=== PATIENT | female | born 1955 | race Caucasian/White ===

== ENCOUNTER → 2020-02-11 10:46 | Outpatient (BNVA) | payer MEDICARE, SELFPAY | PROVIDERS: PCP Family Medicine; Visit Provider Family Medicine Adult Medicine | DX: M54.12 Radiculopathy, cervical region (principal); M54.16 Radiculopathy, lumbar region; M96.1 Postlaminectomy syndrome, not elsewhere classified; M17.0 Bilateral primary osteoarthritis of knee; Z79.891 Long term (current) use of opiate analgesic | CPT/HCPCS: 99214 ==

== ENCOUNTER 2020-03-15 08:46 | Outpatient (REF) | payer MEDICARE, SELFPAY ==
[2020-03-15 09:34] LABS: Basophils Absolute Auto 0.1 X10*3/uL (0.0-0.2); Basophils Percent Auto 0.9 % (0-2); Eosinophils Absolute Auto 0.2 X10*3/uL (0.0-0.4); Eosinophils Percent Auto 3.4 % (0-4); Hematocrit 35.2 % (37-47); Hemoglobin 10.1 g/dl (12.0-16.0); Imm Gran Abs Auto 0.02 X10*3/uL (0.00-0.03); Imm Gran Pct Auto 0.4 % (0.0-0.4); Lymphocytes Absolute Auto 1.7 X10*3/uL (1.2-4.9); Lymphocytes Percent Auto 30.9 % (20-40); MANUAL DIFF FLAG NO; Mean Corpuscular HGB Conc 28.7 g/dl (31.0-35.0); Mean Corpuscular Hemoglobin 21.8 pg (27.0-33.0); Mean Corpuscular Volume 75.9 fL (80-98); Mean Platelet Volume 8.8 fL (9.4-12.3); Monocytes Absolute Auto 0.6 X10*3/uL (0.1-1.2); Monocytes Percent Auto 10.1 % (2-11); Neutrophils Absolute Auto 3.1 X10*3/uL (2.0-8.3); Neutrophils Percent Auto 54.3 % (45-73); Platelet Count 326 X10*3/uL (160-400); Red Blood Count 4.64 X10*6/uL (4.20-5.50); Red Cell Distribution Width 18.1 % (11.0-16.0); White Blood Count 5.6 X10*3/uL (4.8-10.8)
[2020-03-15 10:31] LABS: TSH reflex Free T4 0.71 mIU/mL (0.32-4.0)
[2020-03-15 10:33] LABS: Alanine Aminotransferase 9 U/L (0-31); Albumin Level 4.1 g/dL (3.5-5.0); Alkaline Phosphatase 78 U/L (39-117); Anion Gap 10 (12-20); Aspartate Amino Transferase 15 U/L (5-31); Bilirubin Total 0.5 mg/dL (0.0-1.0); Blood Urea Nitrogen 9 mg/dL (9-16); Calcium 8.6 mg/dL (8.4-10.2); Carbon Dioxide 31 mmol/L (22-29); Chloride 105 mmol/L (96-108); Cholesterol 186 mg/dL; Estimated Glomerular Filt Rate > 60; Glucose Random 90 mg/dL (60-115); HDL Cholesterol 51 mg/dL; Iron 24 mcg/dL (30-160); LDL Cholesterol Calculated 113 mg/dl; Percent Iron Saturation 6 % (15-50); Potassium 4.7 mmol/l (3.3-5.1); Sodium 141 mmol/L (135-145); Total Iron Binding Capacity 372 mcg/dL (228-428); Total Protein 6.5 g/dL (6.5-8.0); Triglycerides 112 mg/dL; Unsaturated Iron Binding 348 ug/dL
== END 2020-03-15 08:47 | disposition home or self-care (01) ==
LOC: HO.LAB 08:46
PROVIDERS: PCP Family Medicine; Visit Provider Family Medicine
DX: Z00.00 Encounter for general adult medical examination without abnormal findings (principal)
CPT/HCPCS: 36415; 80053; 80061; 83540; 84443; 85025

== ENCOUNTER → 2020-03-17 15:29 | Outpatient (BNVA) | payer MEDICARE, SELFPAY | PROVIDERS: PCP Family Medicine; Visit Provider Family Medicine Adult Medicine | DX: M54.16 Radiculopathy, lumbar region (principal); M54.12 Radiculopathy, cervical region; G43.909 Migraine, unspecified, not intractable, without status migrainosus; Z79.891 Long term (current) use of opiate analgesic | CPT/HCPCS: 99212 ==

== ENCOUNTER → 2020-04-12 10:15 | Outpatient (BNVA) | payer MEDICARE, SELFPAY | PROVIDERS: Visit Provider Family Medicine Adult Medicine | DX: M54.16 Radiculopathy, lumbar region (principal); M54.12 Radiculopathy, cervical region | CPT/HCPCS: 99212 ==

== ENCOUNTER → 2020-05-19 12:53 | Outpatient (BNVA) | payer MEDICARE, SELFPAY | PROVIDERS: PCP Family Medicine; Referring Provider Family Medicine; Visit Provider Family Medicine Adult Medicine | DX: M54.16 Radiculopathy, lumbar region (principal); M54.12 Radiculopathy, cervical region | CPT/HCPCS: 99212 ==

== ENCOUNTER → 2020-06-23 12:46 | Outpatient (BNVA) | payer MEDICARE, SELFPAY | PROVIDERS: PCP Family Medicine; Visit Provider Family Medicine Adult Medicine | DX: Z51.81 Encounter for therapeutic drug level monitoring (principal) | CPT/HCPCS: 99211 ==

== ENCOUNTER 2020-07-20 12:18 | Outpatient (REF) | payer MEDICARE, SELFPAY ==
[2020-07-20 13:30] LABS: MANUAL DIFF FLAG NO
[2020-07-20 13:32] LABS: Basophils Absolute Auto 0.1 X10*3/uL (0.0-0.2); Basophils Percent Auto 0.7 % (0-2); Eosinophils Absolute Auto 0.2 X10*3/uL (0.0-0.4); Eosinophils Percent Auto 2.9 % (0-4); Hematocrit 38.3 % (37-47); Hemoglobin 11.8 g/dl (12.0-16.0); Imm Gran Abs Auto 0.02 X10*3/uL (0.00-0.03); Imm Gran Pct Auto 0.3 % (0.0-0.4); Lymphocytes Absolute Auto 1.8 X10*3/uL (1.2-4.9); Mean Corpuscular HGB Conc 30.8 g/dl (31.0-35.0); Mean Corpuscular Hemoglobin 25.8 pg (27.0-33.0); Mean Corpuscular Volume 83.6 fL (80-98); Mean Platelet Volume 9.2 fL (9.4-12.3); Monocytes Absolute Auto 0.5 X10*3/uL (0.1-1.2); Neutrophils Absolute Auto 4.9 X10*3/uL (2.0-8.3); Neutrophils Percent Auto 65.1 % (45-73); Platelet Count 274 X10*3/uL (160-400); Red Blood Count 4.58 X10*6/uL (4.20-5.50); Red Cell Distribution Width 15.5 % (11.0-16.0); White Blood Count 7.6 X10*3/uL (4.8-10.8)
[2020-07-20 14:18] LABS: Alanine Aminotransferase 10 U/L (0-31); Albumin Level 4.3 g/dL (3.5-5.0); Alkaline Phosphatase 86 U/L (39-117); Anion Gap 12 (12-20); Aspartate Amino Transferase 15 U/L (5-31); Bilirubin Total 0.3 mg/dL (0.0-1.0); Blood Urea Nitrogen 8 mg/dL (9-16); Calcium 8.9 mg/dL (8.4-10.2); Carbon Dioxide 30 mmol/L (22-29); Chloride 103 mmol/L (96-108); Estimated Glomerular Filt Rate > 60; Glucose Random 86 mg/dL (60-115); Potassium 4.3 mmol/L (3.3-5.1); Sodium 141 mmol/L (135-145); Total Protein 6.5 g/dL (6.5-8.0)
== END 2020-07-20 12:19 | disposition home or self-care (01) ==
LOC: HO.WFDLDS 12:18
PROVIDERS: Visit Provider Family Medicine
DX: D50.9 Iron deficiency anemia, unspecified (principal); I10 Essential (primary) hypertension
CPT/HCPCS: 36415; 80053; 85025

== ENCOUNTER → 2020-07-21 14:36 | Outpatient (BNVA) | payer MEDICARE, SELFPAY | PROVIDERS: PCP Family Medicine; Visit Provider Family Medicine Adult Medicine | DX: M54.16 Radiculopathy, lumbar region (principal); M54.12 Radiculopathy, cervical region; Z79.899 Other long term (current) drug therapy | CPT/HCPCS: 99212 ==

== ENCOUNTER 2020-07-28 15:50 | Emergency (ER) | payer MEDICARE, SELFPAY ==
--- NOTE | ~2020-07-28 | CT_ITS ---
EXAMINATION: CT HEAD WITHOUT CONTRAST CT CERVICAL SPINE WITHOUT CONTRAST CLINICAL INFORMATION: Head injury. Fall. COMPARISON: CT head 03/02/2019. Plain film cervical spine 01/30/2019 TECHNIQUE: Imaging was performed from the skull base to vertex without intravenous administration of contrast. In addition, helical noncontrast CT imaging was acquired through the cervical spine and source images were reviewed along with axial reconstructions and sagittal and coronal MPRs. [This CT examination was performed using dose optimization techniques as appropriate, variously including the following: *Automated exposure control *Adjustment of mA and/or kV according to patient size (this includes techniques or standardized protocols for targeted exams where dose is matched to indication/reason for exam; i.e. extremities or head) *Use of iterative reconstruction technique] DLP: 1333 mGy-cm FINDINGS: HEAD: No intracranial mass, hemorrhage, or midline shift is visualized. The ventricles and sulci are age-appropriate. No extra-axial collections are identified. The paranasal sinuses and mastoid air cells are well aerated. CERVICAL SPINE: There is no evidence of acute cervical spine fracture. Vertebral bodies remain normal in height. Cervical vertebrae have normal alignment. Status post fusion with anterior plate and screw C4-C7 vertebrae. No pre- or paravertebral soft tissue abnormality is identified. Limited assessment of the lung apices is unremarkable. CT/CT cervical spine wo con IMPRESSION: 1. No acute intracranial pathology. 2. No CT evidence of acute cervical spine fracture or traumatic subluxation. Status post fusion C4 C7 vertebrae.
--- NOTE | ~2020-07-28 | CT_ITS ---
EXAMINATION: CT HEAD WITHOUT CONTRAST CT CERVICAL SPINE WITHOUT CONTRAST CLINICAL INFORMATION: Head injury. Fall. COMPARISON: CT head 03/02/2019. Plain film cervical spine 01/30/2019 TECHNIQUE: Imaging was performed from the skull base to vertex without intravenous administration of contrast. In addition, helical noncontrast CT imaging was acquired through the cervical spine and source images were reviewed along with axial reconstructions and sagittal and coronal MPRs. [This CT examination was performed using dose optimization techniques as appropriate, variously including the following: *Automated exposure control *Adjustment of mA and/or kV according to patient size (this includes techniques or standardized protocols for targeted exams where dose is matched to indication/reason for exam; i.e. extremities or head) *Use of iterative reconstruction technique] DLP: 1333 mGy-cm FINDINGS: HEAD: No intracranial mass, hemorrhage, or midline shift is visualized. The ventricles and sulci are age-appropriate. No extra-axial collections are identified. The paranasal sinuses and mastoid air cells are well aerated. CERVICAL SPINE: There is no evidence of acute cervical spine fracture. Vertebral bodies remain normal in height. Cervical vertebrae have normal alignment. Status post fusion with anterior plate and screw C4-C7 vertebrae. No pre- or paravertebral soft tissue abnormality is identified. Limited assessment of the lung apices is unremarkable. CT/CT head/brain wo con IMPRESSION: 1. No acute intracranial pathology. 2. No CT evidence of acute cervical spine fracture or traumatic subluxation. Status post fusion C4 C7 vertebrae.
[2020-07-28 16:06] VITALS: BP 143/105; PULSE 83; RESP 18; TEMP 36.8; O2SAT 95; BMI 44.2
--- NOTE | 2020-07-28 18:13 | ED.FALL ---
HPI - Fall General Chief Complaint: Fall Stated Complaint: fall - head injury Time Seen by Provider: 07/28/20 18:06 Source: patient Mode of arrival: ambulatory Limitations: no limitations History of Present Illness HPI Narrative: 65-year-old female who normally walks with a walker due to balance problem due to a previous disc surgery and her neck, patient was getting out of the time last night when she lost balance and hit her head in the car door several times, patient declined LOC, patient has been having headache since yesterday. And neck pain. Headache was started after hitting her head yesterday, described as constant, moderate in intensity about 6/10, with neck pain, nothing make it better or worse, no other associated symptoms. Related Data Home Medications Medication Instructions Recorded Confirmed fluoxetine 20 mg capsule 20 mg PO DAILY 02/06/20 07/21/20 fluticasone propionate 50 INTRANASAL 02/06/20 07/21/20 mcg/actuation nasal spray,suspension azithromycin 250 mg tablet mg PO DIRECTED 03/21/20 07/21/20 fluoxetine 40 mg capsule 40 mg PO DAILY 03/21/20 07/21/20 lamotrigine 150 mg tablet 150 mg PO BID 03/21/20 07/21/20 Previous Rx's Medication Instructions Recorded naproxen 500 mg tablet 500 mg PO Q12H 90 Days #180 tab 03/14/20 omeprazole 20 mg capsule,delayed 40 mg PO DAILY #180 cap 03/14/20 release ferrous gluconate 256 mg (28 mg 256 mg PO DAILY 30 Days #30 tab 03/16/20 iron) tablet sumatriptan succinate 50 mg tablet 50 mg PO Q2-4H PRN #5 tab 03/17/20 gabapentin 600 mg tablet 900 mg PO Q8H 90 Days #405 tab 06/28/20 famotidine 40 mg tablet 40 mg PO BEDTIME #90 tab 07/07/20 losartan 25 mg tablet 25 mg PO DAILY #90 tab 07/07/20 hydrochlorothiazide 12.5 mg tablet 12.5 mg PO DAILY 90 Days #90 tab 07/20/20 buprenorphine 20 mcg/hour weekly 1 patch TRANSDERMAL Q7D 28 Days #4 07/21/20 transdermal patch ea oxycodone-acetaminophen 10 mg-325 1 tab PO Q6H PRN 30 Days #120 tab 07/21/20 mg tablet Allergies Allergy/AdvReac Type Severity Reaction Status Date / Time SEAFOOD Allergy Unknown HIVES Uncoded 06/23/20 13:16 Review of Systems Review of Systems: All other systems are reviewed and are negative Constitutional: Reports as per HPI and Reports no additional constitutional complaints Eyes: Reports as per HPI and Reports no additional eye complaints Reports system reviewed and no additional complaints, except as documented Cardiovascular: Reports as per HPI and Reports no additional cardiovascular complaints Respiratory: Reports as per HPI and Reports no additional respiratory complaints Gastrointestinal: Reports as per HPI and Reports no additional gastrointestinal complaints Genitourinary: Reports no additional female genitourinary complaints Musculoskeletal: Reports no additional musculoskeletal complaints Skin/Breast: Reports system reviewed and no additional complaints, except as docu Psychiatric: Reports no additional psychiatric complaints Endocrine: Reports no additional endocrine complaints Hematologic/Lymphatic: Reports no additional hematologic/lymphatic complaints Allergic/Immunologic: Reports no additional allergic/immunologic complaints Reports system reviewed and no additional complaints, except as documented and Reports Abnormal speech present PMFSH Past Medical History Medical History Cervical radiculopathy Lumbar radiculopathy Major depressive disorder Migraine Osteoarthritis of knees, bilateral Urge incontinence Surgical History History of bariatric surgery S/P cervical spinal fusion Family History Family History Father No problems noted. Mother No problems noted. Social History Social History Household Members: None Alcohol intake: never Smoking Status: Former smoker Advance Directives: No Advance Directives Information Provided: Yes Physical Exam Vital Signs: Vital Signs: Last Vital Signs Temp 98.3 F 07/28/20 16:06 Pulse 81 07/28/20 19:11 Resp 16 07/28/20 19:11 BP 112/53 L 07/28/20 19:11 Pulse Ox 98 07/28/20 19:11 Body Mass Index 44.2 Vital signs have been reviewed as appeared to be correct. Blood pressure is high. Heart rate normal. Respiration rate normal. Temperature normal. Oxygen saturation normal. Appearance: Alert. Oriented X3. No acute distress. Head: Normal external exam. Normocephalic. Atraumatic. No Godoy signs noted. No raccoon eyes noted Eyes: PERRLA. EOMI. Conjunctiva and sclera normal. Eyelids normal. ENT: TM's Normal. Pharynx normal. Uvula midline. Moist mucous membranes. No trismus noted. No drooling noted. No muffled voice noted. Neck: Normal inspection. Midline tenderness with no step-off or deformity. CVS: Normal heart rate and rhythm. Heart sound normal. No murmurs noted. Pulses normal throughout. Respiratory: No respiratory distress. Painless inspiration. Breath sounds normal. No wheezes/rales/rhonchi noted. Chest nontender. No accessory muscle usage noted or decreased air movement noted. Abdomen: Soft and nontender. Bowel sounds normal in all 4 quadrants. No distention noted. No organomegaly noted. No visible injury noted. Back: No CVA tenderness. Full range of motion noted. Skin: Skin warm and dry. Normal skin color. Normal skin turgor. No rashes/lesions/lacerations noted. Extremities: No lower extremity edema. Extremities exhibit normal range of motion. Extremities nontender. Neuro: Oriented X 3. No motor deficit. No sensory deficit. Reflexes normal. Course Course Course Narrative: Status post mechanical fall, patient has echo Librium problem usually walk with a walker, with head trauma and neck pain greater than 24 hours ago, GCS of 15, normal neuro exam, head CT is unremarkable. MDM - Fall Imaging Data CT scan - head: Radiologist's impression: No acute intracranial pathology. Cervical spine CT: Radiologist's impression: No acute cervical spine fracture or subluxation. History of cervical spine surgical fusion. Discharge Plan Discharge Clinical Impression: Neck pain Closed head injury Qualifiers: Encounter type: initial encounter Qualified Code(s): S09.90XA - Unspecified injury of head, initial encounter Patient Disposition: Home, Self-Care Instructions: Head Injury (ED) Prescriptions: No Action naproxen 500 mg tablet 500 mg PO Q12H 90 Days Qty: 180 RF: 4 omeprazole 20 mg capsule,delayed release(DR/EC) 40 mg PO DAILY Qty: 180 RF: 2 gabapentin 600 mg tablet 900 mg PO Q8H 90 Days Qty: 405 RF: 1 losartan 25 mg tablet 25 mg PO DAILY Qty: 90 RF: 1 famotidine 40 mg tablet 40 mg PO BEDTIME Qty: 90 RF: 1 lamotrigine 150 mg tablet 150 mg PO BID RF: 0 azithromycin 250 mg tablet PO DIRECTED RF: 0 fluoxetine 40 mg capsule 40 mg PO DAILY RF: 0 hydrochlorothiazide 12.5 mg tablet 12.5 mg PO DAILY 90 Days Qty: 90 RF: 2 ferrous gluconate 256 mg (28 mg iron) tablet 256 mg PO DAILY 30 Days Qty: 30 RF: 3 sumatriptan succinate 50 mg tablet 50 mg PO Q2-4H PRN (Reason: migraine headache) Qty: 5 RF: 0 oxycodone-acetaminophen 10-325 mg tablet 1 tab PO Q6H PRN (Reason: pain) 30 Days Qty: 120 RF: 0 buprenorphine [Butrans] 20 mcg/hour patch weekly 1 patch transdermal Q7D 28 Days Qty: 4 RF: 1 fluticasone propionate 50 mcg/actuation spray,suspension intranasal RF: 0 fluoxetine 20 mg capsule 20 mg PO DAILY RF: 0 Referrals: Iron Castano MD [Primary Care Provider] - 2 days
[2020-07-28 19:11] VITALS: BP 112/53; PULSE 81; RESP 16; O2SAT 98
== END 2020-07-28 19:44 | disposition home or self-care (01) ==
PROVIDERS: Emergency Provider Emergency Medicine; PCP Family Medicine
DX: S09.90XA Unspecified injury of head, initial encounter (principal); M54.2 Cervicalgia; R51.9 Headache, unspecified; Y29.XXXA Contact with blunt object, undetermined intent, initial encounter; Y93.9 Activity, unspecified; Y92.810 Car as the place of occurrence of the external cause; Y99.9 Unspecified external cause status; Z79.899 Other long term (current) drug therapy; Z87.891 Personal history of nicotine dependence
CPT/HCPCS: 70450; 72125; 99284

== ENCOUNTER → 2020-09-01 12:57 | Outpatient (BNVA) | payer MEDICARE, SELFPAY | PROVIDERS: PCP Family Medicine; Visit Provider Family Medicine Adult Medicine | DX: M54.16 Radiculopathy, lumbar region (principal); M54.12 Radiculopathy, cervical region | CPT/HCPCS: 99212; Q3014 ==

== ENCOUNTER → 2020-10-06 08:51 | Outpatient (BNVA) | payer MEDICARE, SELFPAY | PROVIDERS: PCP Family Medicine; Visit Provider Family Medicine Adult Medicine | DX: M54.16 Radiculopathy, lumbar region (principal); M54.12 Radiculopathy, cervical region | CPT/HCPCS: 99212 ==

== ENCOUNTER 2020-10-19 14:00 | Outpatient (RCR) | payer MEDICARE, SELFPAY ==
--- NOTE | 2020-08-10 15:26 | MHC.PT.EP ---
[facility] [place] Office [place] Office [place] Office [address] Sheri Zhao [address] [phone] F: [phone] F: [phone] F: [phone] F: [phone] Physical Therapy Plan of Care Date of Evaluation: 08/10/20 Date of Surgery: 2015 Diagnosis: UNSTEADY GAIT/ LEs WEAKNESS Assessment: 65 YO FEMALE REF TO PT W DX OF LEG WEAKNESS AND UNSTEADY GAIT- OF IMPORTANCE, Pt UNDERWENT C4-C7 CERV FUSION IN 2016 AND HAS RESIDUAL SENSORY DEFICITS IN [place] HANDS AND LAT FEET- SHE HAS DECR ANKLE AROM, LIMITED HIP FLEXIB, CERV AROM, GENERAL WEAKNESS IN [place] LEs, AND DECR POSTURAL AWARENESS. FUNCTIONALLY, Pt HAS LIMITED GAIT PAMELA- SHE DOES BEST W HER ROLLATOR- SHE IS UNABLE TO SLS AND HAS DYNAMIC BALANCE DEFICITS ESPEC DYLON IS NARROWED. SHE WOULD BENEFIT FROM PT TO DEV A HEP AND ADDRESS BALANCE DEFICITS / EDUC AND IMPROVE SAFETY AWARENESS. Frequency and Duration: The patient will be seen 1-2x 5 WKS Short Term Goals: Pt 'S PAIN DECR TO 3-4/10 IN 2 WKS Pt DEMON IMPROVED AROM [place] ANKLES IN 2 WKS IMPROVE TOE OFF/ PRE-SWING PORTION OF GAIT MECH AND ASSESS STAIR MGMT IN 2 WKS Pt INDEP IN/OUT OF CAR W/O SXS IN 3 WKS Nursing Home Goals: Pt INDEP W HEP AND SELF-POSTURAL CORRECTION TO REDUCE TISSUE TENSION ON CERV AND LB OIN 5 WKS Pt DEMON IMPROVED LeS STRENGTH BY 1/2-1 GRADE IN 5 WKS Pt DEMON PROPER TECHN W STAIR MGMT IN 5 WKS Treatment Plan: Modalities to reduce pain, spasms and effusion. Manual therapy to restore motion and function. Therapeutic exercise to improve strength and flexibility. Neuromuscular re-education for posture and balance. Therapeutic activities to return to functional activities of daily living. Electronically signed by: Luci RichardsPT Please sign and return to therapist. Thank you for your referral.
--- NOTE | 2020-10-19 14:56 | MHC.PT.DC ---
[facility] [place] Office [place] Office [place] Office [address] Sheri Zhao [address] [phone] F: [phone] F: [phone] F: [phone] F: [phone] Physical Therapy Discharge Report Diagnosis: UNSTEADY GAIT/ LEs WEAKNESS Date of Surgery: 2015 Date of Evaluation: 08/10/20 Date of Discharge: Treatments to Date: 6 Cancellations to Date: 0 No Shows to Date: 0 Discharge Status: Discharge Summary: Pt MET PT GOALS TO MAX POTENTIAL AT THIS TIME- HER KNEE OA DIRECTLY IMPACTS HER FUNCTIONAL MOBILITY/ ACTIVITY PAMELA- Pt HAS DECR PAIN OVERALL AND NOTES SHE FEELS STRONGER AND ABLE TO AMBULATE/ PERFORM TRANSFERS/ GET IN AND OOB W BETTER TOLERANCE AND TECHN. Pt HAS A THOROUGH HEP TO ADDRESS FURTHER STRENGTHENING. Electronically signed by: Luci Richards,PT Please sign and return to therapist. Thank you for your referral.
== END 2020-10-19 14:58 | disposition other institution (70) ==
LOC: HO.PTCHIC 14:00
PROVIDERS: PCP Family Medicine; Visit Provider Family Medicine
DX: R29.898 Other symptoms and signs involving the musculoskeletal system (principal)
CPT/HCPCS: 97110; 97112; 97140; 97162; 97530

== ENCOUNTER 2020-10-31 11:40 | Outpatient (REF) | payer MEDICARE, SELFPAY ==
[2020-10-31 13:29] LABS: MANUAL DIFF FLAG NO
[2020-10-31 13:31] LABS: Basophils Absolute Auto 0.1 X10*3/uL (0.0-0.2); Basophils Percent Auto 0.9 % (0-2); Eosinophils Absolute Auto 0.2 X10*3/uL (0.0-0.4); Eosinophils Percent Auto 3.4 % (0-4); Hematocrit 39.5 % (37-47); Hemoglobin 12.3 g/dl (12.0-16.0); Imm Gran Abs Auto 0.03 X10*3/uL (0.00-0.03); Imm Gran Pct Auto 0.5 % (0.0-0.4); Lymphocytes Absolute Auto 2.1 X10*3/uL (1.2-4.9); Lymphocytes Percent Auto 33.1 % (20-40); Mean Corpuscular HGB Conc 31.1 g/dl (31.0-35.0); Mean Corpuscular Hemoglobin 26.8 pg (27.0-33.0); Mean Corpuscular Volume 86.1 fL (80-98); Mean Platelet Volume 9.2 fL (9.4-12.3); Monocytes Absolute Auto 0.6 X10*3/uL (0.1-1.2); Monocytes Percent Auto 9.3 % (2-11); Neutrophils Absolute Auto 3.4 X10*3/uL (2.0-8.3); Neutrophils Percent Auto 52.8 % (45-73); Platelet Count 283 X10*3/uL (160-400); Red Blood Count 4.59 X10*6/uL (4.20-5.50); Red Cell Distribution Width 14.6 % (11.0-16.0); White Blood Count 6.4 X10*3/uL (4.8-10.8)
[2020-10-31 13:50] LABS: Anion Gap 12 (12-20); Blood Urea Nitrogen 8 mg/dL (9-16); Calcium 9.4 mg/dL (8.4-10.2); Carbon Dioxide 31 mmol/L (22-29); Chloride 106 mmol/L (96-108); Estimated Glomerular Filt Rate > 60; Glucose Random 89 mg/dL (60-115); Potassium 5.1 mmol/L (3.3-5.1); Sodium 144 mmol/L (135-145)
== END 2020-10-31 11:41 | disposition home or self-care (01) ==
LOC: HO.WFDLDS 11:40
PROVIDERS: PCP Family Medicine; Visit Provider Family Medicine
DX: Z00.00 Encounter for general adult medical examination without abnormal findings (principal); I10 Essential (primary) hypertension; D50.9 Iron deficiency anemia, unspecified
CPT/HCPCS: 36415; 80048; 85025

== ENCOUNTER → 2020-11-03 13:21 | Outpatient (BNVA) | payer MEDICARE, SELFPAY | PROVIDERS: PCP Family Medicine; Visit Provider Family Medicine Adult Medicine | DX: M54.16 Radiculopathy, lumbar region (principal); M54.12 Radiculopathy, cervical region | CPT/HCPCS: 99212 ==

== ENCOUNTER → 2020-12-06 11:26 | Outpatient (BNVA) | payer MEDICARE, SELFPAY | PROVIDERS: PCP Family Medicine; Visit Provider Family Medicine Adult Medicine | DX: M54.16 Radiculopathy, lumbar region (principal); M54.12 Radiculopathy, cervical region; Z79.891 Long term (current) use of opiate analgesic | CPT/HCPCS: 99212 ==

== ENCOUNTER → 2020-12-19 13:15 | Outpatient (BNVA) | payer MEDICARE, SELFPAY | PROVIDERS: PCP Family Medicine; Visit Provider Internal Medicine | DX: M54.16 Radiculopathy, lumbar region (principal) | CPT/HCPCS: 99212 ==

== ENCOUNTER 2021-01-04 06:29 | Outpatient (REF) | payer MEDICARE, SELFPAY ==
--- NOTE | ~2021-01-04 | FL_ITS ---
EXAMINATION: XR FLUOROSCOPY WITH IMAGES CLINICAL INFORMATION: Lumbar radiculopathy COMPARISON: None. TECHNIQUE: Fluoroscopy performed by Paige Rg NP. Fluoroscopy time: 0.2 minutes DAP: 4.64 Gycm2 Images: 2 FINDINGS: 2 C-arm images demonstrate needle 4 epidural injection at the L5-S1 level with small amount of contrast in place. FL/FL guidance in treatment room IMPRESSION: Epidural injection in the operating room.
== END 2021-01-04 06:30 | disposition home or self-care (01) ==
LOC: HO.RADIR 06:29
PROVIDERS: Visit Provider Internal Medicine
DX: M54.16 Radiculopathy, lumbar region (principal)
CPT/HCPCS: 62323; J1040; Q9967

== ENCOUNTER → 2021-01-05 13:19 | Outpatient (BNVA) | payer MEDICARE, SELFPAY | PROVIDERS: PCP Family Medicine; Visit Provider Family Medicine Adult Medicine | DX: M54.16 Radiculopathy, lumbar region (principal); M54.12 Radiculopathy, cervical region | CPT/HCPCS: 99212 ==

== ENCOUNTER → 2021-02-02 13:43 | Outpatient (BNVA) | payer MEDICARE, SELFPAY | PROVIDERS: Visit Provider Family Medicine Adult Medicine | DX: Z51.81 Encounter for therapeutic drug level monitoring (principal); M54.16 Radiculopathy, lumbar region; M54.12 Radiculopathy, cervical region | CPT/HCPCS: 99212 ==

== ENCOUNTER → 2021-02-10 09:42 | Outpatient (BNVA) | payer MEDICARE, SELFPAY | PROVIDERS: Visit Provider Internal Medicine | DX: M47.817 Spondylosis without myelopathy or radiculopathy, lumbosacral region (principal) | CPT/HCPCS: 99212 ==

== ENCOUNTER 2021-03-01 06:08 | Outpatient (REF) | payer MEDICARE, SELFPAY ==
--- NOTE | ~2021-03-01 | FL_ITS ---
EXAMINATION: XR FLUOROSCOPY WITH IMAGES CLINICAL INFORMATION: M47.817 - Spondylosis without myelopathy or radiculopathy COMPARISON: Lumbar fluoroscopic spot views 01/04/2021; MR lumbar spine 01/12/2016 TECHNIQUE: Fluoroscopy performed by Dr. Turk. Fluoroscopy time: 0.5 minutes DAP: 4.07 Gycm2 Images: 3 FINDINGS: There are spinal needles overlying the bilateral outer L3, L4, and L5 neural foramen. There is contrast seen in the respective nerve sheaths. Some early transforaminal epidural extension is suggested. No visible vascular communication. FL/FL guidance in treatment room IMPRESSION: Fluoroscopy for pain management procedures.
== END 2021-03-01 06:09 | disposition home or self-care (01) ==
LOC: HO.RADIR 06:08
PROVIDERS: Visit Provider Internal Medicine
DX: M47.817 Spondylosis without myelopathy or radiculopathy, lumbosacral region (principal); Z79.899 Other long term (current) drug therapy; Z87.891 Personal history of nicotine dependence
CPT/HCPCS: 64493; 64494; Q9967

== ENCOUNTER → 2021-03-06 08:16 | Outpatient (BNVA) | payer MEDICARE, SELFPAY | PROVIDERS: PCP Family Medicine; Visit Provider Internal Medicine | DX: M17.0 Bilateral primary osteoarthritis of knee (principal); M54.12 Radiculopathy, cervical region; M47.817 Spondylosis without myelopathy or radiculopathy, lumbosacral region; G43.909 Migraine, unspecified, not intractable, without status migrainosus; Z87.891 Personal history of nicotine dependence; Z98.84 Bariatric surgery status; Z98.1 Arthrodesis status | CPT/HCPCS: 99212 ==

== ENCOUNTER 2021-03-29 06:37 | Outpatient (REF) | payer MEDICARE, SELFPAY ==
--- NOTE | ~2021-03-29 | FL_ITS ---
EXAMINATION: XR FLUOROSCOPY WITH IMAGES CLINICAL INFORMATION: Spondylosis without myelopathy or radiculopathy COMPARISON: Previous exam February 2021 TECHNIQUE: Fluoroscopy performed by Paige Rg. Fluoroscopy time: 0.5 minutes DAP: 10 Gycm2 Images: 3 FINDINGS: Images demonstrate needle placement and contrast injection adjacent to the bilateral lateral L3-L4 and L5 vertebral bodies. FL/FL guidance in treatment room IMPRESSION: Fluoroscopy guidance for pain management procedure.
== END 2021-03-29 06:38 | disposition home or self-care (01) ==
LOC: HO.RADIR 06:37
PROVIDERS: Visit Provider Internal Medicine
DX: M47.817 Spondylosis without myelopathy or radiculopathy, lumbosacral region (principal)
CPT/HCPCS: 64493; 64494; Q9967

== ENCOUNTER → 2021-04-03 09:38 | Outpatient (BNVA) | payer MEDICARE, SELFPAY | PROVIDERS: PCP Family Medicine; Visit Provider Internal Medicine | DX: M47.817 Spondylosis without myelopathy or radiculopathy, lumbosacral region (principal); M48.061 Spinal stenosis, lumbar region without neurogenic claudication | CPT/HCPCS: 99212 ==

== ENCOUNTER → 2021-04-28 11:03 | Outpatient (BNVA) | payer MEDICARE, MEDICAID, SELFPAY | PROVIDERS: PCP Family Medicine; Visit Provider Nurse Practitioner Family | DX: Z51.81 Encounter for therapeutic drug level monitoring (principal); M47.817 Spondylosis without myelopathy or radiculopathy, lumbosacral region; M48.061 Spinal stenosis, lumbar region without neurogenic claudication; M54.12 Radiculopathy, cervical region; M96.1 Postlaminectomy syndrome, not elsewhere classified | CPT/HCPCS: 99212 ==

== ENCOUNTER 2021-05-10 08:16 | Outpatient (REF) | payer MEDICARE, MEDICAID, SELFPAY ==
--- NOTE | ~2021-05-10 | FL_ITS ---
EXAMINATION: XR FLUOROSCOPY WITH IMAGES CLINICAL INFORMATION: M47.817 - Spondylosis without myelopathy or radiculopathy COMPARISON: Fluoroscopic spot views 03/29/2021, MR lumbar spine 01/12/2016 TECHNIQUE: Fluoroscopy performed by Dr. Jose Turk. Fluoroscopy time: 0.7 minutes DAP: 4.33 Gycm2 Images: 5 FINDINGS: There are spinal needles overlying the outer right L3 and L4 neural foramen. There is contrast seen in the respective nerve sheaths. Transforaminal epidural extension is present as well. No visible vascular communication. There is a port device overlying the abdomen. FL/FL guidance in treatment room IMPRESSION: Fluoroscopy for pain management procedures.
== END 2021-05-10 08:17 | disposition home or self-care (01) ==
LOC: HO.RADIR 08:16
PROVIDERS: Visit Provider Internal Medicine
DX: M47.817 Spondylosis without myelopathy or radiculopathy, lumbosacral region (principal); M48.061 Spinal stenosis, lumbar region without neurogenic claudication; M54.50 Low back pain, unspecified
CPT/HCPCS: 64483; 64484; J1100

== ENCOUNTER 2021-05-29 11:20 | Outpatient (REF) | payer OTHER, SELFPAY | END 2021-05-29 11:21 | disposition home or self-care (01) | LOC: HO.LAB 11:20 | PROVIDERS: PCP Family Medicine; Visit Provider Nurse Practitioner Family | DX: M47.817 Spondylosis without myelopathy or radiculopathy, lumbosacral region (principal); M48.061 Spinal stenosis, lumbar region without neurogenic claudication; M54.12 Radiculopathy, cervical region; M96.1 Postlaminectomy syndrome, not elsewhere classified | CPT/HCPCS: 99212 ==

== ENCOUNTER → 2021-06-26 11:13 | Outpatient (BNVA) | payer MEDICARE, MEDICAID, SELFPAY | PROVIDERS: PCP Family Medicine; Visit Provider Nurse Practitioner Family | DX: Z51.81 Encounter for therapeutic drug level monitoring (principal); F11.20 Opioid dependence, uncomplicated | CPT/HCPCS: 99212 ==

== ENCOUNTER 2021-06-28 13:49 | Outpatient (REF) | payer OTHER, MEDICAID, SELFPAY ==
--- NOTE | ~2021-06-28 | XR_ITS ---
EXAMINATION: XR chest 2V CLINICAL INFORMATION: Reason for Exam W19.XXXA - Unspecified fall, initial encounter COMPARISON: Prior CT 2018 TECHNIQUE: XR chest 2V Lungs and Cari: Both lungs are clear. Pleura: Normal. Costophrenic angles are sharp. No pneumothorax. Heart: The heart is normal in size. Mediastinum: The mediastinum is within normal limits.. Bones: Hardware fusion of cervical spine seen at the margin of the study, skeletal structures otherwise unremarkable. XR/XR chest 2V IMPRESSION: No radiographic evidence of acute cardiopulmonary disease.
== END 2021-06-28 13:50 | disposition home or self-care (01) ==
LOC: HO.HMGCX 13:49
PROVIDERS: PCP Family Medicine; Visit Provider Physician Assistant
DX: R07.81 Pleurodynia (principal); W19.XXXA Unspecified fall, initial encounter
CPT/HCPCS: 71046

== ENCOUNTER 2021-07-12 06:07 | Outpatient (REF) | payer OTHER, SELFPAY ==
--- NOTE | ~2021-07-12 | FL_ITS ---
EXAMINATION: XR FLUOROSCOPY WITH IMAGES CLINICAL INFORMATION: Spinal stenosis lumbar region. COMPARISON: 05/10/2021 TECHNIQUE: Fluoroscopy performed by Dr. Deanna Vargas Fluoroscopy time: 0.5 minutes DAP: 3.24 Gy-cm2 Images: 3 FINDINGS: As the entire spine is not included on the exam, there is a needle placed for a foraminal epidural injection at a vertebral body on the left. Contrast is seen injected in the epidural space. FL/FL guidance in treatment room IMPRESSION: Fluoroscopy and spot films provided for pain management procedure by Dr. Deanna Vargas. Please see her procedure note for full details.
== END 2021-07-12 06:08 | disposition home or self-care (01) ==
LOC: HO.RADIR 06:07
PROVIDERS: Visit Provider Internal Medicine
DX: M47.817 Spondylosis without myelopathy or radiculopathy, lumbosacral region (principal); M48.061 Spinal stenosis, lumbar region without neurogenic claudication
CPT/HCPCS: 64483; J1100; Q9967

== ENCOUNTER → 2021-07-24 11:15 | Outpatient (BNVA) | payer OTHER, SELFPAY | PROVIDERS: PCP Family Medicine; Visit Provider Nurse Practitioner Family | DX: M47.817 Spondylosis without myelopathy or radiculopathy, lumbosacral region (principal); M48.061 Spinal stenosis, lumbar region without neurogenic claudication; M54.12 Radiculopathy, cervical region; M96.1 Postlaminectomy syndrome, not elsewhere classified; Z79.891 Long term (current) use of opiate analgesic | CPT/HCPCS: 99212 ==

== ENCOUNTER → 2021-08-10 10:53 | Outpatient (BNVA) | payer OTHER, SELFPAY | PROVIDERS: PCP Family Medicine; Visit Provider Nurse Practitioner Family | DX: M48.061 Spinal stenosis, lumbar region without neurogenic claudication (principal); M47.817 Spondylosis without myelopathy or radiculopathy, lumbosacral region; M17.0 Bilateral primary osteoarthritis of knee; G89.29 Other chronic pain | CPT/HCPCS: 99212 ==

== ENCOUNTER 2021-08-17 14:18 | Outpatient (REF) | payer OTHER, SELFPAY ==
--- NOTE | ~2021-08-17 | XR_ITS ---
EXAMINATION: XR SHOULDER, RIGHT CLINICAL INFORMATION: Pain COMPARISON: Previous exam from 2015 TECHNIQUE: 3 views of the right shoulder. FINDINGS: Bone alignment is normal. No fracture or dislocation is seen. There is mild arthritis at the glenohumeral and acromioclavicular joints. Soft tissues are normal. XR/XR shoulder RT min 2V IMPRESSION: Mild arthritis.
--- NOTE | ~2021-08-17 | XR_ITS ---
EXAMINATION: XR CERVICAL SPINE CLINICAL INFORMATION: Neck pain COMPARISON: Previous cervical spine x-ray January 2019 TECHNIQUE: 5 views of the cervical spine were obtained. FINDINGS: Bone alignment is normal. No fracture or dislocation is seen. There is anterior fusion from seen from C4 - C7. Orthopedic hardware appears intact. No evidence of loosening is seen. There appears to be fusion at the C4-C5 and C6-C7 disc spaces. There does not appear to be fusion at the C5-C6 disc space. There is mild degenerative spondylosis at C2-C3 and C3-C4 and C7-T1. There is multilevel bilateral neuroforaminal narrowing from bony osteophyte, right greater than left. Prevertebral soft tissues are normal. XR/XR cervical spine 4V IMPRESSION: Stable postsurgical changes following fusion from C4-C7. Degenerative changes.
== END 2021-08-17 14:19 | disposition home or self-care (01) ==
LOC: HO.HMGCX 14:18
PROVIDERS: PCP Family Medicine; Visit Provider Physical Medicine & Rehabilitation
DX: M54.2 Cervicalgia (principal); M25.511 Pain in right shoulder
CPT/HCPCS: 72050; 73030

== ENCOUNTER → 2021-08-21 10:50 | Outpatient (BNVA) | payer OTHER, SELFPAY | PROVIDERS: PCP Family Medicine; Visit Provider Nurse Practitioner Family | DX: Z51.81 Encounter for therapeutic drug level monitoring (principal); F11.20 Opioid dependence, uncomplicated; M47.817 Spondylosis without myelopathy or radiculopathy, lumbosacral region; M48.061 Spinal stenosis, lumbar region without neurogenic claudication; M54.12 Radiculopathy, cervical region; M96.1 Postlaminectomy syndrome, not elsewhere classified; M25.561 Pain in right knee; M25.562 Pain in left knee; M17.0 Bilateral primary osteoarthritis of knee; G89.29 Other chronic pain | CPT/HCPCS: 99212 ==

== ENCOUNTER → 2021-09-11 10:12 | Outpatient (BNVA) | payer OTHER, SELFPAY | PROVIDERS: PCP Family Medicine; Visit Provider Nurse Practitioner Family | DX: Z13.89 Encounter for screening for other disorder (principal) ==

== ENCOUNTER 2021-09-13 12:35 | Emergency (ER) | payer OTHER, MEDICAID, SELFPAY ==
[2021-09-13 13:06] VITALS: BP 98/41; PULSE 88; RESP 16; TEMP 36.8; O2SAT 97; BMI 43.4
[2021-09-13 13:27] LABS: Strep A Nucleic Acid Negative (Negative)
[2021-09-13 13:46] LABS: COVID-19 Test Negative (Negative); IDNOW Serial# 08D9AD1C; Influenza A Negative (Negative); Influenza B2 Negative (Negative)
--- NOTE | 2021-09-13 14:27 | ED.URI ---
HPI - URI/Sore Throat General Chief Complaint: Upper Respiratory Symptoms Stated Complaint: severe sore throat ear pain Time Seen by Provider: 09/13/21 13:19 Source: patient Mode of arrival: ambulatory History of Present Illness HPI Narrative: 66-year-old female with a past medical history of migraines, depression, lumbar stenosis, presenting to the ED complaining of sore throat, left ear pain, dry cough x2 days. Reports pain with swallowing, denies difficulty or inability to swallow, fever, chills, CP, SOB, sick contacts. MD elicited complaint: cough and sore throat Onset (ago): day(s) Related Data Home Medications Medication Instructions Recorded Confirmed fluoxetine 40 mg capsule 40 mg PO DAILY 03/21/20 09/11/21 lamotrigine 150 mg tablet 150 mg PO BID 03/21/20 09/11/21 Previous Rx's Medication Instructions Recorded naproxen 500 mg tablet 500 mg PO Q12H #180 tab 03/31/21 famotidine 40 mg tablet 40 mg PO BEDTIME #90 tab 06/30/21 losartan 50 mg tablet 75 mg PO DAILY 90 Days #135 tab 06/30/21 naloxone 4 mg/actuation nasal 4 mg INTRANASAL Q2M PRN #2 ea 07/24/21 spray (Narcan) gabapentin 600 mg tablet 900 mg PO Q8H 30 Days #135 tab 08/10/21 omeprazole 20 mg capsule,delayed 40 mg PO DAILY #180 cap 08/14/21 release oxycodone-acetaminophen 10 mg-325 1 tab PO Q6H PRN 30 Days #120 tab 09/11/21 mg tablet Allergies Allergy/AdvReac Type Severity Reaction Status Date / Time seafood Allergy hives Verified 09/11/21 10:17 Review of Systems Review of Systems: Constitutional: No Fever, No Chills ENT/Mouth: No Ear Pain, No Nasal Congestion, No Sinus Pain, No Hoarseness, + sore throat, No Rhinorrhea, No Swallowing Difficulty Cardiovascular: No Chest Pain, No SOB Respiratory: + Cough, No Sputum, No Wheezing Gastrointestinal: No Nausea, No Vomiting, No Diarrhea, No Constipation, No Abdominal pain Genitourinary: No Dysuria, No Flank Pain Musculoskeletal: No joint pain, No Myalgias, No Joint Swelling Skin: No Skin Lesions, No rash Neuro: No Weakness Yes all other systems are reviewed and are negative [facility] [place] Past Medical History Attestation statement: The following information was validated with the patient. Medical History Cervical radiculopathy Lumbar and sacral spondyloarthritis Lumbar spinal stenosis Major depressive disorder Migraine Osteoarthritis of knees, bilateral Urge incontinence Surgical History History of bariatric surgery S/P cervical spinal fusion Family History Family History Father No problems noted. Mother No problems noted. Social History Social History Household Members: None Housing: Apartment Alcohol intake: never Patient Tobacco Use Status: Former Tobacco user Years Smoked: 10 e-Cigarette/Vaping Use: Never Used Advance Directives: Yes Advance Directives Information Provided: Yes Advance Directives on File: No service: No Current occupational status: disabled Current occupational exposures/hazards: No Physical Exam Vital Signs: Vital Signs: Last Vital Signs Temp 98.3 F 09/13/21 13:06 Pulse 88 09/13/21 13:06 Resp 16 09/13/21 13:06 BP 98/41 L 09/13/21 13:06 Pulse Ox 97 09/13/21 13:06 BMI result Body Mass Index 43.4 Const: General: cooperative, healthy appearing and no acute distress Orientation/consciousness: patient oriented x3 Limitations: no limitations HEENT: Head: Yes normal to inspection and Yes atraumatic Ears: hearing grossly normal bilaterally, external ears normal, TM's normal bilaterally and mastoids normal General nose exam: Normal external nose present Face and sinus: Yes normal facial exam Mouth: Normal oral and palatal mucosa present Throat: Yes posterior oropharynx normal, Yes tonsils normal, Yes uvula midline, No peritonsillar mass and No uvular edema Eyes: General: appearance normal, both eyes and all related structures EOM: EOMs intact bilaterally Neck: Neck: Yes normal visual inspection, Yes no lymphadenopathy and Yes no meningeal signs Resp: Effort & Inspection: normal respiratory effort and no respiratory distress Auscultation: clear to auscultation bilaterally, no crackles, no rales, no rhonchi and no wheezes Cardio: Rate: regular rate Heart sounds: S1 normal heart sound present and S2 normal heart sound present Skin: Rashes: no rashes Wounds: no wounds Neuro: General: patient oriented x3, tone normal and no meningeal signs Gait exam (Neuro): Normal gait present Extrem: General: Yes normal to inspection MDM - URI/Sore Throat MDM Narrative Medical decision making narrative: 66-year-old female with a past medical history of migraines, depression, lumbar stenosis, presenting to the ED complaining of sore throat, left ear pain, dry cough x2 days. On exam vital signs stable, NAD/nontoxic-appearing, physical exam as above, concern for viral illness. Exam not consistent strep pharyngitis. lower concern for pneumonia. Symptoms atypical for ACS/PE Plan: COVID-19/influenza testing, rapid strep Differential Diagnosis Differential diagnosis: Likely upper respiratory infection, viral infection, bronchitis, influenza and pharyngitis Medical Records Attestation: I reviewed the patient's medical records. Lab Data Attestation: I reviewed the patient's lab results. Labs: Lab Results 09/13/21 09/13/21 09/13/21 Range/Units 13:11 13:11 13:11 COVID-19 ([facility]) Negative (Negative) COVID-19 Clin Com See Note Influenza Type A ([facility]) Negative (Negative) Influenza Type B ([facility]) Negative (Negative) Influenza A & B Note See Note S. pyogenes GrpA [facility] Negative (Negative) Discharge Plan Discharge Clinical Impression: Acute viral syndrome Patient Disposition: Home, Self-Care Instructions: Viral Syndrome (ED) Additional Instructions: You tested negative for COVID-19, the flu, and strep throat. You likely have a viral illness. Rest. Stay hydrated. Take Tylenol /Motrin as needed. Follow up with her doctor. If symptoms persist or worsen return to the ED Prescriptions: No Action naproxen 500 mg tablet 500 mg PO Q12H Qty: 180 4RF famotidine 40 mg tablet 40 mg PO BEDTIME Qty: 90 1RF omeprazole 20 mg capsule,delayed release(DR/EC) 40 mg PO DAILY Qty: 180 3RF oxycodone-acetaminophen 10-325 mg tablet 1 tab PO Q6H PRN (Reason: pain) 30 Days Qty: 120 0RF Rx Instructions: Partial Fill upon patient request. lamotrigine 150 mg tablet 150 mg PO BID 0RF fluoxetine 40 mg capsule 40 mg PO DAILY 0RF losartan 50 mg tablet 75 mg PO DAILY 90 Days Qty: 135 3RF naloxone [Narcan] 4 mg/actuation spray,non-aerosol 4 mg intranasal Q2M PRN (Reason: opioid overdose) Qty: 2 0RF Rx Instructions: spray 1 dose into ONE nostril; alternate nostrils w each dose until help arrives gabapentin 600 mg tablet 900 mg PO Q8H 30 Days Qty: 135 0RF Referrals: Iron Castano MD [Primary Care Provider] - 1 week
== END 2021-09-13 14:44 | disposition home or self-care (01) ==
PROVIDERS: Emergency Provider Emergency Medicine; PCP Family Medicine
DX: B34.9 Viral infection, unspecified (principal); Z20.822 Contact with and (suspected) exposure to COVID-19
CPT/HCPCS: 87502; 87635; 87651; 99283

== ENCOUNTER → 2021-10-26 13:13 | Outpatient (BNVA) | payer MEDICARE, SELFPAY | PROVIDERS: PCP Family Medicine; Visit Provider Nurse Practitioner Family | DX: M47.26 Other spondylosis with radiculopathy, lumbar region (principal); M48.061 Spinal stenosis, lumbar region without neurogenic claudication; M54.12 Radiculopathy, cervical region; M96.1 Postlaminectomy syndrome, not elsewhere classified; G89.29 Other chronic pain; M25.561 Pain in right knee; M25.562 Pain in left knee; M17.0 Bilateral primary osteoarthritis of knee; Z79.891 Long term (current) use of opiate analgesic | CPT/HCPCS: 99212 ==

== ENCOUNTER 2021-11-17 06:56 | Outpatient (REF) | payer OTHER, SELFPAY | END 2021-11-17 06:57 | disposition home or self-care (01) | LOC: HO.RADIR 06:56 | PROVIDERS: Visit Provider Internal Medicine | DX: Z13.89 Encounter for screening for other disorder (principal) ==

== ENCOUNTER 2021-11-22 05:49 | Outpatient (REF) | payer MEDICARE, SELFPAY | END 2021-11-22 05:50 | disposition home or self-care (01) | LOC: HO.RADIR 05:49 | PROVIDERS: Visit Provider Internal Medicine | DX: G89.29 Other chronic pain (principal); M25.561 Pain in right knee; M25.562 Pain in left knee | CPT/HCPCS: 64447 ==

== ENCOUNTER 2021-12-06 06:10 | Outpatient (REF) | payer MEDICARE, SELFPAY ==
--- NOTE | ~2021-12-06 | FL_ITS ---
EXAMINATION: XR FLUOROSCOPY WITH IMAGES CLINICAL INFORMATION: Pain right knee. COMPARISON: None. TECHNIQUE: Fluoroscopy performed by Deanna Lentz. Fluoroscopy time: 0.1. Cumulative Dose: 3.24 mGy. DAP: 0.0562 Gy-cm2. Images: 2. FINDINGS: There are needles along the medial and lateral distal femur and proximal medial tibia for pain management. Mild loss of medial compartment and significant loss of patellofemoral compartment joint space with moderate periarticular spurring is noted. No visible fracture or lytic process. FL/FL guidance in treatment room IMPRESSION: Fluoroscopy was provided to referrer for pain management.
== END 2021-12-06 06:11 | disposition home or self-care (01) ==
LOC: HO.RADIR 06:10
PROVIDERS: Visit Provider Internal Medicine
DX: M17.11 Unilateral primary osteoarthritis, right knee (principal); M25.562 Pain in left knee; G89.29 Other chronic pain
CPT/HCPCS: 64450; 64454

== ENCOUNTER → 2021-12-22 09:59 | Outpatient (BNVA) | payer MEDICARE, SELFPAY | PROVIDERS: PCP Family Medicine; Visit Provider Nurse Practitioner Family | DX: Z51.81 Encounter for therapeutic drug level monitoring (principal); F11.20 Opioid dependence, uncomplicated; M25.572 Pain in left ankle and joints of left foot; M47.817 Spondylosis without myelopathy or radiculopathy, lumbosacral region; M48.061 Spinal stenosis, lumbar region without neurogenic claudication; M96.1 Postlaminectomy syndrome, not elsewhere classified; M25.561 Pain in right knee; M25.562 Pain in left knee; G89.29 Other chronic pain; M17.0 Bilateral primary osteoarthritis of knee | CPT/HCPCS: 99212 ==

== ENCOUNTER 2022-01-05 07:59 | Outpatient (REF) | payer MEDICARE, SELFPAY ==
--- NOTE | ~2022-01-05 | XR_ITS ---
EXAMINATION: XR ANKLE, LEFT CLINICAL INFORMATION: Left ankle pain. COMPARISON: None TECHNIQUE: AP, lateral, and mortise views of the left ankle. FINDINGS: Mild tibiotalar degenerative joint changes are seen. There is no acute fracture or dislocation. Mild periarticular degenerative spurring seen off of the anterior tibial margin. The subtalar joint is unremarkable. Mild degenerative changes are seen in the remainder the intertarsal joints. Small plantar calcaneal spur. The tarsal bones are normally aligned. There is no acute fracture or dislocation. The soft tissues are unremarkable. XR/XR ankle LT min 3V IMPRESSION: Mild degenerative changes as detailed above. No acute abnormality.
== END 2022-01-05 08:00 | disposition home or self-care (01) ==
LOC: HO.HOSX 07:59
PROVIDERS: Visit Provider Physician Assistant
DX: M19.072 Primary osteoarthritis, left ankle and foot (principal)
CPT/HCPCS: 73610; 99202

== ENCOUNTER → 2022-01-19 09:48 | Outpatient (BNVA) | payer MEDICARE, SELFPAY | PROVIDERS: PCP Family Medicine; Visit Provider Nurse Practitioner Family | DX: Z79.891 Long term (current) use of opiate analgesic (principal) | CPT/HCPCS: 99211 ==

== ENCOUNTER 2022-02-01 10:24 | Outpatient (REF) | payer MEDICARE, SELFPAY ==
[2022-02-01 10:40] LABS: MANUAL DIFF FLAG NO
[2022-02-01 11:41] LABS: Basophils Percent Auto 0.6 % (0-2); Eosinophils Absolute Auto 0.2 X10*3/uL (0.0-0.4); Eosinophils Percent Auto 2.9 % (0-4); Hematocrit 34.5 % (37.0-47.0); Hemoglobin 10.6 g/dl (12.0-16.0); Imm Gran Abs Auto 0.02 X10*3/uL (0.00-0.03); Imm Gran Pct Auto 0.4 % (0.0-0.4); Lymphocytes Absolute Auto 1.3 X10*3/uL (1.2-4.9); Lymphocytes Percent Auto 26.3 % (20-40); Mean Corpuscular HGB Conc 30.7 g/dl (31.0-35.0); Mean Corpuscular Hemoglobin 25.4 pg (27.0-33.0); Mean Corpuscular Volume 82.7 fL (80.0-98.0); Mean Platelet Volume 9.5 fL (9.4-12.3); Monocytes Absolute Auto 0.5 X10*3/uL (0.1-1.2); Monocytes Percent Auto 8.8 % (2-11); Neutrophils Absolute Auto 3.1 x10*3/uL (2.0-8.3); Platelet Count 284 X10*3/uL (160-400); Red Blood Count 4.17 X10*6/uL (4.20-5.50); Red Cell Distribution Width 14.6 % (11.0-16.0); White Blood Count 5.1 X10*3/uL (4.8-10.8)
[2022-02-01 11:42] LABS: Appearance Urine Clear; Color Urine Yellow; Glucose Urine UA Negative (Negative); Leukocyte Esterase Urine Trace (Negative); Nitrite Urine Negative (Negative); PH 8.5 (5.0-9.0); Specific Gravity - Urine 1.015 (1.005-1.025); UMIC TRIGGER UA YES; Urine Blood Negative (Negative); Urine Ketones Negative (Negative); Urine Protein Negative (Neg-Trace)
[2022-02-01 11:45] LABS: Bacteria Urine None Seen (None Seen); Hyaline Casts Urine 0-2 /LPF (0-2); RBC Urine 0-2 /HPF (0-2); Squamous Epithelial Cell Urine 0-2 /HPF (0-2); WBC Urine 0-5 /HPF (0-5)
[2022-02-01 12:21] LABS: Creatinine Urine 49.82 mg/dL; Microalbumin Urine < 5.0 mg/L
[2022-02-01 12:28] LABS: Alanine Aminotransferase 10 U/L (0-31); Albumin Level 4.2 g/dL (3.5-5.0); Alkaline Phosphatase 86 U/L (39-117); Anion Gap 16 (12-20); Aspartate Amino Transferase 16 U/L (5-31); Bilirubin Total 0.4 mg/dL (0.0-1.0); Blood Urea Nitrogen 10 mg/dL (9-16); Calcium 9.1 mg/dL (8.4-10.2); Carbon Dioxide 24 mmol/L (22-29); Chloride 106 mmol/L (96-108); Cholesterol 183 mg/dL; Estimated Glomerular Filt Rate > 60; Glucose Fasting 88 mg/dL (60-99); HDL Cholesterol 51 mg/dL; LDL Cholesterol Calculated 116 mg/dl; Potassium 4.3 mmol/L (3.3-5.1); Sodium 142 mmol/L (135-145); Total Protein 6.6 g/dL (6.5-8.0); Triglycerides 82 mg/dL
[2022-02-01 12:48] LABS: TSH reflex Free T4 0.94 uIU/mL (0.32-4.0)
== END 2022-02-01 10:25 | disposition home or self-care (01) ==
LOC: HO.LAB 10:24
PROVIDERS: PCP Family Medicine; Visit Provider Family Medicine
DX: Z00.00 Encounter for general adult medical examination without abnormal findings (principal); I10 Essential (primary) hypertension
CPT/HCPCS: 36415; 80053; 80061; 81001; 81003; 82043; 84443; 85025

== ENCOUNTER → 2022-02-16 15:10 | Outpatient (BNVA) | payer MEDICARE, SELFPAY | PROVIDERS: PCP Family Medicine; Visit Provider Nurse Practitioner Family | DX: Z51.81 Encounter for therapeutic drug level monitoring (principal); F11.20 Opioid dependence, uncomplicated; M25.572 Pain in left ankle and joints of left foot; M47.817 Spondylosis without myelopathy or radiculopathy, lumbosacral region; M48.061 Spinal stenosis, lumbar region without neurogenic claudication; M96.1 Postlaminectomy syndrome, not elsewhere classified; M25.561 Pain in right knee; M25.562 Pain in left knee; G89.29 Other chronic pain; M17.0 Bilateral primary osteoarthritis of knee | CPT/HCPCS: 99212 ==

== ENCOUNTER 2022-02-21 06:01 | Outpatient (REF) | payer MEDICARE, SELFPAY | END 2022-02-21 06:02 | disposition home or self-care (01) | LOC: CF 06:01 | PROVIDERS: Visit Provider Internal Medicine | DX: M17.0 Bilateral primary osteoarthritis of knee (principal) | CPT/HCPCS: 64447 ==

== ENCOUNTER 2022-02-28 06:07 | Outpatient (REF) | payer MEDICARE, SELFPAY | END 2022-02-28 06:08 | disposition home or self-care (01) | LOC: CF 06:07 | PROVIDERS: Visit Provider Internal Medicine | DX: M25.561 Pain in right knee (principal); M25.562 Pain in left knee; G89.29 Other chronic pain | CPT/HCPCS: 64447 ==

== ENCOUNTER → 2022-03-02 08:48 | Outpatient (BNVA) | payer MEDICARE, SELFPAY | PROVIDERS: PCP Family Medicine; Visit Provider Nurse Practitioner Family | DX: M25.561 Pain in right knee (principal); M25.562 Pain in left knee; M17.0 Bilateral primary osteoarthritis of knee; M25.572 Pain in left ankle and joints of left foot; G89.29 Other chronic pain; M54.12 Radiculopathy, cervical region; M43.22 Fusion of spine, cervical region; M47.817 Spondylosis without myelopathy or radiculopathy, lumbosacral region; M48.061 Spinal stenosis, lumbar region without neurogenic claudication; E66.01 Morbid (severe) obesity due to excess calories; Z68.41 Body mass index [BMI] 40.0-44.9, adult | CPT/HCPCS: Q3014 ==

== ENCOUNTER 2022-03-12 11:00 | Outpatient (RCR) | payer MEDICARE, SELFPAY ==
--- NOTE | 2022-01-26 10:58 | MHC.PT.EP ---
[facility] [place] [facility] [place] [facility] [place] [facility] [address] Sheri Zhao [address] [phone] F: [phone] F: [phone] F: [phone] F: [phone] Physical Therapy Plan of Care Date of Evaluation: Date of Surgery: Diagnosis: OA L ankle and foot Assessment: Patient is a 66 year old R handed female who presents with s/s consistent with L ankle pain, OA of ankle/foot. She does not work and tends to the house daily. Patient past medical history includes spinals surgery with nerve damage reportedly in plantar surface of L foot. Current impairments include pain, posture, ROM, strength, balance, activity tolerance and functional mobility. Functional limitations include decreased ability to walk, stand and weight bear. Patient is motivated with good rehab potential. Skilled PT will address impairments and functional limitations in order to achieve goals. Frequency and Duration: The patient will be seen 2x/week for 5 weeks Short Term Goals: I with HEP - 2 weeks DF to 10 AROM, PF to 35 AROM - 3 weeks Able to walk 5 minutes without increased pain - 3 weeks Hand Almond Blancher Goals: Ankle strength grossly 4/5 - 5 weeks Able to walk 10 minutes without increased pain - 5 weeks LEFS 36/80 - 5 weeks Treatment Plan: Modalities to reduce pain, spasms and effusion. Manual therapy to restore motion and function. Therapeutic exercise to improve strength and flexibility. Neuromuscular re-education for posture and balance. Therapeutic activities to return to functional activities of daily living. Electronically signed by: Farrukh Hughes PT Please sign and return to therapist. Thank you for your referral.
--- NOTE | 2022-04-25 09:59 | MHC.PT.DC ---
[facility] [place] [facility] [place] [facility] [place] [facility] [address] Sheri Zhao [address] [phone] F: [phone] F: [phone] F: [phone] F: [phone] Physical Therapy Discharge Report Diagnosis: OA L ankle and foot Date of Surgery: Date of Evaluation: 01/26/22 Date of Discharge: 04/25/22 Treatments to Date: 9 Cancellations to Date: No Shows to Date: Discharge Status: Independent with HEP Discharge Summary: 03/12/22: while pt has had progress on some impairments and symptoms such as swelling and balance, she has had difficulty achieving functional improvement. This is complicated likely due to co-morbidities as pt's knee pain has made it difficult to progress activities. she reportedly has had many cortisone shots. at this time, she does have an updated appropriate exercise and will d/c to this at this time. 03/07/22: we did update HEP today. reduced pain and swelling overall. we will d/c to HEP Nv. 03/02/22: we did review HEP and plan and we will plan to d/c to HEP in 2 more visits with updated HEP. 02/26/22: pt with less swelling and improved, near full ROM. strength is 4+ DF and PF. we will continue to progress 3 more visits until d/c to HEP. 02/20/22: pt has been continuing to progress overall with ROM and strength. reduced pain and improved standing tolerance to 20 minutes. 02/07/22: pt has been progressing well with less swelling. but she has been still have some knee pain. continue to progress as tolerated. 02/05/22: Pt notes some increased swelling after last visit. we moved more towards [place] ex today. issued bands for HEP. 02/02/22: pt progressed with standing/seated ex. no adverse reactions. updated HEP as well. assess response NV. 01/31/22: pt progressed with hip and LE strength. still with some swelling present. we will resume use of ICE next visit. Patient is a 66 year old R handed female who presents with s/s consistent with L ankle pain, OA of ankle/foot. She does not work and tends to the house daily. Patient past medical history includes spinals surgery with nerve damage reportedly in plantar surface of L foot. Current impairments include pain, posture, ROM, strength, balance, activity tolerance and functional mobility. Functional limitations include decreased ability to walk, stand and weight bear. Patient is motivated with good rehab potential. Skilled PT will address impairments and functional limitations in order to achieve goals. Electronically signed by: Farrukh Hughes, PT Please sign and return to therapist. Thank you for your referral.
== END 2022-04-25 10:00 | disposition home or self-care (01) ==
LOC: HO.PTCHIC 11:00
PROVIDERS: PCP Family Medicine; Visit Provider Physician Assistant
DX: M19.072 Primary osteoarthritis, left ankle and foot (principal)
CPT/HCPCS: 97110; 97112; 97140; 97162

== ENCOUNTER → 2022-03-23 13:00 | Outpatient (BNVA) | payer MEDICARE, SELFPAY | PROVIDERS: PCP Family Medicine; Visit Provider Nurse Practitioner Family | DX: Z51.81 Encounter for therapeutic drug level monitoring (principal); F11.20 Opioid dependence, uncomplicated; M47.817 Spondylosis without myelopathy or radiculopathy, lumbosacral region; M48.061 Spinal stenosis, lumbar region without neurogenic claudication; M96.1 Postlaminectomy syndrome, not elsewhere classified; M17.0 Bilateral primary osteoarthritis of knee; G89.29 Other chronic pain | CPT/HCPCS: 99212 ==

== ENCOUNTER 2022-04-07 13:20 | Outpatient (REF) | payer MEDICARE, SELFPAY ==
[2022-04-07 14:12] LABS: Influenza A PCR NEGATIVE (Negative); Influenza B PCR NEGATIVE (Negative); Resp Syncy Virus RNA Qual PCR NEGATIVE (Negative); SARS COV2 PCR INHOUSE NEGATIVE (Negative)
== END 2022-04-07 13:21 | disposition home or self-care (01) ==
LOC: HO.LNP 13:20
PROVIDERS: Visit Provider Physician Assistant Medical
DX: R05.9 Cough, unspecified (principal); Z20.822 Contact with and (suspected) exposure to COVID-19
CPT/HCPCS: 0241U

== ENCOUNTER 2022-04-18 06:17 | Outpatient (REF) | payer MEDICARE, SELFPAY | END 2022-04-18 06:18 | disposition home or self-care (01) | LOC: CF 06:17 | PROVIDERS: Visit Provider Internal Medicine | DX: M25.562 Pain in left knee (principal); M25.561 Pain in right knee; G89.29 Other chronic pain | CPT/HCPCS: 64447 ==

== ENCOUNTER → 2022-04-19 09:07 | Outpatient (BNVA) | payer MEDICARE, SELFPAY | PROVIDERS: PCP Family Medicine; Visit Provider Nurse Practitioner Family | DX: M47.817 Spondylosis without myelopathy or radiculopathy, lumbosacral region (principal); M17.0 Bilateral primary osteoarthritis of knee; E66.01 Morbid (severe) obesity due to excess calories; G89.29 Other chronic pain; Z68.41 Body mass index [BMI] 40.0-44.9, adult | CPT/HCPCS: Q3014 ==

== ENCOUNTER 2022-05-02 12:46 | Day surgery (SDC) | payer MEDICARE, SELFPAY ==
[2022-05-02 12:55] VITALS: BMI 42.5
[2022-05-02 15:40] VITALS: PULSE 73; RESP 16; TEMP 36.4; O2SAT 96
--- NOTE | 2022-05-02 15:52 | MHC.SHP ---
Pre-Procedural Eval Section A Date of Service: 05/02/22 The patient is an INPATIENT: No Changes since office visit: Yes Patient answered all questions The History & Physical has been completed within 30 days and I have reviewed it.: Yes Section B Chief Complaint: Pain in right knee,chronic pain Relevant Family History (Specify if Yes): No Relevant Social History: None Present Medications: see Short Stay Collaborative assessment Medical History: No relevant PMH History of Previous Operations: No relevant previous surgery Allergies: Allergies Allergy/AdvReac Type Severity Reaction Status Date / Time seafood Allergy hives Verified 04/19/22 09:09 Review of Systems Sugical H&P ROS: Negative: Constitution, Cardiovascular and Respiratory Exam Surgical H&P Exam: Normal: HEENT, Normal: Heart and Normal: Lungs Plan Diagnosis/Plan: Unchanged I have reviewed the history and physical and performed a pertinent physical examination on my patient. No changes have occurred unless specified. Time Spent With Patient Time: Total time managing care of this patient today ____ minutes.
--- NOTE | 2022-05-02 15:58 | PM.OP ---
Brief Operative Note Date of Service: 05/02/22 Pre-op diagnosis: Pain in right knee joint, chronic pain syndrome Post-op diagnosis: same Procedure: Temporary saphenous nerve stimulator placement, right Implants: SPR temporary PNS system Surgeon: Jose Turk MD Anesthesia: local Was an Marketing Database Analyst used for this Procedure?: No Estimated blood loss (mL): 1 Pathology: none sent Condition: stable Disposition: same day
--- NOTE | 2022-05-02 15:59 | P.OP_ITS ---
Operative Note Operative Note Date of Service: 05/02/22 Narrative: Peripheral Nerve Stimulation Temporary Lead Placement, Ultrasound-Guided, Saphenous Nerve, Right ? After the risks, benefits and alternatives were discussed with the patient and informed consentwas obtained, patient was placed in the supine position and padded to foster comfort. Appropriate skin and bony landmarks were identified, and pertinent vascular structures were located. The skin overlying the needle entry site was prepped and draped in sterile fashion. Ultrasound was used to identify the femoral artery, the femoral vein and the saphenous nerve. After identifying and marking the intended target along the course of the saphenous nerve, the skin around the planned entry point and the subcutaneous tissues were injected with local anesthetic. An introducer needle and stimulating probe were assembled, inserted and advanced along the intended course of the saphenous; nerve, taking care to maintain the proper depth of insertion as the introducer was advanced under ultrasound guidance. The introducer needle was delivered to a location in proximity to the nerve taking care not to puncture the femoral artery or the vein. Multiple stimulation parameters were used to deliver stimulation to the saphenous nerve in concert with stimulating at multiple positions around the nerve. Nerve target acquisition was confirmed noting generation of sensory and mild motor effects (paresthesia, muscle tension, etc) in the medial knee, leg and ankle; corresponding to the distribution of the saphenous nerve. Various electrical parameter combinations were tested, and the lead location was adjusted (physic ally relocated under ultrasound guidance) until the patient indicated medial knee paresthesia and tension overlapping the distribution of the patient?s typical region of pain. The stimulating probe was removed from the introducer and a percutaneous lead was guided through the needle and delivered to a location in similar proximity to the nerve. Final location was verified with electrical stimulation and documented. The introducer needle was removed, and the exposed end of the percutaneous lead was attached to an external stimulator unit. Various electrical parameter combinations were again tested until the patient indicated paresthesia and muscle tension overlapping the distribution of the patient?s typical region of pain. After confirming that lead impedance was in the normal range, the external unit was detached, the needle was removed, and the lead was anchored at the skin. The lead was threaded into the connector block and electrical continuity and desired patient response was confirmed. The connector block was attached to the external stimulator unit. The site was covered with a sterile occlusive dressing. A final ultrasound image was taken to document final placement. The patient was observed for stability of vital signs and comfort.
== END 2022-05-02 16:48 | disposition home or self-care (01) ==
PROVIDERS: PCP Family Medicine; Visit Provider Internal Medicine
PROC: (CPT 64555; principal; 2022-05-02 13:40)
DX: M25.561 Pain in right knee (principal); G89.4 Chronic pain syndrome; M17.0 Bilateral primary osteoarthritis of knee; M47.817 Spondylosis without myelopathy or radiculopathy, lumbosacral region; Z98.1 Arthrodesis status; E66.01 Morbid (severe) obesity due to excess calories; Z68.41 Body mass index [BMI] 40.0-44.9, adult; Z98.84 Bariatric surgery status; Z87.891 Personal history of nicotine dependence
CPT/HCPCS: 64555; C1778

== ENCOUNTER → 2022-05-03 13:40 | Outpatient (BNVA) | payer MEDICARE, SELFPAY | PROVIDERS: PCP Family Medicine; Visit Provider Internal Medicine | DX: Z48.00 Encounter for change or removal of nonsurgical wound dressing (principal) | CPT/HCPCS: 99211 ==

== ENCOUNTER → 2022-05-11 08:46 | Outpatient (BNVA) | payer MEDICARE, SELFPAY | PROVIDERS: PCP Family Medicine; Visit Provider Internal Medicine | DX: M25.562 Pain in left knee (principal); M25.561 Pain in right knee; G89.29 Other chronic pain | CPT/HCPCS: 20610; 99212; J2795; J3301 ==

== ENCOUNTER → 2022-05-18 10:35 | Outpatient (BNVA) | payer MEDICARE, SELFPAY | PROVIDERS: PCP Family Medicine; Visit Provider Internal Medicine | DX: Z13.89 Encounter for screening for other disorder (principal) ==

== ENCOUNTER 2022-05-22 18:08 | Outpatient (REF) | payer MEDICARE, SELFPAY ==
[2022-05-22 19:08] LABS: Influenza A PCR NEGATIVE (Negative); Influenza B PCR NEGATIVE (Negative); Resp Syncy Virus RNA Qual PCR NEGATIVE (Negative); SARS COV2 PCR INHOUSE POSITIVE (Negative)
== END 2022-05-22 18:09 | disposition home or self-care (01) ==
LOC: HO.LNP 18:08
PROVIDERS: Visit Provider Internal Medicine
DX: R43.9 Unspecified disturbances of smell and taste (principal); Z20.822 Contact with and (suspected) exposure to COVID-19
CPT/HCPCS: 0241U

== ENCOUNTER → 2022-05-29 15:43 | Outpatient (BNVA) | payer MEDICARE, SELFPAY | PROVIDERS: PCP Family Medicine; Visit Provider Nurse Practitioner Family | DX: M47.817 Spondylosis without myelopathy or radiculopathy, lumbosacral region (principal); M48.061 Spinal stenosis, lumbar region without neurogenic claudication; M96.1 Postlaminectomy syndrome, not elsewhere classified; G89.29 Other chronic pain; M25.561 Pain in right knee; M25.562 Pain in left knee; M17.0 Bilateral primary osteoarthritis of knee; Z79.891 Long term (current) use of opiate analgesic | CPT/HCPCS: 99212 ==

== ENCOUNTER 2022-06-08 11:50 | Outpatient (REF) | payer MEDICARE, SELFPAY ==
[2022-06-08 12:40] LABS: MANUAL DIFF FLAG NO
[2022-06-08 13:20] LABS: Basophils Percent Auto 0.7 % (0-2); Eosinophils Absolute Auto 0.2 X10*3/uL (0.0-0.4); Eosinophils Percent Auto 3.6 % (0-4); Hematocrit 36.6 % (37.0-47.0); Hemoglobin 11.2 g/dl (12.0-16.0); Imm Gran Abs Auto 0.02 X10*3/uL (0.00-0.03); Imm Gran Pct Auto 0.3 % (0.0-0.4); Lymphocytes Absolute Auto 1.8 X10*3/uL (1.2-4.9); Lymphocytes Percent Auto 30.6 % (20-40); Mean Corpuscular HGB Conc 30.6 g/dl (31.0-35.0); Mean Corpuscular Hemoglobin 24.7 pg (27.0-33.0); Mean Corpuscular Volume 80.6 fL (80.0-98.0); Mean Platelet Volume 9.4 fL (9.4-12.3); Monocytes Absolute Auto 0.6 X10*3/uL (0.1-1.2); Monocytes Percent Auto 10.7 % (2-11); Neutrophils Absolute Auto 3.1 x10*3/uL (2.0-8.3); Neutrophils Percent Auto 54.1 % (45-73); Platelet Count 288 X10*3/uL (160-400); Red Blood Count 4.54 X10*6/uL (4.20-5.50); Red Cell Distribution Width 16.3 % (11.0-16.0); White Blood Count 5.8 X10*3/uL (4.8-10.8)
== END 2022-06-08 11:51 | disposition home or self-care (01) ==
LOC: HO.LAB 11:50
PROVIDERS: Absent Provider Family Medicine; PCP Family Medicine; Visit Provider Internal Medicine
DX: Z00.00 Encounter for general adult medical examination without abnormal findings (principal); D64.9 Anemia, unspecified
CPT/HCPCS: 36415; 85025

== ENCOUNTER → 2022-06-29 09:04 | Outpatient (BNVA) | payer MEDICARE, MEDICAID, SELFPAY | PROVIDERS: PCP Family Medicine; Visit Provider Internal Medicine | DX: Z51.81 Encounter for therapeutic drug level monitoring (principal); M25.561 Pain in right knee; M25.562 Pain in left knee; G89.29 Other chronic pain | CPT/HCPCS: 99212 ==

== ENCOUNTER 2022-07-11 13:59 | Day surgery (SDC) | payer MEDICARE, MEDICAID, SELFPAY ==
[2022-07-11 14:10] VITALS: BMI 40.7
--- NOTE | 2022-07-11 15:47 | MHC.SHP ---
Pre-Procedural Eval Section A Date of Service: 07/11/22 The patient is an INPATIENT: No Changes since office visit: Yes Patient answered all questions The History & Physical has been completed within 30 days and I have reviewed it.: No Section B Chief Complaint: Pain in left knee Relevant Family History (Specify if Yes): No Relevant Social History: None Present Medications: see Short Stay Collaborative assessment Medical History: No relevant PMH History of Previous Operations: No relevant previous surgery Allergies: Allergies Allergy/AdvReac Type Severity Reaction Status Date / Time seafood Allergy hives Verified 06/12/22 14:26 Review of Systems Sugical H&P ROS: Negative: Constitution, Cardiovascular and Respiratory Exam Surgical H&P Exam: Normal: HEENT, Normal: Heart and Normal: Lungs Plan Diagnosis/Plan: Unchanged I have reviewed the history and physical and performed a pertinent physical examination on my patient. No changes have occurred unless specified. Time Spent With Patient Time: Total time managing care of this patient today ____ minutes.
--- NOTE | 2022-07-11 15:48 | P.BOP_ITS ---
Brief Operative Note Date of Service: 07/11/22 Pre-op diagnosis: Chronic left knee pain Post-op diagnosis: same Procedure: Temporary left saphenous nerve stimulator Implants: [employer] PNS system Surgeon: Jose Turk MD Anesthesia: local Was an Pattern Grader Supervisor used for this Procedure?: No Estimated blood loss (mL): 1 Pathology: none sent Condition: stable Disposition: same day
--- NOTE | 2022-07-11 15:48 | P.OP_ITS ---
Operative Note Operative Note Date of Service: 07/11/22 Narrative: Peripheral Nerve Stimulation Temporary Lead Placement, Ultrasound-Guided, Saphenous Nerve, Left ? After the risks, benefits and alternatives were discussed with the patient and informed consentwas obtained, patient was placed in the supine position and padded to foster comfort. Appropriate skin and bony landmarks were identified, and pertinent vascular structures were located. The skin overlying the needle entry site was prepped and draped in sterile fashion. Ultrasound was used to identify the femoral artery, the femoral vein and the saphenous nerve. After identifying and marking the intended target along the course of the Saphenous nerve, the skin around the planned entry point and the subcutaneous tissues were injected with local anesthetic. An introducer needle and stimulating probe were assembled, inserted and advanced along the intended course of the saphenous; nerve, taking care to maintain the proper depth of insertion as the introducer was advanced under ultrasound guidance. The introducer needle was delivered to a location in proximity to the nerve taking care not to puncture the femoral artery or the vein. Multiple stimulation parameters were used to deliver stimulation to the saphenous nerve in concert with stimulating at multiple positions around the nerve. Nerve target acquisition was confirmed noting generation of sensory and mild motor effects (paresthesia, muscle tension, etc) in the medial knee, leg and ankle; corresponding to the distribution of the saphenous nerve. Various electrical parameter combinations were tested, and the lead location was adjusted (physica lly relocated under ultrasound guidance) until the patient indicated medial knee paresthesia and tension overlapping the distribution of the patient?s typical region of pain. The stimulating probe was removed from the introducer and a percutaneous lead was guided through the needle and delivered to a location in similar proximity to the nerve. Final location was verified with electrical stimulation and documented. The introducer needle was removed, and the exposed end of the percutaneous lead was attached to an external stimulator unit. Various electrical parameter combinations were again tested until the patient indicated paresthesia and muscle tension overlapping the distribution of the patient?s typical region of pain. After confirming that lead impedance was in the normal range, the external unit was detached, the needle was removed, and the lead was anchored at the skin. The lead was threaded into the connector block and electrical continuity and desired patient response was confirmed. The connector block was attached to the external stimulator unit. The site was covered with a sterile occlusive dressing. A final ultrasound image was taken to document final placement. The patient was observed for stability of vital signs and comfort.
[2022-07-11 16:48] VITALS: BP 134/61; PULSE 74; RESP 20; TEMP 36.3; O2SAT 100
--- NOTE | 2022-07-11 17:05 | PC.NURSE ---
1700 OOB AMBULATED TO BATHROOM TO [id number]. STEADY GAIT USING HOME WALKER. RETURNED TO CHAIR TO DRESS
== END 2022-07-11 17:10 | disposition home or self-care (01) ==
PROVIDERS: PCP Family Medicine; Visit Provider Internal Medicine
PROC: (CPT 64555; principal; 2022-07-11 15:00)
DX: M25.562 Pain in left knee (principal); G89.29 Other chronic pain; M17.12 Unilateral primary osteoarthritis, left knee; F32.9 Major depressive disorder, single episode, unspecified; Z98.84 Bariatric surgery status; Z87.891 Personal history of nicotine dependence
CPT/HCPCS: 64555; C1778

== ENCOUNTER → 2022-07-17 08:52 | Outpatient (BNVA) | payer MEDICARE, MEDICAID, SELFPAY | PROVIDERS: PCP Family Medicine; Visit Provider Nurse Practitioner Family | DX: M47.817 Spondylosis without myelopathy or radiculopathy, lumbosacral region (principal); M48.061 Spinal stenosis, lumbar region without neurogenic claudication; M96.1 Postlaminectomy syndrome, not elsewhere classified; G89.29 Other chronic pain; M25.561 Pain in right knee; M25.562 Pain in left knee; M17.0 Bilateral primary osteoarthritis of knee; Z79.891 Long term (current) use of opiate analgesic | CPT/HCPCS: 99212 ==

== ENCOUNTER → 2022-08-15 10:23 | Outpatient (BNVA) | payer MEDICARE, MEDICAID, SELFPAY | PROVIDERS: PCP Family Medicine; Visit Provider Nurse Practitioner Family | DX: Z51.81 Encounter for therapeutic drug level monitoring (principal); F11.20 Opioid dependence, uncomplicated | CPT/HCPCS: 99211 ==

== ENCOUNTER → 2022-08-21 13:36 | Outpatient (BNVA) | payer MEDICARE, MEDICAID, SELFPAY | PROVIDERS: PCP Family Medicine; Visit Provider Nurse Practitioner Family | DX: G47.30 Sleep apnea, unspecified (principal); R53.83 Other fatigue; G47.19 Other hypersomnia; E66.01 Morbid (severe) obesity due to excess calories; Z68.42 Body mass index [BMI] 45.0-49.9, adult | CPT/HCPCS: 99202 ==

== ENCOUNTER → 2022-09-06 20:30 | Outpatient (REF) | payer OTHER, SELFPAY | LOC: HO.SL 20:30 | PROVIDERS: PCP Family Medicine; Visit Provider Nurse Practitioner Family | DX: G47.30 Sleep apnea, unspecified (principal); G47.19 Other hypersomnia; E66.01 Morbid (severe) obesity due to excess calories; Z68.41 Body mass index [BMI] 40.0-44.9, adult; I10 Essential (primary) hypertension; G25.81 Restless legs syndrome | CPT/HCPCS: 95810 ==

== ENCOUNTER → 2022-09-07 08:07 | Outpatient (BNVA) | payer OTHER, SELFPAY | PROVIDERS: PCP Family Medicine; Visit Provider Nurse Practitioner Family | DX: M47.817 Spondylosis without myelopathy or radiculopathy, lumbosacral region (principal); M96.1 Postlaminectomy syndrome, not elsewhere classified; M25.561 Pain in right knee; M25.562 Pain in left knee; M17.0 Bilateral primary osteoarthritis of knee; G89.29 Other chronic pain | CPT/HCPCS: 99212 ==

== ENCOUNTER 2022-10-02 08:05 | Outpatient (REF) | payer OTHER, SELFPAY ==
--- NOTE | ~2022-10-02 | XR_ITS ---
EXAMINATION: Knee x-ray CLINICAL INFORMATION: Pain COMPARISON: Previous left knee x-ray from 2015 TECHNIQUE: Standing AP view of both knees and lateral and sunrise view of the right knee FINDINGS: Right: Bone alignment is normal. No fracture or dislocation. Severe tricompartment arthritis with [id number] seen at the medial femoral tibial joint. Slight lateral tilt of the patella. Question periarticular ossification adjacent to the medial tibial plateau versus large osteophyte. Moderate joint effusion. Standing AP view of the left knee demonstrates severe arthritis at the femoral tibial joints. This appears increased from 2015. XR/XR knee standing BI IMPRESSION: Severe arthritis.
--- NOTE | ~2022-10-02 | XR_ITS ---
EXAMINATION: Knee x-ray CLINICAL INFORMATION: Pain COMPARISON: Previous left knee x-ray from 2015 TECHNIQUE: Standing AP view of both knees and lateral and sunrise view of the right knee FINDINGS: Right: Bone alignment is normal. No fracture or dislocation. Severe tricompartment arthritis with [id number] seen at the medial femoral tibial joint. Slight lateral tilt of the patella. Question periarticular ossification adjacent to the medial tibial plateau versus large osteophyte. Moderate joint effusion. Standing AP view of the left knee demonstrates severe arthritis at the femoral tibial joints. This appears increased from 2015. XR/XR knee RT 2V IMPRESSION: Severe arthritis.
== END 2022-10-02 08:06 | disposition home or self-care (01) ==
LOC: HO.HOSX 08:05
PROVIDERS: Visit Provider Physician Assistant
DX: M17.0 Bilateral primary osteoarthritis of knee (principal); S80.01XA Contusion of right knee, initial encounter; X58.XXXA Exposure to other specified factors, initial encounter; Y93.9 Activity, unspecified; Y92.9 Unspecified place or not applicable; Y99.9 Unspecified external cause status
CPT/HCPCS: 73560; 73565; 99202

== ENCOUNTER → 2022-10-10 13:25 | Outpatient (BNVA) | payer OTHER, SELFPAY | PROVIDERS: PCP Family Medicine; Visit Provider Nurse Practitioner Family | DX: M96.1 Postlaminectomy syndrome, not elsewhere classified (principal); M47.817 Spondylosis without myelopathy or radiculopathy, lumbosacral region; G89.29 Other chronic pain; M25.561 Pain in right knee; M17.0 Bilateral primary osteoarthritis of knee; G89.4 Chronic pain syndrome; Z79.891 Long term (current) use of opiate analgesic | CPT/HCPCS: 99212 ==

== ENCOUNTER → 2022-11-09 13:20 | Outpatient (BNVA) | payer OTHER, SELFPAY | PROVIDERS: Visit Provider Nurse Practitioner Family | DX: M17.0 Bilateral primary osteoarthritis of knee (principal); M54.12 Radiculopathy, cervical region; M43.17 Spondylolisthesis, lumbosacral region; M48.061 Spinal stenosis, lumbar region without neurogenic claudication; G89.4 Chronic pain syndrome; K59.00 Constipation, unspecified; Z68.42 Body mass index [BMI] 45.0-49.9, adult; Z98.84 Bariatric surgery status; Z79.891 Long term (current) use of opiate analgesic | CPT/HCPCS: 99212 ==

== ENCOUNTER 2022-12-07 13:31 | Outpatient (AMB) | payer OTHER, SELFPAY ==
--- NOTE | 2022-12-07 13:32 | MHC.OFFVIS ---
Intake Vital Signs 12/07/22 13:42 Height 5 ft 3 in Weight 251 lb 8 oz BMI 44.5 BP 176/84 H Blood Pressure Location Rt radial Position Sitting Pulse 81 Pulse Source Pulse Oximeter Pulse Oximetry (%) 98 Oxygen Delivery Method Room Air Intake Visit Reasons: Pill count Intake Note: Ivania comes in today for a pill count to oxycodone-acetaminophen, patient should have 24 tablets and presents with 28 tablets which she last took today 12/07/22 at 12pm. Pain today 09/19. 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 Patient is supposed to have #24 of oxycodone-acetaminophen 10-325 mg pills and in her possession has #28 pills. This demonstrates a responsible attitude in regards to her medication regimen. She reports mild to moderate analgesia with no noted side effects except occasional constipation for which she uses Miralax and stool softener. Patient also reports chronic hand and leg pain and reports partial relief with gabapentin. Patient states she experiences significant migraine headache yesterday and had decreased appetite for the past few days due to abdominal discomfort. She is following up with her PCP next week for this. She also reports increase in right knee pain and requests cortisone injection with Dr. Turk at next visit. Denies any fever, chills, shortness of breaths, dizziness, chest pain, abdominal pain, bladder or bowel incontinence or saddle anesthesia. [facility] Medical History Cervical radiculopathy Lumbar and sacral spondyloarthritis Lumbar spinal stenosis Major depressive disorder Migraine Osteoarthritis of knees, bilateral Urge incontinence Surgical History History of bariatric surgery S/P cervical spinal fusion Family History Father No problems noted. Mother No problems noted. 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 Alert and oriented. Mood and affect appropriate. Follows and participates in conversation appropriately. Respiratory effort is unlabored. No cough. Able to transition from sit to stand with assistance of walker. Back/Spine/Pelvis Cervical Spine: cervical muscular tenderness and No Cervical spine tenderness Thoracic/Lumbar Spine: pain with thoraco-lumbar ROM, thoraco-lumbar ROM limited, No thoracic spinal tenderness and lumbar spinal tenderness Extrem Right lower extremity: knee (limited ROM due to pain.) Details: tenderness Location: of the medial joint line and of the lateral joint line and crepitus; no swelling, no ecchymosis and no unusual warmth Psych Appearance: grossly normal and well kempt Mental Status: mental status grossly normal Speech and movement: Normal speech and movement present and Clear speech present Affect: normal affect Attitude: cooperative Thought process: Normal thought process present Thought content: Normal thought content present, suicidality (none), no hallucinations and No Depressive thoughts present Insight: Good insight present (Psych) Judgement: Good judgement present (Psych) Assessment & Plan Assessment & Plan (1) Osteoarthritis of left knee: Code(s): M17.12 - Unilateral primary osteoarthritis, left knee (2) Osteoarthritis of right knee: Code(s): M17.11 - Unilateral primary osteoarthritis, right knee (3) Morbid obesity with BMI of 45.0-49.9, adult: Code(s): E66.01 - Morbid (severe) obesity due to excess calories; Z68.42 - Body mass index [BMI] 45.0-49.9, adult (4) Chronic pain syndrome: Code(s): G89.4 - Chronic pain syndrome Plan Patient has shown accountability for her medication regimen and the pill count was accurate. The patient reported no noted side effects with adequate analgesia. There is no evidence of misuse, abuse or diversion at this time. [employer] reviewed. Will send in a prescription for oxycodone-acetaminophen with an advanced date of 12/15/22. Pending Nutrition Consult to assist patient with dietary modifications and education to help her achieve weight loss goal for potential right TKR. She has lost 9 lbs recently with dietary changes but also not feeling well due to migraine headaches and abdominal pain early this week for which she is following up with her PCP next week. Will schedule Right Cortisone Injection in office during next month pill count with Dr. Turk. All questions and concerns were answered and patient agreed with the plan. We will follow up in 4 weeks for pill count/right knee injection and sooner as needed. Medications: Refilled oxycodone-acetaminophen 10-325 mg Partial Fill upon patient request. 1 tab PO Q6H PRN 120 tabs 0RF pain 30 days G89.29 - Other chronic pain, M25.561 - Pain in right knee, M25.562 - Pain in left knee, M54.12 - Radiculopathy, cervical region, M54.16 - Radiculopathy, lumbar region Coding Level of Care Code Est Pt Level 4 (20947) Diagnoses Osteoarthritis of left knee M17.12 Osteoarthritis of right knee M17.11 Morbid obesity with BMI of 45.0-49.9, adult E66.01; Z68.42 Chronic pain syndrome G89.4
[2022-12-07 13:42] VITALS: BP 176/84; PULSE 81; O2SAT 98; BMI 44.5
== END 2022-12-07 13:55 | disposition home or self-care (01) ==
PROVIDERS: PCP Family Medicine; Visit Provider Nurse Practitioner Family
DX: M17.0 Bilateral primary osteoarthritis of knee (principal); G89.4 Chronic pain syndrome; E66.01 Morbid (severe) obesity due to excess calories; Z68.42 Body mass index [BMI] 45.0-49.9, adult
CPT/HCPCS: 99214

== ENCOUNTER → 2022-12-07 13:31 | Outpatient (BNVA) | payer OTHER, SELFPAY | PROVIDERS: PCP Family Medicine; Visit Provider Nurse Practitioner Family | DX: Z51.81 Encounter for therapeutic drug level monitoring (principal); F11.20 Opioid dependence, uncomplicated; M17.12 Unilateral primary osteoarthritis, left knee; M17.11 Unilateral primary osteoarthritis, right knee; E66.01 Morbid (severe) obesity due to excess calories; Z68.41 Body mass index [BMI] 40.0-44.9, adult | CPT/HCPCS: 99212 ==

== ENCOUNTER 2022-12-12 14:14 | Outpatient (AMB) | payer OTHER, SELFPAY ==
--- NOTE | 2022-12-12 14:21 | A.OFFPC_ITS ---
Vital Signs 12/12/22 14:22 Height 5 ft 3 in Weight 254 lb BMI 45.0 BP 138/82 Blood Pressure Location Rt brachial Position Sitting Pulse 82 Pulse Source Pulse Oximeter Pulse Oximetry (%) 98 Oxygen Delivery Method Room Air Intake Visit Reasons: f/u hypertension Intake Note: Patient is here to follow up on hypertension. Allergies seafood Allergy (Verified 12/12/22 14:25) hives Tobacco use date assessed: 12/12/22 Fall risk assessment: No Falls in past year Last assessed Fall Risk: 12/12/22 Dental Screening Dental Screen Date: 12/12/22 Did you have a dental visit in the last 12 months?: Yes Did you have a dental problem in the last 6 months where you did not have access to dental care?: No Was dental information given to patient?: No HPI f/u hypertension HPI Details 67 y/o female presents to f/u hypertension, obesity and LE edema. Had increased her losartan-hydrochlorothiazide 100/12.5 and discontinued her losartan 50mg tabs. Blood pressure today 138/82. She is on losartan-HCTZ 100-12.5mg daily. She denies any problems with this medication. Pt reports an unusually bad headache last Saturday. Pt reports some wheezing but lungs sound clear today. [facility] Medical History Cervical radiculopathy Lumbar and sacral spondyloarthritis Lumbar spinal stenosis Major depressive disorder Migraine Osteoarthritis of knees, bilateral Urge incontinence Surgical History History of bariatric surgery S/P cervical spinal fusion Family History Father No problems noted. Mother No problems noted. 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 Selvin Howell, Cary Barton, Valeriy Vieira and colleagues, with an educational carlene from [employer]. Review of Systems Const Denies chills, Denies fatigue, Denies fever(s), Denies headache(s) and Denies weakness ENT Denies dizziness and Denies headache(s) Card Denies chest pain, Denies lightheadedness, Denies dyspnea and Denies other (Palpitations) Resp Denies cough, Denies dyspnea, Denies wheezing and Denies other ( shortness of breath) Musc Denies numbness and Denies tingling Neuro Denies dizziness, Denies headache(s), Denies numbness, Denies tingling, Denies paresthesias and Denies weakness Psych Denies anxiety and Denies depression Endo Denies fatigue Aller/Immun Denies wheezing Physical exam (Primary Care) Vital Signs: Last Vital Signs Pulse 82 12/12/22 14:22 BP 138/82 12/12/22 14:22 Pulse Ox 98 12/12/22 14:22 Oxygen Delivery Method Room Air 12/12/22 14:22 BMI result Body Mass Index 45.0 Tobacco/Smoking Status: Tobacco use Status Tobacco use date assessed 12/12/22 12/12/22 14:35 Patient Tobacco Use Status Former Tobacco user 12/12/22 14:32 e-Cigarette/Vaping Use Never Used 12/12/22 14:32 Const General: no acute distress and well developed Nutritional Appearance: well nourished Orientation/consciousness: patient oriented x3 HENMT Head: Yes normocephalic and Yes atraumatic Eyes General: appearance normal, both eyes and all related structures Pupils: Equal, round and reactive pupils present EOM: EOMs intact bilaterally Resp Effort & Inspection: normal respiratory effort Auscultation: clear to auscultation bilaterally Cardio Rate: regular rate Rhythm: regular rhythm Heart sounds: S1 normal heart sound present, S2 normal heart sound present, no gallops, no murmurs and no rubs Neuro General: patient oriented x3 and gait normal Cranial nerves: Yes Equal, round and reactive pupils present Psych Affect: normal affect Assessment and Plan Assessment & Plan (1) Essential hypertension: Code(s): I10 - Essential (primary) hypertension Plan: Blood pressures have been elevated and still only fair control today. Will increase hydrochlorothiazide in her combo pill Will check creatinine level with her next blood draw (2) Swelling of lower extremity: Code(s): M79.89 - Other specified soft tissue disorders Plan: This has improved with addition of hydrochlorothiazide to her medication regimen (3) Headache: Code(s): R51.9 - Headache, unspecified Plan: Headaches and also patient had episode of unresponsiveness See below (4) Wheezing: Code(s): R06.2 - Wheezing Plan: Recurrent episodes of wheezing. Lungs are clear today on exam Will check chest x-ray (5) Altered mental status: Code(s): R41.82 - Altered mental status, unspecified Plan: Episode of altered mental status. Unclear cause. No lasts of bowel or bladder function and no tongue biting She is on lamotrigine for mood disorder Will refer her to Neurology for evaluation. Orders: Orders XR chest 2V Today R06.2 - Wheezing Referrals Neurology Referral R40.4 - Transient alteration of awareness, R41.82 - Altered mental status, unspecified Medications: New losartan-hydrochlorothiazide 100-25 mg 1 tab PO DAILY 90 days 90 tabs 2RF Discontinued losartan-hydrochlorothiazide 100-12.5 mg Discontinued Reason: Doctor's Order 1 tab PO DAILY 30 days 30 tabs 2RF Coding Level of Care Code Est Pt Level 4 (15662) Diagnoses Essential hypertension I10 Swelling of lower extremity M79.89 Headache R51.9 Wheezing R06.2 Altered mental status R41.82
[2022-12-12 14:22] VITALS: BP 138/82; PULSE 82; O2SAT 98; BMI 45.0
== END 2022-12-12 15:19 | disposition home or self-care (01) ==
PROVIDERS: Visit Provider Family Medicine
DX: I10 Essential (primary) hypertension (principal); M79.89 Other specified soft tissue disorders; R51.9 Headache, unspecified; R06.2 Wheezing; R41.82 Altered mental status, unspecified
CPT/HCPCS: 99214

== ENCOUNTER 2023-01-04 11:41 | Outpatient (AMB) | payer OTHER, SELFPAY ==
--- NOTE | 2023-01-04 11:56 | MHC.OFFVIS ---
Intake Vital Signs 01/04/23 12:01 Weight 253 lb BP 136/78 Blood Pressure Location Rt brachial Position Sitting Respiration 14 Pulse 100 Pulse Source Pulse Oximeter Pulse Oximetry (%) 96 Oxygen Delivery Method Room Air Intake Visit Reasons: RIGHT KNEE INJECTION/PILL COUNT Allergies seafood Allergy (Verified 01/08/23 13:00) hives HPI RIGHT KNEE INJECTION/PILL COUNT HPI Details 67-year-old female presenting today for right knee injection. Patient presents for scheduled procedure. Denies any recent cough, cold, infection, fever or other significant changes in medical history since last office visit. She states that her left side was slightly better than the right side from the PNS trial. She has reasonable control of pain symptoms in her left knee, but continues to have significant pain in the right knee that returned after one to two months after this PNS trial. [facility] Medical History Cervical radiculopathy Lumbar and sacral spondyloarthritis Lumbar spinal stenosis Major depressive disorder Migraine Osteoarthritis of knees, bilateral Urge incontinence Surgical History History of bariatric surgery S/P cervical spinal fusion Family History Father No problems noted. Mother No problems noted. 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 Alert and oriented. Mood and affect appropriate. Follows and participates in conversation appropriately. Respiratory effort is unlabored. Able to transition from sit to stand unassisted. Ambulates with bilaterally normal heel strike and toe off. Office Procedures Joint Injection/Drain Joint Injection/Drain Details: Right knee injection. Primary Site: right knee Prep: site was prepped using sterile technique Injected: 40 mg of, Kenalog, with 3 mL of and 1% plain lidocaine Approach Used: anterolateral Procedure: The patient tolerated the procedure well Coding 22118 - Large joint Procedure code (CPT) selection complete Results Reviewed Results Reviewed: No imaging is available for review. Assessment & Plan Assessment & Plan (1) Bilateral chronic knee pain: Code(s): M25.561 - Pain in right knee; M25.562 - Pain in left knee; G89.29 - Other chronic pain Plan Patient is status post right knee injection. Patient tolerated procedure well and was discharged home in stable condition with discharge instructions. All questions were answered. Discussed hyaluronic acid supplement injections for osteoarthritic pain and setting off a history of insufficient relief from intraarticular steroids, as well as a peripheral nerve stimulation trial. We will plan for Synvisc one knee injection. If that is not effective, can consider permanent nerve stimulator placement. Scribed for Dr. Turk by Tima Ronquillo, medical office clerk, on 01/04/2023. I, Dr. Turk, have personally reviewed and agree with the information entered by the scribe. Coding Level of Care Code Est Pt Level 3 (48801) Diagnoses Bilateral chronic knee pain M25.561; M25.562; G89.29 CPT Codes Coding - 08425 Large joint: 42042 - Large joint ([id number])
[2023-01-04 12:01] VITALS: BP 136/78; PULSE 100; RESP 14; O2SAT 96
== END 2023-01-04 12:00 | disposition home or self-care (01) ==
PROVIDERS: PCP Family Medicine; Visit Provider Internal Medicine
DX: M25.561 Pain in right knee (principal); M25.562 Pain in left knee; G89.29 Other chronic pain
CPT/HCPCS: 20610

== ENCOUNTER → 2023-01-04 11:41 | Outpatient (BNVA) | payer OTHER, MEDICAID, SELFPAY | PROVIDERS: PCP Family Medicine; Visit Provider Internal Medicine | DX: M17.0 Bilateral primary osteoarthritis of knee (principal); M25.561 Pain in right knee; M25.562 Pain in left knee; G89.29 Other chronic pain | CPT/HCPCS: 20610; J3301 ==

== ENCOUNTER 2023-01-08 12:47 | Outpatient (AMB) | payer OTHER, MEDICAID, SELFPAY ==
--- NOTE | 2023-01-08 12:49 | MHC.OFFVIS ---
Intake Vital Signs 01/08/23 12:55 Weight 252 lb BP 130/80 Blood Pressure Location Rt brachial Position Sitting Pulse 76 Pulse Source Pulse Oximeter Pulse Oximetry (%) 95 Oxygen Delivery Method Room Air Intake Visit Reasons: 4mo f/u-sleep/Altered mental Sts/Transc Alteration Intake Note: Pt presents today for 4 month fup on altered mental status and Kian. Pt has a new issue a few weeks, states she was on the phone c daughter and she stopped responding so daughter was worried and called a well check, states since then she has had dizziness but no further episodes. Pt states sleep hart she does wake up often, Allergies seafood Allergy (Verified 01/08/23 13:00) hives HPI HPI Comments History of Present Illness Details 67 y/o female patient presents for new concern of transient cognitive changes and follow up of sleep study. Pt reports that she had an unresponsive episode a month ago. She was on the phone and walking to her daughter, she did not respond to her daughter for several minutes. So, patient's daughter called 911 to check her. When the police arrived to her home, she heard that they knock the door and she told them come on in, the door unlocked . She can't remember what happened. Pt was evaluated by ENT and all her VS were WNL and did not go to ER. Pt denies fall, any injury or incontinence episode. She just felt that she woke up. Denies vision changes or one side weakness. Pt states that nothing new or changed before the episode. Pt denies sleep deficiency or more pain medication use the day and the day before. Pt states that no more unresponsive episode since then. The PSG sleep study result was significant for moderate degree of snoring. There were frequent periodic limb movement but only few were associated with arousals. She is on lamotrigine 150 mg BID and gabapentin 900 mg TID for pain management. [facility] Medical History Cervical radiculopathy Lumbar and sacral spondyloarthritis Lumbar spinal stenosis Major depressive disorder Migraine Osteoarthritis of knees, bilateral Urge incontinence Surgical History History of bariatric surgery S/P cervical spinal fusion Family History Father No problems noted. Mother No problems noted. 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 Current occupational exposures/hazards: No Cognitive needs: No Hearing needs: No Vision needs: No Review of Systems Const All systems reviewed & are unremarkable except as noted in HPI and below ENT Reports Normal hearing present Neuro Reports Normal hearing present Physical Exam Vital Signs: Last Vital Signs Pulse 76 01/08/23 12:55 BP 130/80 01/08/23 12:55 Pulse Ox 95 01/08/23 12:55 Oxygen Delivery Method Room Air 01/08/23 12:55 Const General: cooperative and tired appearing Nutritional Appearance: obese Orientation/consciousness: patient oriented x3 Limitations: ambulation with walker HEENT Throat: Yes other (mallampati grade 4) Neck Neck: Yes full ROM and Yes supple Resp Effort & Inspection: normal respiratory effort and able to speak in complete sentences Neuro General: patient oriented x3 Cranial nerves: Yes Bilaterally intact EOM present, Yes Normal facial strength present, Yes Midline tongue present, Yes Symmetric palate elevation present, Yes Normal hearing present, Yes Ability to bilaterally rotate head present and Yes Ability to bilaterally elevate shoulders present Cognition (Neuro): normal cognition Gait exam (Neuro): Assisted gait required Gait assisted method: walker Motor exam (neuro): 5/5 motor strength present throughout, Pronator motor function not present and no tremor noted Psych Appearance: grossly normal Mental Status: mental status grossly normal Affect: normal affect Attitude: cooperative Assessment & Plan Assessment & Plan (1) Episode of unresponsiveness: Code(s): R40.4 - Transient alteration of awareness (2) Transient alteration of awareness: Code(s): R40.4 - Transient alteration of awareness Plan Advised patient to undergo brain MRI, EEG and carotid US for evaluation of unresponsiveness. Advised patient to continue to practice good sleep hygiene, intake adequate fluid. Orders: Orders MR head/brain wo con 01/08/23 R40.4 - Transient alteration of awareness, R41.82 - Altered mental status, unspecified EEG electroencephalogram 01/08/23 R40.4 - Transient alteration of awareness, R41.82 - Altered mental status, unspecified US carotid duplex BI 01/08/23 R40.4 - Transient alteration of awareness, R41.82 - Altered mental status, unspecified Coding Level of Care Code Est Pt Level 4 (18421) Diagnoses Episode of unresponsiveness R40.4 Transient alteration of awareness R40.4
[2023-01-08 12:55] VITALS: BP 130/80; PULSE 76; O2SAT 95
== END 2023-01-08 13:32 | disposition home or self-care (01) ==
PROVIDERS: Visit Provider Nurse Practitioner Family
DX: R40.4 Transient alteration of awareness (principal)
CPT/HCPCS: 99214

== ENCOUNTER → 2023-01-08 12:47 | Outpatient (BNVA) | payer OTHER, MEDICAID, SELFPAY | PROVIDERS: Visit Provider Nurse Practitioner Family | DX: R40.4 Transient alteration of awareness (principal) | CPT/HCPCS: 99212 ==

== ENCOUNTER 2023-01-18 13:57 | Outpatient (REF) | payer OTHER, MEDICAID, SELFPAY ==
--- NOTE | ~2023-01-18 | US_ITS ---
EXAMINATION: US EXTRACRANIAL CAROTID DUPLEX, BILATERAL CLINICAL INFORMATION: Altered mental status. Former smoker. COMPARISON: None available. TECHNIQUE: Real-time ultrasound and Doppler techniques (integrating B-mode 2-D vascular images, Doppler spectral analysis and color-flow Doppler imaging) were utilized to interrogate the extracranial carotid arteries, the vertebral arteries and proximal subclavian arteries bilaterally. The degree of stenosis is determined by criteria similar to NASCET. FINDINGS: Right Side: 1. There is mild atherosclerotic plaque seen in the bifurcation/proximal ICA region. 2. The common carotid artery PSV proximally is 103 cm/s and distally 101 cm/s. 3. The proximal internal carotid artery velocities are 92 cm/s systolic and 28 cm/s diastolic. 4. The proximal external carotid artery PSV is 101 cm/s. 5. The vertebral artery shows antegrade flow. 6. The subclavian artery waveforms are normal. Left Side: 1. There is mild atherosclerotic plaque seen in the bifurcation/proximal ICA region. 2. The common carotid artery PSV proximally is 128 cm/s and distally 120 cm/s. 3. The proximal internal carotid artery velocities are 79 cm/s systolic and 20 cm/s diastolic. 4. The proximal external carotid artery PSV is 107 cm/s. 5. The vertebral artery shows antegrade flow. 6. The subclavian artery waveforms are normal. US/US carotid duplex BI IMPRESSION: 1. RIGHT: Minimal, non-hemodynamically significant stenosis of the proximal right internal carotid artery corresponding to a 0-49% stenosis by velocity criteria. 2. LEFT: Minimal, non-hemodynamically significant stenosis of the proximal left internal carotid artery corresponding to a 0-49% stenosis by velocity criteria.
== END 2023-01-18 13:58 | disposition home or self-care (01) ==
LOC: HO.HMGCX 13:57
PROVIDERS: PCP Family Medicine; Visit Provider Nurse Practitioner Family
DX: R40.4 Transient alteration of awareness (principal); Z87.891 Personal history of nicotine dependence; R42 Dizziness and giddiness; R47.89 Other speech disturbances
CPT/HCPCS: 93880

== ENCOUNTER 2023-01-25 08:28 | Outpatient (REF) | payer OTHER, MEDICAID, SELFPAY ==
--- NOTE | ~2023-01-25 | XR_ITS ---
EXAMINATION: XR CHEST CLINICAL INFORMATION: Wheezing COMPARISON: Previous CT of the abdomen and pelvis June 2021 TECHNIQUE: 2 views of the chest were obtained. FINDINGS: No significant abnormality is noted involving the heart, lungs, mediastinum, bony thorax or soft tissues. Postsurgical changes to the lower cervical spine. XR/XR chest 2V IMPRESSION: Unremarkable examination.
--- NOTE | 2023-01-25 08:30 | EEG_ITS ---
This is a 16 channel EEG with an EKG lead. The patient is reported awake during the tracing. Background EEG rhythm is low to medium amplitude fast alpha posteriorly and lower amplitude fast anteriorly. Photic stimulation does not produce any significant driving. Hyperventilation similarly does not produce any overt abnormalities. Intermittently, slight asymmetric activity was noted with periods of right temporal asymmetric theta range slowing with no definite sharp wave or spike. Cardiac lead does not reveal any significant abnormality. 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 Clinical and imaging correlation is recommended with suspicion of partial or complex partial seizure disorder. MD AMY Dahl/SIMONE / [id number]
== END 2023-01-25 08:29 | disposition home or self-care (01) ==
LOC: HO.NEURO 08:28
PROVIDERS: PCP Family Medicine; Visit Provider Nurse Practitioner Family
DX: R40.4 Transient alteration of awareness (principal); R06.2 Wheezing
CPT/HCPCS: 71046; 95816

== ENCOUNTER 2023-02-01 11:32 | Outpatient (AMB) | payer OTHER, MEDICAID, SELFPAY ==
--- NOTE | 2023-02-01 11:34 | MHC.OFFVIS ---
Intake Vital Signs 02/01/23 11:45 Height 5 ft 3 in Weight 245 lb BMI 43.4 BP 178/84 H Blood Pressure Location Rt brachial Position Sitting Pulse 77 Pulse Source Pulse Oximeter Pulse Oximetry (%) 96 Oxygen Delivery Method Room Air Intake Visit Reasons: PILL COUNT Intake Note: Ivania comes in today for a pill count to oxycodone-acetaminophen, Patient should have 44 tablets and presents with 39 tablets which she last took today 02/01/23 at 11:15. Pain today 10. Unfortunately due to being short 5 tablets which is over a day short, she will be suspended from the opioid program. Slab Lifting Engineer Required: No Accompanied by: Self / Same As Patient Allergies seafood Allergy (Verified 02/01/23 12:01) hives HPI HPI Comments History of Present Illness Details Ivania presents today in the office for a pill count. Patient is supposed to have #44 of oxycodone-acetaminophen 10-325 mg pills and in her possession has #39 pills. Unfortunately, this demonstrates an irresponsible attitude towards her medication regimen. Her prescription is for 4 pills per day, therefore she is short over 1 day. Given her risk is moderate (Risk Score 18), she will be suspended for 1 year. Patient is aware that she will not be eligible for medical management through this office until 02/02/24. Patient has expressed frustration and became tearful with the guidelines and opioid contract but unfortunately her pill count was short today over one day. She also reports recently seeing neurology and was started on seizure medication. We discussed opioid effects on seizures. Patient reports she had mechanical fall 2 weeks ago and fell on both her knees on concrete floor and scratched her knees. Patient admits she was in significant pain and had to take an extra pain pill. Patient denies notifying our office, her PCP or checking in ER or Urgent Clinic for medical evaluation. Unfortunately, this is violation of her contract per our Opioid Contract Policy. Patient is aware that she can receive alternative treatment options for her pain generators. [facility] Medical History Lumbar spinal stenosis Lumbar and sacral spondyloarthritis Migraine Major depressive disorder Cervical radiculopathy Osteoarthritis of knees, bilateral Urge incontinence Surgical History History of bariatric surgery S/P cervical spinal fusion Family History Father No problems noted. Mother No problems noted. 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 Alert and oriented. Mood and affect appropriate. Follows and participates in conversation appropriately. Respiratory effort is unlabored. No cough. Able to transition from sit to stand with assistance of walker. Psych Appearance: grossly normal Mental Status: mental status grossly normal Speech and movement: Normal speech and movement present Affect: normal affect Attitude: cooperative Thought process: Normal thought process present Thought content: Normal thought content present, suicidality (none), no hallucinations and Depressive thoughts present Insight: Good insight present (Psych) Judgement: Good judgement present (Psych) Assessment & Plan Assessment & Plan (1) Chronic pain syndrome: Code(s): G89.4 - Chronic pain syndrome (2) Bilateral chronic knee pain: Code(s): M25.561 - Pain in right knee; M25.562 - Pain in left knee; G89.29 - Other chronic pain (3) Lumbar and sacral spondyloarthritis: Code(s): M47.817 - Spondylosis without myelopathy or radiculopathy, lumbosacral region (4) Morbid obesity with BMI of 40.0-44.9, adult: Code(s): E66.01 - Morbid (severe) obesity due to excess calories; Z68.41 - Body mass index [BMI] 40.0-44.9, adult Plan Unfortunately, the patient?s pill count today was inaccurate for oxycodone which will result in a suspension. Given her risk is moderate, she will be suspended for one year. Patient is aware that she will not be eligible for medical management through this office until 02/02/24. She is also aware that she can receive alternative treatment options, such as a SCS or ITDD trial. Patient has expressed frustration with the guidelines and opioid contract but unfortunately her pill count was short for over 1 day. I will send in a compassionate prescription for four weeks for oxycodone in which she will need to taper herself off or reach out to her PCP to take over prescribing. Discussed treatments for potential withdrawal symptoms. Also discussed opioid effects on seizures. Patient was recently started on levetiracetam per recent Neurology follow up. All questions were answered. Follow up as needed. Medications: Changed From oxycodone-acetaminophen 10-325 mg Partial Fill upon patient request. 1 tab PO Q6H 30 days PRN 120 tabs 0RF pain G89.29 - Other chronic pain, G89.4 - Chronic pain syndrome, M25.561 - Pain in right knee, M25.562 - Pain in left knee To oxycodone-acetaminophen 10-325 mg Please use this prescription to taper off medication, 4 weeks compassionate prescription. 1 tab PO Q6H PRN 120 tabs 0RF pain 30 days G89.29 - Other chronic pain, G89.4 - Chronic pain syndrome, M25.561 - Pain in right knee, M25.562 - Pain in left knee Coding Level of Care Code Est Pt Level 4 (54916) Diagnoses Chronic pain syndrome G89.4 Bilateral chronic knee pain M25.561; M25.562; G89.29 Lumbar and sacral spondyloarthritis M47.817 Morbid obesity with BMI of 40.0-44.9, adult E66.01; Z68.41
[2023-02-01 11:45] VITALS: BP 178/84; PULSE 77; O2SAT 96; BMI 43.4
== END 2023-02-01 12:07 | disposition home or self-care (01) ==
PROVIDERS: PCP Family Medicine; Visit Provider Nurse Practitioner Family
DX: G89.4 Chronic pain syndrome (principal); M25.561 Pain in right knee; M25.562 Pain in left knee; Z79.891 Long term (current) use of opiate analgesic; M47.817 Spondylosis without myelopathy or radiculopathy, lumbosacral region; E66.01 Morbid (severe) obesity due to excess calories; Z68.41 Body mass index [BMI] 40.0-44.9, adult
CPT/HCPCS: 99214

== ENCOUNTER → 2023-02-01 11:32 | Outpatient (BNVA) | payer OTHER, SELFPAY | PROVIDERS: PCP Family Medicine; Visit Provider Nurse Practitioner Family | DX: G89.4 Chronic pain syndrome (principal); G89.29 Other chronic pain; M25.561 Pain in right knee; M25.562 Pain in left knee; M47.817 Spondylosis without myelopathy or radiculopathy, lumbosacral region; E66.01 Morbid (severe) obesity due to excess calories; Z68.41 Body mass index [BMI] 40.0-44.9, adult; Z79.891 Long term (current) use of opiate analgesic | CPT/HCPCS: 99212 ==

== ENCOUNTER 2023-02-27 09:58 | Emergency (ER) | payer OTHER, SELFPAY ==
--- NOTE | ~2023-02-27 | CT_ITS ---
EXAMINATION: CT HEAD WITHOUT CONTRAST CLINICAL INFORMATION: Seizure COMPARISON: 07/28/2020 TECHNIQUE: Contiguous axial imaging was performed from the skull base to vertex without intravenous administration of contrast. This CT examination was performed using dose optimization techniques as appropriate, variously including the following: *Automated exposure control *Adjustment of mA and/or kV according to patient size (this includes techniques or standardized protocols for targeted exams where dose is matched to indication/reason for exam; i.e. extremities or head) *Use of iterative reconstruction technique DLP: 607 mGy-cm FINDINGS: Intracranial structures within normal limits. No evolving infarct, mass lesion, mass effect, midline shift, hemorrhage or extra-axial fluid collections identified. Lens extractions have been performed. Sinuses and mastoids are free of disease. Bony structures are intact and soft tissues are unremarkable. CT/CT head/brain wo IV con IMPRESSION: No acute intracranial pathology or interval change.
[2023-02-27 10:10] VITALS: BP 103/72; PULSE 90; O2SAT 96
--- NOTE | 2023-02-27 10:26 | ECG_ITS ---
Test Reason : siezure Blood Pressure : / mmHG Vent. Rate : 074 BPM Atrial Rate : 074 BPM P-R Int : 166 ms QRS Dur : 080 ms QT Int : 406 ms P-R-T Axes : 047 019 054 degrees QTc Int : 450 ms Normal sinus rhythm Low voltage QRS RSR' or QR pattern in V1 suggests right ventricular conduction delay Otherwise normal ECG When compared with ECG of 14-APR-2015 17:59, No significant changes seen Referred By: Patrice Joya Electronically Signed By:KY ARITA MD
[2023-02-27 10:55] VITALS: BP 138/66; PULSE 78; RESP 20; O2SAT 95; BMI 48.3
[2023-02-27 11:01] VITALS: RESP 18
[2023-02-27 11:30] LABS: MANUAL DIFF FLAG NO
[2023-02-27 11:35] LABS: Basophils Absolute Auto 0.1 X10*3/uL (0.0-0.2); Eosinophils Absolute Auto 0.2 X10*3/uL (0.0-0.4); Eosinophils Percent Auto 2.8 % (0-4); Hematocrit 33.8 % (37.0-47.0); Hemoglobin 10.5 g/dl (12.0-16.0); Imm Gran Abs Auto 0.02 X10*3/uL (0.00-0.03); Imm Gran Pct Auto 0.3 % (0.0-0.4); Lymphocytes Absolute Auto 1.4 X10*3/uL (1.2-4.9); Lymphocytes Percent Auto 24.2 % (20-40); Mean Corpuscular HGB Conc 31.1 g/dl (31.0-35.0); Mean Corpuscular Hemoglobin 25.1 pg (27.0-33.0); Mean Corpuscular Volume 80.9 fL (80.0-98.0); Mean Platelet Volume 8.9 fL (9.4-12.3); Monocytes Absolute Auto 0.6 X10*3/uL (0.1-1.2); Monocytes Percent Auto 10.4 % (2-11); Neutrophils Absolute Auto 3.6 x10*3/uL (2.0-8.3); Neutrophils Percent Auto 61.3 % (45-73); Platelet Count 269 X10*3/uL (160-400); Red Blood Count 4.18 X10*6/uL (4.20-5.50); Red Cell Distribution Width 15.5 % (11.0-16.0); White Blood Count 5.8 X10*3/uL (4.8-10.8)
[2023-02-27 11:43] LABS: Prothrombin Time 12.3 SEC (11.1-13.3)
[2023-02-27 11:44] LABS: Lactic Acid 1.8 mmol/L (0.5-2.0)
[2023-02-27 11:45] LABS: Partial Thromboplastin Time 29.5 SEC (26.0-36.4)
[2023-02-27] MEDS: Morphine Sulfate 4 MG/ML CARTRIDGE IVPUSH (11:47)
[2023-02-27] MEDS: ondansetron HCL 4 MG/2 ML VIAL IVPUSH (11:47)
[2023-02-27 11:48] LABS: Ethanol < 10 mg/dL
[2023-02-27 11:49] LABS: Alanine Aminotransferase 10 U/L (0-31); Alkaline Phosphatase 75 U/L (39-117); Anion Gap 13 (12-20); Aspartate Amino Transferase 14 U/L (5-31); Bilirubin Total 0.3 mg/dL (0.0-1.0); Blood Urea Nitrogen 9 mg/dL (9-16); Calcium 9.4 mg/dL (8.4-10.2); Carbon Dioxide 27 mmol/L (22-29); Chloride 106 mmol/L (96-108); Creatinine Clr Calc Pharmacy 89.6; Estimated Glomerular Filt Rate > 60; Glucose Random 92 mg/dL (60-115); Magnesium 2.2 mg/dL (1.6-2.6); Potassium 3.9 mmol/L (3.3-5.1); Sodium 142 mmol/L (135-145); Total Protein 6.7 g/dL (6.5-8.0)
--- NOTE | 2023-02-27 11:50 | PC.NURSE ---
pt is alert and oriented, skin pwd, respirations even and unlabored, pt is presenting to the ed with possible seizure at home while sitting in a chair and talking on the phone with her daughter and for about 1-2min has no recollection of things for a breath time, after the event pt reports right sided headache and right sided numbness to the face, pain 5/10. all nuero intact, no facial droop, speech clear , hand grasp strong and equal and moving all extremities. seizure pads in place
[2023-02-27 11:57] LABS: Troponin-I High Sensitivity < 2.7 ng/L (<3.5-17.0)
[2023-02-27 12:11] LABS: Appearance Urine Clear; Color Urine Yellow; Glucose Urine UA Negative (Negative); Leukocyte Esterase Urine Small (1+) (Negative); Nitrite Urine Negative (Negative); PH 7.5 (5.0-9.0); Specific Gravity - Urine <= 1.005 (1.005-1.025); UMIC TRIGGER UACC YES; Urine Blood Negative (Negative); Urine Ketones Negative (Negative); Urine Protein Negative (Neg-Trace)
[2023-02-27 12:19] LABS: Amphetamine Screen Urine Not Detected (Not Detect); Barbiturates, Urine Not Detected (Not Detect); Benzodiazepines Screen Urine Not Detected (Not Detect); Cannabinoid Screen Urine Not Detected (Not Detect); Cocaine Screen Urine Not Detected (Not Detect); Fentanyl, urine Not Detected (Not Detect); Opiate Screen Urine Not Detected (Not Detect); Phencyclidine Screen Urine Not Detected (Not Detect)
--- NOTE | 2023-02-27 12:35 | ED.SEIZURE ---
HPI - Seizure General Chief Complaint: Seizure Stated Complaint: SEIZURE,RT SIDED HEADACHE PER EMS Time Seen by Provider: 02/27/23 10:41 Source: patient Mode of arrival: ambulatory Limitations: no limitations History of Present Illness HPI Narrative: 67-year-old female who presents emergency department for evaluation of possible seizure. Patient states that she was sitting in a chair and talking to her phone. She then remembers waking up with the phone a lap and hearing her daughter screen her name. Patient is not certain what happened but she states that she has been diagnosed with seizures and was started on Keppra 2 weeks prior. Patient states that she had an EEG that may be consistent with seizures. Patient is followed by the nurse practitioner, Travis Avila in our neurology office. The patient states that she currently has a headache she points to the right side of her head when asked to localize the headache, she describes as a throbbing pain and a numbness in her face. The headache is 4/10. She denies any numbness or weakness in her extremities. Patient denied incontinence of stool or urine. She denied fever, chills, rhinorrhea, sore throat, chest pain, shortness of breath, dyspnea exertion, nausea, vomiting, diarrhea, frequency, dysuria, black tarry stools or bloody stools. I did review the neurology note dated 01/08/2023 written by the nurse practitioner Travis Avila. Patient is being followed for episodes of altered mental status and obstructive sleep apnea. Patient had a similar event where she was talking on the phone to her daughter and became unresponsive for several minutes. When the police responded the patient was awake and alert about the 1st responders in. Patient had no memory of that event. At that time she was diagnosed with transient alteration of awareness and a workup was ordered to include MRI, EEG and carotid ultrasound. Place: Home Related Data Home Medications Medication Instructions Recorded Confirmed lamotrigine 150 mg tablet 150 mg PO BID 03/21/20 09/10/22 fluoxetine 40 mg capsule 80 mg PO DAILY 12/12/22 Previous Rx's Medication Instructions Recorded losartan 100 1 tab PO DAILY 90 days #90 tabs 12/12/22 mg-hydrochlorothiazide 25 mg tablet naproxen 500 mg tablet 500 mg PO Q12H #180 tabs 12/16/22 omeprazole 20 mg capsule,delayed 40 mg (2 x 20 mg) PO DAILY #180 01/10/23 release caps famotidine 40 mg tablet 40 mg PO BEDTIME #90 tabs 02/01/23 oxycodone-acetaminophen 10 mg-325 1 tab PO Q6H PRN pain 30 days #120 02/02/23 mg tablet tabs gabapentin 600 mg tablet 900 mg (1.5 x 600 mg) PO Q8H PRN 02/13/23 for pain 90 days #405 tabs levetiracetam 500 mg tablet 500 mg PO BID 90 days #180 tabs 02/13/23 metformin 500 mg tablet 250 mg (1/2 x 500 mg) PO DAILY 30 02/13/23 days #15 tabs levetiracetam 750 mg tablet 750 mg PO BID 90 days #180 tabs 02/27/23 (Keppra) Allergies Allergy/AdvReac Type Severity Reaction Status Date / Time seafood Allergy hives Verified 02/27/23 11:00 Review of Systems Review of Systems: Yes all other systems are reviewed and are negative [facility] Past Medical History [facility] Narrative: Social history: The patient states she lives alone. She denies tobacco, alcohol and drug use. Medical History Lumbar spinal stenosis Lumbar and sacral spondyloarthritis Migraine Major depressive disorder Cervical radiculopathy Osteoarthritis of knees, bilateral Urge incontinence Surgical History History of bariatric surgery S/P cervical spinal fusion Family History Family History Father No problems noted. Mother No problems noted. 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 Current occupational exposures/hazards: No Cognitive needs: No Hearing needs: No Vision needs: No Physical Exam Vital Signs: Vital Signs: Last Vital Signs Pulse 78 10/18/23 10:55 Resp 18 02/27/23 11:01 BP 138/66 02/27/23 10:55 Pulse Ox 95 02/27/23 10:55 O2 Del Method Room Air 02/27/23 10:55 BMI result Body Mass Index 48.3 Vital signs were normal Exam General: Awake, alert in no distress, elevated BMI 48.3 Head: Normocephalic, atraumatic EENT: PERRL, Lids normal, sclera normal, conjunctiva normal, nose normal , ears normal, throat without erythema or exudates Neck: Supple, no adenopathy, trachea midline and nontender Lung: breath sounds symmetric, no wheezing, rales or rhonchi Chest: symmetric movement, nontender Heart: regular rate and rhythm, normal S1, S2 no murmurs or rubs Abdomen: soft, non-tender, nondistended, normal bowel sounds Back: no vertebral tenderness, no CVAT Extremities: no deformities, moves all extremities symmetrically Skin: no rashes, no lesion, normal color and warmth Neuro: Awake, alert, oriented, normal speech, cranial nerves intact, moves all extremities symmetrically Psych: Pleasant, cooperative Medications Administered Discontinued Medications Generic Name Dose Route Start Last Admin Trade Name Jose Antonioq PRN Reason Stop Dose Admin Morphine Sulfate 4 mg 02/27/23 10:56 02/27/23 11:47 Morphine Sulfate 4 Mg/Ml Cartridge IVPUSH 02/27/23 10:57 4 mg ONCE STA Administration Protocol Ondansetron HCl 4 mg 02/27/23 10:56 02/27/23 11:47 Ondansetron Hcl 4 Mg/2 Ml Vial IVPUSH 02/27/23 10:57 4 mg ONCE ONE Administration Medical Decision Making Medical Decision Making MDM Narrative: 67-year-old female with a history of obstructive sleep apnea, hypertension chronic pain syndrome/cervical laminectomy syndrome, migraine, osteoarthritis who is being evaluated by our neurology group for transient episodes of altered awareness over the past 6 months. The patient similar event today while she was talking on the phone to her daughter-this event has occurred previously as well. Patient has no memory of the event and woke up with a phone in her lap and hearing her daughter screening at her through the phone. The patient told me that she had a positive EEG and was started on Keppra. Patient denied being ill in any way prior to the event. She is complaining of a right-sided headache which is 4/10 with right facial numbness with no other complaints. The following evaluation was ordered on the patient: CBC, CMP, magnesium, PT/INR, PTT, ethanol, troponin, urinalysis, drug screen, lactic acid, urinalysis, SARs, flu, RSV, CT scan of the brain without IV contrast. Patient's headache was treated with morphine 4 mg IV and Zofran 4 mg IV. 12:51 Patient's laboratory evaluation was consistent with her baseline with no significant abnormalities to explain her transient altered consciousness. Lactic acid was not elevated. CT scan of the brain was normal. 13:38 I did discuss the patient's presentation and workup with the neurology nurse practitioner,, Travis Avila. She recommended that the patient that the patient's Keppra be increased to 750 mg twice a day. I did order a dose of Keppra 750 mg now. I did speak to the patient's daughter, Shandra and made her aware of the change in medications. I did emphasize the patient that he cannot drive because for seizure disorder, if she drive she could kill herself or kill someone else. The patient will be discharged home. Differential Diagnosis Differential Diagnoses: The differential diagnosis associated with the presentation includes Differential diagnosis includes was not limited seizure, stroke, cerebral bleed, arrhythmia, anemia, electrolyte abnormality Admission/Observation Consideration of admission/observation: Escalation of care including admission/observation considered Consult Healthcare Provider Management of the patient was discussed with: Dietary Cook (Neurology nurse practitioner) Lab Data MDM Lab Attestation statement: I reviewed the patient's lab results. My independent interpretation patient's laboratory evaluation is as follows chronic anemia with an H&H of 10.5 and 33.8. CMP was normal. Urinalysis was negative. Tox screen was negative and ethanol level were below detectable limits. Troponin was nondetectable. Lactic acid was normal at 1.8. 02/27/23 11:23 02/27/23 11:23 Labs: Lab Results 02/27/23 02/27/23 02/27/23 Range/Units 11:23 11:24 12:02 WBC 5.8 (4.8-10.8) X10*3/uL RBC 4.18 L (4.20-5.50) X10*6/uL Hgb 10.5 L (12.0-16.0) g/dl Hct 33.8 L (37.0-47.0) % MCV 80.9 (80.0-98.0) fL MCH 25.1 L (27.0-33.0) pg MCHC 31.1 (31.0-35.0) g/dl RDW 15.5 (11.0-16.0) % Plt Count 269 (160-400) X10*3/uL MPV 8.9 L (9.4-12.3) fL Immature Gran % (Auto) 0.3 (0.0-0.4) % Neut % (Auto) 61.3 (45-73) % Lymph % (Auto) 24.2 (20-40) % Nash % (Auto) 10.4 (2-11) % Eos % (Auto) 2.8 (0-4) % Baso % (Auto) 1.0 (0-2) % Lymph # (Auto) 1.4 (1.2-4.9) X10*3/uL Nash # (Auto) 0.6 (0.1-1.2) X10*3/uL Eos # (Auto) 0.2 (0.0-0.4) X10*3/uL Baso # (Auto) 0.1 (0.0-0.2) X10*3/uL Abs Immat Gran (auto) 0.02 (0.00-0.03) X10*3/uL Absolute Neuts (auto) 3.6 (2.0-8.3) x10*3/uL Absolute Nucleated RBC 0.000 (0.0-0.012) X10*3/uL Nucleated RBC % (auto) 0.0 (0.0-0.2) /100WBC PT 12.3 (11.1-13.3) SEC INR 1.0 (0.9-1.1) APTT 29.5 (26.0-36.4) SEC Sodium 142 (135-145) mmol/L Potassium 3.9 (3.3-5.1) mmol/L Chloride 106 (96-108) mmol/L Carbon Dioxide 27 (22-29) mmol/L Anion Gap 13 (12-20) BUN 9 (9-16) mg/dL Creatinine 0.76 (0.5-1.4) mg/dL Estim Creat Clear Calc 89.6 Estimated GFR > 60 Random Glucose 92 (60-115) mg/dL Lactic Acid 1.8 (0.5-2.0) mmol/L Calcium 9.4 (8.4-10.2) mg/dL Magnesium 2.2 (1.6-2.6) mg/dL Total Bilirubin 0.3 (0.0-1.0) mg/dL AST 14 (5-31) U/L ALT 10 (0-31) U/L Alkaline Phosphatase 75 (39-117) U/L Troponin I High Sens < 2.7 (<3.5-17.0) ng/L Total Protein 6.7 (6.5-8.0) g/dL Albumin 4.0 (3.5-5.0) g/dL Urine Color Yellow Urine Appearance Clear Urine pH 7.5 (5.0-9.0) Ur Specific Lohman <= 1.005 (1.005-1.025) Urine Protein Negative (Neg-Trace) mg/dL Urine Glucose (UA) Negative (Negative) mg/dL Urine Ketones Negative (Negative) mg/dL Urine Blood Negative (Negative) Urine Nitrite Negative (Negative) Ur Leukocyte Esterase Small (1+) H (Negative) Urine RBC 0-2 (0-2) /HPF Urine WBC 0-5 (0-5) /HPF Ur Squamous Epith Cells 0-2 (0-2) /HPF Urine Bacteria None Seen (None Seen) Hyaline Casts 0-2 (0-2) /LPF Urine Opiates Screen Not Detected (Not Detect) Urine Fentanyl Screen Not Detected (Not Detect) Ur Barbiturates Screen Not Detected (Not Detect) Ur Phencyclidine Scrn Not Detected (Not Detect) Ur Amphetamines Screen Not Detected (Not Detect) U Benzodiazepines Scrn Not Detected (Not Detect) Urine Cocaine Screen Not Detected (Not Detect) U Marijuana (THC) Screen Not Detected (Not Detect) Ethyl Alcohol < 10 mg/dL Influenza Type A (PCR) NEGATIVE (Negative) Influenza Type B (PCR) NEGATIVE (Negative) RSV RNA Qual (PCR) NEGATIVE (Negative) SARS-CoV-2 RNA (RT-PCR) NEGATIVE (Negative) Independent Interpretation I performed an independent interpretation of an: EKG Interpretation: My independent interpretation patient's 12 EKG done at 11:03 hours is as follows: Normal sinus rhythm rate of 74, normal TX interval, QRS duration QTC interval, no ST segment elevation, no ST segment depression, Q-wave in lead 3, inverted T-wave V1 and V2, no PACs no PVCs-this is a normal EKG Radiology Impression Discussion of test interpretation with radiology: I have reviewed the radiologist's reading. Radiologist Impression: CT head/brain wo IV con IMPRESSION: No acute intracranial pathology or interval change. Dictated By: Kaleigh Qiu MD Independent Historian Clinical information obtained from an independent historian. History obtained from or confirmed by: Other (Daughter) External Record Review External record reviewed: Office record (Neurology office note) Prescription Management I considered prescription management with: Other (Anti seizure medications) Chronic Conditions Patient?s care impacted by: Hypertension and Other (Seizure disorder) Discharge Plan Discharge Clinical Impression: Seizure Patient Disposition: Home, Self-Care Instructions: Epilepsy in Older Adults (ED) Additional Instructions: Your blood work was unremarkable. Your CT scan of the brain revealed no skull fracture or bleeding in the brain. I did speak to your nurse practitioner, Travis Avila and she recommended increasing her Keppra from 500 mg twice a day to 750 mg twice a day. She wants to make sure that you have an MRI scheduled as an outpatient. Absolutely no driving, if you have a seizure while your driving you will kill yourself or kill someone else. Follow-up with the neurology office nurse practitioner in 1-2 weeks. Please return to the emergency department if your symptoms get worse or if you develop any symptoms that are concerning to you. Prescriptions: New levetiracetam [Keppra] 750 mg tablet 750 mg PO BID 90 Days Qty: 180 0RF No Action naproxen 500 mg tablet 500 mg PO Q12H Qty: 180 0RF omeprazole 20 mg capsule,delayed release(DR/EC) 40 mg PO DAILY Qty: 180 3RF famotidine 40 mg tablet 40 mg PO BEDTIME Qty: 90 1RF levetiracetam 500 mg tablet 500 mg PO BID 90 Days Qty: 180 1RF gabapentin 600 mg tablet 900 mg PO Q8H PRN (Reason: for pain) 90 Days Qty: 405 0RF metformin 500 mg tablet 250 mg PO DAILY 30 Days Qty: 15 2RF lamotrigine 150 mg tablet 150 mg PO BID fluoxetine 40 mg capsule 80 mg PO DAILY losartan-hydrochlorothiazide 100-25 mg tablet 1 tab PO DAILY 90 Days Qty: 90 2RF oxycodone-acetaminophen 10-325 mg tablet 1 tab PO Q6H PRN (Reason: pain) 30 Days Qty: 120 0RF Rx Instructions: Please use this prescription to taper off medication, 4 weeks compassionate prescription.
[2023-02-27 12:51] LABS: Bacteria Urine None Seen (None Seen); Hyaline Casts Urine 0-2 /LPF (0-2); RBC Urine 0-2 /HPF (0-2); Squamous Epithelial Cell Urine 0-2 /HPF (0-2); UACC Culture Trigger YES; WBC Urine 0-5 /HPF (0-5)
[2023-02-27 12:52] LABS: Influenza A PCR NEGATIVE (Negative); Influenza B PCR NEGATIVE (Negative); Resp Syncy Virus RNA Qual PCR NEGATIVE (Negative); SARS COV2 PCR INHOUSE NEGATIVE (Negative)
[2023-02-27] MEDS: levETIRAcetam 500 MG TABLET 750 MG PO (13:59)
[2023-02-27] MEDS: oxyCODONE HCl Immed Release 5 MG TABLET 10 MG PO (15:01)
== END 2023-02-27 15:23 | disposition home or self-care (01) ==
PROVIDERS: Physician Assistant Medical; Emergency Provider Emergency Medicine Emergency Medical Services; PCP Family Medicine
DX: R56.9 Unspecified convulsions (principal); R51.9 Headache, unspecified; G47.33 Obstructive sleep apnea (adult) (pediatric); R41.82 Altered mental status, unspecified; Z20.822 Contact with and (suspected) exposure to COVID-19; Z20.828 Contact with and (suspected) exposure to other viral communicable diseases; Z79.899 Other long term (current) drug therapy; Z87.891 Personal history of nicotine dependence
CPT/HCPCS: 0241U; 36415; 70450; 80053; 80307; 81001; 83605; 83735; 84484; 85025; 85610; 85730; 87086; 93005; 96374; 96375; 99284; J2270; J2405

== ENCOUNTER 2023-03-08 13:16 | Outpatient (AMB) | payer OTHER, SELFPAY ==
[2023-03-08 13:19] VITALS: BP 132/82; PULSE 80; RESP 16; O2SAT 95; BMI 47.2
--- NOTE | 2023-03-08 13:19 | A.OFFPC_ITS ---
Vital Signs 03/08/23 13:19 Height 5 ft 2 in Weight 258 lb 2 oz BMI 47.2 BP 132/82 Blood Pressure Location Lt brachial Position Sitting Respiration 16 Pulse 80 Pulse Source Pulse Oximeter Pulse Oximetry (%) 95 Oxygen Delivery Method Room Air Intake Visit Reasons: CPE with f/u labs and health maintenance Intake Note: Patient is here for her physical. Patient would like refills of Gabapentin and Naproxen today. Allergies seafood Allergy (Verified 03/08/23 13:26) hives Tobacco use date assessed: 03/08/23 Fall risk assessment: 2 + Falls in past year Last assessed Fall Risk: 03/08/23 Dental Screening Dental Screen Date: 03/08/23 Did you have a dental visit in the last 12 months?: Yes Did you have a dental problem in the last 6 months where you did not have access to dental care?: No Was dental information given to patient?: Patient has dentist HPI CPE with f/u labs and health maintenance HPI Details 67 y/o female presents for a CPE with f/ u labs and health maintenance b ut would like to postpone her physical. She reports she has been suspended from her pain management program x1 year. Labs were drawn 02/27/23. Reviewed labs with pt. Mild anemia. No recent lipid panel. BP today 132/82. She is on losartan-HCTZ 100-25mg daily. Pt reports she had recently been diagnosed with seizures. Had been started on Keppra and increased this to 750mg b.i.d. She has an appt. with neurology at [place]. [facility] Medical History (Updated 03/08/23 @ 13:31 by Donna Fernandez [facility]) Seizure Lumbar spinal stenosis Lumbar and sacral spondyloarthritis Migraine Major depressive disorder Cervical radiculopathy Osteoarthritis of knees, bilateral Urge incontinence Surgical History History of bariatric surgery S/P cervical spinal fusion Family History Father No problems noted. Mother No problems noted. 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 1. Little interest or pleasure in doing things: not at all 2. Feeling down, depressed, or hopeless: not at all 3. Trouble falling or staying asleep, or sleeping too much: not at all 4. Feeling tired or having little energy: not at all 5. Poor appetite or overeating: not at all 6. Feeling bad about yourself - or that you are a failure or have let yourself or your family down: not at all 7. Trouble concentrating on things, such as reading the newspaper or watching television: not at all 8. Moving or speaking so slowly that other people could have noticed. Or the opposite - being so fidgety or restless that you have been moving around a lot more than usual: not at all 9. Thoughts that you would be better off or of hurting yourself in some way: not at all Total score: 0 Source: Developed by Drs. Selvin Howell, Cary Barton, Valeriy Vieira and colleagues, with an educational carlene from [employer]. Thrive Questionnaire Date Thrive assessed: 03/08/23 I am a: Patient What is your living situation today?: I have a steady place to live Within the past 12 months, did the food you bought not last and you didn't have the money to get more?: Never true Within the past 12 months, did you worry whether your food would run out before you got money to buy more?: Never true Do you have trouble paying for medicines?: No Do you have trouble getting transportation to medical appointments?: No Do you have trouble paying your heating and electricity bill?: No Do you have trouble taking care of your child, family member or friend?: No Do you have trouble with day-to-day activities such as bathing, preparing meals, shopping, managing finances, etc.?: Yes Are you currently unemployed and looking for a job?: No Are you interested in more education?: No AUDIT C Alcohol Use Questionnaire (AUDIT-C) 1. How often do you have a drink containing alcohol?: Never 3. How often do you have six or more drinks on one occasion?: Never Total Score: 0 ANGEL-7 AMB Questionnaire ANGEL-7 Date ANGEL - 7 assessed: 03/08/23 Feeling nervous, anxious, or on edge: 0 = Not at all Not being able to stop or control worryin = Nearly every day Worrying too much about different things: 3 = Nearly every day Trouble relaxin = Not at all Being so restless that it is hard to sit still: 2 = More than half the days Becoming easily annoyed or irritable: 1 = Several days Feeling afraid as if something awful might happen: 0 = Not at all Total ANGEL-7 score (0-4 normal; 5-9 mild; 10-14 moderate; 15-21 severe): 9 Source: Developed by Drs. Selvin Howell, Cary Barton, Valeriy Vieira and colleagues, with an educational carlene from [employer]. Review of Systems Const Denies chills, Denies fatigue, Denies fever(s), Denies headache(s) and Denies weakness ENT Denies dizziness and Denies headache(s) Card Denies chest pain, Denies lightheadedness, Denies dyspnea and Denies other (Palpitations) Resp Denies cough, Denies dyspnea, Denies wheezing and Denies other ( shortness of breath) Musc Denies numbness and Denies tingling Neuro Denies dizziness, Denies headache(s), Denies numbness, Denies tingling, Denies paresthesias and Denies weakness Psych Denies anxiety and Denies depression Endo Denies fatigue Aller/Immun Denies wheezing Physical exam (Primary Care) Vital Signs: Last Vital Signs Pulse 80 03/08/23 13:19 Resp 16 03/08/23 13:19 BP 132/82 03/08/23 13:19 Pulse Ox 95 03/08/23 13:19 Oxygen Delivery Method Room Air 03/08/23 13:19 BMI result Body Mass Index 47.2 Tobacco/Smoking Status: Tobacco use Status Tobacco use date assessed 03/08/23 03/08/23 13:31 Patient Tobacco Use Status Former Tobacco user 03/08/23 13:25 e-Cigarette/Vaping Use Never Used 03/08/23 13:25 PHQ-9: PHQ-9 Score PHQ-9: Total score 0 03/08/23 14:17 Thrive Assessment: Date of Thrive Assessment Date Thrive assessed 03/08/23 03/08/23 13:39 Const General: no acute distress and well developed Nutritional Appearance: well nourished and obese morbidly obese Orientation/consciousness: patient oriented x3 [facility] Head: Yes normocephalic and Yes atraumatic Eyes General: appearance normal, both eyes and all related structures Pupils: Equal, round and reactive pupils present EOM: EOMs intact bilaterally Resp Effort & Inspection: normal respiratory effort Auscultation: clear to auscultation bilaterally Cardio Rate: regular rate Rhythm: regular rhythm Heart sounds: S1 normal heart sound present, S2 normal heart sound present, no gallops, no murmurs and no rubs Neuro General: patient oriented x3 and gait normal Cranial nerves: Yes Equal, round and reactive pupils present Psych Affect: normal affect Assessment and Plan Assessment & Plan (1) Seizures: Code(s): R56.9 - Unspecified convulsions Plan: Seizure?disorder?and?patient?has?been?started?on?Keppra?at?the?ED.?She?has?an?ap pointment?with?Neurology. Also?has?MRI?and?carotid?CTA (2) Chronic pain syndrome: Code(s): G89.4 - Chronic pain syndrome Plan: Unfortunately,?patie nt?has?been?suspended?from?the?pain?management?opiate?program?due?to?inappropria te?pill?count.??Patient?admits?that?she?had?taken?too?much?of?her?medication?whe n?she?was?in?pain?and?did?not?inform?pain?management. I?also?informed?her?today?that?unfortunately?I?would?not?be?able?to?continue?her ?on?this?medication?and?she?was?suspended?from?the?pain?management?program?so?we ?will?be?weaning?this?medication?down.??Patient?understands. Advised?her?to?continue?to?follow- up?with?pain?management?for?all?other?modalities?of?pain?control. We?will?continue?her?gabapentin?and?naproxen?which?I?will?refill She?has?been?taking?Percocet?10-325, 4?times?a?day I?will?switch?to?Percocet?5/325?tablets?for?greater?flexibility?of?adjustment. She?has?enough?medication?left?to?get?to?the?end?of?this?month. At?n ext?refill,?she?will?begin?taking?7.5?mg?(1.5?tab)?of?oxycodone?with?acetaminoph en, 4?times?daily. Will?likely?hold?at?that?level?for?a?period?of?time?and?then?encouraged?her?to?w ork?on?self?weaning?as?we?have?done?once?before. (3) Essential hypertension: Code(s): I10 - Essential (primary) hypertension Plan: Blood?pressure?fairly?well?controlled. (4) Osteoporosis: Code(s): M81.0 - Age-related osteoporosis without current pathological fracture Plan: Due?for?bone?density?testing?which?is?ordered Orders: Orders XR DEXA axial skeleton Today M81.0 - Age-related osteoporosis without current pathological fracture Medications: New oxycodone-acetaminophen 5-325 mg Wean down. MassPat Verified. Partial Fill upon patient request. 1.5 tabs PO Q6H 30 days PRN 180 tabs 0RF pain Changed From naproxen 500 mg PO Q12H 180 tabs 0RF To naproxen 500 mg PO Q12H 90 days 180 tabs 3RF Refilled gabapentin 900 mg (1.5 x 600 mg) PO Q8H 90 days PRN 405 tabs 0RF for pain M47.817 - Spondylosis without myelopathy or radiculopathy, lumbosacral region, M48.061 - Spinal stenosis, lumbar region without neurogenic claudication Discontinued oxycodone-acetaminophen 10-325 mg Please use this prescription to taper off medication, 4 weeks compassionate prescription. Discontinued Reason: Doctor's Order 1 tab PO Q6H 30 days PRN 120 tabs 0RF pain G89.29 - Other chronic pain, G89.4 - Chronic pain syndrome, M25.561 - Pain in right knee, M25.562 - Pain in left knee Coding Level of Care Code Est Pt Level 4 (78928) Diagnoses Seizures R56.9 Chronic pain syndrome G89.4 Essential hypertension I10 Osteoporosis M81.0
== END 2023-03-08 16:37 | disposition home or self-care (01) ==
PROVIDERS: PCP Family Medicine; Visit Provider Family Medicine
DX: R56.9 Unspecified convulsions (principal); G89.4 Chronic pain syndrome; I10 Essential (primary) hypertension; M81.0 Age-related osteoporosis without current pathological fracture
CPT/HCPCS: 99214

== ENCOUNTER 2023-03-16 14:56 | Outpatient (REF) | payer OTHER, SELFPAY ==
--- NOTE | ~2023-03-16 | MR_ITS ---
EXAMINATION: MR BRAIN WITHOUT CONTRAST CLINICAL INFORMATION: Transient alteration of awareness. Episodes of unresponsiveness. COMPARISON: CT head from 02/27/2023. TECHNIQUE: MRI of the brain was obtained using routine sequences without contrast. FINDINGS: No focal restricted diffusion is demonstrated to suggest acute or subacute cerebral ischemia. 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 No evidence of acute or chronic hemorrhagic products on heme-sensitive imaging. Scattered periventricular and deep white matter T2 FLAIR hyperintensities consistent with mild underlying microangiopathy. Proportional prominence of the ventricles and sulcal spaces without evidence of obstructive hydrocephalus. No abnormal mass effect. No midline shift. Normal appearance of the pituitary gland. Normal positioning of the cerebellar tonsils. Normal arterial and venous vascular flow voids are present. Normal, homogeneous marrow signal. Mild mucosal thickening of the paranasal sinuses. No signal abnormalities within the mastoids. Bilateral lens extractions. MR/MR head/brain wo con IMPRESSION: 1. No acute intracranial abnormalities. 2. Mild underlying microangiopathy and generalized cerebral volume loss. Chronic lacunar infarcts of the loco radiata.
== END 2023-03-16 14:57 | disposition home or self-care (01) ==
LOC: HO.MRI 14:56
PROVIDERS: PCP Family Medicine; Visit Provider Neurological Surgery
DX: R40.4 Transient alteration of awareness (principal)
CPT/HCPCS: 70551

== ENCOUNTER 2023-03-22 15:18 | Outpatient (AMB) | payer OTHER, SELFPAY ==
--- NOTE | 2023-03-22 15:28 | A.OFFPC_ITS ---
Vital Signs 03/22/23 15:34 Height 5 ft 2 in Weight 250 lb BMI 45.7 BP 130/82 Blood Pressure Location Lt brachial Position Sitting Pulse 82 Pulse Source Pulse Oximeter Pulse Oximetry (%) 95 Oxygen Delivery Method Room Air Intake Visit Reasons: opoid weening Intake Note: Patient is here for opiate weening. Patient would like to talk to the doctor about pain management. Allergies seafood Allergy (Verified 03/22/23 15:29) hives Tobacco use date assessed: 03/22/23 HPI opoid weening HPI Details 67 y/o female presents to f/u on her opi od medication weaning. Patient had inappropriate pill count and is suspended from Pain management's opioid program for 1 year. We discussed that I would not be continuing this medication when HM sees pain management program has suspended her. Pt reports it has been very difficult weaning down on her meds. Pt reports restless leg syndrome. HPI Comments History of Present Illness Details Documentation assistance for Iron Castano MD, was provided by Zachariah Reina, [employer] on 03/22/2023 4:02 PM EST. I, Dr. Castano, have read, observed, and verified documentation. [facility] Medical History Seizure Lumbar spinal stenosis Lumbar and sacral spondyloarthritis Migraine Major depressive disorder Cervical radiculopathy Osteoarthritis of knees, bilateral Urge incontinence Surgical History History of bariatric surgery S/P cervical spinal fusion Family History Father No problems noted. Mother No problems noted. 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 Selvin Howell, Cary Barton, Valeriy Vieira and colleagues, with an educational carlene from [employer]. Physical exam (Primary Care) Vital Signs: Last Vital Signs Pulse 82 03/22/23 15:34 BP 130/82 03/22/23 15:34 Pulse Ox 95 03/22/23 15:34 Oxygen Delivery Method Room Air 03/22/23 15:34 BMI result Body Mass Index 45.7 Tobacco/Smoking Status: Tobacco use Status Tobacco use date assessed 03/22/23 03/22/23 15:38 Patient Tobacco Use Status Former Tobacco user 03/22/23 15:38 e-Cigarette/Vaping Use Never Used 03/22/23 15:38 Thrive Assessment: Date of Thrive Assessment Date Thrive assessed 03/08/23 03/22/23 15:38 Assessment and Plan Assessment & Plan (1) Chronic pain syndrome: Code(s): G89.4 - Chronic pain syndrome Plan: Patient?has?been?discontinued?from?pain?management?opioid?program?for?1?year?for ?inaccurate?pill?count. Had?weaned?her?from?oxycodone?10?mg?every?6?hours?to?7.5?mg?every?6?hours. Patient?notes?more?pain?and?is?frustrated. Reiterated?that?I?will?not?be?managing?her?pain?medications?when?she?has?b een?discontinued?from?pain?management?for?an?accurate?pill?count. Will?continue?to?wean?compassionately?however. Will?continue?medication?at?current?dose?for?this?month?and?we?will?diverting?co ntinue?weaning?down?after?that. Had?a?long?discussion?with?patient?and?her?daughter?about?the?above. Will?also?use?Celebrex. She?can?also?use?lidocaine?gel?OTC (2) Restless leg syndrome: Code(s): G25.81 - Restless legs syndrome Plan: She?is?on?gabapentin. We?discussed?Lyrica?but?she?wants?to?continue?with?gabapentin?for?now. (3) Immunization counseling: Code(s): Z71.85 - Encounter for immunization safety counseling Plan: Advised?flu?shot?and?COVID?shot.??Advised?RSV.??Advised?shingles?shot. Coding Level of Care Code Est Pt Level 4 (67196) Diagnoses Chronic pain syndrome G89.4 Restless leg syndrome G25.81 Immunization counseling Z71.85
[2023-03-22 15:34] VITALS: BP 130/82; PULSE 82; O2SAT 95; BMI 45.7
== END 2023-03-22 16:16 | disposition home or self-care (01) ==
PROVIDERS: PCP Family Medicine; Visit Provider Family Medicine
DX: G89.4 Chronic pain syndrome (principal); G25.81 Restless legs syndrome; Z71.85 Encounter for immunization safety counseling
CPT/HCPCS: 99214

== ENCOUNTER 2023-03-29 14:12 | Outpatient (REF) | payer OTHER, SELFPAY ==
--- NOTE | ~2023-03-29 | MM_ITS ---
EXAMINATION: BONE DENSITOMETRY CLINICAL INDICATION: Age-related osteoporosis without current pathological fracture. COMPARISON: This is the patient's baseline examination. TECHNIQUE: Using a [employer] DXA System (software version: 13.1) manufactured by [employer], dual-energy x-ray absorptiometry was performed of the lumbar spine and left hip. The images are of good technical quality. Summary results are attached. FINDINGS: LEFT FEMUR, NECK: BMD 0.858 g/cm2, Z-score -0.5, T-score -1.3, osteopenia. LEFT FEMUR, TOTAL: BMD 0.951 g/cm2, Z-score 0.0, T-score -0.4, normal. AP SPINE L1-L4 (excluding L2): The data of L1-L4 has been changed to exclude the L2 vertebral body, because the port from the lap band overlies this level, precluding assessment of lumbar spine density. BMD 1.458 g/cm2, Z-score 2.9, T-score 2.4, normal. IDENTIFIED RISK FACTORS: Anticonvulsant, height loss, history of fracture (adult), menopause, osteoporosis, recurrent falls. HISTORY OF FRACTURE: Other. MEDICATIONS: Multivitamin, vitamin D. MM/XR DEXA axial skeleton IMPRESSION: 1. DIAGNOSIS: Osteopenia based on the lowest T-score value of -1.3 in the femoral neck applying World Health Organization criteria. 2. 10-YEAR FRACTURE RISK PREDICTION, FRAX: Major osteoporotic fracture (clinical spine, forearm, hip or shoulder) 6.0%. Hip fracture 0.5%. 3. Treatment Recommendations: NOF guidelines recommend consideration for treatment in postmenopausal women and men age 50 and older presenting with the following: -A hip or vertebral (clinical or morphometric) fracture. -T-score less than or equal to -2.5 at the femoral neck or spine after appropriate evaluation to exclude secondary causes. -Low bone mass at the hip or spine and a 10-year fracture probability by FRAX of greater than or equal to 3% for hip fracture or greater than or equal to 20% for major osteoporotic fracture based on the [place] adapted WHO algorithm. 4. Other Recommendations: All treatment decisions require clinical judgment and consideration of individual patient factors, including patient preferences, comorbidities, previous drug use, risk factors not captured in the FRAX model (e.g. frailty, falls, vitamin D deficiency, increased bone turnover, interval significant decline in bone density) and possible under or overestimation of fracture risk by FRAX. Additional medical evaluation for secondary cause of low bone mineral density may be appropriate. FUTURE SCAN RECOMMENDATION: People with diagnosed cases of osteoporosis or at high risk for fracture should have regular bone mineral density tests. For patients eligible for Medicare, routine testing is allowed once every 2 years. The testing frequency can be increased to one year for patients who have rapidly progressing disease, those who are receiving or discontinuing medical therapy to restore bone mass, or have additional risk factors.
== END 2023-03-29 14:13 | disposition home or self-care (01) ==
LOC: HO.MAMMO 14:12
PROVIDERS: PCP Family Medicine; Visit Provider Family Medicine
DX: Z13.820 Encounter for screening for osteoporosis (principal); Z78.0 Asymptomatic menopausal state; M81.0 Age-related osteoporosis without current pathological fracture
CPT/HCPCS: 77080

== ENCOUNTER 2023-04-12 11:19 | Outpatient (AMB) | payer OTHER, SELFPAY ==
[2023-04-12 11:37] VITALS: BP 140/78; PULSE 95; O2SAT 95; BMI 46.2
--- NOTE | 2023-04-12 11:37 | A.OFFPC_ITS ---
Vital Signs 04/12/23 11:37 Height 5 ft 2 in Weight 252 lb 8 oz BMI 46.2 BP 140/78 H Blood Pressure Location Lt brachial Position Sitting Pulse 95 Pulse Source Pulse Oximeter Pulse Oximetry (%) 95 Oxygen Delivery Method Room Air Intake Visit Reasons: opoid wean Intake Note: Patient is here today for an opoid wean. Patient needs refill of Kepra Allergies seafood Allergy (Verified 04/12/23 11:40) hives Tobacco use date assessed: 04/12/23 Fall risk assessment: 2 + Falls in past year Last assessed Fall Risk: 04/12/23 HPI opoid wean HPI Details 68 y/o female presents to f/u opiod medi cation weaning. Patient has been discontinued from pain management opioid program for 1 year for inaccurate pill count. Pt notes pain is worst in the morning and right before bed. She notes she is due for injection therapy. Blood pressure today 140/78. She is on losartan-HCTZ 100-25mg daily. Bone density test 03/29/23 showed osteopenia. HPI Comments History of Present Illness Details Documentation assistance for Iron Castano MD, was provided by Zachariah Reina, Full Time Paramedic on 04/12/2023 12:22 PM EST. I, Dr. Castano, have read, observed, and verified documentation. [facility] Medical History Seizure Lumbar spinal stenosis Lumbar and sacral spondyloarthritis Migraine Major depressive disorder Cervical radiculopathy Osteoarthritis of knees, bilateral Urge incontinence Surgical History History of bariatric surgery S/P cervical spinal fusion Family History Father No problems noted. Mother No problems noted. 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 Selvin Howell, Cary Barton, Valeriy Viiera and colleagues, with an educational carlene from [employer]. Review of Systems Const Denies chills, Denies fatigue, Denies fever(s), Denies headache(s) and Denies weakness ENT Denies dizziness and Denies headache(s) Card Denies dyspnea Resp Denies cough, Denies dyspnea, Denies wheezing and Denies other (shortness of breath) Musc Denies numbness and Denies tingling Neuro Denies dizziness, Denies headache(s), Denies numbness, Denies tingling and Denies weakness Psych Denies anxiety and Denies depression Endo Denies fatigue Aller/Immun Denies wheezing Physical exam (Primary Care) Vital Signs: Last Vital Signs Pulse 95 04/12/23 11:37 BP 140/78 H 04/12/23 11:37 Pulse Ox 95 04/12/23 11:37 Oxygen Delivery Method Room Air 04/12/23 11:37 BMI result Body Mass Index 46.2 Tobacco/Smoking Status: Tobacco use Status Tobacco use date assessed 04/12/23 04/12/23 11:46 Patient Tobacco Use Status Former Tobacco user 04/12/23 11:39 e-Cigarette/Vaping Use Never Used 04/12/23 11:39 Thrive Assessment: Date of Thrive Assessment Date Thrive assessed 03/08/23 04/12/23 11:39 Const General: well developed; No acute distress Nutritional Appearance: well nourished and obese morbidly obese Orientation/consciousness: patient oriented x3 [facility] Head: Yes normocephalic and Yes atraumatic Eyes General: appearance normal, both eyes and all related structures Pupils: Equal, round and reactive pupils present EOM: EOMs intact bilaterally Resp Effort & Inspection: normal respiratory effort Neuro General: patient oriented x3 and gait normal Cranial nerves: Yes Equal, round and reactive pupils present Psych Affect: normal affect Assessment and Plan Assessment & Plan (1) Chronic pain syndrome: Code(s): G89.4 - Chronic pain syndrome Plan: Ongoing?chronic?knee?pain?but?doing?fairly?well?today. We?held?her?dose?at?the ?same?level?at?her?last?visit?but?had?discussed?weaning?down?further?at?this?vis it.??Will?decrease?further?as?follows: She?was?taking?oxycodone-acetaminophen?5/325?mg?tablets; 1.5?tablets?4?times?a?day. She?will?now?take?1.5?tablets?in?the?morning?and?at?night?but?1?tablet?in?the?la te?morning?and?1?tablet?in?the?afternoon. This?is?a?decrease?from?6?tablets?per?day?to?5?tablets?per?day. She?has?naproxen?which?she?takes?twice?a?day. Will?follow-up?in?1?month. Was?unable?to?get?an?appointment?until?May??so?I?am?sending?a?short?scrip t?for?May??through?4th?as?well. (2) Bilateral chronic knee pain: Code(s): M25.561 - Pain in right knee; M25.562 - Pain in left knee; G89.29 - Other chronic pain Plan: As?above (3) Essential hypertension: Code(s): I10 - Essential (primary) hypertension Plan: Blood?pressures?have?been?in?the?hypertensive?in?prehypertensive?range. Will?continue?losartan?100?mg?daily?but?will?increase?hydrochlorothiazide?from?2 5?mg?daily?to?37.5?mg?daily?(1.5?tabs). (4) Osteopenia: Code(s): M85.80 - Other specified disorders of bone density and structure, unspecified site Plan: Bone?density?shows?osteopenia Encouraged?good?sources?of?calcium?and?she?is?already?taking?a?vitamin- D?supplement. (5) Morbid obesity with BMI of 45.0-49.9, adult: Code(s): E66.01 - Morbid (severe) obesity due to excess calories; Z68.42 - Body mass index [BMI] 45.0-49.9, adult Plan: Patient?has?been?taking?metformin?to?try?to?help?with?weight?loss?and?this?has?n ot?been?successful. She?would?like?to?try?Wegovy Risks/benefits?discussed?and?we?will?follow-up?on?this?at?her?next?visit. Medications: New losartan 100 mg PO DAILY 90 tabs 2RF 90 days hydrochlorothiazide 37.5 mg (1.5 x 25 mg) PO DAILY 45 tabs 1RF 30 days oxycodone-acetaminophen 5-325 mg (Percocet) 1.5 tabs AM, 1 tab late morning, 1 tab afternoon, 1.5 tabs PM orally every 6 hours PRN; Wean down. MassPat Verified. Partial Fill upon request. 20 tabs 0RF pain 4 days semaglutide (weight loss) (Wegovy) administer weeks 1 through 4 of therapy 0.25 mg (0.5 mL) subcut QWEEK 2 mL 2RF 28 days Changed From oxycodone-acetaminophen 5-325 mg Wean down. MassPat Verified. Partial Fill upon patient request. 1.5 tabs PO Q6H PRN 180 tabs 0RF pain 30 days To oxycodone-acetaminophen 5-325 mg 1.5 tabs AM, 1 tab late morning, 1 tab afternoon, 1.5 tabs PM orally every 6 hours PRN; Wean down. MassPat Verified. Partial Fill upon patient request. 150 tabs 0RF pain 30 days Refilled levetiracetam (Keppra) 750 mg PO BID 180 tabs 0RF 90 days Discontinued metformin Discontinued Reason: Doctor's Order 250 mg (1/2 x 500 mg) PO DAILY 15 tabs 2RF 30 days losartan-hydrochlorothiazide 100-25 mg Discontinued Reason: Doctor's Order 1 tab PO DAILY 90 days 90 tabs 2RF Coding Level of Care Code Est Pt Level 4 (37808) Diagnoses Chronic pain syndrome G89.4 Bilateral chronic knee pain M25.561; M25.562; G89.29 Essential hypertension I10 Osteopenia M85.80 Morbid obesity with BMI of 45.0-49.9, adult E66.01; Z68.42
== END 2023-04-12 12:32 | disposition home or self-care (01) ==
PROVIDERS: PCP Family Medicine; Visit Provider Family Medicine
DX: G89.4 Chronic pain syndrome (principal); E66.01 Morbid (severe) obesity due to excess calories; Z68.42 Body mass index [BMI] 45.0-49.9, adult; M25.561 Pain in right knee; M25.562 Pain in left knee; G89.29 Other chronic pain; I10 Essential (primary) hypertension; M85.80 Other specified disorders of bone density and structure, unspecified site
CPT/HCPCS: 99214

== ENCOUNTER 2023-04-23 15:12 | Outpatient (AMB) | payer MEDICARE, MEDICAID, SELFPAY ==
--- NOTE | 2023-04-23 15:18 | MHC.OFFVIS ---
Intake Vital Signs 04/23/23 15:19 BP 140/82 H Blood Pressure Location Lt brachial Position Sitting Pulse 82 Pulse Source Pulse Oximeter Pulse Oximetry (%) 96 Oxygen Delivery Method Room Air Intake Visit Reasons: 4mo f/u-sleep/Alteredmental Sts/Transc Alteration- Allergies seafood Allergy (Verified 04/26/23 11:30) hives HPI HPI Comments History of Present Illness Details 67 y/o female patient presents with her friend for follow up of seizure. Pt's EEG report was abrnomal EEG, suggestive for right temporal paroxysmal disorder with suspicion of partial or complex partial seizure disorder. Pt started Keppra 500 mg BID. Pt reports she had one more unresponsive episode after Keppra 500 mg and visit ER. Now she is on Keppra 750 mg BID. Pt states that no more unresponsive episode since then. She is also on lamotrigine 150 mg BID and gabapentin 900 mg TID for pain management. Pt does not drive. [facility] Medical History (Updated 05/06/23 @ 14:29 by Travis Avila CNP) Seizure Lumbar spinal stenosis Lumbar and sacral spondyloarthritis Migraine Major depressive disorder Cervical radiculopathy Osteoarthritis of knees, bilateral Urge incontinence Surgical History History of bariatric surgery S/P cervical spinal fusion Family History Father No problems noted. Mother No problems noted. 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 Current occupational exposures/hazards: No Cognitive needs: No Hearing needs: No Vision needs: No Review of Systems Const All systems reviewed & are unremarkable except as noted in HPI and below ENT Reports Normal hearing present Neuro Reports Normal hearing present Physical Exam Vital Signs: Last Vital Signs Pulse 82 04/23/23 15:19 BP 140/82 H 04/23/23 15:19 Pulse Ox 96 04/23/23 15:19 Oxygen Delivery Method Room Air 04/23/23 15:19 Const General: cooperative Nutritional Appearance: obese Orientation/consciousness: patient oriented x3 Limitations: ambulation with walker HEENT Throat: Yes other (mallampati grade 4) Neck Neck: Yes full ROM and Yes supple Resp Effort & Inspection: normal respiratory effort and able to speak in complete sentences Neuro General: patient oriented x3 Cranial nerves: Yes Bilaterally intact EOM present, Yes Normal facial strength present, Yes Midline tongue present, Yes Symmetric palate elevation present, Yes Normal hearing present, Yes Ability to bilaterally rotate head present and Yes Ability to bilaterally elevate shoulders present Cognition (Neuro): normal cognition Gait exam (Neuro): Assisted gait required Gait assisted method: walker Motor exam (neuro): 5/5 motor strength present throughout, Pronator motor function not present and no tremor noted Psych Appearance: grossly normal Mental Status: mental status grossly normal Affect: normal affect Attitude: cooperative Assessment & Plan Assessment & Plan (1) Restless leg syndrome: Code(s): G25.81 - Restless legs syndrome (2) Seizure: Code(s): R56.9 - Unspecified convulsions Plan Advised patient to continue to take Keppra 750 mg BID to manage seizure. Continue to take 150 mg BID. Continue to take gabapentin 900 TID to manage pain and restless legs. Coding Level of Care Code Est Pt Level 4 (66942) Diagnoses Restless leg syndrome G25.81 Seizure R56.9
[2023-04-23 15:19] VITALS: BP 140/82; PULSE 82; O2SAT 96
== END 2023-04-23 15:50 | disposition home or self-care (01) ==
PROVIDERS: PCP Family Medicine; Visit Provider Nurse Practitioner Family
DX: G25.81 Restless legs syndrome (principal); R56.9 Unspecified convulsions
CPT/HCPCS: 99214

== ENCOUNTER → 2023-04-23 15:12 | Outpatient (BNVA) | payer OTHER, SELFPAY | PROVIDERS: PCP Family Medicine; Visit Provider Nurse Practitioner Family | DX: G25.81 Restless legs syndrome (principal); R56.9 Unspecified convulsions | CPT/HCPCS: 99212 ==

== ENCOUNTER 2023-04-26 11:23 | Outpatient (AMB) | payer OTHER, SELFPAY ==
[2023-04-26 11:29] VITALS: RESP 12
--- NOTE | 2023-04-26 11:29 | A.OFFVIS_ITS ---
Intake Vital Signs 04/26/23 11:29 Height 5 ft 2 in Blood Pressure Location Lt radial Position Sitting Respiration 12 Pulse Source Pulse Oximeter Intake Visit Reasons: Bilateral knee injections/confirmed Allergies seafood Allergy (Verified 04/26/23 11:30) hives Medication List - Last Reconciled 04/26/23 by Shayy Quan LPN famotidine 60 mg PO BEDTIME fluoxetine 40 mg PO DAILY gabapentin 900 mg (1.5 x 600 mg) PO Q8H PRN 90 days hydrochlorothiazide 37.5 mg (1.5 x 25 mg) PO DAILY 30 days lamotrigine 150 mg PO BID levetiracetam (Keppra) 750 mg PO BID 90 days losartan 100 mg PO DAILY 90 days naproxen 500 mg PO Q12H 90 days omeprazole 40 mg (2 x 20 mg) PO DAILY oxycodone-acetaminophen 5-325 mg (Percocet) 1.5 tabs AM, 1 tab late morning, 1 tab afternoon, 1.5 tabs PM orally every 6 hours PRN; Wean down. MassPat Verified. Partial Fill upon request. 4 days HPI Bilateral knee injections/confirmed HPI Details 68-year-old female who presents today to the office for a bilateral knee injection. Denies any recent cough, cold, infection, fever or other significant changes in medical history since last office visit. Past Procedures: 01/04/23: Right knee injection.: 70% rel ief for 3 months. 05/02/22: Right Sprint PNS, Saphenous Ne rve ? 90% relief that is ongoing. 05/10/21: Right L3-L4 TFESI - 60% pain r elief 07/12/21: Left L3-L4 TFESI - 50% pain re lief 11/22/21: Left diagnostic saphenous nerv e block-50% pain relief for 24 hours. 12/06/21: Right diagnostic GNB-60% pain relief for 24 hours 02/21/22: Right diagnostic SNB at adduct or canal- 80% pain relief for 3 hours. 02/28/22: Left diagnostic SNB at adducto r canal-60% pain relief for 3 hours. [facility] Medical History Seizure Lumbar spinal stenosis Lumbar and sacral spondyloarthritis Migraine Major depressive disorder Cervical radiculopathy Osteoarthritis of knees, bilateral Urge incontinence Surgical History History of bariatric surgery S/P cervical spinal fusion Family History Father No problems noted. Mother No problems noted. 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 Alert and oriented. Mood and affect appropriate. Follows and participates in conversation appropriately. Respiratory effort is unlabored. Able to transition from sit to stand unassisted. Ambulates with bilaterally normal heel strike and toe off. Office Procedures Joint Injection/Drain Joint Injection/Drain Details: Bilateral landmark guided intraarticular knee injection Primary Site: right knee Secondary Site: left knee Prep: site was prepped using sterile technique Injected: 40 mg of, Kenalog, with 3 mL of, 1% plain lidocaine and in the joint (each knee) Approach Used: anteromedial Procedure: The patient tolerated the procedure well Coding 65352 - Large joint (Bilateral) Procedure code (CPT) selection complete Results Reviewed Results Reviewed: No imaging is available for review. Assessment & Plan Assessment & Plan (1) Osteoarthritis of left knee: Code(s): M17.12 - Unilateral primary osteoarthritis, left knee (2) Osteoarthritis of right knee: Code(s): M17.11 - Unilateral primary osteoarthritis, right knee Plan Patient is status post bilateral landmark guided intraarticular knee injection. Patient tolerated procedure well and was discharged home in stable condition with discharge instructions. All questions were answered. Follow-up as needed. Scribed for Dr. Turk by Tima Ronquillo, medical reimbursement specialist, on 04/26/2023. I, Dr. Turk, have personally reviewed and agree with the information entered by the scribe. Coding Level of Care Code Procedure Only Diagnoses Osteoarthritis of left knee M17.12 Osteoarthritis of right knee M17.11 CPT Codes Coding - 35227 Large joint: 78617 - Large joint ([id number])
== END 2023-04-26 12:06 | disposition home or self-care (01) ==
PROVIDERS: PCP Family Medicine; Visit Provider Internal Medicine
DX: M17.0 Bilateral primary osteoarthritis of knee (principal)
CPT/HCPCS: 20610

== ENCOUNTER → 2023-04-26 11:23 | Outpatient (BNVA) | payer OTHER, SELFPAY | PROVIDERS: PCP Family Medicine; Visit Provider Internal Medicine | DX: M17.0 Bilateral primary osteoarthritis of knee (principal) | CPT/HCPCS: 20610; J0665; J3301 ==

== ENCOUNTER 2023-05-16 10:51 | Outpatient (AMB) | payer MEDICARE, MEDICAID, SELFPAY ==
[2023-05-16 10:57] VITALS: BP 140/76; PULSE 83; O2SAT 97; BMI 46.5
--- NOTE | 2023-05-16 10:57 | MHC.PC.OV ---
Vital Signs 05/16/23 10:57 Height 5 ft 2 in Weight 254 lb 8 oz BMI 46.5 BP 140/76 H Blood Pressure Location Lt brachial Position Sitting Pulse 83 Pulse Source Pulse Oximeter Pulse Oximetry (%) 97 Oxygen Delivery Method Room Air Intake Visit Reasons: f/u chronic pain syndrome Intake Note: Patient is here to follow up on chronic pain syndrome. Allergies seafood Allergy (Verified 05/16/23 11:01) hives Tobacco use date assessed: 05/16/23 Fall risk assessment: 2 + Falls in past year Last assessed Fall Risk: 05/16/23 Dental Screening Dental Screen Date: 05/16/23 Did you have a dental visit in the last 12 months?: Yes Did you have a dental problem in the last 6 months where you did not have access to dental care?: No Was dental information given to patient?: Patient has dentist HPI f/u chronic pain syndrome HPI Details 68 y/o female presents to f/u chronic pain syndrome. Continued to wean down chronic opioid use. Pt reports she has had a couple seizures last weekend. Pt is on Keppra and lamotrigine. She reports she has let her neurology group know but has not heard back from them yet. [facility] Medical History Seizure Lumbar spinal stenosis Lumbar and sacral spondyloarthritis Migraine Major depressive disorder Cervical radiculopathy Osteoarthritis of knees, bilateral Urge incontinence Surgical History History of bariatric surgery S/P cervical spinal fusion Family History Father No problems noted. Mother No problems noted. 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 Selvin Howell, Cary Barton, Valeriy Vieira and colleagues, with an educational carlene from [employer]. Review of Systems Const Denies chills, Denies fatigue, Denies fever(s), Denies headache(s) and Denies weakness ENT Denies dizziness and Denies headache(s) Card Denies chest pain, Denies lightheadedness, Denies dyspnea and Denies other (Palpitations) Resp Denies cough, Denies dyspnea, Denies wheezing and Denies other ( shortness of breath) Musc Denies numbness and Denies tingling Neuro Denies dizziness, Denies headache(s), Denies numbness, Denies tingling, Denies paresthesias and Denies weakness Psych Denies anxiety and Denies depression Endo Denies fatigue Aller/Immun Denies wheezing Physical exam (Primary Care) Vital Signs: Last Vital Signs Pulse 83 05/16/23 10:57 BP 140/76 H 05/16/23 10:57 Pulse Ox 97 05/16/23 10:57 Oxygen Delivery Method Room Air 05/16/23 10:57 BMI result Body Mass Index 46.5 Tobacco/Smoking Status: Tobacco use Status Tobacco use date assessed 05/16/23 05/16/23 11:06 Patient Tobacco Use Status Former Tobacco user 05/16/23 11:06 e-Cigarette/Vaping Use Never Used 05/16/23 11:06 Thrive Assessment: Date of Thrive Assessment Date Thrive assessed 03/08/23 05/16/23 11:06 Const General: no acute distress and well developed Nutritional Appearance: well nourished Orientation/consciousness: patient oriented x3 HENMT Head: Yes normocephalic and Yes atraumatic Eyes General: appearance normal, both eyes and all related structures Pupils: Equal, round and reactive pupils present EOM: EOMs intact bilaterally Resp Effort & Inspection: normal respiratory effort Auscultation: clear to auscultation bilaterally Cardio Rate: regular rate Rhythm: regular rhythm Heart sounds: S1 normal heart sound present, S2 normal heart sound present, no gallops, no murmurs and no rubs Neuro General: patient oriented x3 and gait normal Cranial nerves: Yes Equal, round and reactive pupils present Psych Affect: normal affect Assessment and Plan Assessment & Plan (1) Chronic pain syndrome: Code(s): G89.4 - Chronic pain syndrome Plan: Weaning down. Some difficulty with wean and recent seizures due to known Seizure d.o. No change to current pain medication regimen this month. We discussed that she can work?at?some?voluntary?weaning?later?this?month?as?she?is?feeling?better. Will?discuss?continuing?her?wean?at?next?visit?in?a?month. (2) Seizure: Code(s): R56.9 - Unspecified convulsions Plan: Known?seizure?disorder?and?recent?seizure Checking?Keppra?and?lamotrigine?levels?and?I?advised?her?to?follow-up?with?her?neurologist. Orders: Orders Levetiracetam Keppra Today R56.9 - Unspecified convulsions Lamotrigine Lamictal Today G40.909 - Epilepsy, unspecified, not intractable, without status epilepticus Comprehensive Met. Panel Today R56.9 - Unspecified convulsions Medications: Changed From oxycodone-acetaminophen 5-325 mg (Percocet) 1.5 tabs AM, 1 tab late morning, 1 tab afternoon, 1.5 tabs PM orally every 6 hours PRN; Wean down. MassPat Verified. Partial Fill upon request. 4 days 20 tabs 0RF pain To oxycodone-acetaminophen 5-325 mg (Percocet) 1.5 tabs AM, 1 tab late morning, 1 tab afternoon, 1.5 tabs PM orally every 6 hours PRN; Wean down. MassPat Verified. Partial Fill upon request. 30 days 150 tabs 0RF pain Refilled semaglutide (weight loss) (Padmini) administer weeks 1 through 4 of therapy 0.25 mg (0.5 mL) subcut QWEEK 28 days 2 mL 2RF Coding Level of Care Code Est Pt Level 3 (58941) Diagnoses Chronic pain syndrome G89.4 Seizure R56.9
== END 2023-05-16 11:59 | disposition home or self-care (01) ==
PROVIDERS: PCP Family Medicine; Visit Provider Family Medicine
DX: G89.4 Chronic pain syndrome (principal); R56.9 Unspecified convulsions
CPT/HCPCS: 99213

== ENCOUNTER 2023-05-16 11:47 | Outpatient (REF) | payer MEDICARE, MEDICAID, SELFPAY ==
[2023-05-16 15:33] LABS: Alanine Aminotransferase 9 U/L (0-31); Albumin Level 4.2 g/dL (3.5-5.0); Alkaline Phosphatase 78 U/L (39-117); Anion Gap 13 (12-20); Aspartate Amino Transferase 13 U/L (5-31); Bilirubin Total 0.3 mg/dL (0.0-1.0); Blood Urea Nitrogen 14 mg/dL (9-16); Calcium 9.5 mg/dL (8.4-10.2); Carbon Dioxide 27 mmol/L (22-29); Chloride 102 mmol/L (96-108); Estimated Glomerular Filt Rate > 60; Glucose Random 80 mg/dL (60-115); Potassium 4.2 mmol/L (3.3-5.1); Sodium 138 mmol/L (135-145); Total Protein 7.3 g/dL (6.5-8.0)
[2023-05-20 19:28] LABS: Levetiracetam Keppra 32.6 mcg/mL (6.0-46.0)
== END 2023-05-16 11:48 | disposition home or self-care (01) ==
LOC: HO.WFDLDS 11:47
PROVIDERS: Visit Provider Family Medicine
DX: G40.909 Epilepsy, unspecified, not intractable, without status epilepticus (principal)
CPT/HCPCS: 36415; 80053; 80175; 80177

== ENCOUNTER 2023-06-10 11:46 | Outpatient (AMB) | payer MEDICARE, SELFPAY ==
[2023-06-10 12:07] VITALS: BP 119/58; PULSE 78; O2SAT 94; BMI 47.0
--- NOTE | 2023-06-10 12:07 | MHC.PC.OV ---
Vital Signs 06/10/23 12:07 Height 5 ft 2 in Weight 257 lb 2 oz BMI 47.0 BP 119/58 L Blood Pressure Location Rt brachial Position Sitting Pulse 78 Pulse Source Pulse Oximeter Pulse Oximetry (%) 94 Oxygen Delivery Method Room Air Intake Visit Reasons: f/u pain/weaning Intake Note: Patient is here to follow up on her pain/ weaning. Allergies seafood Allergy (Verified 06/10/23 12:08) hives Medication List - Last Reconciled 06/10/23 by Iron Castano MD famotidine 60 mg PO BEDTIME fluoxetine 40 mg PO DAILY gabapentin 900 mg (1.5 x 600 mg) PO Q8H PRN 90 days hydrochlorothiazide 37.5 mg (1.5 x 25 mg) PO DAILY 30 days lamotrigine 150 mg PO BID levetiracetam (Keppra) 1,000 mg PO BID levetiracetam 1,000 mg PO BID 90 days losartan 100 mg PO DAILY 90 days naproxen 500 mg PO Q12H 90 days omeprazole 40 mg (2 x 20 mg) PO DAILY oxycodone-acetaminophen 5-325 mg (Percocet) 1.5 tabs AM, 1 tab late morning, 1 tab afternoon, 1.5 tabs PM orally every 6 hours PRN; Wean down. MassPat Verified. Partial Fill upon request. 30 days semaglutide (weight loss) (Wegovy) 0.25 mg (0.5 mL) subcut QWEEK 28 days Tobacco use date assessed: 06/10/23 Fall risk assessment: 2 + Falls in past year Last assessed Fall Risk: 06/10/23 Dental Screening Dental Screen Date: 06/10/23 Did you have a dental visit in the last 12 months?: Yes Did you have a dental problem in the last 6 months where you did not have access to dental care?: No Was dental information given to patient?: Patient has dentist HPI f/u pain/weaning HPI Details 68 y/o female presents to f/u pain/weaning. Blood pressure today 119/58. She is on losartan 100mg and hydrochlorothiazide 37.5mg daily. FORMERLY [facility] Medical History Seizure Lumbar spinal stenosis Lumbar and sacral spondyloarthritis Migraine Major depressive disorder Cervical radiculopathy Osteoarthritis of knees, bilateral Urge incontinence Surgical History History of bariatric surgery S/P cervical spinal fusion Family History Father No problems noted. Mother No problems noted. 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 1. Little interest or pleasure in doing things: nearly every day 2. Feeling down, depressed, or hopeless: not at all 3. Trouble falling or staying asleep, or sleeping too much: more than half the days 4. Feeling tired or having little energy: nearly every day 5. Poor appetite or overeating: several days 6. Feeling bad about yourself - or that you are a failure or have let yourself or your family down: nearly every day 7. Trouble concentrating on things, such as reading the newspaper or watching television: nearly every day 8. Moving or speaking so slowly that other people could have noticed. Or the opposite - being so fidgety or restless that you have been moving around a lot more than usual: not at all 9. Thoughts that you would be better off or of hurting yourself in some way: not at all Total score: 15 Depression Screening Interpretation: Positive Depression Screening Done: Yes Source: Developed by Drs. Selvin Howell, Cary Barton, Valeriy Vieira and colleagues, with an educational carlene from [email or web address]. Thrive Questionnaire Date Thrive assessed: 06/10/23 I am a: Patient Within the past 12 months, did the food you bought not last and you didn't have the money to get more?: Never true Within the past 12 months, did you worry whether your food would run out before you got money to buy more?: Never true Do you have trouble paying for medicines?: No Do you have trouble getting transportation to medical appointments?: No Do you have trouble paying your heating and electricity bill?: No Do you have trouble taking care of your child, family member or friend?: No Do you have trouble with day-to-day activities such as bathing, preparing meals, shopping, managing finances, etc.?: No Are you currently unemployed and looking for a job?: No Are you interested in more education?: No THRIVE Score: 0 AUDIT C Alcohol Use Questionnaire (AUDIT-C) 1. How often do you have a drink containing alcohol?: Never 3. How often do you have six or more drinks on one occasion?: Never Total Score: 0 ANGEL-7 AMB Questionnaire ANGEL-7 Date ANGEL - 7 assessed: 06/10/23 Feeling nervous, anxious, or on edge: 0 = Not at all Not being able to stop or control worryin = Not at all Worrying too much about different things: 0 = Not at all Trouble relaxin = Not at all Being so restless that it is hard to sit still: 0 = Not at all Becoming easily annoyed or irritable: 0 = Not at all Feeling afraid as if something awful might happen: 0 = Not at all Total ANGEL-7 score (0-4 normal; 5-9 mild; 10-14 moderate; 15-21 severe): 0 Source: Developed by Drs. Selvin Howell, Cary Barton, Valeriy Vieira and colleagues, with an educational carlene from [email or web address]. Physical exam (Primary Care) Vital Signs: Last Vital Signs Pulse 78 06/10/23 12:07 BP 119/58 L 06/10/23 12:07 Pulse Ox 94 06/10/23 12:07 Oxygen Delivery Method Room Air 06/10/23 12:07 BMI result Body Mass Index 47.0 Tobacco/Smoking Status: Tobacco use Status Tobacco use date assessed 06/10/23 06/10/23 12:13 Patient Tobacco Use Status Former Tobacco user 06/10/23 12:13 e-Cigarette/Vaping Use Never Used 06/10/23 12:13 PHQ-9: PHQ-9 Score PHQ-9: Total score 15 06/10/23 12:24 Depression Screening Interpretation: Positive Thrive Assessment: Date of Thrive Assessment Date Thrive assessed 06/10/23 06/10/23 12:24 Assessment and Plan Assessment & Plan (1) Essential hypertension: Code(s): I10 - Essential (primary) hypertension Plan: Blood?pressure?is?a?little?low?given?she?has?not?taken?her?medications?today?and?notes?that?she?gets?a?little?weak?or?lightheaded?with?her?blood?pressure?medicines. Continue?losartan?and?decrease?hydrochlorothiazide?to?25?mg?daily Will?give?her?a?blood?pressure?monitor?and?she?can?keep?track?of?her?blood?pressures?at?home.??She?will?let?me?know?if?they?are?too?high?or?low. (2) Morbid obesity with BMI of 40.0-44.9, adult: Code(s): E66.01 - Morbid (severe) obesity due to excess calories; Z68.41 - Body mass index [BMI] 40.0-44.9, adult Plan: Had?given?her?a?script?for?Wegovy?at?her?request.??She?has?not?been?able?to?pick?this?up?last?month.??No?change?in?her?weight?but?she?has?not?been?taking?the?medication. Will?send?again?and?she?can?continue?trying?this?medication (3) Chronic pain syndrome: Code(s): G89.4 - Chronic pain syndrome Plan: Weaning?her?medication?as?she?has been?suspended?x1?year?from?pain?management. Patient?is?cooperative?with?wean Will?decrease?by?half?tablet?per?day?in?the?morning Follow-up?in?1?month Medications: New blood pressure monitor Automatic, Digital. Dx: I10. Daily As directed, 999 days/lifetime 1 ea 0RF I10 - Essential (primary) hypertension Changed From hydrochlorothiazide 37.5 mg (1.5 x 25 mg) PO DAILY 30 days 45 tabs 1RF To hydrochlorothiazide 25 mg PO DAILY 30 tabs 1RF 30 days From oxycodone-acetaminophen 5-325 mg (Percocet) 1.5 tabs AM, 1 tab late morning, 1 tab afternoon, 1.5 tabs PM orally every 6 hours PRN; Wean down. MassPat Verified. Partial Fill upon request. 150 tabs 0RF pain 30 days To oxycodone-acetaminophen 5-325 mg (Percocet) 1.5 tabs AM, 1 tab late morning, 1 tab afternoon, 1 tab PM orally every 6 hours PRN; Wean down. MassPat Verified. Partial Fill upon request. 135 tabs 0RF pain 30 days Refilled semaglutide (weight loss) (Padmini) administer weeks 1 through 4 of therapy 0.25 mg (0.5 mL) subcut QWEEK 28 days 2 mL 2RF naproxen 500 mg PO Q12H 90 days 180 tabs 3RF Coding Level of Care Code Est Pt Level 4 (94199) Diagnoses Essential hypertension I10 Morbid obesity with BMI of 40.0-44.9, adult E66.01; Z68.41 Chronic pain syndrome G89.4
== END 2023-06-10 13:07 | disposition home or self-care (01) ==
PROVIDERS: PCP Family Medicine; Visit Provider Family Medicine
DX: I10 Essential (primary) hypertension (principal); E66.01 Morbid (severe) obesity due to excess calories; Z68.41 Body mass index [BMI] 40.0-44.9, adult; G89.4 Chronic pain syndrome
CPT/HCPCS: 99214

== ENCOUNTER 2023-07-01 12:46 | Emergency (ER) | payer MEDICARE, MEDICAID, SELFPAY ==
--- NOTE | ~2023-07-01 | CT_ITS ---
CT HEAD WITHOUT IV CONTRAST CT CERVICAL SPINE WITHOUT IV CONTRAST INDICATION: Trauma. COMPARISON: Head CT 02/27/2023 and brain MRI 03/16/2023. TECHNIQUE: Multidetector CT acquisitions of the head and cervical spine were obtained without IV contrast. Multiplanar reformats were acquired and utilized for image interpretation. This CT examination was performed using dose optimization techniques as appropriate, variously including the following: *Automated exposure control *Adjustment of mA and/or kV according to patient size (this includes techniques or standardized protocols for targeted exams where dose is matched to indication/reason for exam; i.e. extremities or head) *Use of iterative reconstruction technique FINDINGS: HEAD: There is no intracranial hemorrhage, hydrocephalus, extra-axial surface collection, midline shift, or other herniation pattern. Banks to white matter differentiation is diffusely maintained without evidence of an evolved acute territorial infarct. The basilar cisterns are preserved. No significant soft tissue abnormality. No acute osseous abnormality. The paranasal sinuses and the mastoid air cells are well aerated. CERVICAL SPINE: There are postoperative changes following ACDF at the C4-C7 levels. Surgical hardware is intact and there is no evidence of hardware loosening. There are no acute fractures and there are no acute subluxations. Craniocervical junction is intact. There is multilevel hypertrophic facet arthropathy. There is no prevertebral soft tissue swelling. CT/CT head/brain wo IV con IMPRESSION: - No acute intracranial abnormality. - No acute osseous abnormality within the cervical spine.
--- NOTE | ~2023-07-01 | CT_ITS ---
CT HEAD WITHOUT IV CONTRAST CT CERVICAL SPINE WITHOUT IV CONTRAST INDICATION: Trauma. COMPARISON: Head CT 02/27/2023 and brain MRI 03/16/2023. TECHNIQUE: Multidetector CT acquisitions of the head and cervical spine were obtained without IV contrast. Multiplanar reformats were acquired and utilized for image interpretation. This CT examination was performed using dose optimization techniques as appropriate, variously including the following: *Automated exposure control *Adjustment of mA and/or kV according to patient size (this includes techniques or standardized protocols for targeted exams where dose is matched to indication/reason for exam; i.e. extremities or head) *Use of iterative reconstruction technique FINDINGS: HEAD: There is no intracranial hemorrhage, hydrocephalus, extra-axial surface collection, midline shift, or other herniation pattern. Banks to white matter differentiation is diffusely maintained without evidence of an evolved acute territorial infarct. The basilar cisterns are preserved. No significant soft tissue abnormality. No acute osseous abnormality. The paranasal sinuses and the mastoid air cells are well aerated. CERVICAL SPINE: There are postoperative changes following ACDF at the C4-C7 levels. Surgical hardware is intact and there is no evidence of hardware loosening. There are no acute fractures and there are no acute subluxations. Craniocervical junction is intact. There is multilevel hypertrophic facet arthropathy. There is no prevertebral soft tissue swelling. CT/CT cervical spine wo IV con IMPRESSION: - No acute intracranial abnormality. - No acute osseous abnormality within the cervical spine.
--- NOTE | 2023-07-01 12:54 | ECG_ITS ---
Test Reason : FALL Blood Pressure : / mmHG Vent. Rate : 080 BPM Atrial Rate : 080 BPM P-R Int : 150 ms QRS Dur : 082 ms QT Int : 392 ms P-R-T Axes : 064 024 053 degrees QTc Int : 452 ms Normal sinus rhythm Normal ECG When compared with ECG of 27-FEB-2023 11:03, No significant change was found Referred By: Generic ED Physician Electronically Signed By:REGGIE MCKEON MD
[2023-07-01 13:04] VITALS: BP 163/66; PULSE 83; RESP 18; TEMP 36.4; O2SAT 94; BMI 48.1
--- NOTE | 2023-07-01 13:14 | ED.FALL ---
HPI - Fall General Chief Complaint: Fall Stated Complaint: FALL,BLACKED OUT,SHOULDER PAIN PER EMS Time Seen by Provider: 07/01/23 13:10 Source: patient Mode of arrival: EMS Limitations: no limitations History of Present Illness HPI Narrative: This is 68 years old female presented to emergency department after a fall at home in the shower she is complaining of neck pain denies any chest wall pain any abdominal pain and hip pain. She has history of chronic pain syndrome, migraine headache, the depression, osteoarthritis ,lumber DJD complaint: fall Onset (ago): hour(s) (1) Fall from: standing Place fall occurred: home Loss of consciousness: none Symptoms prior to fall: none Context: tripped/slipped Location of injury: other (neck) Severity: moderate Quality: burning Associated symptoms (after fall): other (Neck pain) Related Data Home Medications Medication Instructions Recorded Confirmed lamotrigine 150 mg tablet 150 mg PO BID 03/21/20 06/10/23 famotidine 40 mg tablet 60 mg PO BEDTIME 03/08/23 06/10/23 fluoxetine 40 mg capsule 40 mg PO DAILY 04/12/23 06/10/23 Previous Rx's Medication Instructions Recorded omeprazole 20 mg capsule,delayed 40 mg (2 x 20 mg) PO DAILY #180 01/10/23 release caps losartan 100 mg tablet 100 mg PO DAILY 90 days #90 tabs 04/12/23 levetiracetam 1,000 mg tablet 1,000 mg PO BID 90 days #180 tabs 06/05/23 blood pressure monitor #1 ea 06/10/23 naproxen 500 mg tablet 500 mg PO Q12H 90 days #180 tabs 06/10/23 oxycodone-acetaminophen 5 mg-325 See Rx Instructions PO Q6H PRN 06/10/23 mg tablet (Percocet) pain 30 days #135 tabs semaglutide (weight loss) 0.25 0.25 mg (0.5 mL) subcut QWEEK 06/10/23 mg/0.5 mL subcutaneous pen days #2 mL injector (Wegovy) gabapentin 600 mg tablet 900 mg (1.5 x 600 mg) PO Q8H PRN 06/25/23 for pain 90 days #405 tabs hydrochlorothiazide 25 mg tablet 25 mg PO DAILY 30 days #30 tabs 06/25/23 Allergies Allergy/AdvReac Type Severity Reaction Status Date / Time seafood Allergy hives Verified 06/10/23 12:08 Review of Systems Constitutional: Constitutional: Reports no additional constitutional complaints Eyes: Eyes: Reports no additional eye complaints ENT: Reports system reviewed and no additional complaints, except as documented Neurologic: Reports system reviewed and no additional complaints, except as documented PMFSH Past Medical History Source: unable to obtain Medical History Seizure Lumbar spinal stenosis Lumbar and sacral spondyloarthritis Migraine Major depressive disorder Cervical radiculopathy Osteoarthritis of knees, bilateral Urge incontinence Surgical History History of bariatric surgery S/P cervical spinal fusion Family History Family History Father No problems noted. Mother No problems noted. 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 Current occupational exposures/hazards: No Cognitive needs: No Hearing needs: No Vision needs: No Physical Exam Vital Signs: Vital Signs: Last Vital Signs Temp 98.2 F 07/01/23 15:39 Pulse 78 07/01/23 15:39 Resp 14 07/01/23 15:39 BP 129/75 07/01/23 15:39 Pulse Ox 96 07/01/23 15:39 O2 Del Method Room Air 07/01/23 15:39 BMI result Body Mass Index 48.1 Const: General: cooperative Nutritional Appearance: well nourished Orientation/consciousness: patient oriented x3 Limitations: no limitations HEENT: Head: Yes normal to inspection General nose exam: Normal external nose present Face and sinus: Yes normal facial exam Mouth: Normal oral and palatal mucosa present Throat: Yes posterior oropharynx normal Neck: Neck: Yes normal visual inspection Thyroid: Thyroid normal Chest: Chest palpation & inspection: normal inspection of the chest Resp: Effort & Inspection: normal respiratory effort Auscultation: clear to auscultation bilaterally Cardio: Jugular venous distension: no JVD Rate: regular rate Rhythm: regular rhythm GI: Inspection: Yes normal to inspection Palpation (GI): Soft to palpation, not firm, nontender and no guarding Neuro: General: patient oriented x3 Cranial nerves: Yes CN's II-XII intact bilaterally Medications Administered Discontinued Medications Generic Name Dose Route Start Last Admin Trade Name Freq PRN Reason Stop Dose Admin Oxycodone HCl 10 mg 07/01/23 13:14 07/01/23 13:24 Oxycodone Hcl Immed Release 5 Mg Tablet PO 07/01/23 13:15 10 mg ONCE ONE Administration Medical Decision Making Medical Decision Making [facility] Narrative: Patient presented with a fall the fall was mechanical no syncope we will get imaging Differential Diagnosis Differential Diagnoses: The differential diagnosis associated with the presentation includes Cervical spine fracture/subdural hematoma/epidural hematoma Admission/Observation Consideration of admission/observation: Escalation of care including admission/observation considered Independent Interpretation I performed an independent interpretation of an: EKG Interpretation: Normal sinus rhythm rate [address]-T changes Radiology Impression Discussion of test interpretation with radiology: I have reviewed the radiologist's reading. Prescription Management I considered prescription management with: Pain Medication Chronic Conditions Patient?s care impacted by: Other (chronic pain syndrome) Discharge Plan Discharge Clinical Impression: Head injury Qualifiers: Encounter type: initial encounter Qualified Code(s): S09.90XA - Unspecified injury of head, initial encounter Fall Qualifiers: Encounter type: initial encounter Qualified Code(s): W19.XXXA - Unspecified fall, initial encounter Patient Disposition: Home, Self-Care Instructions: Head Injury (ED) Prescriptions: No Action omeprazole 20 mg capsule,delayed release(DR/EC) 40 mg PO DAILY Qty: 180 3RF levetiracetam 1,000 mg tablet 1,000 mg PO BID 90 Days Qty: 180 3RF gabapentin 600 mg tablet 900 mg PO Q8H PRN (Reason: for pain) 90 Days Qty: 405 0RF hydrochlorothiazide 25 mg tablet 25 mg PO DAILY 30 Days Qty: 30 1RF lamotrigine 150 mg tablet 150 mg PO BID fluoxetine 40 mg capsule 40 mg PO DAILY (DME) blood pressure monitor Kit See Rx Instructions .ROUTE .MEDSUPPLY Qty: 1 0RF Rx Instructions: Automatic, Digital. Dx: I10. Daily As directed, 999 days/lifetime oxycodone-acetaminophen [Percocet] 5-325 mg tablet See Rx Instructions PO Q6H PRN (Reason: pain) 30 Days Qty: 135 0RF Rx Instructions: 1.5 tabs AM, 1 tab late morning, 1 tab afternoon, 1 tab PM orally every 6 hours PRN; Wean down. MassPat Verified. Partial Fill upon request. naproxen 500 mg tablet 500 mg PO Q12H 90 Days Qty: 180 3RF Wegovy 0.25 mg/0.5 mL pen injector 0.25 mg subcut QWEEK 28 Days Qty: 2 2RF Rx Instructions: administer weeks 1 through 4 of therapy famotidine 40 mg tablet 60 mg PO BEDTIME losartan 100 mg tablet 100 mg PO DAILY 90 Days Qty: 90 2RF Discharge Date/Time: 07/01/23 15:54
[2023-07-01] MEDS: oxyCODONE HCl Immed Release 5 MG TABLET 10 MG PO (13:24)
[2023-07-01 15:39] VITALS: BP 129/75; PULSE 78; RESP 14; TEMP 36.8; O2SAT 96
== END 2023-07-01 15:54 | disposition home or self-care (01) ==
PROVIDERS: Emergency Provider Emergency Medicine; PCP Family Medicine
DX: S00.93XA Contusion of unspecified part of head, initial encounter (principal); M54.2 Cervicalgia; R51.9 Headache, unspecified; W18.2XXA Fall in (into) shower or empty bathtub, initial encounter; Y93.E1 Activity, personal bathing and showering; Y92.002 Bathroom of unspecified non-institutional (private) residence as the place of occurrence of the external cause; Y99.8 Other external cause status; Z79.899 Other long term (current) drug therapy; Z87.891 Personal history of nicotine dependence
CPT/HCPCS: 70450; 72125; 93005; 99284

== ENCOUNTER → 2023-07-01 12:54 | Outpatient (BNV) | payer MEDICARE, MEDICAID, SELFPAY | PROVIDERS: Emergency Provider Emergency Medicine; PCP Family Medicine; Visit Provider Internal Medicine Cardiovascular Disease | DX: Z91.81 History of falling (principal) | CPT/HCPCS: 93010 ==

== ENCOUNTER 2023-07-02 13:43 | Emergency (ER) | payer MEDICARE, MEDICAID, SELFPAY ==
[2023-07-02 13:53] VITALS: BP 141/62; PULSE 79; RESP 18; TEMP 37.1; O2SAT 97; BMI 41.4
--- NOTE | 2023-07-02 14:09 | ED.GENADULT ---
HPI - General Adult General Chief complaint: Seizure Stated complaint: ?SEIZURE,HEADACHE Time Seen by Provider: 07/02/23 14:02 Source: patient and EMS Mode of arrival: EMS Limitations: no limitations History of Present Illness HPI narrative: patient states friend notice her shaking while she was on the phone. Patient states she was shaking all over but was awake and alert when she called 911. Onset (ago): hour(s) Severity: moderate Related Data Home Medications Medication Instructions Recorded Confirmed lamotrigine 150 mg tablet 150 mg PO BID 03/21/20 06/10/23 famotidine 40 mg tablet 60 mg PO BEDTIME 03/08/23 06/10/23 fluoxetine 40 mg capsule 40 mg PO DAILY 04/12/23 06/10/23 Previous Rx's Medication Instructions Recorded omeprazole 20 mg capsule,delayed 40 mg (2 x 20 mg) PO DAILY #180 01/10/23 release caps losartan 100 mg tablet 100 mg PO DAILY 90 days #90 tabs 04/12/23 levetiracetam 1,000 mg tablet 1,000 mg PO BID 90 days #180 tabs 06/05/23 blood pressure monitor #1 ea 06/10/23 naproxen 500 mg tablet 500 mg PO Q12H 90 days #180 tabs 06/10/23 oxycodone-acetaminophen 5 mg-325 See Rx Instructions PO Q6H PRN 06/10/23 mg tablet (Percocet) pain 30 days #135 tabs semaglutide (weight loss) 0.25 0.25 mg (0.5 mL) subcut QWEEK 28 06/10/23 mg/0.5 mL subcutaneous pen days #2 mL injector (Wegovy) gabapentin 600 mg tablet 900 mg (1.5 x 600 mg) PO Q8H PRN 06/25/23 for pain 90 days #405 tabs hydrochlorothiazide 25 mg tablet 25 mg PO DAILY 30 days #30 tabs 06/25/23 Allergies Allergy/AdvReac Type Severity Reaction Status Date / Time seafood Allergy hives Verified 06/10/23 12:08 Review of Systems Review of Systems: Yes all other systems are reviewed and are negative Neurologic: Denies Sensory deficit (Neuro) PMFSH Past Medical History Medical History Seizure Lumbar spinal stenosis Lumbar and sacral spondyloarthritis Migraine Major depressive disorder Cervical radiculopathy Osteoarthritis of knees, bilateral Urge incontinence Surgical History History of bariatric surgery S/P cervical spinal fusion Family History Family History Father No problems noted. Mother No problems noted. 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 Current occupational exposures/hazards: No Cognitive needs: No Hearing needs: No Vision needs: No Physical Exam ED Vital Signs: Vital Signs - 24 hr 07/02/23 13:53 07/02/23 15:37 Temperature 98.7 F Pulse Rate 79 87 Respiratory Rate 18 18 Blood Pressure 141/62 H 156/85 H Pulse Oximetry 97 94 Oxygen Delivery Method Room Air Nasal Cannula Oxygen Flow Rate 2 BMI result Body Mass Index 41.4 Const Other: flat affect Nutritional Appearance: average body habitus Orientation/consciousness: oriented to person and patient oriented x3 Limitations: no limitations HENMT Head: Yes normal to inspection Ears: external ears normal General nose exam: Normal external nose present Mouth: Normal oral and palatal mucosa present and oropharynx normal Throat: Yes posterior oropharynx normal Eyes General: appearance normal, both eyes and all related structures Neck Neck: Yes normal visual inspection Chest Chest palpation & inspection: normal inspection of the chest Resp Auscultation: clear to auscultation bilaterally Cardio Jugular venous distension: no JVD Rate: regular rate Rhythm: regular rhythm Heart sounds: S1 normal heart sound present and S2 normal heart sound present GI Inspection: Yes normal to inspection Palpation (GI): Soft to palpation, nontender and No hepatosplenomegaly present Auscultation: normal bowel sounds General: Yes no CVA tenderness Back/Spine/Pelvis Back: no CVA tenderness Skin General skin exam: no rashes or lesions noted Neuro General: oriented to person and patient oriented x3 Cranial nerves: Yes CN's II-XII intact bilaterally Motor exam (neuro): 5/5 motor strength present throughout Sensory Exam: No Sensory deficit (Neuro) Extrem General: Yes normal to inspection Psych Appearance: grossly normal Course Reevaluation(s) Reevaluation #1: by patients history this was not a seizure will dc home Time: 16:34 Medical Decision Making Differential Diagnosis Differential Diagnoses: The differential diagnosis associated with the presentation includes (headache, anxiety, shaking) Admission/Observation Consideration of admission/observation: Escalation of care including admission/observation considered (upon arrival patient was considered for admission) Lab Data 07/02/23 14:27 07/02/23 14:27 Labs: Lab Results 07/02/23 Range/Units 14:27 WBC 7.0 (4.8-10.8) X10*3/uL RBC 4.31 (4.20-5.50) X10*6/uL Hgb 11.1 L (12.0-16.0) g/dl Hct 35.2 L (37.0-47.0) % MCV 81.7 (80.0-98.0) fL MCH 25.8 L (27.0-33.0) pg MCHC 31.5 (31.0-35.0) g/dl RDW 15.1 (11.0-16.0) % Plt Count 270 (160-400) X10*3/uL MPV 9.0 L (9.4-12.3) fL Immature Gran % (Auto) 0.4 (0.0-0.4) % Neut % (Auto) 57.9 (45-73) % Lymph % (Auto) 31.5 (20-40) % [place] % (Auto) 7.9 (2-11) % Eos % (Auto) 1.6 (0-4) % Baso % (Auto) 0.7 (0-2) % Lymph # (Auto) 2.2 (1.2-4.9) X10*3/uL [place] # (Auto) 0.6 (0.1-1.2) X10*3/uL Eos # (Auto) 0.1 (0.0-0.4) X10*3/uL Baso # (Auto) 0.1 (0.0-0.2) X10*3/uL Abs Immat Gran (auto) 0.03 (0.00-0.03) X10*3/uL Absolute Neuts (auto) 4.0 (2.0-8.3) x10*3/uL Absolute Nucleated RBC 0.000 (0.0-0.012) X10*3/uL Nucleated RBC % (auto) 0.0 (0.0-0.2) /100WBC Sodium 137 (135-145) mmol/L Potassium 4.1 (3.3-5.1) mmol/L Chloride 103 (96-108) mmol/L Carbon Dioxide 25 (22-29) mmol/L Anion Gap 13 (12-20) BUN 11 (9-16) mg/dL Creatinine 0.81 (0.5-1.4) mg/dL Estim Creat Clear Calc 87.3 Estimated GFR > 60 Random Glucose 88 (60-115) mg/dL Calcium 9.0 (8.4-10.2) mg/dL Magnesium 2.2 (1.6-2.6) mg/dL Independent Historian Clinical information obtained from an independent historian. History obtained from or confirmed by: EMS External Record Review External record reviewed: Prior outpatient labs and Prior outpatient radiology Tests considered The following testing was considered but not selected: Head ct considered but patient was non focal Chronic Conditions Patient?s care impacted by: Other (seizure disorder, psychiatric disease) Discharge Plan Discharge Clinical Impression: Headache Patient Disposition: Home, Self-Care Instructions: Acute Headache (ED) Prescriptions: No Action omeprazole 20 mg capsule,delayed release(DR/EC) 40 mg PO DAILY Qty: 180 3RF levetiracetam 1,000 mg tablet 1,000 mg PO BID 90 Days Qty: 180 3RF gabapentin 600 mg tablet 900 mg PO Q8H PRN (Reason: for pain) 90 Days Qty: 405 0RF hydrochlorothiazide 25 mg tablet 25 mg PO DAILY 30 Days Qty: 30 1RF lamotrigine 150 mg tablet 150 mg PO BID fluoxetine 40 mg capsule 40 mg PO DAILY (DME) blood pressure monitor Kit See Rx Instructions .ROUTE .MEDSUPPLY Qty: 1 0RF Rx Instructions: Automatic, Digital. Dx: I10. Daily As directed, 999 days/lifetime oxycodone-acetaminophen [Percocet] 5-325 mg tablet See Rx Instructions PO Q6H PRN (Reason: pain) 30 Days Qty: 135 0RF Rx Instructions: 1.5 tabs AM, 1 tab late morning, 1 tab afternoon, 1 tab PM orally every 6 hours PRN; Wean down. MassPat Verified. Partial Fill upon request. naproxen 500 mg tablet 500 mg PO Q12H 90 Days Qty: 180 3RF Wegovy 0.25 mg/0.5 mL pen injector 0.25 mg subcut QWEEK 28 Days Qty: 2 2RF Rx Instructions: administer weeks 1 through 4 of therapy famotidine 40 mg tablet 60 mg PO BEDTIME losartan 100 mg tablet 100 mg PO DAILY 90 Days Qty: 90 2RF Referrals: Iron Castano MD [Primary Care Provider] - 3 days
[2023-07-02 14:30] LABS: MANUAL DIFF FLAG NO
[2023-07-02 14:32] LABS: Basophils Absolute Auto 0.1 X10*3/uL (0.0-0.2); Basophils Percent Auto 0.7 % (0-2); Eosinophils Absolute Auto 0.1 X10*3/uL (0.0-0.4); Eosinophils Percent Auto 1.6 % (0-4); Hematocrit 35.2 % (37.0-47.0); Hemoglobin 11.1 g/dl (12.0-16.0); Imm Gran Abs Auto 0.03 X10*3/uL (0.00-0.03); Imm Gran Pct Auto 0.4 % (0.0-0.4); Lymphocytes Absolute Auto 2.2 X10*3/uL (1.2-4.9); Lymphocytes Percent Auto 31.5 % (20-40); Mean Corpuscular HGB Conc 31.5 g/dl (31.0-35.0); Mean Corpuscular Hemoglobin 25.8 pg (27.0-33.0); Mean Corpuscular Volume 81.7 fL (80.0-98.0); Monocytes Absolute Auto 0.6 X10*3/uL (0.1-1.2); Monocytes Percent Auto 7.9 % (2-11); Neutrophils Percent Auto 57.9 % (45-73); Platelet Count 270 X10*3/uL (160-400); Red Blood Count 4.31 X10*6/uL (4.20-5.50); Red Cell Distribution Width 15.1 % (11.0-16.0)
[2023-07-02 14:53] LABS: Anion Gap 13 (12-20); Blood Urea Nitrogen 11 mg/dL (9-16); Carbon Dioxide 25 mmol/L (22-29); Chloride 103 mmol/L (96-108); Creatinine Clr Calc Pharmacy 87.3; Estimated Glomerular Filt Rate > 60; Glucose Random 88 mg/dL (60-115); Magnesium 2.2 mg/dL (1.6-2.6); Potassium 4.1 mmol/L (3.3-5.1); Sodium 137 mmol/L (135-145)
--- NOTE | 2023-07-02 15:07 | PC.NURSE ---
Seizure pads in place, no seizure activity noted. patient reports just had keppra dose increased and has been med complaint
[2023-07-02 15:37] VITALS: BP 156/85; PULSE 87; RESP 18; O2SAT 94
[2023-07-02 16:47] VITALS: BP 109/63; PULSE 84; RESP 16; TEMP 36.4; O2SAT 97
--- NOTE | 2023-07-02 16:58 | MHC.EDTECH ---
Patient was assisted to bathroom and back to bed .
--- NOTE | 2023-07-02 17:42 | PC.NURSE ---
Patient called daughter to come pick her up, daughter stated is leaving work and will pick her up on her way home
== END 2023-07-02 18:23 | disposition home or self-care (01) ==
PROVIDERS: Emergency Provider Emergency Medicine; PCP Family Medicine
DX: R51.9 Headache, unspecified (principal); Z79.899 Other long term (current) drug therapy; Z87.891 Personal history of nicotine dependence
CPT/HCPCS: 36415; 80048; 83735; 85025; 99283; 99284

== ENCOUNTER 2023-07-03 13:52 | Emergency (ER) | payer MEDICARE, OTHER, SELFPAY ==
--- NOTE | ~2023-07-03 | CT_ITS ---
EXAMINATION: CT HEAD WITHOUT CONTRAST CLINICAL INFORMATION: Headache. Possible seizure. COMPARISON: Previous head CT most recent 07/01/2023 TECHNIQUE: Contiguous axial imaging was performed from the skull base to vertex without intravenous administration of contrast. This CT examination was performed using dose optimization techniques as appropriate, variously including the following: *Automated exposure control *Adjustment of mA and/or kV according to patient size (this includes techniques or standardized protocols for targeted exams where dose is matched to indication/reason for exam; i.e. extremities or head) *Use of iterative reconstruction technique DLP: 642 mGy-cm FINDINGS: Evaluation of the skull base limited due to motion artifact. There is no evidence of an extra-axial collection. There is no evidence of intra or extra-axial hemorrhage. The ventricles and extra-axial CSF spaces are slightly prominent suggestive of mild generalized atrophy. No mass, mass effect or infarct. No skull fracture. The paranasal sinuses and the mastoid air cells are clear. CT/CT head/brain wo IV con IMPRESSION: No acute intracranial findings. Evaluation of the skull base limited due to motion artifact.
[2023-07-03 14:05] VITALS: BP 99/50; PULSE 80; O2SAT 97
[2023-07-03 14:11] VITALS: BP 142/63; PULSE 86; RESP 22; TEMP 37; O2SAT 94; BMI 43.6
--- NOTE | 2023-07-03 14:53 | ECG_ITS ---
Test Reason : ?SEIZURE Blood Pressure : / mmHG Vent. Rate : 086 BPM Atrial Rate : 086 BPM P-R Int : 160 ms QRS Dur : 090 ms QT Int : 392 ms P-R-T Axes : 045 018 041 degrees QTc Int : 469 ms Normal sinus rhythm Normal ECG When compared with ECG of 01-JUL-2023 13:10, No significant change was found Referred By: Negro Emery Electronically Signed By:REGGIE MCKEON MD
[2023-07-03 15:28] LABS: MANUAL DIFF FLAG NO
[2023-07-03] MEDS: Ketorolac Tromethamine 15 MG/ML VIAL 10 MG IVPUSH (15:32)
[2023-07-03 15:37] LABS: Basophils Absolute Auto 0.1 X10*3/uL (0.0-0.2); Basophils Percent Auto 0.7 % (0-2); Eosinophils Absolute Auto 0.1 X10*3/uL (0.0-0.4); Eosinophils Percent Auto 0.5 % (0-4); Hematocrit 37.9 % (37.0-47.0); Hemoglobin 11.8 g/dl (12.0-16.0); Imm Gran Abs Auto 0.05 X10*3/uL (0.00-0.03); Imm Gran Pct Auto 0.5 % (0.0-0.4); Lymphocytes Absolute Auto 1.5 X10*3/uL (1.2-4.9); Lymphocytes Percent Auto 16.6 % (20-40); Mean Corpuscular HGB Conc 31.1 g/dl (31.0-35.0); Mean Corpuscular Hemoglobin 25.5 pg (27.0-33.0); Monocytes Absolute Auto 0.4 X10*3/uL (0.1-1.2); Monocytes Percent Auto 4.8 % (2-11); Neutrophils Percent Auto 76.9 % (45-73); Platelet Count 288 X10*3/uL (160-400); Red Blood Count 4.62 X10*6/uL (4.20-5.50); Red Cell Distribution Width 15.3 % (11.0-16.0); White Blood Count 9.1 X10*3/uL (4.8-10.8)
[2023-07-03] MEDS: 0.9 % Sodium Chloride 1,000 ML 999 ML IV (15:37)
--- NOTE | 2023-07-03 15:42 | PC.NURSE ---
pt with some pain but kept drifting off to sleep, would wake up to her name and mostly mumble words to me. seizure pads in place and some twitching noted by this RN. VSS
[2023-07-03 15:51] LABS: Alanine Aminotransferase 12 U/L (0-31); Albumin Level 4.4 g/dL (3.5-5.0); Alkaline Phosphatase 79 U/L (39-117); Anion Gap 15 (12-20); Aspartate Amino Transferase 21 U/L (5-31); Bilirubin Direct 0.2 mg/dL (0.0-0.5); Bilirubin Total 0.3 mg/dL (0.0-1.0); Blood Urea Nitrogen 8 mg/dL (9-16); Calcium 9.4 mg/dL (8.4-10.2); Carbon Dioxide 22 mmol/L (22-29); Chloride 107 mmol/L (96-108); Creatinine Clr Calc Pharmacy 91.1; Estimated Glomerular Filt Rate > 60; Glucose Random 109 mg/dL (60-115); Magnesium 2.4 mg/dL (1.6-2.6); Potassium 4.3 mmol/L (3.3-5.1); Sodium 140 mmol/L (135-145); Total Protein 7.6 g/dL (6.5-8.0)
[2023-07-03 16:07] LABS: Influenza A PCR NEGATIVE (Negative); Influenza B PCR NEGATIVE (Negative); Resp Syncy Virus RNA Qual PCR NEGATIVE (Negative); SARS COV2 PCR INHOUSE NEGATIVE (Negative)
--- NOTE | 2023-07-03 16:56 | PC.NURSE ---
spoke with daughter Ping and she is working on POA paperwork and would like to be the primary contact instead of her brother Herminio Olivera as he has no license or car.
--- NOTE | 2023-07-03 17:05 | ED_ITS ---
HPI - General Adult General Chief complaint: Seizure Stated complaint: SEIZURES,RECENT FALL PER EMS Time Seen by Provider: 07/03/23 14:41 History of Present Illness HPI narrative: The patient is a 68-year-old woman who lives alone and who has a history of a seizure disorder. She is on levetiracetam 1000 mg b.i.d. and lamotrigine 150 mg b.i.d.. She also was prescribed gabapentin 900 mg t.i.d. for pain. Today's visit is the 3rd visit in 3 days. She was seen here 2 days ago on July 01 following a fall. Apparently she fell in her shower and was brought to the emergency room. She was felt to have had a mechanical fall in her bathroom. She had a negative workup in the emergency room and was discharged. She returned to the emergency room yesterday after apparently having possibly had a seizure. She was evaluated in the emergency room and had an unremarkable workup. She seemed to recover from whatever episode she had had and was discharged. Today the patient comes to the emergency room by ambulance after having had what she described as 2 seizures at home. She was alone at the time. She says that she had a ?big? seizure and then later a small seizure. The patient was not really able to give details of what happened aside from saying that she curled up on the floor. She presented complaining of a headache that she describes as typical of headaches she has after a seizure. The patient describes having taken Percocet at home both before and after the seizure. They also complaining of feeling very dizzy. She says that she feels that when she looks at things that they are shaking. Related Data Home Medications Medication Instructions Recorded Confirmed lamotrigine 150 mg tablet 150 mg PO BID 03/21/20 06/10/23 famotidine 40 mg tablet 60 mg PO BEDTIME 03/08/23 06/10/23 fluoxetine 40 mg capsule 40 mg PO DAILY 04/12/23 06/10/23 Previous Rx's Medication Instructions Recorded omeprazole 20 mg capsule,delayed 40 mg (2 x 20 mg) PO DAILY #180 01/10/23 release caps losartan 100 mg tablet 100 mg PO DAILY 90 days #90 tabs 04/12/23 levetiracetam 1,000 mg tablet 1,000 mg PO BID 90 days #180 tabs 06/05/23 blood pressure monitor #1 ea 06/10/23 naproxen 500 mg tablet 500 mg PO Q12H 90 days #180 tabs 06/10/23 oxycodone-acetaminophen 5 mg-325 See Rx Instructions PO Q6H PRN 06/10/23 mg tablet (Percocet) pain 30 days #135 tabs semaglutide (weight loss) 0.25 0.25 mg (0.5 mL) subcut QWEEK 28 06/10/23 mg/0.5 mL subcutaneous pen days #2 mL injector (Wegovy) gabapentin 600 mg tablet 900 mg (1.5 x 600 mg) PO Q8H PRN 06/25/23 for pain 90 days #405 tabs hydrochlorothiazide 25 mg tablet 25 mg PO DAILY 30 days #30 tabs 06/25/23 Allergies Allergy/AdvReac Type Severity Reaction Status Date / Time seafood Allergy hives Verified 06/10/23 12:08 Review of Systems 2 Review of Systems: Yes all other systems are reviewed and are negative [facility] Past Medical History Medical History Seizure Lumbar spinal stenosis Lumbar and sacral spondyloarthritis Migraine Major depressive disorder Cervical radiculopathy Osteoarthritis of knees, bilateral Urge incontinence Surgical History History of bariatric surgery S/P cervical spinal fusion Family History Family History Father No problems noted. Mother No problems noted. 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 She is awake and alert complaining of feeling dizzy and preferring to keep her eyes closed HENMT Other: The face is symmetrical. Mucous membranes moist. Tongue is midline. Eyes Other: Pupils are round equal, pupils are reactive, extraocular movements are intact, no definite nystagmus Neck Other: No posterior midline C-spine tenderness. Moving her neck without discomfort. C-spine is clinically clear Resp Effort & Inspection: normal respiratory effort Auscultation: clear to auscultation bilaterally Cardio Rate: regular rate Rhythm: regular rhythm Heart sounds: S1 normal heart sound present and S2 normal heart sound present GI Other: Abdomen is soft and nontender Skin Other: Skin is pale and dry Neuro Other: The patient is awake and alert. She is oriented but has a somewhat vague demeanor. Eye movements are intact. No definite nystagmus. Face is symmetrical. Speech is clear. She moves her extremities symmetrically. She seemed to have some general tremulousness. I attempted to perform a trial of ambulation but when I stood her on her feet looseness increased and she did not seem safe to walk. However she has no definite focal neurological findings Extrem Other: No pitting edema. She has some bruising on her knees Medications Administered Discontinued Medications Generic Name Dose Route Start Last Admin Trade Name Freq PRN Reason Stop Dose Admin Sodium Chloride 1,000 mls @ 999 mls/hr 07/03/23 15:00 07/03/23 15:37 Ns IV 07/03/23 16:00 999 mls/hr .Q1H1M JOAO Administration Ketorolac Tromethamine 10 mg 07/03/23 14:59 07/03/23 15:32 Ketorolac Tromethamine 15 Mg/Ml Vial IVPUSH 07/03/23 15:00 10 mg ONCE ONE Administration Medical Decision Making Medical Decision Making [facility] Narrative: The patient is a 68-year-old female with an apparent history of a seizure disorder (a relatively new condition for her, this diagnosis is less than a year old). This is her 3rd ER visit in 3 days. Two days ago she reported a fall without an associated seizure. Yesterday she reported a seizure. Today she reports having had 2 seizures. She states that she has been taking her lamotrigine and levetiracetam appropriately and does not feel she missed any doses. In the emergency room the patient is complaining of a headache that she says is typical of her post seizure headaches. She is also complaining of feeling very dizzy which is worse than usual. The patient was initially given IV fluids. She was given 10 mg of ketorolac for her headache. She was observed. Her vital signs were unremarkable and her labs were unremarkable. I then tried to ambulate her but she seemed too tremulous when she stood up to attempt ambulation. Given that this is her 3rd ER visit in 3 days and given that she is not ambulating well I will obtain a noncontrast head CT to ensure there is no obvious change. Otherwise the patient will need to stay in the emergency room overnight for case management and physical therapy evaluation tomorrow. I have ordered her regular medications. Lab Data 07/03/23 15:21 07/03/23 15:21 Labs: Lab Results 07/03/23 Range/Units 15:21 WBC 9.1 (4.8-10.8) X10*3/uL RBC 4.62 (4.20-5.50) X10*6/uL Hgb 11.8 L (12.0-16.0) g/dl Hct 37.9 (37.0-47.0) % MCV 82.0 (80.0-98.0) fL MCH 25.5 L (27.0-33.0) pg MCHC 31.1 (31.0-35.0) g/dl RDW 15.3 (11.0-16.0) % Plt Count 288 (160-400) X10*3/uL MPV 9.0 L (9.4-12.3) fL Immature Gran % (Auto) 0.5 H (0.0-0.4) % Neut % (Auto) 76.9 H (45-73) % Lymph % (Auto) 16.6 L (20-40) % [place] % (Auto) 4.8 (2-11) % Eos % (Auto) 0.5 (0-4) % Baso % (Auto) 0.7 (0-2) % Lymph # (Auto) 1.5 (1.2-4.9) X10*3/uL [place] # (Auto) 0.4 (0.1-1.2) X10*3/uL Eos # (Auto) 0.1 (0.0-0.4) X10*3/uL Baso # (Auto) 0.1 (0.0-0.2) X10*3/uL Abs Immat Gran (auto) 0.05 H (0.00-0.03) X10*3/uL Absolute Neuts (auto) 7.0 (2.0-8.3) x10*3/uL Absolute Nucleated RBC 0.000 (0.0-0.012) X10*3/uL Nucleated RBC % (auto) 0.0 (0.0-0.2) /100WBC Sodium 140 (135-145) mmol/L Potassium 4.3 (3.3-5.1) mmol/L Chloride 107 (96-108) mmol/L Carbon Dioxide 22 (22-29) mmol/L Anion Gap 15 (12-20) BUN 8 L (9-16) mg/dL Creatinine 0.80 (0.5-1.4) mg/dL Estim Creat Clear Calc 91.1 Estimated GFR > 60 Random Glucose 109 (60-115) mg/dL Calcium 9.4 (8.4-10.2) mg/dL Magnesium 2.4 (1.6-2.6) mg/dL Total Bilirubin 0.3 (0.0-1.0) mg/dL Direct Bilirubin 0.2 (0.0-0.5) mg/dL AST 21 (5-31) U/L ALT 12 (0-31) U/L Alkaline Phosphatase 79 (39-117) U/L Total Protein 7.6 (6.5-8.0) g/dL Albumin 4.4 (3.5-5.0) g/dL Influenza Type A (PCR) NEGATIVE (Negative) Influenza Type B (PCR) NEGATIVE (Negative) RSV RNA Qual (PCR) NEGATIVE (Negative) SARS-CoV-2 RNA (RT-PCR) NEGATIVE (Negative) Independent Interpretation I performed an independent interpretation of an: EKG Interpretation: EKG at 15:06 shows normal sinus rhythm at 86 beats per minute. No definite acute ischemic changes or other obvious abnormalities Discharge Plan Discharge Clinical Impression: Seizure, Tremulousness Patient Disposition: Still a Patient Prescriptions: No Action omeprazole 20 mg capsule,delayed release(DR/EC) 40 mg PO DAILY Qty: 180 3RF levetiracetam 1,000 mg tablet 1,000 mg PO BID 90 Days Qty: 180 3RF gabapentin 600 mg tablet 900 mg PO Q8H PRN (Reason: for pain) 90 Days Qty: 405 0RF hydrochlorothiazide 25 mg tablet 25 mg PO DAILY 30 Days Qty: 30 1RF lamotrigine 150 mg tablet 150 mg PO BID fluoxetine 40 mg capsule 40 mg PO DAILY (DME) blood pressure monitor Kit See Rx Instructions .ROUTE .MEDSUPPLY Qty: 1 0RF Rx Instructions: Automatic, Digital. Dx: I10. Daily As directed, 999 days/lifetime oxycodone-acetaminophen [Percocet] 5-325 mg tablet See Rx Instructions PO Q6H PRN (Reason: pain) 30 Days Qty: 135 0RF Rx Instructions: 1.5 tabs AM, 1 tab late morning, 1 tab afternoon, 1 tab PM orally every 6 hours PRN; Wean down. MassPat Verified. Partial Fill upon request. naproxen 500 mg tablet 500 mg PO Q12H 90 Days Qty: 180 3RF Wegovy 0.25 mg/0.5 mL pen injector 0.25 mg subcut QWEEK 28 Days Qty: 2 2RF Rx Instructions: administer weeks 1 through 4 of therapy famotidine 40 mg tablet 60 mg PO BEDTIME losartan 100 mg tablet 100 mg PO DAILY 90 Days Qty: 90 2RF
[2023-07-03] MEDS: Gabapentin 300 MG CAPSULE 900 MG PO ×2 (17:31→21:07)
[2023-07-03] MEDS: levETIRAcetam 1,000 MG TABLET 1000 MG PO (17:31)
[2023-07-03] MEDS: Meclizine HCl 25 MG TABLET 50 MG PO (17:32)
[2023-07-03] MEDS: lamoTRIgine 100 MG TABLET 150 MG PO ×2 (17:32→21:07)
[2023-07-03 17:51] VITALS: BP 140/74; PULSE 85; RESP 16; TEMP 36.6; O2SAT 97
[2023-07-03 18:42] LABS: Appearance Urine Clear; Color Urine Yellow; Glucose Urine UA Negative (Negative); Leukocyte Esterase Urine Negative (Negative); Nitrite Urine Negative (Negative); Specific Gravity - Urine 1.015 (1.005-1.025); Urine Blood Negative (Negative); Urine Ketones Negative (Negative); Urine Protein Negative (Neg-Trace)
[2023-07-03] MEDS: Acetaminophen 325 MG TABLET 975 MG PO (18:50)
[2023-07-03 18:52] LABS: Amphetamine Screen Urine Not Detected (Not Detect); Barbiturates, Urine Not Detected (Not Detect); Benzodiazepines Screen Urine Not Detected (Not Detect); Cannabinoid Screen Urine Not Detected (Not Detect); Cocaine Screen Urine Not Detected (Not Detect); Fentanyl, urine Not Detected (Not Detect); Opiate Screen Urine Not Detected (Not Detect); Phencyclidine Screen Urine Not Detected (Not Detect)
--- NOTE | 2023-07-03 20:32 | PC.NURSE ---
pt states she feels hot assisted to take pants off. repositioned in bed. hob elevated. nad. call huerta within reach. seizure precautions in place.
--- NOTE | 2023-07-03 21:11 | PHA.MEDREC ---
Pharmacy Consult ? Medication Reconciliation Pharmacy has completed the medication reconciliation. confirmed medication with patient and claaim history. Patient reports being titrated off Fluoxetine, she is only taking the 40mg capsules. Patient reports taking gabapentin scheduled instead of PRN. Patient repoets taking Percocet QID with 1.5 tablet in the morning and 1 tablet for the rest.
[2023-07-04 06:00] VITALS: BP 162/74; PULSE 80; RESP 16; TEMP 36.1; O2SAT 96
[2023-07-04] MEDS: lamoTRIgine 100 MG TABLET 150 MG PO (08:49)
[2023-07-04] MEDS: FLUoxetine HCl 20 MG CAPSULE 40 MG PO (08:51)
[2023-07-04] MEDS: levETIRAcetam 1,000 MG TABLET 1000 MG PO (08:51)
[2023-07-04] MEDS: hydroCHLOROthiazide 12.5 MG TABLET 37.5 MG PO (08:56)
[2023-07-04] MEDS: Losartan Potassium 50 MG TABLET 100 MG PO (08:56)
[2023-07-04] MEDS: Gabapentin 300 MG CAPSULE 900 MG PO ×2 (08:57→15:51)
[2023-07-04 09:57] VITALS: BP 162/74; PULSE 80; O2SAT 96
--- NOTE | 2023-07-04 09:57 | PC.NURSE ---
this RN resumed care of pt at this time. pt had PT evaluation completed this morning. pt ambulated w/ a strong steady gait while using walker for assistance. physical therapy followed behind pt w/ wheelchair if pt needed. wheelchair was not needed during ambulation trial. per PT - PT is requesting that pt goes to acute rehab to regain strength after her increase in falls/seizures x 3 days. pt aware of PT's concern at this time. pt now sitting upright/eating breakfast in no apparent distress. no sob/wob noted. respirations even and unlabored. medication administered per provider order. pt is requesting her dose of 5mg oxycodone. dose completed via pharmacy med rec but not ordered by provider. UNRULY Rincon notified/aware of pt's request at this time. will administer medication when able.
[2023-07-04] MEDS: oxyCODONE HCl Immed Release 5 MG TABLET PO ×2 (12:25→17:06)
--- NOTE | 2023-07-04 12:25 | PC.NURSE ---
medication administered per provider order. pt resting comfortably in no apparent distress. sitting upright watching tv. no sob/wob noted. respirations even and unlabored. call huerta placed within reach.
[2023-07-04 14:14] VITALS: BP 134/76; PULSE 87; RESP 19; TEMP 36.8; O2SAT 96
--- NOTE | 2023-07-04 14:20 | PC.NURSE ---
pt rang call huerta to notify this chart writer that she believes she had a seizure. pt states that she was sitting upright watching tv when she noticed that the right side of her head/face started hurting. pt also noticed change in vision. states that visual field became blurry all around. pt verbalizes that sx last for approximately 15 minutes and then she rang the call huerta. upon entry of room by this RN - pt is a&ox4. vss and up to date. pt c/o right sided headache - pt is requesting stronger medication that's not tylenol or ibuprofen for headache. will notify provider/administer medication when able. pt repositioned in bed. no signs of trauma noted. family member bedside. call huerta placed within reach.
--- NOTE | 2023-07-04 15:39 | PC.NURSE ---
PATIENT NOT LISTED IN THE [facility],PHARMACY NOTIFIED
[2023-07-04] MEDS: Ketorolac Tromethamine 30 MG/ML VIAL IM (15:50)
--- NOTE | 2023-07-04 15:56 | PC.NURSE ---
patient resting in the chair,chair alarm on,call huerta in place,medicated with toradol for headache,alert and oriented,not in distress,lungs sounds clear,small dry lacearations present on bilateral feet,open to air
--- NOTE | 2023-07-04 15:57 | MHC.EDTECH ---
gave pt a hot pack
--- NOTE | 2023-07-04 16:04 | MHC.CM.ED ---
Received case management consult overnight. Patient came to the ER after a fall and possible seizure. Work up essentially negative. Physical therapy eval completed. Acute rehab is recommended. Referral made to all 3 acute rehab facilities. No bed offers made at this time. Met with patient and daughter, Ping. Patient is not able to privately pay for STR at a jail facility. Patient only has [employer] [facility] Buy-in. Daughter is working with [employer] [facility] to get a $7000 life insurance policy converted so patient will qualify for [facility]. Patient and Ping agreeable to patient going home with [facility] for jail and physical therapy. Patient, Ping, Ronna BARROS and Mckenzie TOLLIVER aware. Ping will transport patient home. Continue to monitor for d/c needs.
--- NOTE | 2023-07-04 18:07 | MHC.EDTECH ---
pt was discharged
[2023-07-07 14:43] LABS: Lamotrigine Lamictal 21.4 mcg/mL (2.5-15.0)
[2023-07-07 18:29] LABS: Levetiracetam Keppra 36.2 mcg/mL (6.0-46.0)
== END 2023-07-04 18:08 | disposition home or self-care (01) ==
PROVIDERS: Emergency Provider Emergency Medicine; PCP Family Medicine
DX: R56.9 Unspecified convulsions (principal); G25.2 Other specified forms of tremor; R51.9 Headache, unspecified; Z11.52 Encounter for screening for COVID-19; Z20.828 Contact with and (suspected) exposure to other viral communicable diseases; I10 Essential (primary) hypertension; E66.9 Obesity, unspecified; Z68.41 Body mass index [BMI] 40.0-44.9, adult; Z79.899 Other long term (current) drug therapy
CPT/HCPCS: 0241U; 70450; 80048; 80076; 80175; 80177; 80307; 81003; 83735; 85025; 93005; 96361; 96372; 96374; 97162; 99284; 99285; J1885

== ENCOUNTER → 2023-07-03 14:53 | Outpatient (BNV) | payer MEDICARE, SELFPAY | PROVIDERS: Emergency Provider Emergency Medicine; PCP Family Medicine; Visit Provider Internal Medicine Cardiovascular Disease | DX: R56.9 Unspecified convulsions (principal) | CPT/HCPCS: 93010 ==

== ENCOUNTER 2023-07-05 14:47 | Outpatient (AMB) | payer MEDICARE, SELFPAY ==
--- NOTE | 2023-07-05 14:51 | A.OFFPC_ITS ---
Vital Signs 07/05/23 14:52 Height 5 ft 6 in Weight 255 lb 8 oz BMI 41.2 BP 138/80 Blood Pressure Location Lt brachial Position Sitting Pulse 87 Pulse Source Pulse Oximeter Pulse Oximetry (%) 96 Oxygen Delivery Method Room Air Intake Visit Reasons: Follow-up?chronic?pain?and?medication?weaning Intake Note: Patient is here to follow up on chronic pain and weaning of medication. Allergies seafood Allergy (Verified 07/05/23 14:57) hives Tobacco use date assessed: 07/05/23 Fall risk assessment: 2 + Falls in past year Last assessed Fall Risk: 07/05/23 HPI Follow-up?chronic?pain?and?medication?weaning HPI Details 68 y/o female presents to f/u chronic pa in and medication weaning. Had decreased her percocet by 1/2 tablet per day and refilled naproxen. Also f/u on her blood pressure. Had decreased her HCTZ from 37.5mg daily to 25mg daily and continued losartan 100mg daily. Pt had been to ER 07/03/23 - she had reported seizures and headaches typical of her post seizure headaches. She reports ongoing tremulousness. She does have a neurologist. [facility] Medical History Seizure Lumbar spinal stenosis Lumbar and sacral spondyloarthritis Migraine Major depressive disorder Cervical radiculopathy Osteoarthritis of knees, bilateral Urge incontinence Surgical History History of bariatric surgery S/P cervical spinal fusion Family History Father No problems noted. Mother No problems noted. 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 Selvin Howell, Cary Barton, Valeriy Vieira and colleagues, with an educational carlene from [employer]. Review of Systems Const Denies chills, Denies fatigue, Denies fever(s), Denies headache(s) and Denies weakness ENT Denies dizziness and Denies headache(s) Card Denies dyspnea Resp Denies cough, Denies dyspnea, Denies wheezing and Denies other (shortness of breath) Musc Denies numbness and Denies tingling Neuro Denies dizziness, Denies headache(s), Denies numbness, Denies tingling and Denies weakness Psych Denies anxiety and Denies depression Endo Denies fatigue Aller/Immun Denies wheezing Physical exam (Primary Care) Vital Signs: Last Vital Signs Pulse 87 07/05/23 14:52 BP 138/80 07/05/23 14:52 Pulse Ox 96 07/05/23 14:52 Oxygen Delivery Method Room Air 07/05/23 14:52 BMI result Body Mass Index 41.2 Tobacco/Smoking Status: Tobacco use Status Tobacco use date assessed 07/05/23 07/05/23 14:58 Patient Tobacco Use Status Former Tobacco user 07/05/23 14:55 e-Cigarette/Vaping Use Never Used 07/05/23 14:55 Thrive Assessment: Date of Thrive Assessment Date Thrive assessed 06/10/23 07/05/23 14:55 Const General: well developed; No acute distress Nutritional Appearance: well nourished and obese morbidly obese Orientation/consciousness: patient oriented x3 [facility] Head: Yes normocephalic and Yes atraumatic Eyes General: appearance normal, both eyes and all related structures Pupils: Equal, round and reactive pupils present EOM: EOMs intact bilaterally Resp Effort & Inspection: normal respiratory effort Neuro General: patient oriented x3 and gait normal Cranial nerves: Yes Equal, round and reactive pupils present Psych Affect: normal affect Assessment and Plan Assessment & Plan (1) Chronic pain syndrome: Code(s): G89.4 - Chronic pain syndrome Plan: Patient?notes?she?has?had?more?pain?after?reducing?her?medication?at?last?visit. Will?continue?at?current?dosing?without?weaning?down?at?this?visit?and?we?will?c onsider?continuing?weaning?down?at?her?next?visit. Also?had?recent?fall?and?head?injury?after?seizure-like?activity-see?below (2) Essential hypertension: Code(s): I10 - Essential (primary) hypertension Plan: Blood?pressure?fairly?well?controlled.??Had?changed?her?medication?dose?at?prior ?visit. Continue?current?medication (3) Headache: Code(s): R51.9 - Headache, unspecified Plan: Recent?head?injury?after?fall Also,?possible?seizure-like?activity Follow-up?with?Neurology (4) History of seizures: Code(s): Z87.898 - Personal history of other specified conditions Plan: Recent?seizure-like?activity.??She?is?on?Keppra?and?lamotrigine Encouraged?her?to?follow-up?with?Neurology. She will call them today. (5) Weakness: Code(s): R53.1 - Weakness Plan: Ongoing?lower?extremity?weakness.??She?uses?a?[facility]?had?made?a?referral?for?physical?therapy ?but?patient?says?this?was?declined. I?will?make?an?order?for?physical?therapy?as?well?for?lower?extremity?weakness,? unsteady?gait?and?falls Continue?using?walker (6) Falls frequently: Code(s): R29.6 - Repeated falls Plan: As?above Orders: Orders PT Evaluation and Treatment Today M17.11 - Unilateral primary osteoarthritis, right knee, M17.12 - Unilateral primary osteoarthritis, left knee, R29.6 - Repeated falls, R29.898 - Other symptoms and signs involving the musculoskeletal system, R53.1 - Weakness Coding Level of Care Code Est Pt Level 4 (75803) Diagnoses Chronic pain syndrome G89.4 Essential hypertension I10 Headache R51.9 History of seizures Z87.898 Weakness R53.1 Falls frequently R29.6
[2023-07-05 14:52] VITALS: BP 138/80; PULSE 87; O2SAT 96; BMI 41.2
== END 2023-07-05 15:33 | disposition home or self-care (01) ==
PROVIDERS: PCP Family Medicine; Visit Provider Family Medicine
DX: G89.4 Chronic pain syndrome (principal); I10 Essential (primary) hypertension; R51.9 Headache, unspecified; Z87.898 Personal history of other specified conditions; R53.1 Weakness; R29.6 Repeated falls
CPT/HCPCS: 99214

== ENCOUNTER 2023-07-11 13:02 | Outpatient (AMB) | payer MEDICARE, MEDICAID, SELFPAY ==
--- NOTE | 2023-07-11 13:04 | MHC.OFFVIS ---
Intake Vital Signs 07/11/23 13:13 Height 5 ft 2 in Weight 256 lb 2 oz BMI 46.8 BP 130/70 Blood Pressure Location Lt brachial Position Sitting Pulse 77 Pulse Source Pulse Oximeter Pulse Oximetry (%) 95 Oxygen Delivery Method Room Air Intake Visit Reasons: f/u - Sleep/Alteredmental/Transalteration Intake Note: Patient presents f/u. Been having more seizures and since last appointment with us she has had 7 seizures. Allergies seafood Allergy (Verified 07/11/23 13:09) hives HPI HPI Comments History of Present Illness Details 68 y/o female patient presents for follow up of seizure and ER visit. Pt reports she had 3 ER visit last week. Patient had a mechanical, no syncope. The second ER visit for possible seizure. patient states friend notice her shaking while she was on the phone. Patient states she was shaking all over but was awake and alert when she called 911. The next day, patient also had seizure like episodes. She was sitting in her chair watching TV, she began to have a headache on the right side of her head, then had blurred, could not speak, unsure if she fell asleep or lost consciousness. When she woke up, she pressed the emergent call button. Denies urine or fecal incontinence, or tongue bite. Keppra increased to 1000 mg BID on May,. She is also takes lamotringe 150 mg BID and gabapentin 900 TID. [facility] Medical History (Updated 07/11/23 @ 13:37 by Travis Avila CNP) Lumbar spinal stenosis Lumbar and sacral spondyloarthritis Migraine Major depressive disorder Cervical radiculopathy Osteoarthritis of knees, bilateral Urge incontinence Surgical History History of bariatric surgery S/P cervical spinal fusion Family History Father No problems noted. Mother No problems noted. 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 Current occupational exposures/hazards: No Cognitive needs: No Hearing needs: No Vision needs: No Review of Systems Const All systems reviewed & are unremarkable except as noted in HPI and below ENT Reports Normal hearing present Neuro Reports Normal hearing present Physical Exam Vital Signs: Last Vital Signs Pulse 77 07/11/23 13:13 BP 130/70 07/11/23 13:13 Pulse Ox 95 07/11/23 13:13 Oxygen Delivery Method Room Air 07/11/23 13:13 BMI result Body Mass Index 46.8 Const General: cooperative Nutritional Appearance: obese Orientation/consciousness: patient oriented x3 Limitations: ambulation with walker HEENT Throat: Yes other (mallampati grade 4) Neck Neck: Yes full ROM and Yes supple Resp Effort & Inspection: normal respiratory effort and able to speak in complete sentences Neuro General: patient oriented x3 Cranial nerves: Yes Bilaterally intact EOM present, Yes Normal facial strength present, Yes Midline tongue present, Yes Symmetric palate elevation present, Yes Normal hearing present, Yes Ability to bilaterally rotate head present and Yes Ability to bilaterally elevate shoulders present Cognition (Neuro): normal cognition Gait exam (Neuro): Assisted gait required Gait assisted method: walker Motor exam (neuro): 5/5 motor strength present throughout, Pronator motor function not present and no tremor noted Psych Appearance: grossly normal Mental Status: mental status grossly normal Affect: normal affect Attitude: cooperative Assessment & Plan Assessment & Plan (1) Seizure: Code(s): R56.9 - Unspecified convulsions Plan Advised patient to continue to take Keppra 1000 mg BID to manage seizure. Continue to take lamotrigine 150 mg BID. Continue to take gabapentin 900 mg TID to manage pain and restless legs. The episode is unlikely seizure, will repeat 48 hrs EEG. Pt does not drive. Reviewed the ER note, and discussed with Dr. Whaley for the plan. Orders: Orders EEG ambulatory 07/11/23 R56.9 - Unspecified convulsions Medications: Discontinued levetiracetam Discontinued Reason: Doctor's Order 250 mg PO BID 30 days 60 tabs 1RF Coding Level of Care Code Est Pt Level 3 (52351) Diagnoses Seizure R56.9
[2023-07-11 13:13] VITALS: BP 130/70; PULSE 77; O2SAT 95; BMI 46.8
== END 2023-07-11 13:42 | disposition home or self-care (01) ==
PROVIDERS: Absent Provider Nurse Practitioner Family; PCP Family Medicine; Visit Provider Nurse Practitioner Family
DX: R56.9 Unspecified convulsions (principal)
CPT/HCPCS: 99213

== ENCOUNTER → 2023-07-11 13:02 | Outpatient (BNVA) | payer MEDICARE, MEDICAID, SELFPAY | PROVIDERS: Absent Provider Nurse Practitioner Family; PCP Family Medicine; Visit Provider Nurse Practitioner Family | DX: R56.9 Unspecified convulsions (principal) | CPT/HCPCS: 99212 ==

== ENCOUNTER 2023-08-09 10:27 | Outpatient (AMB) | payer MEDICARE, SELFPAY ==
--- NOTE | 2023-08-09 10:37 | A.OFFPC_ITS ---
Vital Signs 08/09/23 10:38 Height 5 ft 2 in Weight 258 lb BMI 47.2 BP 130/80 Blood Pressure Location Rt brachial Position Sitting Pulse 93 Pulse Source Pulse Oximeter Pulse Oximetry (%) 94 Oxygen Delivery Method Room Air Intake Visit Reasons: f/u chronic pain, hx of seizures Intake Note: Patient is here to follow up on chronic pain and history of seizures. Allergies seafood Allergy (Verified 08/09/23 10:43) hives Tobacco use date assessed: 08/09/23 Dental Screening Dental Screen Date: 06/10/23 HPI f/u chronic pain, hx of seizures HPI Details 68 y/o female presents to f/u chronic pa in and medication weaning. Also f/u seizure-like activity and falls. Had seen Neurology 07/11/23. Advised pt to continue Keppra 1000mg b.i.d, lamotrigine, and gabapentin. They ordered 48 hrs EEG. ----- Pt left without being seen. See Message with annotation dated same day. [facility] Medical History (Updated 07/11/23 @ 13:37 by Travis Avila CNP) Lumbar spinal stenosis Lumbar and sacral spondyloarthritis Migraine Major depressive disorder Cervical radiculopathy Osteoarthritis of knees, bilateral Urge incontinence Surgical History History of bariatric surgery S/P cervical spinal fusion Family History Father No problems noted. Mother No problems noted. 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 Selvin Howell, Cary Barton, Valeriy Vieira and colleagues, with an educational carlene from [facility]. Physical exam (Primary Care) Vital Signs: Last Vital Signs Pulse 93 08/09/23 10:38 BP 130/80 08/09/23 10:38 Pulse Ox 94 08/09/23 10:38 Oxygen Delivery Method Room Air 08/09/23 10:38 BMI result Body Mass Index 47.2 Tobacco/Smoking Status: Tobacco use Status Tobacco use date assessed 08/09/23 08/09/23 10:45 Patient Tobacco Use Status Former Tobacco user 08/09/23 10:43 e-Cigarette/Vaping Use Never Used 08/09/23 10:43 Thrive Assessment: Date of Thrive Assessment Date Thrive assessed 06/10/23 08/09/23 10:43 Assessment and Plan Assessment & Plan (1) Chronic pain syndrome: Code(s): G89.4 - Chronic pain syndrome Plan: Pt left without being seen. See Message with annotation dated same day. She has been rescheduled. Coding Level of Care Code Est Pt Level 3 (17079) Diagnoses Chronic pain syndrome G89.4
[2023-08-09 10:38] VITALS: BP 130/80; PULSE 93; O2SAT 94; BMI 47.2
== END 2023-08-09 11:23 | disposition home or self-care (01) ==
PROVIDERS: PCP Family Medicine; Visit Provider Family Medicine
DX: G89.4 Chronic pain syndrome (principal)
CPT/HCPCS: 99213

== ENCOUNTER 2023-09-06 08:44 | Outpatient (AMB) | payer MEDICARE, MEDICAID, SELFPAY ==
[2023-09-06 08:48] VITALS: BP 128/68; PULSE 84; RESP 14; O2SAT 97; BMI 47.4
--- NOTE | 2023-09-06 08:48 | MHC.OFFVIS ---
Vital Signs 09/06/23 08:48 Height 5 ft 2 in Weight 259 lb BMI 47.4 BP 128/68 Blood Pressure Location Lt radial Position Sitting Respiration 14 Pulse 84 Pulse Source Pulse Oximeter Pulse Oximetry (%) 97 Oxygen Delivery Method Room Air Intake Visit Reasons: Right knee injection, nerve pain throughout Allergies seafood Allergy (Verified 09/06/23 10:35) hives Medication List - Last Reconciled 09/06/23 by Shayy Quan LPN blood pressure monitor Automatic, Digital. Dx: I10. Daily As directed, 999 days/lifetime cholecalciferol (vitamin D3) (Vitamin D3) 10 mcg PO DAILY famotidine 40 mg PO BEDTIME fluoxetine 30 mg PO DAILY gabapentin 900 mg (1.5 x 600 mg) PO Q8H 30 days hydrochlorothiazide 25 mg PO DAILY 30 days lamotrigine 150 mg PO BID levetiracetam 1,000 mg PO BID 90 days losartan 100 mg PO DAILY 90 days metformin 250 mg PO DAILY naproxen 500 mg PO Q12H PRN 30 days omeprazole 40 mg (2 x 20 mg) PO DAILY oxycodone-acetaminophen 5-325 mg (Percocet) 1.5 tabs PO QID 18 days HPI HPI Right knee injection, nerve pain throughout: Details: 68-year-old female who presents today to the office for a right knee injection. ? Since our last meeting, she has had new onset episodes of seizures and was seen in the ER 3?4 times in recent times. She has been following up with a neurologist. She had a 48-hour EEG test. She has been trying to wean off her pain medications. She is taking oxycodone for pain in her shoulder, arm, and three fingers. Her most troublesome pain at this time is in the right knee. She has difficulty sleeping. Her primary care physician has been managing her oxycodone. She had a CT scan recently after a fall secondary to a seizure episode. She had neck surgery in 2015. She had no back surgery in the past. Past Procedures: 04/26/23: Bilateral landmark guided intraarticular knee injection: 50% relief. 01/04/23: Right knee injection.: 70% relief for 3 months. 05/02/22: Right Sprint PNS, Saphenous Nerve ? 90% relief that is ongoing. 05/10/21: Right L3-L4 TFESI - 60% pain relief 03/02/22: Left L3-L4 TFESI - 50% pain relief 11/22/21: Left diagnostic saphenous nerve block-50% pain relief for 24 hours. 12/06/21: Right diagnostic GNB-60% pain relief for 24 hours 02/21/22: Right diagnostic SNB at adductor canal- 80% pain relief for 3 hours. 02/28/22: Left diagnostic SNB at adductor canal-60% pain relief for 3 hours. [facility] Medical History Lumbar spinal stenosis Lumbar and sacral spondyloarthritis Migraine Major depressive disorder Cervical radiculopathy Osteoarthritis of knees, bilateral Urge incontinence Surgical History History of bariatric surgery S/P cervical spinal fusion Family History Father No problems noted. Mother No problems noted. 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 Alert and oriented. Mood and affect appropriate. Follows and participates in conversation appropriately. Respiratory effort is unlabored. Able to transition from sit to stand unassisted. Ambulates with bilaterally normal heel strike and toe off. Office Procedures Joint Injection/Drain Joint Injection/Drain Details: Right knee injection, US guided. Primary Site: right knee Prep: site was prepped using sterile technique Injected: 40 mg of, Kenalog, with 3 mL of and 1% plain lidocaine Approach Used: anterolateral Procedure: The patient tolerated the procedure well Coding Details: An ultrasound image of the injection was taken and stored in the permanent record. 68446 - Large joint (right knee, US guided. ) Procedure code (CPT) selection complete Results Reviewed Results Reviewed: No imaging is available for review. Assessment & Plan Assessment & Plan (1) Osteoarthritis of right knee: Code(s): M17.11 - Unilateral primary osteoarthritis, right knee Category: Medical (2) Lumbar and sacral spondyloarthritis: Code(s): M47.817 - Spondylosis without myelopathy or radiculopathy, lumbosacral region Category: Medical (3) Lumbar spinal stenosis: Code(s): M48.061 - Spinal stenosis, lumbar region without neurogenic claudication Category: Medical (4) Cervical radiculopathy: Code(s): M54.12 - Radiculopathy, cervical region Category: Medical (5) Cervical post-laminectomy syndrome: Code(s): M96.1 - Postlaminectomy syndrome, not elsewhere classified Category: Medical Plan I had a long discussion with the patient regarding treatment options for her neck and bilateral knee pain. For knee pain, we injected the right knee with Kenalog today in the office. She will return to the clinic next week for the left knee. Going forward, we will try to obtain PA for Durolane injection for her knees instead of continuing with corticosteroids to minimize total corticosteroid intake. For her neck pain, I discussed cortisone injections (SHARDA) for neuropathic symptoms in the upper extremities, especially the hands. If that is helpful, then we can continue cortisone injections into the neck. If SHARDA is not helpful, then I discussed a trial of SCS to see if that might help with their axial neck as well as radicular pain. ? The patient will continue to get controlled substances from her PCP while we are in the process of optimizing her interventional pain strategy. The patient and her daughter expressed agreement with the plan. Scribed for Dr. Turk by Tima Ronquillo, medical sonographer, on 09/06/2023. I, Dr. Turk, have personally reviewed and agree with the information entered by the scribe. Coding Level of Care Code Est Pt Level 4 (11699) Diagnoses Osteoarthritis of right knee M17.11 Lumbar and sacral spondyloarthritis M47.817 Lumbar spinal stenosis M48.061 Cervical radiculopathy M54.12 Cervical post-laminectomy syndrome M96.1 CPT Codes Coding - 00137 Large joint: 34635 - Large joint ([id number])
== END 2023-09-06 09:20 | disposition home or self-care (01) ==
PROVIDERS: PCP Family Medicine; Visit Provider Internal Medicine
DX: M17.11 Unilateral primary osteoarthritis, right knee (principal); M47.817 Spondylosis without myelopathy or radiculopathy, lumbosacral region; M48.061 Spinal stenosis, lumbar region without neurogenic claudication; M54.12 Radiculopathy, cervical region; M96.1 Postlaminectomy syndrome, not elsewhere classified
CPT/HCPCS: 20611; 99214

== ENCOUNTER → 2023-09-06 08:44 | Outpatient (BNVA) | payer MEDICARE, MEDICAID, SELFPAY | PROVIDERS: PCP Family Medicine; Visit Provider Internal Medicine | DX: M17.11 Unilateral primary osteoarthritis, right knee (principal); M54.12 Radiculopathy, cervical region; M47.817 Spondylosis without myelopathy or radiculopathy, lumbosacral region; M48.061 Spinal stenosis, lumbar region without neurogenic claudication; M96.1 Postlaminectomy syndrome, not elsewhere classified | CPT/HCPCS: 20611; 99212; J2795; J3301 ==

== ENCOUNTER 2023-09-06 10:27 | Outpatient (AMB) | payer MEDICARE, SELFPAY ==
--- NOTE | 2023-09-06 10:34 | A.OFFPC_ITS ---
Vital Signs 09/06/23 10:44 Height 5 ft 2 in Weight 259 lb BMI 47.4 BP 120/62 Blood Pressure Location Lt brachial Position Sitting Pulse 75 Pulse Source Pulse Oximeter Pulse Oximetry (%) 96 Oxygen Delivery Method Room Air Intake Visit Reasons: follow up chronic conditions Intake Note: Patient is here for follow up on chronic conditions. Allergies seafood Allergy (Verified 09/06/23 10:35) hives Medication List - Last Reconciled 09/06/23 by Iron Castano MD blood pressure monitor Automatic, Digital. Dx: I10. Daily As directed, 999 days/lifetime cholecalciferol (vitamin D3) (Vitamin D3) 10 mcg PO DAILY famotidine 40 mg PO BEDTIME fluoxetine 30 mg PO DAILY gabapentin 900 mg (1.5 x 600 mg) PO Q8H 30 days hydrochlorothiazide 25 mg PO DAILY 30 days lamotrigine 150 mg PO BID levetiracetam 1,000 mg PO BID 90 days losartan 100 mg PO DAILY 90 days metformin 250 mg PO DAILY naproxen 500 mg PO Q12H PRN 30 days omeprazole 40 mg (2 x 20 mg) PO DAILY oxycodone-acetaminophen 5-325 mg (Percocet) 1.5 tabs PO QID 18 days Tobacco use date assessed: 09/06/23 Fall risk assessment: 2 + Falls in past year Last assessed Fall Risk: 09/06/23 Dental Screening Dental Screen Date: 06/10/23 HPI follow up chronic conditions HPI Details 68 y/o female presents to f/u chronic co nditions. She notes she has an appt. in September with neurology for seizure-like activity. [place] [facility] [place] [facility] impression states that there was Some focal cortical dysfunction but there were no rhythmic or evolving patterns meeting criteria for electrographic seizure... And review of the EEG corresponding to the button presses showed no epileptiform changes and no temporal relationship with the abnormalities that were seen. Blood pressure today 120/62. She is on hydrochlorothiazide 25mg, losartan 100mg daily. Pt reports ongoing speech delay. They report ongoing chronic pain and is now seeing pain management again for pain control. [facility] Medical History Lumbar spinal stenosis Lumbar and sacral spondyloarthritis Migraine Major depressive disorder Cervical radiculopathy Osteoarthritis of knees, bilateral Urge incontinence Surgical History History of bariatric surgery S/P cervical spinal fusion Family History Father No problems noted. Mother No problems noted. 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 1. Little interest or pleasure in doing things: several days 2. Feeling down, depressed, or hopeless: several days 3. Trouble falling or staying asleep, or sleeping too much: nearly every day 4. Feeling tired or having little energy: nearly every day 5. Poor appetite or overeating: not at all 6. Feeling bad about yourself - or that you are a failure or have let yourself or your family down: nearly every day 7. Trouble concentrating on things, such as reading the newspaper or watching television: nearly every day 8. Moving or speaking so slowly that other people could have noticed. Or the opposite - being so fidgety or restless that you have been moving around a lot more than usual: several days 9. Thoughts that you would be better off or of hurting yourself in some way: not at all Total score: 15 Depression Screening Interpretation: Positive Depression Screening Done: Yes Source: Developed by Drs. Selvin Howell, Cary Barton, Valeriy Vieira and colleagues, with an educational carlene from [employer]. Thrive Questionnaire Date Thrive assessed: 06/10/23 AUDIT C Alcohol Use Questionnaire (AUDIT-C) 1. How often do you have a drink containing alcohol?: Never 3. How often do you have six or more drinks on one occasion?: Never Total Score: 0 ANGEL-7 AMB Questionnaire ANGEL-7 Date ANGEL - 7 assessed: 09/06/23 Feeling nervous, anxious, or on edge: 1 = Several days Not being able to stop or control worryin = Not at all Worrying too much about different things: 1 = Several days Trouble relaxin = Not at all Being so restless that it is hard to sit still: 0 = Not at all Becoming easily annoyed or irritable: 0 = Not at all Feeling afraid as if something awful might happen: 0 = Not at all Total ANGEL-7 score (0-4 normal; 5-9 mild; 10-14 moderate; 15-21 severe): 2 Source: Developed by Drs. Selvin Howell, Cary Barton, Valeriy Vieira and colleagues, with an educational carlene from [employer]. Review of Systems Const Denies chills, Denies fatigue, Denies fever(s), Denies headache(s) and Denies weakness ENT Denies dizziness and Denies headache(s) Card Denies dyspnea Resp Denies cough, Denies dyspnea, Denies wheezing and Denies other (shortness of breath) Musc Denies numbness and Denies tingling Neuro Denies dizziness, Denies headache(s), Denies numbness, Denies tingling and Denies weakness Psych Denies anxiety and Denies depression Endo Denies fatigue Aller/Immun Denies wheezing Physical exam (Primary Care) Vital Signs: Last Vital Signs Pulse 75 09/06/23 10:44 BP 120/62 09/06/23 10:44 Pulse Ox 96 09/06/23 10:44 Oxygen Delivery Method Room Air 09/06/23 10:44 BMI result Body Mass Index 47.4 Tobacco/Smoking Status: Tobacco use Status Tobacco use date assessed 09/06/23 09/06/23 10:38 Patient Tobacco Use Status Former Tobacco user 09/06/23 10:38 e-Cigarette/Vaping Use Never Used 09/06/23 10:38 PHQ-9: PHQ-9 Score PHQ-9: Total score 15 09/06/23 10:52 Depression Screening Interpretation: Positive Thrive Assessment: Date of Thrive Assessment Date Thrive assessed 06/10/23 09/06/23 10:38 Const General: well developed; No acute distress Nutritional Appearance: well nourished Orientation/consciousness: patient oriented x3 HENMT Head: Yes normocephalic and Yes atraumatic Eyes General: appearance normal, both eyes and all related structures Pupils: Equal, round and reactive pupils present EOM: EOMs intact bilaterally Resp Effort & Inspection: normal respiratory effort Auscultation: clear to auscultation bilaterally Cardio Rate: regular rate Rhythm: regular rhythm Heart sounds: S1 normal heart sound present, S2 normal heart sound present, no gallops, no murmurs and no rubs Neuro General: patient oriented x3 and gait normal Cranial nerves: Yes Equal, round and reactive pupils present Psych Affect: normal affect Assessment and Plan Assessment & Plan (1) Essential hypertension: Code(s): I10 - Essential (primary) hypertension Plan: Blood?pressure?appears?well?controlled.??Goal?is?less?than?140/90 Continue?current?medication (2) Seizure-like activity: Code(s): R56.9 - Unspecified convulsions Plan: [place] [facility] impression states that there was Some focal cortical dysfunction but there were no rhythmic or evolving patterns meeting criteria for electrographic seizure... And review of the EEG corresponding to the button presses showed no epileptiform changes and no temporal relationship with the abnormalities that were seen. She?remains?on?Keppra Follow-up?with?Neurology Janessa ent?has?questions?regarding?if/when?she?can?drive?again.??Advised?her?to?discuss ?with?Neurology. (3) Altered mental status: Code(s): R41.82 - Altered mental status, unspecified Plan: As?above,?this?does?not?appear?to?be?secondary?to?seizures?at?this?time. Referring?her?to?neuropsychiatry. (4) Chronic pain syndrome: Code(s): G89.4 - Chronic pain syndrome Plan: Ongoing?chronic?pain?in?neck,?low?back?and?knees Now?seeing?pain?management?again?for?adjunct?modalities?for?pain?control. Weaning?her?Percocet?continues. Has?been?taking?1.5?tablets?in?the?morning,?and?then?1?tablet? 3?more?times?a?day.??Total?of?4.5?tablets?daily Will?now?take?1?tablet?4?times?a?day Follow-up?in?1?month Orders: Referrals Neuropsychiatry Referral R40.4 - Transient alteration of awareness, R41.82 - Altered mental status, unspecified, R56.9 - Unspecified convulsions, Z87.898 - Personal history of other specified conditions Medications: Changed From oxycodone-acetaminophen 5-325 mg (Percocet) 1.5 tabs AM, 1 tab late morning, 1 tab afternoon, 1 tab PM orally every 6 hours PRN; Wean down. MassPat Verified. Partial Fill upon request. 1.5 tabs PO QID 18 days 81 tabs 0RF pain To oxycodone-acetaminophen 5-325 mg (Percocet) orally every 6 hours PRN; Wean down. MassPat Verified. Partial Fill upon request. 1 tab PO QID 30 days 120 tabs 0RF pain Coding Level of Care Code Est Pt Level 4 (69813) Diagnoses Essential hypertension I10 Seizure-like activity R56.9 Altered mental status R41.82 Chronic pain syndrome G89.4
[2023-09-06 10:44] VITALS: BP 120/62; PULSE 75; O2SAT 96; BMI 47.4
== END 2023-09-06 11:14 | disposition home or self-care (01) ==
PROVIDERS: PCP Family Medicine; Visit Provider Family Medicine
DX: I10 Essential (primary) hypertension (principal); R56.9 Unspecified convulsions; R41.82 Altered mental status, unspecified; G89.4 Chronic pain syndrome
CPT/HCPCS: 99214

== ENCOUNTER 2023-09-16 10:23 | Outpatient (AMB) | payer MEDICARE, MEDICAID, SELFPAY ==
--- NOTE | 2023-09-16 10:25 | A.OFFVIS_ITS ---
Vital Signs 09/16/23 10:26 Height 5 ft 2 in BP 149/63 H Blood Pressure Location Lt radial Position Sitting Respiration 14 Pulse 94 Pulse Source Pulse Oximeter Pulse Oximetry (%) 95 Oxygen Delivery Method Room Air Intake Visit Reasons: LEFT KNEE INJECTION Allergies seafood Allergy (Verified 09/16/23 10:29) hives Medication List - Last Reconciled 09/16/23 by Shayy Quan LPN blood pressure monitor Automatic, Digital. Dx: I10. Daily As directed, 999 days/lifetime cholecalciferol (vitamin D3) (Vitamin D3) 10 mcg PO DAILY famotidine 40 mg PO BEDTIME 30 days fluoxetine 30 mg PO DAILY gabapentin 900 mg (1.5 x 600 mg) PO Q8H 30 days hydrochlorothiazide 25 mg PO DAILY 30 days lamotrigine 150 mg PO BID levetiracetam 1,000 mg PO BID 90 days losartan 100 mg PO DAILY 90 days metformin 250 mg PO DAILY naproxen 500 mg PO Q12H PRN 30 days omeprazole 40 mg (2 x 20 mg) PO DAILY oxycodone-acetaminophen 5-325 mg (Percocet) 1 tab PO QID 30 days HPI HPI LEFT KNEE INJECTION: Details: 68-year-old female who presents today to the office for a left knee injection. Denies any recent cough, cold, infection, fever, or other significant changes in medical history since the last office visit. She is not diabetic. She does not have a blood pressure monitoring machine at home to monitor blood pressure readings. She reports neck pain. She has not received a neck injection in the past. She has radiating pain down the arm and hand. The pain is worse with movements. She is interested in a epidural steroid injection for her neuropathic symptoms in the neck. Past Procedures: 09/06/23: Right knee injection, US guided: 100 % relief. 04/26/23: Bilateral landmark guided intraarticular knee injection: 50% relief. 01/04/23: Right knee injection.: 70% relief for 3 months. 05/02/22: Right Sprint PNS, Saphenous Nerve ? 90% relief that is ongoing. 05/10/21: Right L3-L4 TFESI - 60% pain relief 07/12/21: Left L3-L4 TFESI - 50% pain relief 11/22/21: Left diagnostic saphenous nerve block-50% pain relief for 24 hours. 12/06/21: Right diagnostic GNB-60% pain relief for 24 hours 02/21/22: Right diagnostic SNB at adductor canal- 80% pain relief for 3 hours. 02/28/22: Left diagnostic SNB at adductor canal-60% pain relief for 3 hours. [facility] Medical History Lumbar spinal stenosis Lumbar and sacral spondyloarthritis Migraine Major depressive disorder Cervical radiculopathy Osteoarthritis of knees, bilateral Urge incontinence Surgical History History of bariatric surgery S/P cervical spinal fusion Family History Father No problems noted. Mother No problems noted. 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 Alert and oriented. Mood and affect appropriate. Follows and participates in conversation appropriately. Respiratory effort is unlabored. Able to transition from sit to stand unassisted. Ambulates with bilaterally normal heel strike and toe off. Office Procedures Joint Injection/Drain Joint Injection/Drain Details: Left knee injection Primary Site: left knee Prep: site was prepped using sterile technique Injected: 40 mg of, Kenalog, with 3 mL of, 1% plain lidocaine and in the joint Approach Used: anteromedial Procedure: The patient tolerated the procedure well Coding Details: An ultrasound image of the injection was taken and stored in the permanent record. 14506 - Large joint (left, US guided) Procedure code (CPT) selection complete Results Reviewed Results Reviewed: No imaging is available for review. Assessment & Plan Assessment & Plan (1) Osteoarthritis of left knee: Code(s): M17.12 - Unilateral primary osteoarthritis, left knee Category: Medical (2) Cervical radiculopathy: Code(s): M54.12 - Radiculopathy, cervical region Category: Medical Plan Patient is status post left knee injection. Patient tolerated procedure well and was discharged home in stable condition with discharge instructions. All questions were answered. We will follow-up in two weeks via telephone or in clinic to assess response to therapy. A follow-up appointment was made during today's visit. Will schedule her for a left C7-T1 parasagittal interlaminar SHARDA. Discussed the risks and benefits of the procedure with the patient in detail. All questions were answered. The patient is on board with the plan. Justification for interventional therapy: ? Patient with average pain > 6/10 ? Patient has exhausted conservative therapy ? Patient unable to tolerate physical therapy due to pain. ? Previous injection provided >50% relief x > 2 weeks. . Patient has a good understanding of their pain condition and has appropriate mental and social support Scribed for Dr. Turk by Tima Ronquillo, outside medical sales representative, on 09/16/2023. I, Dr. Turk, have personally reviewed and agree with the information entered by the scribe. Coding Level of Care Code Est Pt Level 3 (42383) Diagnoses Osteoarthritis of left knee M17.12 Cervical radiculopathy M54.12 CPT Codes Coding - 59635 Large joint: 64936 - Large joint ([id number])
[2023-09-16 10:26] VITALS: BP 149/63; PULSE 94; RESP 14; O2SAT 95
== END 2023-09-16 10:45 | disposition home or self-care (01) ==
PROVIDERS: PCP Family Medicine; Visit Provider Internal Medicine
DX: M54.12 Radiculopathy, cervical region (principal); M17.12 Unilateral primary osteoarthritis, left knee
CPT/HCPCS: 20611; 99213

== ENCOUNTER → 2023-09-16 10:23 | Outpatient (BNVA) | payer MEDICARE, OTHER, SELFPAY | PROVIDERS: PCP Family Medicine; Visit Provider Internal Medicine | DX: M17.12 Unilateral primary osteoarthritis, left knee (principal); M54.12 Radiculopathy, cervical region | CPT/HCPCS: 20611; 99212; J2795; J3301 ==

== ENCOUNTER 2023-10-03 06:18 | Outpatient (REF) | payer MEDICARE, MEDICAID, SELFPAY ==
--- NOTE | ~2023-10-03 | FL_ITS ---
EXAMINATION: XR FLUOROSCOPY WITH IMAGES CLINICAL INFORMATION: C7-T1 injection. COMPARISON: None available. TECHNIQUE: Fluoroscopy Supervised By: Dr. Turk. Fluoroscopy Time: 0.4 min. Cumulative Dose: 10.3 mGy. DAP: 0.733 Gycm2. Images: 2. FINDINGS: Intraoperative fluoroscopy and spot films were performed during a procedure in the OR. 2 coned images show a needle overlying the cervicothoracic junction. A tiny bit of contrast is seen likely in the epidural space. Exact level cannot be ascertained secondary to marked coning of the images. Please see Dr. Turk' report for complete details. FL/FL guidance in treatment room IMPRESSION: Intraoperative fluoroscopy and spot films were obtained. Please see Dr. Turk' report for complete details.
== END 2023-10-03 06:19 | disposition home or self-care (01) ==
LOC: CF 06:18
PROVIDERS: Visit Provider Internal Medicine
DX: M54.12 Radiculopathy, cervical region (principal)
CPT/HCPCS: 62321; J3301; Q9967

== ENCOUNTER 2023-10-03 12:51 | Outpatient (AMB) | payer MEDICARE, MEDICAID, SELFPAY ==
--- NOTE | 2023-10-03 13:00 | MHC.OFFVIS ---
Vital Signs 10/03/23 13:48 10/03/23 13:49 Height 5 ft 2 in Weight 259 lb BMI 47.4 BP 110/62 130/78 Blood Pressure Location Lt brachial Lt brachial Position Sitting Sitting Respiration 18 16 Pulse 83 87 Pulse Source Pulse Oximeter Pulse Oximeter Pulse Oximetry (%) 97 98 Oxygen Delivery Method Room Air Room Air Comment Pre-Op Post-Op Intake Visit Reasons: Left C7-T1 parasagittal interlaminar SHARDA Allergies seafood Allergy (Verified 09/16/23 10:29) hives HPI HPI Left C7-T1 parasagittal interlaminar SHARDA: Details: Patient presents for scheduled procedure. Denies any recent cough, cold, infection, fever or other significant changes in medical history since last office visit. [facility] Medical History Lumbar spinal stenosis Lumbar and sacral spondyloarthritis Migraine Major depressive disorder Cervical radiculopathy Osteoarthritis of knees, bilateral Urge incontinence Surgical History History of bariatric surgery S/P cervical spinal fusion Family History Father No problems noted. Mother No problems noted. 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 The patient was placed in the prone position. The cervicothoracic area was widely prepped with chloraprep and draped in sterile fashion. Fluoroscopic guidance was used to identify the desired interlaminar space and for needle placement. Subcutaneous 0.5% lidocaine was used to anesthetize the skin overlying the target. A 20-gauge Cummings needle was advanced to the epidural space using loss of resistance to contrast technique under fluoroscopic AP and contralateral oblique views. There was no evidence of heme or CSF and no paresthesias were elicited with needle placement. Confirmation of epidural needle placement was performed with 1cc of omnipaque 180. Next 3 ml 0.5% lidocaine mixed with 80 mg triamcinolone was administered epidurally with no pain elicited on injection. The needle tract tubing was then cleared with 1 ml of 0.5% lidocaine. The needle was removed, skin cleansed and a sterile bandage was applied. The patient tolerated the procedure well and no complications were encountered. Following the procedure the patient's vital signs were stable. The patient was discharged home in good condition with post-procedural instructions. Time Out: Immediately prior to the procedure, the following was verbally confirmed that there is a signed consent form and that the correct patient, planned procedure, site and side are consistent with documentation and that necessary equipment and/or blood products are available prior to the start of the case. Complications: none EBL: <5 cc Coding 74674 - Cervical Epidural/Interlaminar with fluoroscopy Procedure code (CPT) selection complete Assessment & Plan Assessment & Plan (1) Cervical radiculopathy: Code(s): M54.12 - Radiculopathy, cervical region Category: Medical Plan Patient is status post left parasagittal interlaminar SHARDA at C7-T1. Patient tolerated procedure well and was discharged home in stable condition with discharge instructions. All questions were answered. We will follow-up via telephone or in clinic to assess response to therapy. A follow-up appointment was made during today's visit. Orders: Orders FL guidance in treatment room Today M54.12 - Radiculopathy, cervical region Coding Level of Care Code Procedure Only Diagnoses Cervical radiculopathy M54.12 CPT Codes Coding - Joint 10: 32146 - Cervical Epidural/Interlaminar with fluoroscopy ([id number])
[2023-10-03 13:48] VITALS: BP 110/62; PULSE 83; RESP 18; O2SAT 97; BMI 47.4
[2023-10-03 13:49] VITALS: BP 130/78; PULSE 87; RESP 16; O2SAT 98
== END 2023-10-03 13:43 | disposition home or self-care (01) ==
LOC: HO.PMCPRC 12:51
PROVIDERS: PCP Family Medicine; Visit Provider Internal Medicine
DX: M54.12 Radiculopathy, cervical region (principal)
CPT/HCPCS: 62321

== ENCOUNTER 2023-10-25 14:28 | Outpatient (AMB) | payer MEDICARE, SELFPAY ==
[2023-10-25 14:50] VITALS: BP 134/60; PULSE 86; RESP 14; O2SAT 96; BMI 48.5
--- NOTE | 2023-10-25 14:50 | A.OFFPC_ITS ---
Vital Signs 10/25/23 14:50 Height 5 ft 2 in Weight 265 lb 6 oz BMI 48.5 BP 134/60 Blood Pressure Location Lt brachial Position Sitting Respiration 14 Pulse 86 Pulse Source Pulse Oximeter Pulse Oximetry (%) 96 Oxygen Delivery Method Room Air Intake Visit Reasons: Med review 15 per request Intake Note: Patient is here for med review today. Allergies seafood Allergy (Verified 10/25/23 14:52) hives Medication List - Last Reconciled 10/25/23 by Iron Castano MD blood pressure monitor Automatic, Digital. Dx: I10. Daily As directed, 999 days/lifetime cholecalciferol (vitamin D3) (Vitamin D3) 10 mcg PO DAILY famotidine 40 mg PO BEDTIME 30 days fluoxetine 30 mg PO DAILY gabapentin 900 mg (1.5 x 600 mg) PO Q8H 30 days hydrochlorothiazide 25 mg PO DAILY 30 days lamotrigine 150 mg PO BID levetiracetam 1,000 mg PO BID 90 days losartan 100 mg PO DAILY 90 days metformin 250 mg PO DAILY naproxen 500 mg PO Q12H PRN 30 days omeprazole 40 mg (2 x 20 mg) PO DAILY oxycodone-acetaminophen 5-325 mg (Percocet) 1 tab PO QID 14 days Tobacco use date assessed: 10/25/23 Fall risk assessment: 2 + Falls in past year Last assessed Fall Risk: 10/25/23 Dental Screening Dental Screen Date: 06/10/23 HPI Med review 15 per request HPI Details 68 y/o female presents to f/u [facility] in, altered mental status/seizure like activity. EEG who was negative for seizures though she does carry a history of seizures and is currently on Keppra. Referred her to neuropsychiatry. [facility] Medical History Lumbar spinal stenosis Lumbar and sacral spondyloarthritis Migraine Major depressive disorder Cervical radiculopathy Osteoarthritis of knees, bilateral Urge incontinence Surgical History History of bariatric surgery S/P cervical spinal fusion Family History Father No problems noted. Mother No problems noted. 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 Selvin Howell, Cary Barton, Valeriy Vieira and colleagues, with an educational carlene from [employer]. Physical exam (Primary Care) Vital Signs: Last Vital Signs Pulse 86 10/25/23 14:50 Resp 14 10/25/23 14:50 BP 134/60 10/25/23 14:50 Pulse Ox 96 10/25/23 14:50 Oxygen Delivery Method Room Air 10/25/23 14:50 BMI result Body Mass Index 48.5 Tobacco/Smoking Status: Tobacco use Status Tobacco use date assessed 10/25/23 10/25/23 14:58 Patient Tobacco Use Status Former Tobacco user 10/25/23 14:58 e-Cigarette/Vaping Use Never Used 10/25/23 14:58 Thrive Assessment: Date of Thrive Assessment Date Thrive assessed 06/10/23 10/25/23 14:58 Assessment and Plan Assessment & Plan (1) Chronic pain syndrome: Code(s): G89.4 - Chronic pain syndrome Plan: Ongoing?chronic?pain. Had?weaned?her?down?by?half?a?tablet?of?Percocet?per?day?at?her?last?visit She ?has?had?steroid?injection?therapy?which?helped?a?little?with?her?left?arm?but?n ot?her?right Had?had?some?difficulty?with?weaning?the?Percocet?down?at?last?visit Will?hold?off?on?mandatory?weaning?fo r?this?month.??She?will?work?at?trying?to?wean?down?by?another?half?tablet?per?d ay?on?her?own. We?discussed?that?we?will?likely?commit?to?a?mandatory?wean?of?another?half?tabl et?per?day?at?her?next?visit. (2) Seizure-like activity: Code(s): R56.9 - Unspecified convulsions Plan: She?was?seen?by?Neurology?and?EEG?did?not?confirm?seizure?activity (3) Altered mental status: Code(s): R41.82 - Altered mental status, unspecified Plan: Had?also?referred?her?to?neuropsychiatry?and?she?says?she?has?an?appointment?now . Appointment?is?in?November?so?we?will?likely?need?to?follow-up?on?th is?at?visit?subsequent?to?next?month. Medications: Changed From oxycodone-acetaminophen 5-325 mg (Percocet) orally every 6 hours PRN; Wean down. MassPat Verified. Partial Fill upon request. 1 tab PO QID 14 days 56 tabs 0RF pain To oxycodone-acetaminophen 5-325 mg (Percocet) orally every 6 hours PRN; Wean down. MassPat Verified. Partial Fill upon request. 1 tab PO QID 30 days 120 tabs 0RF pain Coding Level of Care Code Est Pt Level 3 (56731) Diagnoses Chronic pain syndrome G89.4 Seizure-like activity R56.9 Altered mental status R41.82
== END 2023-10-25 15:55 | disposition home or self-care (01) ==
PROVIDERS: PCP Family Medicine; Visit Provider Family Medicine
DX: G89.4 Chronic pain syndrome (principal); R56.9 Unspecified convulsions; R41.82 Altered mental status, unspecified
CPT/HCPCS: 99214

== ENCOUNTER 2023-10-30 12:46 | Outpatient (AMB) | payer MEDICARE, MEDICAID, SELFPAY ==
--- NOTE | 2023-10-30 13:03 | A.OFFVIS_ITS ---
Vital Signs 10/30/23 13:10 Height 5 ft 2 in Weight 262 lb 2 oz BMI 47.9 BP 132/70 Blood Pressure Location Lt brachial Position Sitting Pulse 78 Pulse Source Pulse Oximeter Pulse Oximetry (%) 94 Oxygen Delivery Method Room Air Intake Visit Reasons: f/u Sleep/Alteredmental/Transalteration -LVM w/add Intake Note: Patient presents for f/u. Want to know when I could? Allergies seafood Allergy (Verified 10/30/23 13:08) hives Medication List - Last Reconciled 10/30/23 by Minnie Whaley MD blood pressure monitor Automatic, Digital. Dx: I10. Daily As directed, 999 days/lifetime cholecalciferol (vitamin D3) (Vitamin D3) 10 mcg PO DAILY famotidine 40 mg PO BEDTIME 30 days fluoxetine 30 mg PO DAILY gabapentin 900 mg (1.5 x 600 mg) PO Q8H 30 days hydrochlorothiazide 25 mg PO DAILY 30 days lamotrigine 150 mg PO BID levetiracetam 1,000 mg PO BID 90 days losartan 100 mg PO DAILY 90 days naproxen 500 mg PO Q12H PRN 30 days omeprazole 40 mg (2 x 20 mg) PO DAILY oxycodone-acetaminophen 5-325 mg (Percocet) 1 tab PO QID 30 days HPI Comments Details: 68 y/o female patient presents for follow up of seizure.No seizure like episode since August 2023. she describes the episodes as passing out , 1 episode of tongue biting , post event confusion for few minutes. 48 hr EEG The first day was normal 2 nd day showed episodes of right temporal slowing and periodic discharges c/w cortical dysfunction. Keppra increased to 1000 mg BID on May,. She is also takes lamotrigine 150 mg BID and gabapentin 900 TID. [facility] Medical History Lumbar spinal stenosis Lumbar and sacral spondyloarthritis Migraine Major depressive disorder Cervical radiculopathy Osteoarthritis of knees, bilateral Urge incontinence Surgical History History of bariatric surgery S/P cervical spinal fusion Family History Father No problems noted. Mother No problems noted. 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 Current occupational exposures/hazards: No Cognitive needs: No Hearing needs: No Vision needs: No Review of Systems ENT Reports Normal hearing present Neuro Reports Normal hearing present Physical Exam Vital Signs: Last Vital Signs Pulse 78 10/30/23 13:10 BP 132/70 10/30/23 13:10 Pulse Ox 94 10/30/23 13:10 Oxygen Delivery Method Room Air 10/30/23 13:10 BMI result Body Mass Index 47.9 Const General: cooperative Nutritional Appearance: obese Orientation/consciousness: patient oriented x3 Limitations: ambulation with walker HEENT Throat: Yes other (mallampati grade 4) Neck Neck: Yes full ROM and Yes supple Resp Effort & Inspection: normal respiratory effort and able to speak in complete sentences Neuro General: patient oriented x3 Cranial nerves: Yes Bilaterally intact EOM present, Yes Normal facial strength present, Yes Midline tongue present, Yes Symmetric palate elevation present, Yes Normal hearing present, Yes Ability to bilaterally rotate head present and Yes Ability to bilaterally elevate shoulders present Cognition (Neuro): normal cognition Gait exam (Neuro): Assisted gait required Gait assisted method: walker Motor exam (neuro): 5/5 motor strength present throughout, Pronator motor funct ion not present and no tremor noted Psych Appearance: grossly normal Mental Status: mental status grossly normal Affect: normal affect Attitude: cooperative Assessment & Plan Assessment & Plan (1) Seizure: Code(s): R56.9 - Unspecified convulsions Category: Medical Plan Advised patient to continue to take Keppra 1000 mg BID to manage seizure. Continue to take lamotrigine 150 mg BID. Continue to take gabapentin 900 mg TID to manage pain and restless legs. No driving for 6 mths after last episode . Pt does not drive. 48 hr EEG showed focal abnormality in right temporal region Coding Level of Care Code Est Pt Level 4 (05541) Diagnoses Seizure R56.9
[2023-10-30 13:10] VITALS: BP 132/70; PULSE 78; O2SAT 94; BMI 47.9
== END 2023-10-30 13:37 | disposition home or self-care (01) ==
PROVIDERS: PCP Family Medicine; Visit Provider Psychiatry & Neurology Neurology
DX: R56.9 Unspecified convulsions (principal)
CPT/HCPCS: 99214

== ENCOUNTER → 2023-10-30 12:46 | Outpatient (BNVA) | payer MEDICARE, MEDICAID, SELFPAY | PROVIDERS: PCP Family Medicine; Visit Provider Psychiatry & Neurology Neurology | DX: R56.9 Unspecified convulsions (principal) | CPT/HCPCS: 99212 ==

== ENCOUNTER 2023-11-01 11:20 | Outpatient (AMB) | payer MEDICARE, SELFPAY ==
[2023-11-01 11:29] VITALS: BP 178/78; PULSE 84; RESP 14; O2SAT 95; BMI 47.4
--- NOTE | 2023-11-01 11:29 | MHC.OFFVIS ---
Vital Signs 11/01/23 11:29 Height 5 ft 2 in Weight 259 lb BMI 47.4 BP 178/78 H Blood Pressure Location Lt radial Position Sitting Respiration 14 Pulse 84 Pulse Source Pulse Oximeter Pulse Oximetry (%) 95 Oxygen Delivery Method Room Air Intake Visit Reasons: s/p Left C7-T1 parasagittal interlaminar SHARDA Allergies seafood Allergy (Verified 11/01/23 11:30) hives Medication List - Last Reconciled 11/01/23 by Shayy Quan LPN blood pressure monitor Automatic, Digital. Dx: I10. Daily As directed, 999 days/lifetime cholecalciferol (vitamin D3) (Vitamin D3) 10 mcg PO DAILY famotidine 40 mg PO BEDTIME 30 days fluoxetine 30 mg PO DAILY gabapentin 900 mg (1.5 x 600 mg) PO Q8H 30 days hydrochlorothiazide 25 mg PO DAILY 30 days lamotrigine 150 mg PO BID levetiracetam 1,000 mg PO BID 90 days losartan 100 mg PO DAILY 90 days naproxen 500 mg PO Q12H PRN 30 days omeprazole 40 mg (2 x 20 mg) PO DAILY oxycodone-acetaminophen 5-325 mg (Percocet) 1 tab PO QID 30 days HPI HPI s/p Left C7-T1 parasagittal interlaminar SHARDA: Details: 68-year-old female who presents today to the office for a status post left C7-T1 parasagittal interlaminar SHARDA. The patient reports 75 % relief following the procedure. Her left hand is significantly improved. She has minimal relief on the right side. The pain in the right hand is bothersome. She also reports pain between her shoulders that is different from any other pain. She is using ice pack. ?She lives alone. Her daughter lives 35 minutes away. She is also interested in getting gel injection for her knee pain. Past procedures 10/03/23: Interlaminar epidural steroid injection, C7-T1, left parasaggital: 75 % relief. 09/16/23: Left knee injection: % relief. 09/06/23: Right knee injection, US guided: 100 % relief. 04/26/23: Bilateral landmark guided intraarticular knee injection: 50% relief. 01/04/23: Right knee injection.: 70% relief for 3 months. 05/02/22: Right Sprint PNS, Saphenous Nerve ? 90% relief that is ongoing. 05/10/21: Right L3-L4 TFESI - 60% pain relief 07/12/21: Left L3-L4 TFESI - 50% pain relief 11/22/21: Left diagnostic saphenous nerve block-50% pain relief for 24 hours. 12/06/21: Right diagnostic GNB-60% pain relief for 24 hours 02/21/22: Right diagnostic SNB at adductor canal- 80% pain relief for 3 hours. 02/28/22: Left diagnostic SNB at adductor canal-60% pain relief for 3 hours. [facility] Medical History Lumbar spinal stenosis Lumbar and sacral spondyloarthritis Migraine Major depressive disorder Cervical radiculopathy Osteoarthritis of knees, bilateral Urge incontinence Surgical History History of bariatric surgery S/P cervical spinal fusion Family History Father No problems noted. Mother No problems noted. 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 Alert and oriented. Mood and affect appropriate. Follows and participates in conversation appropriately. Respiratory effort is unlabored. Able to transition from sit to stand unassisted. Ambulates with bilaterally normal heel strike and toe off. Results Reviewed Results Reviewed: No imaging is available for review. Assessment & Plan Assessment & Plan (1) Cervical radiculopathy: Code(s): M54.12 - Radiculopathy, cervical region Category: Medical Plan A referral was provided to physical therapy for neck for four weeks. The patient will receive a call to schedule an appointment. The patient will follow up in five weeks for consideration of cervical diagnostic medial branch block for potential cervical RFA. We will schedule her for a right knee Durolane injection. Discussed the risks and benefits of the procedure with the patient in detail. All questions were answered. The patient is on board with the plan. Justification for interventional therapy: ? Patient with average pain > 6/10 ? Patient has exhausted conservative therapy ? Patient unable to tolerate physical therapy due to pain . Patient has a good understanding of their pain condition and has appropriate mental and social support Scribed for Dr. Turk by Tima Ronquillo, medical record administrator, on 11/01/2023. I, Dr. Turk, have personally reviewed and agree with the information entered by the scribe. Orders: Orders PT Evaluation and Treatment 11/01/23 M54.12 - Radiculopathy, cervical region Coding Level of Care Code Est Pt Level 3 (32737) Diagnoses Cervical radiculopathy M54.12
== END 2023-11-01 11:56 | disposition home or self-care (01) ==
PROVIDERS: PCP Family Medicine; Visit Provider Internal Medicine
DX: M54.12 Radiculopathy, cervical region (principal)
CPT/HCPCS: 99213

== ENCOUNTER → 2023-11-01 11:20 | Outpatient (BNVA) | payer MEDICARE, MEDICAID, SELFPAY | PROVIDERS: PCP Family Medicine; Visit Provider Internal Medicine | DX: M54.12 Radiculopathy, cervical region (principal) | CPT/HCPCS: 99212 ==

== ENCOUNTER 2023-11-22 15:37 | Outpatient (AMB) | payer MEDICARE, SELFPAY ==
--- NOTE | 2023-11-22 15:41 | MHC.PC.OV ---
Vital Signs 11/22/23 15:42 Height 5 ft 2 in Weight 262 lb BMI 47.9 BP 132/72 Blood Pressure Location Lt brachial Position Sitting Pulse 74 Pulse Source Pulse Oximeter Pulse Oximetry (%) 96 Oxygen Delivery Method Room Air Intake Visit Reasons: Med review Intake Note: Patient is here today for Oxycodone review. She also feels, she has a UTI, and is requesting prescription for another walker. Allergies seafood Allergy (Verified 11/22/23 15:46) hives Medication List - Last Reconciled 11/22/23 by Iron Castano MD blood pressure monitor Automatic, Digital. Dx: I10. Daily As directed, 999 days/lifetime cholecalciferol (vitamin D3) (Vitamin D3) 10 mcg PO DAILY famotidine 40 mg PO BEDTIME 30 days fluoxetine 20 mg PO DAILY gabapentin 900 mg (1.5 x 600 mg) PO Q8H 30 days hydrochlorothiazide 25 mg PO DAILY 30 days lamotrigine 150 mg PO BID levetiracetam 1,000 mg PO BID 90 days losartan 100 mg PO DAILY 90 days naproxen 500 mg PO Q12H PRN 30 days omeprazole 40 mg (2 x 20 mg) PO DAILY oxycodone-acetaminophen 5-325 mg (Percocet) 1 tab PO QID 30 days sulfamethoxazole-trimethoprim 800-160 mg (Bactrim DS) 1 tab PO Q12H 5 days walker (Ultra-Light Rollator misc) Rolling walker with wheels, seat and brakes. Daily ?As directed, 999 days Tobacco use date assessed: 10/25/23 Dental Screening Dental Screen Date: 06/10/23 HPI Med review HPI Details 68 y/o female presents to f/u chronic pain and to continue opiod weaning. Also had referred her to neuropsychiatry for altered mental status/seizure-like activity. Ongoing chronic pain - neck/shoulders/knees. Pt reports urinary frequency and darker urine. Pt reports a headache and also some unsteadiness. She reports she is scheduled for a gel shot for her knees. [facility] Medical History Lumbar spinal stenosis Lumbar and sacral spondyloarthritis Migraine Major depressive disorder Cervical radiculopathy Osteoarthritis of knees, bilateral Urge incontinence Surgical History History of bariatric surgery S/P cervical spinal fusion Family History Father No problems noted. Mother No problems noted. 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 Selvin Howell, Cary Barton, Valeriy Vieira and colleagues, with an educational carlene from [employer]. Review of Systems Const Denies chills, Denies fatigue, Denies fever(s), Denies headache(s) and Denies weakness ENT Denies dizziness and Denies headache(s) Card Denies dyspnea Resp Denies cough, Denies dyspnea, Denies wheezing and Denies other (shortness of breath) Musc Denies numbness and Denies tingling Neuro Denies dizziness, Denies headache(s), Denies numbness, Denies tingling and Denies weakness Psych Denies anxiety and Denies depression Endo Denies fatigue Aller/Immun Denies wheezing Physical exam (Primary Care) Vital Signs: Last Vital Signs Pulse 74 11/22/23 15:42 BP 132/72 11/22/23 15:42 Pulse Ox 96 11/22/23 15:42 Oxygen Delivery Method Room Air 11/22/23 15:42 BMI result Body Mass Index 47.9 Tobacco/Smoking Status: Tobacco use Status Tobacco use date assessed 10/25/23 11/22/23 15:50 Patient Tobacco Use Status Former Tobacco user 11/22/23 15:50 e-Cigarette/Vaping Use Never Used 11/22/23 15:50 Thrive Assessment: Date of Thrive Assessment Date Thrive assessed 06/10/23 11/22/23 15:50 Const General: well developed; No acute distress Nutritional Appearance: well nourished Orientation/consciousness: patient oriented x3 [facility] Head: Yes normocephalic and Yes atraumatic Eyes General: appearance normal, both eyes and all related structures Pupils: Equal, round and reactive pupils present EOM: EOMs intact bilaterally Resp Effort & Inspection: normal respiratory effort Auscultation: clear to auscultation bilaterally Cardio Rate: regular rate Rhythm: regular rhythm Heart sounds: S1 normal heart sound present, S2 normal heart sound present, no gallops, no murmurs and no rubs Neuro General: patient oriented x3 and No gait normal Cranial nerves: Yes Equal, round and reactive pupils present Psych Affect: normal affect Results AMB Urinalysis, Automated UA Leukoctes 2 [place]/uL Last Edit by Donna Fernandez CMA on 11/22/23 16:08 UA Nitrite Negative Last Edit by Donna Fernandez CMA on 11/22/23 16:08 UA Urobilinogen 3.5 mg/dL Last Edit by Donna Fernandez CMA on 11/22/23 16:08 UA Protein 15 mg/dL Last Edit by Donna Fernandez CMA on 11/22/23 16:08 UA pH 6.5 Last Edit by Donna Fernandez CMA on 11/22/23 16:08 UA Blood 0 Monster/uL Last Edit by Donna Fernandez CMA on 11/22/23 16:08 UA Specific [place] 1.015 Last Edit by Donna Fernandez CMA on 11/22/23 16:08 UA Ketone Negative Last Edit by Donna Fernandez CMA on 11/22/23 16:08 UA Bilirubin 1 mg/dL Last Edit by Donna Fernandez CMA on 11/22/23 16:08 UA Glucose 0 mg/dL Last Edit by Donna Fernandez CMA on 11/22/23 16:08 Results Reviewed Results Reviewed: Laboratory Last Values Urine pH (Auto) 6.5 11/22/23 16:03 Specific [place] (Auto) 1.015 11/22/23 16:03 Urine Protein (Auto) 15 mg/dL 11/22/23 16:03 Glucose (UA)(Auto) 0 mg/dL 11/22/23 16:03 Urine Ketones (Auto) Negative 11/22/23 16:03 Urine Blood (Auto) 0 Monster/uL 11/22/23 16:03 Urine Nitrite (Auto) Negative 11/22/23 16:03 Urine Bilirubin (Auto) 1 mg/dL 11/22/23 16:03 Urine Urobilinogen (Auto) 3.5 mg/dL 11/22/23 16:03 Leukocyte Esterase (Auto) 2 [place]/uL 11/22/23 16:03 Assessment and Plan Assessment & Plan (1) Chronic pain syndrome: Code(s): G89.4 - Chronic pain syndrome Plan: Ongoing?chronic?pain?primarily?in?neck?shoulders?and?knees. She?has?been?on?opioid?therapy?and?we?have?been?weaning?this?down. Currently?has?been?taking?Percocet?5/325?4?times?a?day?and?we?had?discussed?having?her?voluntarily?Work?at?weaning?down?by?1/2?tab?per?day. She?has?had?some?difficulty?tolerating?this.??Also?she?will?be?starting?physical?therapy?soon. Will?hold?off?on?any?mandatory?wean?this?month?and?continue?medication?as?currently?prescribed.??She?will?continue?to?work?at?trying?to?voluntarily?decreased?by? 1/2?tab?per?day?but?can?use?this?when?she?is?doing?physical?therapy?days. She?is?now?seen?pain?management?and?has?had?injection?therapy?at?her?neck.??They?are?discussing?multiple?modalities?for?further?relief?including?radiofrequency?ablation. She?is?also?scheduled?for?injections?for?her?knees. Follow-up?with?pain?management?is?recommended I?will?see?her?back?in?about?a?month?to?consider?ongoing?wean?down?of?her?medication. (2) Urinary frequency: Code(s): R35.0 - Frequency of micturition Plan: Urinary?frequency?with?dark?foul-smelling?urine. Urine?dip?is?not?overly?convincing?but?given?her?presentation, will?treat?empirically?and?send?urine?for?urinalysis?with?cultures?and?sensitivity. (3) History of seizures: Code(s): Z87.898 - Personal history of other specified conditions Plan: Now?followed?by?neurology Recommended?continue?current?medications Patient?does?not?drive She?notes?that?she?has?been?having?right-sided?having?aches?and?I?recommended?that?she?contact?her?neurologist?to?let?her?know. (4) Headache: Code(s): R51.9 - Headache, unspecified Plan: As?above?follow-up?with?neurologist (5) Unsteady gait: Code(s): R26.81 - Unsteadiness on feet Plan: Multifactorial?including?bilateral?knee?pain She?has?a?rolling?walker?with?seat?and?brakes?but?this?is?getting?old?and?unstable?itself. Will?send?new?script (6) Osteoarthritis of knees, bilateral: Code(s): M17.0 - Bilateral primary osteoarthritis of knee Plan: As?above,?scheduled?for?knee?injections?with?pain?management Use?walker Continuing?opioid?therapy?though?we?are?weaning?this?down. Orders: Orders AMB Urinalysis Automated Today R30.0 - Dysuria UA CC w/rflx Micro + Cult Today R35.0 - Frequency of micturition UA and rflx microscopic Today R35.0 - Frequency of micturition, Z00.00 - Encounter for general adult medical examination without abnormal findings Urine Culture Today R35.0 - Frequency of micturition Medications: New sulfamethoxazole-trimethoprim 800-160 mg (Bactrim DS) 1 tab PO Q12H 5 days 10 tabs 0RF walker (Ultra-Light Rollator misc) Rolling walker with wheels, seat and brakes. Daily ?As directed, 999 days 1 ea 0RF M17.11 - Unilateral primary osteoarthritis, right knee, M17.12 - Unilateral primary osteoarthritis, left knee, M48.061 - Spinal stenosis, lumbar region without neurogenic claudication, R26.81 - Unsteadiness on feet, R29.6 - Repeated falls Refilled oxycodone-acetaminophen 5-325 mg (Percocet) orally every 6 hours PRN; Wean down. Mass[employer] Verified. Partial Fill upon request. 1 tab PO QID 30 days 120 tabs 0RF pain R35.0 - Frequency of micturition Coding Level of Care Code Est Pt Level 4 (22296) Diagnoses Chronic pain syndrome G89.4 Urinary frequency R35.0 History of seizures Z87.898 Headache R51.9 Unsteady gait R26.81 Osteoarthritis of knees, bilateral M17.0
[2023-11-22 15:42] VITALS: BP 132/72; PULSE 74; O2SAT 96; BMI 47.9
== END 2023-11-22 16:23 | disposition home or self-care (01) ==
PROVIDERS: PCP Family Medicine; Visit Provider Family Medicine
DX: G89.4 Chronic pain syndrome (principal); R35.0 Frequency of micturition; Z87.898 Personal history of other specified conditions; R51.9 Headache, unspecified; R26.81 Unsteadiness on feet; M17.0 Bilateral primary osteoarthritis of knee; R30.0 Dysuria
CPT/HCPCS: 81003; 99214

== ENCOUNTER 2023-11-22 16:27 | Outpatient (REF) | payer MEDICARE, MEDICAID, SELFPAY ==
[2023-11-22 18:17] LABS: Appearance Urine Clear; Color Urine Yellow; Glucose Urine UA Negative (Negative); Leukocyte Esterase Urine Moderate (2+) (Negative); Nitrite Urine Negative (Negative); PH 6.5 (5.0-9.0); UMIC TRIGGER UACC YES; Urine Blood Negative (Negative); Urine Ketones Trace mg/dL (Negative); Urine Protein Negative (Neg-Trace)
[2023-11-22 18:21] LABS: Bacteria Urine Trace (None Seen); Hyaline Casts Urine 0-2 /LPF (0-2); RBC Urine 0-2 /HPF (0-2); Squamous Epithelial Cell Urine 0-2 /HPF (0-2); UACC Culture Trigger YES; WBC Urine 21-50 /HPF (0-5)
== END 2023-11-22 16:28 | disposition home or self-care (01) ==
LOC: HO.LAB 16:27
PROVIDERS: Visit Provider Family Medicine
DX: Z00.00 Encounter for general adult medical examination without abnormal findings (principal); R35.0 Frequency of micturition; R30.0 Dysuria
CPT/HCPCS: 81001; 87086

== ENCOUNTER 2023-12-11 09:43 | Outpatient (AMB) | payer MEDICARE, MEDICAID, SELFPAY ==
[2023-12-11 10:08] VITALS: BP 139/75; PULSE 90; RESP 16; O2SAT 93; BMI 47.9
--- NOTE | 2023-12-11 10:08 | MHC.OFFVIS ---
Vital Signs 12/11/23 10:08 Height 5 ft 2 in Weight 262 lb BMI 47.9 BP 139/75 Blood Pressure Location Lt radial Position Sitting Respiration 16 Pulse 90 Pulse Source Pulse Oximeter Pulse Oximetry (%) 93 Oxygen Delivery Method Room Air Intake Visit Reasons: FOLLOW UP/durolane inj Right knee Allergies seafood Allergy (Verified 12/11/23 10:09) hives Medication List - Last Reconciled 12/11/23 by Shayy Quan LPN blood pressure monitor Automatic, Digital. Dx: I10. Daily As directed, 999 days/lifetime cholecalciferol (vitamin D3) (Vitamin D3) 10 mcg PO DAILY famotidine 40 mg PO BEDTIME 30 days gabapentin 900 mg (1.5 x 600 mg) PO Q8H 30 days hydrochlorothiazide 25 mg PO DAILY 30 days lamotrigine 150 mg PO BID levetiracetam 1,000 mg PO BID 90 days losartan 100 mg PO DAILY 90 days naproxen 500 mg PO Q12H PRN 30 days omeprazole 40 mg (2 x 20 mg) PO DAILY oxycodone-acetaminophen 5-325 mg (Percocet) 1 tab PO QID 30 days walker (Ultra-Light Rollator misc) Rolling walker with wheels, seat and brakes. Daily ?As directed, 999 days HPI HPI FOLLOW UP/durolane inj Right knee: Details: 68-year-old female who presents today to the office for right knee Durolane injection. Denies any recent cough, cold, infection, fever or other significant changes in medical history since last office visit. She is taking gabapentin for neck pain and is requesting refills of gabapentin. Past procedures 10/03/23: Interlaminar epidural steroid injection, C7-T1, left parasaggital: 75 % relief. 09/16/23: Left knee injection: % relief. 09/06/23: Right knee injection, US guided: 100 % relief. 04/26/23: Bilateral landmark guided intraarticular knee injection: 50% relief. 01/04/23: Right knee injection.: 70% relief for 3 months. 05/02/22: Right Sprint PNS, Saphenous Nerve ? 90% relief that is ongoing. 05/10/21: Right L3-L4 TFESI - 60% pain relief 07/12/21: Left L3-L4 TFESI - 50% pain relief 11/22/21: Left diagnostic saphenous nerve block-50% pain relief for 24 hours. 12/06/21: Right diagnostic GNB-60% pain relief for 24 hours 02/21/22: Right diagnostic SNB at adductor canal- 80% pain relief for 3 hours. 02/28/22: Left diagnostic SNB at adductor canal-60% pain relief for 3 hours. [facility] Medical History Lumbar spinal stenosis Lumbar and sacral spondyloarthritis Migraine Major depressive disorder Cervical radiculopathy Osteoarthritis of knees, bilateral Urge incontinence Surgical History History of bariatric surgery S/P cervical spinal fusion Family History Father No problems noted. Mother No problems noted. 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 Alert and oriented. Mood and affect appropriate. Follows and participates in conversation appropriately. Respiratory effort is unlabored. Able to transition from sit to stand unassisted. Ambulates with bilaterally normal heel strike and toe off. Office Procedures Joint Injection/Aspiration Joint Injection/Aspiration Details: The knee was visualized using ultrasound. A 25 gauge needle was advanced intra-articularly under ultrasound. Following intra-articular confirmation, the prepackaged Durolane syringe containing 3 mL hyaluronic acid was retrieved and administered to the joint. The patient tolerated the procedure well. Durolane Lot # [id number] Exp Date 04/2026 Coding Procedure code (CPT) selection complete Office Meds Durolane 60 mg/3 mL intra-articular syringe Performing Provider: Jose Turk MD Performing Location: [facility] Administered by: Jose Turk MD on 12/11/23 10:33 Dose Route Admin Location Dispensed Lot Number Expiration Date NDC Bead Machine Operator 60 mg intra-articular 3 mL Results Reviewed Results Reviewed: Date: 10/02/22. EXAMINATION: Knee x-ray FINDINGS: Right: Bone alignment is normal. No fracture or dislocation. Severe tricompartment arthritis with [id number] seen at the medial femoral tibial joint. Slight lateral tilt of the patella. Question periarticular ossification adjacent to the medial tibial plateau versus large osteophyte. Moderate joint effusion. Standing AP view of the left knee demonstrates severe arthritis at the femoral tibial joints. This appears increased from 2015. IMPRESSION: Severe arthritis. Assessment & Plan Assessment & Plan (1) Osteoarthritis of right knee: Code(s): M17.11 - Unilateral primary osteoarthritis, right knee Category: Medical Qualifiers: Osteoarthritis type: primary Qualified Code(s): M17.11 - Unilateral primary osteoarthritis, right knee Plan Patient is status post right knee Durolane injection. Patient tolerated procedure well and was discharged home in stable condition with discharge instructions. All questions were answered. Provided with refills of gabapentin. Follow up in two weeks for left knee Durolane injection. Scribed for Dr. Turk by Travis medical officer, on 12/11/2023. I, Dr. Turk, have personally reviewed and agree with the information entered by the scribe. Orders: Orders AMB Joint Injection/Aspiration Today M17.11 - Unilateral primary osteoarthritis, right knee Medications: Refilled gabapentin 900 mg (1.5 x 600 mg) PO Q8H 135 tabs 3RF pain 30 days G89.29 - Other chronic pain, G89.4 - Chronic pain syndrome, M25.561 - Pain in right knee, M25.562 - Pain in left knee, M47.817 - Spondylosis without myelopathy or radiculopathy, lumbosacral region Coding Level of Care Code Procedure Only Diagnoses Primary osteoarthritis of right knee M17.11 Osteoarthritis type: primary
== END 2023-12-11 10:35 | disposition home or self-care (01) ==
PROVIDERS: PCP Family Medicine; Visit Provider Internal Medicine
DX: M17.11 Unilateral primary osteoarthritis, right knee (principal)
CPT/HCPCS: 20610

== ENCOUNTER → 2023-12-11 09:43 | Outpatient (BNVA) | payer MEDICARE, OTHER, SELFPAY | PROVIDERS: PCP Family Medicine; Visit Provider Internal Medicine | DX: M17.11 Unilateral primary osteoarthritis, right knee (principal) | CPT/HCPCS: 20610; J7318 ==

== ENCOUNTER 2023-12-24 14:35 | Outpatient (AMB) | payer MEDICARE, SELFPAY ==
--- NOTE | 2023-12-24 14:53 | MHC.PC.OV ---
Vital Signs 12/24/23 14:57 Height 5 ft 2 in Weight 263 lb 4 oz BMI 48.1 BP 120/60 Blood Pressure Location Lt brachial Position Sitting Respiration 16 Pulse 91 Pulse Source Pulse Oximeter Temp 97.7 F Temp Source Tympanic Pulse Oximetry (%) 94 Oxygen Delivery Method Room Air Intake Visit Reasons: follow-up chronic pain. Intake Note: follow up on chronic pain Allergies seafood Allergy (Verified 12/24/23 14:54) hives Tobacco use date assessed: 10/25/23 Dental Screening Dental Screen Date: 06/10/23 HPI follow-up chronic pain. HPI Details 68 y/o female presents to f/u chronic pain. Had seen pain management 12/11/23 for her knee. She is s/p R knee durolane injection and had tolerated procedure well. Pt continues to struggle with pain. She notes she has complaints of low blood pressures. HPI Comments History of Present Illness Details Documentation assistance for Iron Castano MD, was provided by Zachariah Reina,? Welding Machine Operator Plasma Arc on 12/24/2023 at 3:09 PM EST. I, Dr. Castano, have read, observed, and verified documentation. [facility] Medical History Lumbar spinal stenosis Lumbar and sacral spondyloarthritis Migraine Major depressive disorder Cervical radiculopathy Osteoarthritis of knees, bilateral Urge incontinence Surgical History History of bariatric surgery S/P cervical spinal fusion Family History Father No problems noted. Mother No problems noted. 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 Selvin Howell, Cary Barton, Valeriy Vieira and colleagues, with an educational carlene from [email or web address]. Review of Systems Const Denies chills, Denies fatigue, Denies fever(s), Denies headache(s) and Denies weakness ENT Denies dizziness and Denies headache(s) Card Denies dyspnea Resp Denies cough, Denies dyspnea, Denies wheezing and Denies other (shortness of breath) Musc Denies numbness and Denies tingling Neuro Denies dizziness, Denies headache(s), Denies numbness, Denies tingling and Denies weakness Psych Denies anxiety and Denies depression Endo Denies fatigue Aller/Immun Denies wheezing Physical exam (Primary Care) Vital Signs: Last Vital Signs Temp 97.7 F 12/24/23 14:57 Pulse 91 12/24/23 14:57 Resp 16 12/24/23 14:57 BP 120/60 12/24/23 14:57 Pulse Ox 94 12/24/23 14:57 Oxygen Delivery Method Room Air 12/24/23 14:57 BMI result Body Mass Index 48.1 Tobacco/Smoking Status: Tobacco use Status Tobacco use date assessed 10/25/23 12/24/23 14:59 Patient Tobacco Use Status Former Tobacco user 12/24/23 14:59 e-Cigarette/Vaping Use Never Used 12/24/23 14:59 Thrive Assessment: Date of Thrive Assessment Date Thrive assessed 06/10/23 12/24/23 14:59 Const General: well developed; No acute distress Nutritional Appearance: well nourished Orientation/consciousness: patient oriented x3 HENMT Head: Yes normocephalic and Yes atraumatic Eyes General: appearance normal, both eyes and all related structures Pupils: Equal, round and reactive pupils present EOM: EOMs intact bilaterally Resp Effort & Inspection: normal respiratory effort Neuro General: patient oriented x3 and gait normal Cranial nerves: Yes Equal, round and reactive pupils present Psych Affect: normal affect Assessment and Plan Assessment & Plan (1) Osteoarthritis of right knee: Code(s): M17.11 - Unilateral primary osteoarthritis, right knee Qualifiers: Osteoarthritis type: primary Qualified Code(s): M17.11 - Unilateral primary osteoarthritis, right knee Plan: Ongoing?bilateral?knee?pain?and?also?cervical?and?lumbar?radiculopathy -?followed?by?pain?management Undergoing?injection?therapy?for?her?knees. Some?consideration?of?radiofrequency?ablation?for?cervical?radicular symptoms.??Will?likely?need?further?evaluation?for?lumbar?radicular?symptoms?in?the?future. Patient?says?she?has?been?struggling?with?trying?to?wean?down?her?Percocet?voluntarily. Has?not?tried?meloxicam?in?place?naproxen?and?this?may?be?helpful Has?not?tried?pregabalin?in?place?of?gabapentin.??She?has?been?on?gabapentin?for?quite?some?time?at?very?high?doses.??Hopefully?changing?medications?slightly?will?give?additional?benefit. She?will?go?back?to?her?current?medications?if?these?are?not?improving?her?pain. Advised?that?if?these?are?improving?her?pain?she?should?again?work?at?voluntary?weaning?of?Percocet?as?we?will?be?decreasing?this?at?her?next?visit. Also?advised?she?get?scheduled?with?physical?therapy?as?this?has?been?ordered?and?she?says?she?has?not?been?contacted?yet. (2) Chronic pain syndrome: Code(s): G89.4 - Chronic pain syndrome Plan: As?above (3) Low blood pressure: Code(s): I95.9 - Hypotension, unspecified Plan: Blood?pressure?initially?recorded?as?100/66 Rechecked?blood?pressure?with?appropriate?cuff?and?blood?pressure?is?120/6 Continue?current?medications. Medications: New pregabalin 300 mg PO BID 60 caps 0RF 30 days M54.12 - Radiculopathy, cervical region, M54.16 - Radiculopathy, lumbar region meloxicam 15 mg PO DAILY 30 tabs 2RF 30 days Refilled oxycodone-acetaminophen 5-325 mg (Percocet) orally every 6 hours PRN; Wean down. MassPat Verified. Partial Fill upon request. 1 tab PO QID 120 tabs 0RF pain 30 days R35.0 - Frequency of micturition Discontinued naproxen Discontinued Reason: Doctor's Order 500 mg PO Q12H 30 days PRN 60 tabs 2RF Pain gabapentin Discontinued Reason: Doctor's Order 900 mg (1.5 x 600 mg) PO Q8H 30 days 135 tabs 3RF pain G89.29 - Other chronic pain, G89.4 - Chronic pain syndrome, M25.561 - Pain in right knee, M25.562 - Pain in left knee, M47.817 - Spondylosis without myelopathy or radiculopathy, lumbosacral region Coding Level of Care Code Est Pt Level 3 (28958) Diagnoses Primary osteoarthritis of right knee M17.11 Osteoarthritis type: primary Chronic pain syndrome G89.4 Low blood pressure I95.9
[2023-12-24 14:57] VITALS: BP 120/60; PULSE 91; RESP 16; TEMP 36.5; O2SAT 94; BMI 48.1
== END 2023-12-24 15:47 | disposition home or self-care (01) ==
PROVIDERS: PCP Family Medicine; Visit Provider Family Medicine
DX: M17.11 Unilateral primary osteoarthritis, right knee (principal); G89.4 Chronic pain syndrome; I95.9 Hypotension, unspecified
CPT/HCPCS: 99213

== ENCOUNTER 2024-01-01 10:30 | Outpatient (AMB) | payer MEDICARE, MEDICAID, SELFPAY ==
--- NOTE | 2024-01-01 10:34 | A.OFFVIS_ITS ---
Vital Signs 01/01/24 10:38 Height 5 ft 2 in Weight 263 lb BMI 48.1 BP 138/74 Blood Pressure Location Lt radial Position Sitting Respiration 16 Pulse 112 H Pulse Source Pulse Oximeter Pulse Oximetry (%) 92 Oxygen Delivery Method Room Air Intake Visit Reasons: Left Knee Durolane Inj Allergies seafood Allergy (Verified 01/01/24 10:40) hives Medication List - Last Reconciled 01/01/24 by Shayy Quan LPN blood pressure monitor Automatic, Digital. Dx: I10. Daily As directed, 999 days/lifetime cholecalciferol (vitamin D3) (Vitamin D3) 10 mcg PO DAILY famotidine 40 mg PO BEDTIME 30 days hydrochlorothiazide 25 mg PO DAILY 30 days lamotrigine 150 mg PO BID levetiracetam 1,000 mg PO BID 90 days losartan 100 mg PO DAILY 90 days meloxicam 15 mg PO DAILY 30 days omeprazole 40 mg (2 x 20 mg) PO DAILY oxycodone-acetaminophen 5-325 mg (Percocet) 1 tab PO QID 30 days pregabalin 300 mg PO BID 30 days venlafaxine ER 75 mg PO DAILY walker (Ultra-Light Rollator [employer] (Droppy)) Rolling walker with wheels, seat and brakes. Daily ?As directed, 999 days HPI HPI Left Knee Durolane Inj: Details: 68-year-old female who presents today to the office for left knee Durolane injection. The patient reports did not get much relief following the procedure. She has received steroid injection for the right knee in the past and would like to repeat it since the Durolane was not very helpful. Denies any recent cough, cold, infection, fever or other significant changes in medical history since last office visit. Past procedures 12/11/23: Right knee Durolane injection: No significant relief. 10/03/23: Interlaminar epidural steroid injection, C7-T1, left parasaggital: 75 % relief. 09/16/23: Left knee injection: % relief. 09/06/23: Right knee injection, US guided: 100 % relief. 04/26/23: Bilateral landmark guided intraarticular knee injection: 50% relief. 01/04/23: Right knee injection.: 70% relief for 3 months. 05/02/22: Right Sprint PNS, Saphenous Nerve ? 90% relief that is ongoing. 05/10/21: Right L3-L4 TFESI - 60% pain relief 07/12/21: Left L3-L4 TFESI - 50% pain relief 11/22/21: Left diagnostic saphenous nerve block-50% pain relief for 24 hours. 12/06/21: Right diagnostic GNB-60% pain relief for 24 hours 02/21/22: Right diagnostic SNB at adductor canal- 80% pain relief for 3 hours. 02/28/22: Left diagnostic SNB at adductor canal-60% pain relief for 3 hours. [facility] Medical History Lumbar spinal stenosis Lumbar and sacral spondyloarthritis Migraine Major depressive disorder Cervical radiculopathy Osteoarthritis of knees, bilateral Urge incontinence Surgical History History of bariatric surgery S/P cervical spinal fusion Family History Father No problems noted. Mother No problems noted. 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 Alert and oriented. Mood and affect appropriate. Follows and participates in conversation appropriately. Respiratory effort is unlabored. Able to transition from sit to stand unassisted. Ambulates with bilaterally normal heel strike and toe off. Assessment & Plan Assessment & Plan (1) Osteoarthritis of left knee: Code(s): M17.12 - Unilateral primary osteoarthritis, left knee Category: Medical Plan Patient is status post left knee Durolane injection. Patient tolerated procedure well and was discharged home in stable condition with discharge instructions. All questions were answered. Will schedule the patient for a right knee steroid injection next month. Discussed the risks and benefits of the procedure with the patient in detail. All questions were answered. The patient is on board with the plan. Scribed for Dr. Turk by Travis neuropsychology medical consultant, on 01/01/2024. I, Dr. Turk, have personally reviewed and agree with the information entered by the scribe. Orders: Orders AMB Joint Injection/Aspiration 01/01/24 M17.12 - Unilateral primary osteoarthritis, left knee Medications: New Durolane (hyaluronate sodium, stabilized) 60 mg (3 mL) intra-articular ONCE 3 mL 0RF NS M17.12 - Unilateral primary osteoarthritis, left knee Coding Level of Care Code Procedure Only Diagnoses Osteoarthritis of left knee M17.12
[2024-01-01 10:38] VITALS: BP 138/74; PULSE 112; RESP 16; O2SAT 92; BMI 48.1
== END 2024-01-01 11:07 | disposition home or self-care (01) ==
PROVIDERS: PCP Family Medicine; Visit Provider Internal Medicine
DX: M17.12 Unilateral primary osteoarthritis, left knee (principal)
CPT/HCPCS: 20611

== ENCOUNTER → 2024-01-01 10:30 | Outpatient (BNVA) | payer MEDICARE, MEDICAID, SELFPAY | PROVIDERS: PCP Family Medicine; Visit Provider Internal Medicine | DX: M17.12 Unilateral primary osteoarthritis, left knee (principal) | CPT/HCPCS: 20611 ==

== ENCOUNTER 2024-02-26 10:29 | Outpatient (AMB) | payer MEDICARE, MEDICAID, SELFPAY ==
--- NOTE | 2024-02-26 10:49 | A.OFFVIS_ITS ---
Vital Signs 02/26/24 10:50 Height 5 ft 2 in Weight 263 lb BMI 48.1 BP 126/82 Blood Pressure Location Rt radial Position Sitting Respiration 16 Pulse 80 Pulse Source Pulse Oximeter Intake Visit Reasons: Cortisone Injection/UDS Allergies seafood Allergy (Verified 03/05/24 15:25) hives Medication List - Last Reconciled 02/26/24 by Shayy Quan LPN blood pressure monitor Automatic, Digital. Dx: I10. Daily As directed, 999 days/lifetime cholecalciferol (vitamin D3) (Vitamin D3) 10 mcg PO DAILY famotidine 40 mg PO BEDTIME 30 days gabapentin 900 mg (1.5 x 600 mg) PO Q8H 30 days hydrochlorothiazide 25 mg PO DAILY 90 days lamotrigine 150 mg PO BID levetiracetam 1,000 mg PO BID 90 days losartan 100 mg PO DAILY 90 days meloxicam 15 mg PO DAILY 30 days omeprazole 40 mg (2 x 20 mg) PO DAILY oxycodone-acetaminophen 5-325 mg (Percocet) 1 tab PO QID 30 days oxycodone-acetaminophen 5-325 mg (Percocet) 1 tab PO QID PRN 14 days pregabalin 300 mg PO BID 30 days venlafaxine ER 75 mg PO DAILY walker (Ultra-Light Rollator misc) Rolling walker with wheels, seat and brakes. Daily ?As directed, 999 days HPI HPI Cortisone Injection/UDS: Details: 68-year-old female who presents today to the office for bilateral ultrasound guided intraarticular knee injection. She reports relief for only a few days following left knee durolane injection. She reports worsening pain in the right knee. She states she qualifies for weight loss medications but her PCP is concerned about her seizures. Denies any recent cough, cold, infection, fever or other significant changes in medical history since last office visit. Past procedures 01/01/24: Left knee Durolane injection: relief for a few days. 12/11/23: Right knee Durolane injection: No significant relief. 10/03/23: Interlaminar epidural steroid injection, C7-T1, left parasaggital: 75 % relief. 09/16/23: Left knee injection: % relief. 09/06/23: Right knee injection, US guided: 100 % relief. 12/15/23: Bilateral landmark guided intraarticular knee injection: 50% relief. 01/04/23: Right knee injection.: 70% relief for 3 months. 05/02/22: Right Sprint PNS, Saphenous Nerve ? 90% relief that is ongoing. 05/10/21: Right L3-L4 TFESI - 60% pain relief 07/12/21: Left L3-L4 TFESI - 50% pain relief 11/22/21: Left diagnostic saphenous nerve block-50% pain relief for 24 hours. 12/06/21: Right diagnostic GNB-60% pain relief for 24 hours 02/21/22: Right diagnostic SNB at adductor canal- 80% pain relief for 3 hours. 02/28/22: Left diagnostic SNB at adductor canal-60% pain relief for 3 hours. [facility] Medical History Lumbar spinal stenosis Lumbar and sacral spondyloarthritis Migraine Major depressive disorder Cervical radiculopathy Osteoarthritis of knees, bilateral Urge incontinence Surgical History History of bariatric surgery S/P cervical spinal fusion Family History Father No problems noted. Mother No problems noted. 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 Alert and oriented. Mood and affect appropriate. Follows and participates in conversation appropriately. Respiratory effort is unlabored. Able to transition from sit to stand unassisted. Ambulates with bilaterally normal heel strike and toe off. Office Procedures AMB Joint Injection/Aspiration Joint Injection/Aspiration Primary Site: right knee Secondary Site: left knee Prep: site was prepped using sterile technique Injected: 40 mg of, Kenalog, with 3 mL of (0.25% of ropivacaine) and in the joint (On each side) Approach Used: anterolateral Procedure: The patient tolerated the procedure well Coding - Large joint (Bilateral) Procedure code (CPT) selection complete Assessment & Plan Assessment & Plan (1) Osteoarthritis of left knee: Code(s): M17.12 - Unilateral primary osteoarthritis, left knee Category: Medical (2) Osteoarthritis of right knee: Code(s): M17.11 - Unilateral primary osteoarthritis, right knee Category: Medical Qualifiers: Osteoarthritis type: primary Qualified Code(s): M17.11 - Unilateral primary osteoarthritis, right knee Plan Patient is status post bilateral intraarticular knee injections. Patient tolerated procedure well and was discharged home in stable condition with discharge instructions. All questions were answered. Follow-up as needed. Scribed for Dr. Turk by Travis senior medical billing specialist, on 02/26/2024. I, Dr. Turk, have personally reviewed and agree with the information entered by the scribe Coding Level of Care Code Procedure Only Diagnoses Osteoarthritis of left knee M17.12 Primary osteoarthritis of right knee M17.11 Osteoarthritis type: primary CPT Codes Coding - 75123 Large joint: 81859 - Large joint ([id number])
[2024-02-26 10:50] VITALS: BP 126/82; PULSE 80; RESP 16; BMI 48.1
== END 2024-02-26 11:25 | disposition home or self-care (01) ==
PROVIDERS: PCP Family Medicine; Visit Provider Internal Medicine
DX: M25.561 Pain in right knee (principal); M25.562 Pain in left knee
CPT/HCPCS: 20611

== ENCOUNTER → 2024-02-26 10:29 | Outpatient (BNVA) | payer MEDICARE, SELFPAY | PROVIDERS: PCP Family Medicine; Visit Provider Internal Medicine | DX: M17.0 Bilateral primary osteoarthritis of knee (principal) | CPT/HCPCS: 20611; J2795; J3301 ==

== ENCOUNTER 2024-03-05 15:03 | Outpatient (AMB) | payer MEDICARE, MEDICAID, SELFPAY ==
--- NOTE | 2024-03-05 15:25 | A.OFFPC_ITS ---
Vital Signs 03/05/24 15:26 Height 5 ft 2 in Weight 259 lb 8 oz BMI 47.5 BP 104/51 L Blood Pressure Location Lt brachial Position Sitting Respiration 16 Pulse 86 Pulse Source Pulse Oximeter Temp 98.1 F Temp Source Temporal Artery Scan Pulse Oximetry (%) 95 Oxygen Delivery Method Room Air Intake Visit Reasons: follow up medications Intake Note: follow up meds Allergies seafood Allergy (Verified 03/05/24 15:25) hives Tobacco use date assessed: 10/25/23 Dental Screening Dental Screen Date: 06/10/23 HPI follow up medications HPI Details 68 y/o female presents to f/u chronic pa in. Had seen pain management recently for her knees. She notes she had gotten cortisone injections and states pain has improved. Notes ongoing nerve pain. Has trialed lyrica before which did not help. She is on gabapentin 900mg. Reports ongoing neck/shoulder pain. Reports ? thrush. Had seen specialists who recommended knee replacement but pt states BMI is too high for this. HPI Comments History of Present Illness Details Documentation assistance for Iron Castano MD, was provided by Zachariah Reina,? Correspondence Coordinator on 03/05/2024 at 4:07 PM EST. I, Dr. Castano, have read, observed, and verified documentation. [facility] Medical History Lumbar spinal stenosis Lumbar and sacral spondyloarthritis Migraine Major depressive disorder Cervical radiculopathy Osteoarthritis of knees, bilateral Urge incontinence Surgical History History of bariatric surgery S/P cervical spinal fusion Family History Father No problems noted. Mother No problems noted. 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 1. Little interest or pleasure in doing things: several days 3. Trouble falling or staying asleep, or sleeping too much: several days 4. Feeling tired or having little energy: several days 5. Poor appetite or overeating: several days 6. Feeling bad about yourself - or that you are a failure or have let yourself or your family down: several days 7. Trouble concentrating on things, such as reading the newspaper or watching television: several days 8. Moving or speaking so slowly that other people could have noticed. Or the opposite - being so fidgety or restless that you have been moving around a lot more than usual: not at all 9. Thoughts that you would be better off or of hurting yourself in some way: not at all Source: Developed by Drs. Selvin Howell, Cary Barton, Valeriy Vieira and colleagues, with an educational carlene from [employer]. Thrive Questionnaire Date Thrive assessed: 02/27/24 I am a: Patient What is your living situation today?: I have a steady place to live Within the past 12 months, did the food you bought not last and you didn't have the money to get more?: Never true Within the past 12 months, did you worry whether your food would run out before you got money to buy more?: Never true Do you have trouble paying for medicines?: No Do you have trouble getting transportation to medical appointments?: I choose not to answer this question Do you have trouble paying your heating and electricity bill?: No Do you have trouble taking care of your child, family member or friend?: No Do you have trouble with day-to-day activities such as bathing, preparing meals, shopping, managing finances, etc.?: No Are you currently unemployed and looking for a job?: No Are you interested in more education?: No Please select the resources that you would like help with: Transportation Currently or been in a relationship where the following occur: No concerns reported THRIVE Score: 0 AUDIT C Alcohol Use Questionnaire (AUDIT-C) 1. How often do you have a drink containing alcohol?: Never Total Score: 0 ANGEL-7 AMB Questionnaire ANGEL-7 Date ANGEL - 7 assessed: 09/06/23 Feeling nervous, anxious, or on edge: 1 = Several days Not being able to stop or control worryin = Several days Worrying too much about different things: 1 = Several days Trouble relaxin = Several days Being so restless that it is hard to sit still: 1 = Several days Becoming easily annoyed or irritable: 1 = Several days Feeling afraid as if something awful might happen: 1 = Several days Total ANGEL-7 score (0-4 normal; 5-9 mild; 10-14 moderate; 15-21 severe): 7 Source: Developed by Drs. Selvin Howell, Cary Barton, Valeriy Vieira and colleagues, with an educational carlene from [employer]. Review of Systems Const Denies chills, Denies fatigue, Denies fever(s), Denies headache(s) and Denies weakness ENT Denies dizziness and Denies headache(s) Card Denies dyspnea Resp Denies cough, Denies dyspnea, Denies wheezing and Denies other (shortness of breath) Musc Denies numbness and Denies tingling Neuro Denies dizziness, Denies headache(s), Denies numbness, Denies tingling and Denies weakness Psych Denies anxiety and Denies depression Endo Denies fatigue Aller/Immun Denies wheezing Physical exam (Primary Care) Vital Signs: Last Vital Signs Temp 98.1 F 03/05/24 15:26 Pulse 86 03/05/24 15:26 Resp 16 03/05/24 15:26 BP 104/51 L 03/05/24 15:26 Pulse Ox 95 03/05/24 15:26 Oxygen Delivery Method Room Air 03/05/24 15:26 BMI result Body Mass Index 47.5 Tobacco/Smoking Status: Tobacco use Status Tobacco use date assessed 10/25/23 03/05/24 15:30 Patient Tobacco Use Status Former Tobacco user 03/05/24 15:30 e-Cigarette/Vaping Use Never Used 03/05/24 15:30 Thrive Assessment: Date of Thrive Assessment Date Thrive assessed 02/27/24 03/05/24 15:30 Currently or been in a relationship where the following occur: No concerns reported Const General: well developed; No acute distress Nutritional Appearance: well nourished Orientation/consciousness: patient oriented x3 [facility] Head: Yes normocephalic and Yes atraumatic Eyes General: appearance normal, both eyes and all related structures Pupils: Equal, round and reactive pupils present EOM: EOMs intact bilaterally Resp Effort & Inspection: normal respiratory effort Neuro General: patient oriented x3 and gait normal Cranial nerves: Yes Equal, round and reactive pupils present Psych Affect: normal affect Coding Level of Care Code Est Pt Level 4 (23481) Diagnoses Osteoarthritis of left knee M17.12 Chronic pain syndrome G89.4 Cervical radiculopathy M54.12 Morbid obesity E66.01 Thrush B37.0 Assessment & Plan Assessment & Plan (1) Osteoarthritis of left knee: Code(s): M17.12 - Unilateral primary osteoarthritis, left knee Category: Medical Plan: Chronic?pain?and?bilateral?knee?pain She?received?injection?therapy?which?improved?pain?but?still?ongoing She?has?been?seen?by?a?specialist?who?does?recommend?fide t?she?get?knee?replacements?but?currently?BMI?is?too?high?for?this. ?We?discussed?medications?for?weight?loss-see?below Will?continue?Percocet?at?current?dosing?as?patient?says?she?has?an?appointment ?with?pain?management?around?March?. She?had?been?discontinued?x1?year?from?pain?management?opioid?program?and?we?hav e?been?undergoing?a?slow?wean?over?that?time?period. She?has?been?compliant ?though?we?have?had?some disagreements?about?her pain?control?in?the?past.??She?is?a?rather?complicated?patient?and?we?discussed? that?I?am?recommending?she?see?management?in?the?opioid?program?by?[facility]? pain?management. No?change?to?her?current?pain?medications?as?she?will?be?seeing?them?soon. (2) Chronic pain syndrome: Code(s): G89.4 - Chronic pain syndrome Category: Medical Plan: As?above (3) Cervical radiculopathy: Code(s): M54.12 - Radiculopathy, cervical region Category: Medical Plan: Also?cervical?radiculopathy?with?pain?in?bilateral?arms Follow-up?with?pain?management?as?recommended Continuing?current?pain?medications? - Percocet?as?well?as?gabapentin?and?meloxicam (4) Morbid obesity: Code(s): E66.01 - Morbid (severe) obesity due to excess calories Category: Medical Plan: Patient?would?like?to?try?Ozempic She?is?morbidly?obese?and?needs?to?lose?weight?in?order?to?get?knee?replacements ?as?well?as?for?other?aspects?of?her?overall?primary?care Will?send?script?for?Ozempic.??Discuss?risks/benefits. Will?see?how?she?is?doing?this?in?1?month (5) Thrush: Code(s): B37.0 - Candidal stomatitis Category: Medical Plan: Will?send?script?for nystatin Medications: New nystatin swish and swallow 5 mL PO DAILY 10 days 50 mL 1RF semaglutide (Ozempic) for 4 weeks 0.25 mg (0.368 mL) subcut QWEEK 28 days 1.472 mL 0RF
[2024-03-05 15:26] VITALS: BP 104/51; PULSE 86; RESP 16; TEMP 36.7; O2SAT 95; BMI 47.5
== END 2024-03-05 16:12 | disposition home or self-care (01) ==
PROVIDERS: PCP Family Medicine; Visit Provider Family Medicine
DX: M17.12 Unilateral primary osteoarthritis, left knee (principal); E66.01 Morbid (severe) obesity due to excess calories; Z68.42 Body mass index [BMI] 45.0-49.9, adult; G89.4 Chronic pain syndrome; M54.12 Radiculopathy, cervical region; B37.0 Candidal stomatitis

== ENCOUNTER → 2024-03-05 15:03 | Outpatient (BNVA) | payer MEDICARE, MEDICAID, SELFPAY | PROVIDERS: PCP Family Medicine; Visit Provider Family Medicine | DX: M17.12 Unilateral primary osteoarthritis, left knee (principal); M54.12 Radiculopathy, cervical region; E66.01 Morbid (severe) obesity due to excess calories; G89.4 Chronic pain syndrome; B37.0 Candidal stomatitis | CPT/HCPCS: 99212 ==

== ENCOUNTER 2024-03-16 11:36 | Outpatient (AMB) | payer MEDICARE, MEDICAID, SELFPAY ==
--- NOTE | 2024-03-16 11:41 | A.OFFVIS_ITS ---
Vital Signs 03/16/24 11:59 Height 5 ft 2 in Weight 259 lb BMI 47.4 BP 145/82 H Blood Pressure Location Rt brachial Position Sitting Pulse 97 Pulse Source Pulse Oximeter Pulse Oximetry (%) 98 Oxygen Delivery Method Room Air Intake Visit Reasons: UDS review Intake Note: Ivania comes in today for UDS review after opioid suspension. Patient presented script of oxycodone-acetaminophen that was prescribed by her PCP #[id number] tablets which she last took today 03/16/24 at 5am. Patient resigned opioid contract in office and copy of signed contract was provided to patient. Pain today 11/19 Tank Tender Required: No Accompanied by: Self / Same As Patient Allergies seafood Allergy (Verified 03/05/24 15:25) hives HPI Comments Details: Patient returns to the office to discuss her UDS results and re-enter into our opioid program. She was suspended for one year and opioid prescribing was taken over by her PCP Dr. Castano and she continues interventional treatments through our office with Dr. Turk. She recently received therapeutic injection for her left knee pain with minimal pain relief. She is not surgical candidate for total knee replacement due to morbid obesity and BMI>40. She was recently started on low dose Ozempic for weight loss. On evaluation, it was determined that there was a continued need to continue palliative chronic opioid prescribing and thus will re-enter patient into our opioid program. Risks and benefits were discussed with the patient. Patient believes she was more functional and less symptomatic on chronic opioids. MassPAT was reviewed and is consistent with her history. UDS is concordant. De nies any recent cough, cold, infection, fever or other significant changes in medical history since last office visit. PRIOR Dr. Turk 02/26/24: 68-year-old female who presents today to the office for bilateral ultrasound guided intraarticular knee injection. She reports relief for only a few days following left knee durolane injection. She reports worsening pain in the right knee. She states she qualifies for weight loss medications but her PCP is concerned about her seizures. Denies any recent cough, cold, infection, fever or other significant changes in medical history since last office visit. Past procedures 01/01/24: Left knee Durolane injection: relief for a few days. 12/11/23: Right knee Durolane injection: No significant relief. 10/03/23: Interlaminar epidural steroid injection, C7-T1, left parasaggital: 75 % relief. 09/16/23: Left knee injection: % relief. 09/06/23: Right knee injection, US guided: 100 % relief. 04/26/23: Bilateral landmark guided intraarticular knee injection: 50% relief. 01/04/23: Right knee injection.: 70% relief for 3 months. 05/02/22: Right Sprint PNS, Saphenous Nerve ? 90% relief that is ongoing. 05/10/21: Right L3-L4 TFESI - 60% pain relief 07/12/21: Left L3-L4 TFESI - 50% pain relief 11/22/21: Left diagnostic saphenous nerve block-50% pain relief for 24 hours. 12/06/21: Right diagnostic GNB-60% pain relief for 24 hours 02/21/22: Right diagnostic SNB at adductor canal- 80% pain relief for 3 hours. 02/28/22: Left diagnostic SNB at adductor canal-60% pain relief for 3 hours. [facility] Medical History Lumbar spinal stenosis Lumbar and sacral spondyloarthritis Migraine Major depressive disorder Cervical radiculopathy Osteoarthritis of knees, bilateral Urge incontinence Surgical History History of bariatric surgery S/P cervical spinal fusion Family History Father No problems noted. Mother No problems noted. 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 Morbidly obese. Alert and oriented. Mood and affect appropriate. Pleasant. Follows and participates in conversation appropriately. Respiratory effort is unlabored. No cough. Able to transition from sit to stand unassisted. Uses walker with seat with ambulation. Ambulates with bilaterally normal heel strike and toe off. Psych Appearance: grossly normal and well kempt Mental Status: mental status grossly normal Speech and movement: Normal speech and movement present and Clear speech present Affect: normal affect Attitude: cooperative Thought process: Normal thought process present Thought content: Normal thought content present, suicidality (none), no hallucinations and Depressive thoughts present Insight: Good insight present (Psych) Judgement: Good judgement present (Psych) Results Reviewed Results Reviewed: Date: 10/02/22. EXAMINATION: Knee x-ray FINDINGS: Right: Bone alignment is normal. No fracture or dislocation. Severe tricompartment arthritis with [id number] seen at the medial femoral tibial joint. Slight lateral tilt of the patella. Question periarticular ossification adjacent to the medial tibial plateau versus large osteophyte. Moderate joint effusion. Standing AP view of the left knee demonstrates severe arthritis at the femoral tibial joints. This appears increased from 2015. IMPRESSION: Severe arthritis. Assessment & Plan Assessment & Plan (1) Cervical radiculopathy: Code(s): M54.12 - Radiculopathy, cervical region Category: Medical (2) Lumbar radiculopathy: Code(s): M54.16 - Radiculopathy, lumbar region Category: Medical (3) Lumbar and sacral spondyloarthritis: Code(s): M47.817 - Spondylosis without myelopathy or radiculopathy, lumbosacral region Category: Medical (4) Bilateral chronic knee pain: Code(s): M25.561 - Pain in right knee; M25.562 - Pain in left knee; G89.29 - Other chronic pain Category: Medical (5) Morbid obesity with BMI of 45.0-49.9, adult: Code(s): E66.01 - Morbid (severe) obesity due to excess calories; Z68.42 - Body mass index [BMI] 45.0-49.9, adult Category: Medical (6) Chronic pain syndrome: Code(s): G89.4 - Chronic pain syndrome Category: Medical (7) Opioid contract exists: Code(s): Z79.891 - jail (current) use of opiate analgesic Category: Medical Plan On evaluation, it was determined that there was a continued need to continue palliative chronic opioid prescribing and thus will re-enter patient into our opioid program. Risks and benefits were discussed with the patient. Patient believes she was more functional and less symptomatic on chronic opioids. MassPAT was reviewed and is consistent with her history. UDS is concordant. Opioid Risk Score=18 (Moderate). Script sent for oxycodone-acetaminophen 5-325 mg QID prn with an advanced date of 04/05/24. Continue gabapentin. Encouraged adequate hydration, consider plant-based diet or Mediterranean diet, daily physical activity as tolerated and weight loss. She was recently prescribed Ozempic. Patient suffers from severe advanced knee arthritis needs to lose weight for potential total knee replacement surgery. All questions and concerns have been answered and patient agreed with the treatment plan. Follow-up in 4 weeks for pill count and sooner as needed. Medications: Changed From oxycodone-acetaminophen 5-325 mg (Percocet) orally every 6 hours PRN; Wean down. MassPat Verified. Partial Fill upon request. 1 tab PO QID 30 days 120 tabs 0RF pain G89.29 - Other chronic pain, G89.4 - Chronic pain syndrome, M25.561 - Pain in right knee, M25.562 - Pain in left knee, M47.817 - Spondylosis without myelopathy or radiculopathy, lumbosacral region To oxycodone-acetaminophen 5-325 mg (Percocet) Partial Fill upon patient request. 1 tab PO QID 30 days PRN 120 tabs 0RF pain G89.29 - Other chronic pain, G89.4 - Chronic pain syndrome, M25.561 - Pain in right knee, M25.562 - Pain in left knee, M47.817 - Spondylosis without myelopathy or radiculopathy, lumbosacral region Coding Level of Care Code Est Pt Level 4 (06697) Complex EM visit Add On G2211 Diagnoses Cervical radiculopathy M54.12 Lumbar radiculopathy M54.16 Lumbar and sacral spondyloarthritis M47.817 Bilateral chronic knee pain M25.561; M25.562; G89.29 Morbid obesity with BMI of 45.0-49.9, adult E66.01; Z68.42 Chronic pain syndrome G89.4 Opioid contract exists Z79.891
[2024-03-16 11:59] VITALS: BP 145/82; PULSE 97; O2SAT 98; BMI 47.4
== END 2024-03-16 12:08 | disposition home or self-care (01) ==
LOC: HO.PMC 11:37
PROVIDERS: PCP Family Medicine; Visit Provider Nurse Practitioner Family
DX: M54.12 Radiculopathy, cervical region (principal); M54.16 Radiculopathy, lumbar region; M47.817 Spondylosis without myelopathy or radiculopathy, lumbosacral region; M25.561 Pain in right knee; M25.562 Pain in left knee; G89.29 Other chronic pain; E66.01 Morbid (severe) obesity due to excess calories; Z68.42 Body mass index [BMI] 45.0-49.9, adult; G89.4 Chronic pain syndrome; Z79.891 Long term (current) use of opiate analgesic
CPT/HCPCS: 99214; G2211

== ENCOUNTER → 2024-03-16 11:36 | Outpatient (BNVA) | payer MEDICARE, MEDICAID, SELFPAY | PROVIDERS: PCP Family Medicine; Visit Provider Nurse Practitioner Family | DX: M54.16 Radiculopathy, lumbar region (principal); M47.817 Spondylosis without myelopathy or radiculopathy, lumbosacral region; M25.561 Pain in right knee; M25.562 Pain in left knee; E66.01 Morbid (severe) obesity due to excess calories; G89.4 Chronic pain syndrome; Z68.42 Body mass index [BMI] 45.0-49.9, adult; Z79.891 Long term (current) use of opiate analgesic | CPT/HCPCS: 99212 ==

== ENCOUNTER 2024-04-13 13:49 | Outpatient (AMB) | payer MEDICARE, MEDICAID, SELFPAY ==
--- NOTE | 2024-04-13 13:58 | A.OFFVIS_ITS ---
Vital Signs 04/13/24 14:09 Height 5 ft 2 in BP 115/62 Blood Pressure Location Lt brachial Position Sitting Pulse 90 Pulse Source Pulse Oximeter Pulse Oximetry (%) 98 Oxygen Delivery Method Room Air Intake Visit Reasons: Pill Count Intake Note: Ivania comes in today for a pill count to oxycodone-acetaminophen, patient should have 84 tablets and pressents with 88 tablets which she last took today 04/13/24 at 5am. 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 She is supposed to have #84 oxycodone-acetaminophen 5-325 mg pills and in her possession has #88 pills. This demonstrates a responsible attitude in regards to her medication regimen. She reports mild improvement in function and decrease in pain, with no noted side effects. She reports left sided neck pain with movements, especially with cervical extension without radiation into her arm or hand. Patient is interested to undergo diagnostic cervical medial branch blocks as next steps. Denies any fever, malaise, abdominal pain, sedation, nausea, dizziness or urinary retention. Patient states she has an increased ability to perform activities of daily living, interact socially and be more functional. PRIOR Dr. Turk 02/26/24: 68-year-old female who presents today to the office for bilateral ultrasound guided intraarticular knee injection. She reports relief for only a few days following left knee durolane injection. She reports worsening pain in the right knee. She states she qualifies for weight loss medications but her PCP is concerned about her seizures. Denies any recent cough, cold, infection, fever or other significant changes in medical history since last office visit. Past procedures 01/01/24: Left knee Durolane injection: relief for a few days. 12/11/23: Right knee Durolane injection: No significant relief. 10/03/23: Interlaminar epidural steroid injection, C7-T1, left parasaggital: 75 % relief. 09/16/23: Left knee injection: % relief. 09/06/23: Right knee injection, US guided: 100 % relief. 04/26/23: Bilateral landmark guided intraarticular knee injection: 50% relief. 01/04/23: Right knee injection.: 70% relief for 3 months. 05/02/22: Right Sprint PNS, Saphenous Nerve ? 90% relief that is ongoing. 05/10/21: Right L3-L4 TFESI - 60% pain relief 07/12/21: Left L3-L4 TFESI - 50% pain relief 11/22/21: Left diagnostic saphenous nerve block-50% pain relief for 24 hours. 12/06/21: Right diagnostic GNB-60% pain relief for 24 hours 02/21/22: Right diagnostic SNB at adductor canal- 80% pain relief for 3 hours. 02/28/22: Left diagnostic SNB at adductor canal-60% pain relief for 3 hours. [facility] Medical History Lumbar spinal stenosis Lumbar and sacral spondyloarthritis Migraine Major depressive disorder Cervical radiculopathy Osteoarthritis of knees, bilateral Urge incontinence Surgical History History of bariatric surgery S/P cervical spinal fusion Family History Father No problems noted. Mother No problems noted. 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 Morbidly obese. Alert and oriented. Mood and affect appropriate. Pleasant. Follows and participates in conversation appropriately. Respiratory effort is unlabored. No cough. Able to transition from sit to stand unassisted. Uses walker with seat with ambulation. Ambulates with bilaterally normal heel strike and toe off. Neck Neck: Yes normal visual inspection, Yes no lymphadenopathy, Yes supple, No anterior neck swelling, Yes no JVD and Yes prominent dorsocervical fat pad General: Yes no CVA tenderness Back/Spine/Pelvis Back: no CVA tenderness Cervical Spine: No Lhermitte's sign positive, loss of normal cervical lordosis, cervical muscular tenderness, pain with cervical ROM (with lateral rotation and extension), Cervical spine scars present, No Cervical spine tenderness and No step off deformity Thoracic/Lumbar Spine: thoracic and lumbar spine normal to inspection, pain with thoraco-lumbar ROM, thoraco-lumbar ROM limited, No thoracic spinal tenderness and lumbar spinal tenderness at L4 and at L5 Extrem General: Yes capillary refill normal, Yes no clubbing, cyanosis or edema and Yes no calf tenderness Psych Appearance: grossly normal and well kempt Mental Status: mental status grossly normal Speech and movement: Normal speech and movement present and Clear speech present Affect: normal affect Attitude: cooperative Thought process: Normal thought process present Thought content: Normal thought content present, suicidality (none), no hallucinations and Depressive thoughts present Insight: Good insight present (Psych) Judgement: Good judgement present (Psych) Results Reviewed Results Reviewed: Date: 10/02/22. EXAMINATION: Knee x-ray FINDINGS: Right: Bone alignment is normal. No fracture or dislocation. Severe tricompartment arthritis with [id number] seen at the medial femoral tibial joint. Slight lateral tilt of the patella. Question periarticular ossification adjacent to the medial tibial plateau versus large osteophyte. Moderate joint effusion. Standing AP view of the left knee demonstrates severe arthritis at the femoral tibial joints. This appears increased from 2015. IMPRESSION: Severe arthritis. CT HEAD WITHOUT IV CONTRAST CT CERVICAL SPINE WITHOUT IV CONTRAST 07/01/23 INDICATION: Trauma. COMPARISON: Head CT 02/27/2023 and brain MRI 03/16/2023. FINDINGS: HEAD: There is no intracranial hemorrhage, hydrocephalus, extra-axial surface collection, midline shift, or other herniation pattern. Banks to white matter differentiation is diffusely maintained without evidence of an evolved acute territorial infarct. The basilar cisterns are preserved. No significant soft tissue abnormality. No acute osseous abnormality. The paranasal sinuses and the mastoid air cells are well aerated. CERVICAL SPINE: There are postoperative changes following ACDF at the C4-C7 levels. Surgical hardware is intact and there is no evidence of hardware loosening. There are no acute fractures and there are no acute subluxations. Craniocervical junction is intact. There is multilevel hypertrophic facet arthropathy. There is no prevertebral soft tissue swelling. IMPRESSION: - No acute intracranial abnormality. - No acute osseous abnormality within the cervical spine. Assessment & Plan Assessment & Plan (1) Lumbar and sacral spondyloarthritis: Code(s): M47.817 - Spondylosis without myelopathy or radiculopathy, lumbosacral region Category: Medical (2) Cervical post-laminectomy syndrome: Code(s): M96.1 - Postlaminectomy syndrome, not elsewhere classified Category: Medical (3) Bilateral chronic knee pain: Code(s): M25.561 - Pain in right knee; M25.562 - Pain in left knee; G89.29 - Other chronic pain Category: Medical (4) Osteoarthritis of knees, bilateral: Code(s): M17.0 - Bilateral primary osteoarthritis of knee Category: Medical (5) Chronic pain syndrome: Code(s): G89.4 - Chronic pain syndrome Category: Medical (6) Opioid contract exists: Code(s): Z79.891 - terminal operations manager (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 The patient reported no noted side effects with adequate analgesia. There is no evidence of misuse, abuse or diversion at this time. Mass[employer] reviewed. Script sent for oxycodone-acetaminophen with an advanced date of 05/04/24. Patient has Narcan at home. Continue gabapentin. For predominantly axial neck pain on the left side, we will proceed with left diagnostic C3-C4-C5 MBB with local and fluoroscopy. Expectations, risks and benefits were reviewed. Patient is aware she will be contacted to schedule this procedure. All questions and concerns were answered and patient agreed with the plan. Follow up in 4-5 weeks for pill count and sooner as needed. Coding Level of Care Code Est Pt Level 4 (56234) Complex EM visit Add On G2211 Diagnoses Lumbar and sacral spondyloarthritis M47.817 Cervical post-laminectomy syndrome M96.1 Bilateral chronic knee pain M25.561; M25.562; G89.29 Osteoarthritis of knees, bilateral M17.0 Chronic pain syndrome G89.4 Opioid contract exists Z79.891 Morbid obesity with BMI of 45.0-49.9, adult E66.01; Z68.42 Cervical spondylosis M47.812
[2024-04-13 14:09] VITALS: BP 115/62; PULSE 90; O2SAT 98
== END 2024-04-13 14:20 | disposition home or self-care (01) ==
PROVIDERS: PCP Family Medicine; Visit Provider Nurse Practitioner Family
DX: M47.817 Spondylosis without myelopathy or radiculopathy, lumbosacral region (principal); M96.1 Postlaminectomy syndrome, not elsewhere classified; M25.561 Pain in right knee; M25.562 Pain in left knee; G89.29 Other chronic pain; M17.0 Bilateral primary osteoarthritis of knee; G89.4 Chronic pain syndrome; Z79.891 Long term (current) use of opiate analgesic; E66.01 Morbid (severe) obesity due to excess calories; Z68.42 Body mass index [BMI] 45.0-49.9, adult; M47.812 Spondylosis without myelopathy or radiculopathy, cervical region
CPT/HCPCS: 99214; G2211

== ENCOUNTER → 2024-04-13 13:49 | Outpatient (BNVA) | payer MEDICARE, MEDICAID, SELFPAY | PROVIDERS: PCP Family Medicine; Visit Provider Nurse Practitioner Family | DX: M47.817 Spondylosis without myelopathy or radiculopathy, lumbosacral region (principal); M47.812 Spondylosis without myelopathy or radiculopathy, cervical region; M96.1 Postlaminectomy syndrome, not elsewhere classified; M25.561 Pain in right knee; M25.562 Pain in left knee; M17.0 Bilateral primary osteoarthritis of knee; G89.4 Chronic pain syndrome; E66.01 Morbid (severe) obesity due to excess calories; Z51.81 Encounter for therapeutic drug level monitoring; Z79.891 Long term (current) use of opiate analgesic; Z68.42 Body mass index [BMI] 45.0-49.9, adult | CPT/HCPCS: 99212 ==

== ENCOUNTER 2024-05-14 13:36 | Outpatient (AMB) | payer MEDICARE, MEDICAID, SELFPAY ==
--- NOTE | 2024-05-14 13:46 | A.OFFVIS_ITS ---
Intake Visit Reasons: f/u Sleep/Alteredmental/Transalteration Intake Note: patient presents for sleep alteredmental Allergies seafood Allergy (Verified 05/14/24 13:46) hives Medication List - Last Reconciled 05/14/24 by Minnie Whaley MD blood pressure monitor Automatic, Digital. Dx: I10. Daily As directed, 999 days/lifetime cholecalciferol (vitamin D3) (Vitamin D3) 10 mcg PO DAILY famotidine 40 mg PO BEDTIME 30 days fluoxetine 20 mg PO DAILY gabapentin 900 mg (1.5 x 600 mg) PO Q8H 30 days hydrochlorothiazide 25 mg PO DAILY 90 days lamotrigine 150 mg PO BID levetiracetam 1,000 mg PO BID 90 days losartan 100 mg PO DAILY 90 days meloxicam 15 mg PO DAILY 30 days omeprazole 40 mg (2 x 20 mg) PO DAILY oxycodone-acetaminophen 5-325 mg (Percocet) 1 tab PO QID PRN 30 days semaglutide (Ozempic) 0.25 mg (0.368 mL) subcut QWEEK 28 days trazodone 50 mg PO BEDTIME venlafaxine ER 75 mg PO DAILY venlafaxine ER 150 mg PO DAILY walker (Ultra-Light Rollator misc) Rolling walker with wheels, seat and brakes. Daily ?As directed, 999 days HPI Comments Details: 68 y/o female patient presents for follow up of seizure. she reports some short term memory issues. she sleeps OK with trazadone.she reports waking up confused. Her sleep study 2 years was normal . No seizure like episode since August 2023. she describes the episodes as passing out , 1 episode of tongue biting , post event confusion for few minutes. 48 hr EEG The first day was normal 2 nd day showed episodes of right temporal slowing and periodic discharges c/w cortical dysfunction. Keppra increased to 1000 mg BID on May,. She is also takes lamotrigine 150 mg BID and gabapentin 900 TID. [facility] Medical History Lumbar spinal stenosis Lumbar and sacral spondyloarthritis Migraine Major depressive disorder Cervical radiculopathy Osteoarthritis of knees, bilateral Urge incontinence Surgical History History of bariatric surgery S/P cervical spinal fusion Family History Father No problems noted. Mother No problems noted. 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 Current occupational exposures/hazards: No Cognitive needs: No Hearing needs: No Vision needs: No Review of Systems ENT Reports Normal hearing present Neuro Reports Normal hearing present Physical Exam Const General: cooperative Nutritional Appearance: obese Orientation/consciousness: patient oriented x3 Limitations: ambulation with walker HEENT Throat: Yes other (mallampati grade 4) Neck Neck: Yes full ROM and Yes supple Resp Effort & Inspection: normal respiratory effort and able to speak in complete sentences Neuro General: patient oriented x3 Cranial nerves: Yes Bilaterally intact EOM present, Yes Normal facial strength present, Yes Midline tongue present, Yes Symmetric palate elevation present, Yes Normal hearing present, Yes Ability to bilaterally rotate head present and Yes Ability to bilaterally elevate shoulders present Cognition (Neuro): normal cognition Gait exam (Neuro): Assisted gait required Gait assisted method: walker Motor exam (neuro): 5/5 motor strength present throughout, Pronator motor function not present and no tremor noted Psych Appearance: grossly normal Mental Status: mental status grossly normal Affect: normal affect Attitude: cooperative Assessment & Plan Assessment & Plan (1) Seizure: Code(s): R56.9 - Unspecified convulsions Category: Medical Plan Advised patient to continue to take Keppra 1000 mg BID to manage seizure. Continue to take lamotrigine 150 mg BID. Continue to take gabapentin 900 mg TID to manage pain and restless legs. No driving for 6 mths after last episode . Pt does not drive. 48 hr EEG showed focal abnormality in right temporal region Coding Level of Care Code Est Pt Level 4 (90396) Complex EM visit Add On G2211 Diagnoses Seizure R56.9
== END 2024-05-14 14:13 | disposition home or self-care (01) ==
PROVIDERS: PCP Family Medicine; Visit Provider Psychiatry & Neurology Neurology
DX: R56.9 Unspecified convulsions (principal)
CPT/HCPCS: 99214; G2211

== ENCOUNTER → 2024-05-14 13:36 | Outpatient (BNVA) | payer MEDICARE, MEDICAID, SELFPAY | PROVIDERS: PCP Family Medicine; Visit Provider Psychiatry & Neurology Neurology | DX: R56.9 Unspecified convulsions (principal) | CPT/HCPCS: 99212 ==

== ENCOUNTER 2024-05-19 15:41 | Outpatient (REF) | payer MEDICARE, MEDICAID, SELFPAY ==
[2024-05-20 11:23] LABS: Appearance Urine Clear; Color Urine Yellow; Glucose Urine UA Negative (Negative); Leukocyte Esterase Urine Large (3+) (Negative); Nitrite Urine Negative (Negative); Specific Gravity - Urine 1.015 (1.005-1.025); UMIC TRIGGER UA YES; Urine Blood Negative (Negative); Urine Ketones Negative (Negative); Urine Protein Negative (Neg-Trace)
[2024-05-20 11:25] LABS: Bacteria Urine 1+ (None Seen); Hyaline Casts Urine 0-2 /LPF (0-2); RBC Urine 0-2 /HPF (0-2); WBC Urine 21-50 /HPF (0-5)
== END 2024-05-19 15:42 | disposition home or self-care (01) ==
LOC: HO.LAB 15:41
PROVIDERS: PCP Family Medicine; Visit Provider Family Medicine
DX: E66.01 Morbid (severe) obesity due to excess calories (principal); Z68.42 Body mass index [BMI] 45.0-49.9, adult; M25.561 Pain in right knee; M25.562 Pain in left knee; M47.812 Spondylosis without myelopathy or radiculopathy, cervical region; R30.0 Dysuria; M79.89 Other specified soft tissue disorders
CPT/HCPCS: 81001; 87086; 96127; 99212

== ENCOUNTER 2024-05-19 15:41 | Outpatient (AMB) | payer MEDICARE, MEDICAID, SELFPAY ==
--- NOTE | 2024-05-19 15:48 | A.OFFPC_ITS ---
Vital Signs 05/19/24 15:57 Height 5 ft 2 in Weight 263 lb 2 oz BMI 48.1 BP 128/60 Blood Pressure Location Lt brachial Position Sitting Respiration 16 Pulse 126 H Pulse Source Pulse Oximeter Pulse Oximetry (%) 97 Oxygen Delivery Method Room Air Intake Visit Reasons: RescheduleFollowUpWeight&KneePain Intake Note: follow up for knee pain and weight management Allergies seafood Allergy (Verified 05/19/24 15:53) hives Tobacco use date assessed: 10/25/23 Dental Screening Dental Screen Date: 06/10/23 HPI RescheduleFollowUpWeight&KneePain HPI Details 69 y/o female presents to f/u obesity, b /L knee pain. Had last seen pain management 04/13/24. Continues to follow up with them. She notes she has a cortisone shot for her neck scheduled this week . Ozempic has not gone through for weight loss. Pt reports ?UTI. Reports urinary frequency, low volume with dysuria. Reports swelling in her feet/ankles. [facility] Medical History Lumbar spinal stenosis Lumbar and sacral spondyloarthritis Migraine Major depressive disorder Cervical radiculopathy Osteoarthritis of knees, bilateral Urge incontinence Surgical History History of bariatric surgery S/P cervical spinal fusion Family History Father No problems noted. Mother No problems noted. 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 1. Little interest or pleasure in doing things: several days 2. Feeling down, depressed, or hopeless: several days 3. Trouble falling or staying asleep, or sleeping too much: several days 4. Feeling tired or having little energy: several days 5. Poor appetite or overeating: not at all 6. Feeling bad about yourself - or that you are a failure or have let yourself or your family down: several days 7. Trouble concentrating on things, such as reading the newspaper or watching television: several days 8. Moving or speaking so slowly that other people could have noticed. Or the opposite - being so fidgety or restless that you have been moving around a lot more than usual: not at all 9. Thoughts that you would be better off or of hurting yourself in some way: not at all Total score: 6 Source: Developed by Drs. Selvin Howell, Cary Barton, Valeriy Vieira and colleagues, with an educational carlene from [employer]. Thrive Questionnaire Date Thrive assessed: 02/27/24 I am a: Patient What is your living situation today?: I have a steady place to live Within the past 12 months, did the food you bought not last and you didn't have the money to get more?: Never true Within the past 12 months, did you worry whether your food would run out before you got money to buy more?: Never true Do you have trouble paying for medicines?: No Do you have trouble getting transportation to medical appointments?: I choose not to answer this question Do you have trouble paying your heating and electricity bill?: No Do you have trouble taking care of your child, family member or friend?: No Do you have trouble with day-to-day activities such as bathing, preparing meals, shopping, managing finances, etc.?: No Are you currently unemployed and looking for a job?: No Are you interested in more education?: No Please select the resources that you would like help with: None Currently or been in a relationship where the following occur: No concerns reported THRIVE Score: 0 AUDIT C Alcohol Use Questionnaire (AUDIT-C) 1. How often do you have a drink containing alcohol?: Never Total Score: 0 ANGEL-7 AMB Questionnaire ANGEL-7 Date ANGEL - 7 assessed: 09/06/23 Feeling nervous, anxious, or on edge: 0 = Not at all Not being able to stop or control worryin = Several days Worrying too much about different things: 1 = Several days Trouble relaxin = Not at all Being so restless that it is hard to sit still: 0 = Not at all Becoming easily annoyed or irritable: 0 = Not at all Feeling afraid as if something awful might happen: 0 = Not at all Total ANGEL-7 score (0-4 normal; 5-9 mild; 10-14 moderate; 15-21 severe): 2 Source: Developed by Drs. Selvin Howell, Cary Barton, Valeriy Vieira and colleagues, with an educational carlene from [employer]. Review of Systems Const Denies chills, Denies fatigue, Denies fever(s), Denies headache(s) and Denies weakness ENT Denies dizziness and Denies headache(s) Card Denies dyspnea Resp Denies cough, Denies dyspnea, Denies wheezing and Denies other (shortness of breath) Details: Frequent urination Dysuria Musc Details: Bilateral knee pain Denies numbness and Denies tingling Neuro Denies dizziness, Denies headache(s), Denies numbness, Denies tingling and Denies weakness Psych Denies anxiety and Denies depression Endo Denies fatigue Aller/Immun Denies wheezing Physical exam (Primary Care) Vital Signs: Last Vital Signs Pulse 126 H 05/19/24 15:57 Resp 16 05/19/24 15:57 BP 128/60 05/19/24 15:57 Pulse Ox 97 05/19/24 15:57 Oxygen Delivery Method Room Air 05/19/24 15:57 BMI result Body Mass Index 48.1 Tobacco/Smoking Status: Tobacco use Status Tobacco use date assessed 10/25/23 05/19/24 15:49 Patient Tobacco Use Status Former Tobacco user 05/19/24 15:49 e-Cigarette/Vaping Use Never Used 05/19/24 15:49 PHQ-9: PHQ-9 Score PHQ-9: Total score 6 05/19/24 16:33 Thrive Assessment: Date of Thrive Assessment Date Thrive assessed 02/27/24 05/19/24 15:49 Currently or been in a relationship where the following occur: No concerns reported Const General: well developed; No acute distress Nutritional Appearance: obese morbidly obese Orientation/consciousness: patient oriented x3 HENMT Head: Yes normocephalic and Yes atraumatic Eyes General: appearance normal, both eyes and all related structures Pupils: Equal, round and reactive pupils present EOM: EOMs intact bilaterally Resp Effort & Inspection: normal respiratory effort Neuro General: patient oriented x3 and gait normal Cranial nerves: Yes Equal, round and reactive pupils present Psych Affect: normal affect Coding Level of Care Code Est Pt Level 4 (74221) Diagnoses Bilateral knee pain M25.561; M25.562 Morbid obesity E66.01 Cervical spondylosis M47.812 Dysuria R30.0 Swelling of lower extremity M79.89 Assessment & Plan Assessment & Plan (1) Bilateral knee pain: Code(s): M25.561 - Pain in right knee; M25.562 - Pain in left knee Category: Medical Plan: Ongoing?bilateral?knee?pain Patient?is?once?again?followed?by?pain?management?who?who?is?managing?opio id?medication?as?she?is?a?complicated?patient?regarding?this. Also?will?likely?ultimately?need?knee?replacement?but?BMI?is?too?high Have?been?working?with?her?try?to?lower?BMI-see?below (2) Morbid obesity: Code(s): E66.01 - Morbid (severe) obesity due to excess calories Category: Medical Plan: Had?made?script?for?Ozempic?but?patient?has?not?received?this?yet.??Getting?prio r?authorization. Would?try Zepbound next?if?I?can?not?get?Ozempic?for?her (3) Cervical spondylosis: Code(s): M47.812 - Spondylosis without myelopathy or radiculopathy, cervical region Category: Medical Plan: Patient?has?an?upcoming?cervical?spine?injection?for?cervical?radiculopathy (4) Dysuria: Code(s): R30.0 - Dysuria Category: Medical Plan: She?notes?urinary?symptoms. Will?have?her?start?nitrofurantoin Will?send?urine?for?urinalysis?culture. She?can?stop?if?negative Hydrate?well (5) Swelling of lower extremity: Code(s): M79.89 - Other specified soft tissue disorders Category: Medical Plan: Ongoing?lower?extremity?edema No?excess?warmth,?tenderness?or?cords?palpated Avoid?excess?salt?and?elevate?legs.??Not?a?great?candidate?for?compression?stock ings?as?she?would?have?difficulty?putting?on/taking?off?and?she?lives?alone. Checking?labs Orders: Orders Comprehensive Met. Panel Today M79.89 - Other specified soft tissue disorders UA and rflx microscopic Today R30.0 - Dysuria, Z00.00 - Encounter for general adult medical examination without abnormal findings Urine Culture Today R30.0 - Dysuria B Type Natriuretic Peptide Today I50.9 - Heart failure, unspecified, M79.89 - Other specified soft tissue disorders Complete Blood Count Auto Diff Today M79.89 - Other specified soft tissue disorders, Z00.00 - Encounter for general adult medical examination without abnormal findings TSH reflex Free T4 Today M79.89 - Other specified soft tissue disorders, Z00.00 - Encounter for general adult medical examination without abnormal findings Medications: New nitrofurantoin monohyd/m-cryst 100 mg (Macrobid) must administer with a meal/food 100 mg PO BID 14 caps 0RF 7 days
[2024-05-19 15:57] VITALS: BP 128/60; PULSE 126; RESP 16; O2SAT 97; BMI 48.1
== END 2024-05-19 16:52 | disposition home or self-care (01) ==
PROVIDERS: PCP Family Medicine; Visit Provider Family Medicine
DX: M25.561 Pain in right knee (principal); M25.562 Pain in left knee; E66.01 Morbid (severe) obesity due to excess calories; Z68.42 Body mass index [BMI] 45.0-49.9, adult; M47.812 Spondylosis without myelopathy or radiculopathy, cervical region; R30.0 Dysuria; M79.89 Other specified soft tissue disorders

== ENCOUNTER 2024-05-21 06:25 | Outpatient (REF) | payer MEDICARE, MEDICAID, SELFPAY ==
--- NOTE | ~2024-05-21 | FL_ITS ---
EXAMINATION: FL GUIDANCE ONLY HISTORY: M47.812 - Spondylosis without myelopathy or radiculopathy, cervical region COMPARISON: None available. TECHNIQUE: Fluoroscopy time: 0.1 minutes. Cumulative Dose: 1.50 mGy. DAP: 0.0144 uGy-m2 (microgray-meter squared). Images: 2. FINDINGS: Images demonstrate needles and contrast within multiple left-sided cervical facet joints. FL/FL guidance in treatment room IMPRESSION: Fluoroscopy during procedure. Please see procedure report for additional information. Electronically signed by: Selvin Pérez MD 06/01/2024 03:24 PM [facility]
== END 2024-05-21 06:26 | disposition home or self-care (01) ==
LOC: CF 06:25
PROVIDERS: Visit Provider Internal Medicine
DX: M47.812 Spondylosis without myelopathy or radiculopathy, cervical region (principal)
CPT/HCPCS: 64490; 64491; J2003; J2795; Q9967

== ENCOUNTER 2024-05-21 11:28 | Outpatient (AMB) | payer MEDICARE, MEDICAID, SELFPAY ==
--- NOTE | 2024-05-21 11:39 | A.OFFVIS_ITS ---
Vital Signs 05/21/24 11:40 05/21/24 12:24 BP 121/53 L 99/70 Blood Pressure Location Lt brachial Lt brachial Position Sitting Sitting Pulse 107 H 94 Pulse Source Pulse Oximeter Pulse Oximeter Pulse Oximetry (%) 95 95 Oxygen Delivery Method Room Air Room Air Intake Visit Reasons: Left Dx C3-C4-C5 MBB + pill count Allergies seafood Allergy (Verified 05/19/24 15:53) hives HPI HPI Left Dx C3-C4-C5 MBB + pill count: Details: Patient presents for scheduled procedure. Denies any recent cough, cold, infection, fever or other significant changes in medical history since last office visit. [facility] Medical History Lumbar spinal stenosis Lumbar and sacral spondyloarthritis Migraine Major depressive disorder Cervical radiculopathy Osteoarthritis of knees, bilateral Urge incontinence Surgical History History of bariatric surgery S/P cervical spinal fusion Family History Father No problems noted. Mother No problems noted. 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 The patient was placed in a lateral position. The respective cervical area was prepped with chloraprep and draped in sterile fashion. The skin over the target medial branch nerves was anesthetized with 0.5% lidocaine. A 25 gauge 1.5 inch needle was inserted into the target medial branch nerve under fluoroscopic guidance. No paresthesias were elicited with needle placement and aspiration was negative for blood and CSF. Next, 0.2cc of omnipaque 180 was injected to verify positioning. Next 0.5 ml 0.5% ropivicaine was injected (0.5 cc total per level). The identical procedure was performed at the remaining levels. The skin was cleansed and a sterile bandage was applied. Following the procedure the patient's vital signs were stable. The patient tolerated the procedure well and no complications were encountered. Following the procedure the patient's vital signs were stable. The patient was discharged home in good condition with post-procedural instructions. Time Out: Immediately prior to the procedure, the following was verbally confirmed that there is a signed consent form and that the correct patient, planned procedure, site and side are consistent with documentation and that necessary equipment and/or blood products are available prior to the start of the case. Complications: none EBL: <5 cc 73044 - with Fluoroscopy 95411 - second level, with Fluoroscopy Procedure code (CPT) selection complete Assessment & Plan Assessment & Plan (1) Cervical spondylosis: Code(s): M47.812 - Spondylosis without myelopathy or radiculopathy, cervical region Category: Medical Plan Patient is status post left C3, C4, C5 diagnostic medial branch blocks. Patient tolerated procedure well and was discharged home in stable condition with discharge instructions. All questions were answered. We will follow-up via telephone or in clinic to assess response to therapy. A follow-up appointment was made during today's visit. Orders: Orders FL guidance in treatment room Today M47.812 - Spondylosis without myelopathy or radiculopathy, cervical region Coding Level of Care Code Procedure Only Diagnoses Cervical spondylosis M47.812 CPT Codes Facet Injection Cervical/Thoracic - CPT: 53926 - with Fluoroscopy ([id number]) Facet Injection Cervical/Thoracic - CPT: 19812 - second level, with Fluoroscopy ([id number])
[2024-05-21 11:40] VITALS: BP 121/53; PULSE 107; O2SAT 95
[2024-05-21 12:24] VITALS: BP 99/70; PULSE 94; O2SAT 95
== END 2024-05-21 12:25 | disposition home or self-care (01) ==
LOC: HO.PMCPRC 11:28
PROVIDERS: PCP Family Medicine; Visit Provider Internal Medicine
DX: M47.812 Spondylosis without myelopathy or radiculopathy, cervical region (principal)
CPT/HCPCS: 64490; 64491

== ENCOUNTER 2024-05-28 11:23 | Outpatient (AMB) | payer MEDICARE, MEDICAID, SELFPAY ==
--- NOTE | 2024-05-28 11:43 | A.OFFVIS_ITS ---
Vital Signs 05/28/24 11:47 Height 5 ft 2 in Weight 263 lb BMI 48.1 BP 131/79 Blood Pressure Location Rt brachial Position Sitting Pulse 87 Pulse Source Pulse Oximeter Intake Visit Reasons: s/p Left Dx C3-C4-C5 MBB Intake Note: Pain today 11/19 Checker Loader Required: No Accompanied by: Self / Same As Patient Allergies seafood Allergy (Verified 05/28/24 11:47) hives HPI Comments Details: Patient presents today to assess response to left diagnostic C3-C4-C5 MBB on 05/21/[address] Turk. Patient reports 60% pain relief for 6 hours with partial improvement in her daily activities, functioning, and sleep. She reports constant neck pain with stiffness and headache. She is interested to undergo therapeutic injections as next steps. Denies any recent cough, cold, infection, fever or other significant changes in medical history since last office visit. Past procedures 05/21/24: Left diagnostic C3-C4-C5 MBB-60% pain relief for 6 hours 01/01/24: Left knee Durolane injection: relief for a few days. 12/11/23: Right knee Durolane injection: No significant relief. 10/03/23: Interlaminar epidural steroid injection, C7-T1, left parasaggital: 75 % relief. 09/16/23: Left knee injection: % relief. 09/06/23: Right knee injection, US guided: 100 % relief. 04/26/23: Bilateral landmark guided intraarticular knee injection: 50% relief. 01/04/23: Right knee injection.: 70% relief for 3 months. 05/02/22: Right Sprint PNS, Saphenous Nerve ? 90% relief that is ongoing. 05/10/21: Right L3-L4 TFESI - 60% pain relief 07/12/21: Left L3-L4 TFESI - 50% pain relief 11/22/21: Left diagnostic saphenous nerve block-50% pain relief for 24 hours. 12/06/21: Right diagnostic GNB-60% pain relief for 24 hours 02/21/22: Right diagnostic SNB at adductor canal- 80% pain relief for 3 hours. 02/28/22: Left diagnostic SNB at adductor canal-60% pain relief for 3 hours. [facility] Medical History Lumbar spinal stenosis Lumbar and sacral spondyloarthritis Migraine Major depressive disorder Cervical radiculopathy Osteoarthritis of knees, bilateral Urge incontinence Surgical History History of bariatric surgery S/P cervical spinal fusion Family History Father No problems noted. Mother No problems noted. 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 Alert and oriented. Mood and affect appropriate. Follows and participates in conversation appropriately. Respiratory effort is unlabored. No cough. Able to transition from sit to stand unassisted. Uses walker with seat with ambulation. Ambulates with bilaterally normal heel strike and toe off. Neck Neck: Yes normal visual inspection, Yes no lymphadenopathy, Yes supple, No anterior neck swelling, Yes no JVD and Yes prominent dorsocervical fat pad General: Yes no CVA tenderness Back/Spine/Pelvis Back: no CVA tenderness Cervical Spine: No Lhermitte's sign positive, loss of normal cervical lordosis, cervical muscular tenderness, pain with cervical ROM (with left lateral rotation and extension), Cervical spine scars present, cervical spasm, No Cervical spine tenderness and No step off deformity Psych Appearance: grossly normal and well kempt Mental Status: mental status grossly normal Speech and movement: Normal speech and movement present and Clear speech present Affect: normal affect Attitude: cooperative Thought process: Normal thought process present Thought content: Normal thought content present Insight: Good insight present (Psych) Judgement: Good judgement present (Psych) Results Reviewed Results Reviewed: CT HEAD WITHOUT IV CONTRAST CT CERVICAL SPINE WITHOUT IV CONTRAST 07/01/23 INDICATION: Trauma. COMPARISON: Head CT 02/27/2023 and brain MRI 03/16/2023. FINDINGS: HEAD: There is no intracranial hemorrhage, hydrocephalus, extra-axial surface collection, midline shift, or other herniation pattern. [place] to white matter differentiation is diffusely maintained without evidence of an evolved acute territorial infarct. The basilar cisterns are preserved. No significant soft tissue abnormality. No acute osseous abnormality. The paranasal sinuses and the mastoid air cells are well aerated. CERVICAL SPINE: There are postoperative changes following ACDF at the C4-C7 levels. Surgical hardware is intact and there is no evidence of hardware loosening. There are no acute fractures and there are no acute subluxations. Craniocervical junction is intact. There is multilevel hypertrophic facet arthropathy. There is no prevertebral soft tissue swelling. IMPRESSION: - No acute intracranial abnormality. - No acute osseous abnormality within the cervical spine. US carotid duplex BI 01/18/23 IMPRESSION: 1. RIGHT: Minimal, non-hemodynamically significant stenosis of the proximal right internal carotid artery corresponding to a 0-49% stenosis by velocity criteria. 2. LEFT: Minimal, non-hemodynamically significant stenosis of the proximal left internal carotid artery corresponding to a 0-49% stenosis by velocity criteria. Assessment & Plan Assessment & Plan (1) Headache: Code(s): R51.9 - Headache, unspecified Category: Medical (2) Cervical spondylosis: Code(s): M47.812 - Spondylosis without myelopathy or radiculopathy, cervical region Category: Medical (3) Muscle spasms of neck: Code(s): M62.838 - Other muscle spasm Category: Medical (4) Cervical post-laminectomy syndrome: Code(s): M96.1 - Postlaminectomy syndrome, not elsewhere classified Category: Medical (5) Carotid stenosis, bilateral: Code(s): I65.23 - Occlusion and stenosis of bilateral carotid arteries Category: Medical Plan Patient is one week status post left C3, C4, C5 diagnostic medial branch blocks with 60% pain relief with improvement in her ADLs, functioning and sleep. She is interested to proceed with Left Therapeutic C3-C4-C5 MBB with local and fluoroscopy. We also reviewed RFA procedure. Given BMI>40, she is not candidate for Sprint PNS trial. Expectations, risks and benefits were reviewed. Patient is aware she will be contacted to schedule this procedure. Patient is aware of hyperglycemic effects of steroids. We will also update Carotid US to follow up on 2022 study with chronic daily neck pain, heachaches and stiffness. All questions were answered and the patient is in agreement of plan. Follow-up after injections and sooner as needed. Orders: Orders US carotid duplex BI Today I65.23 - Occlusion and stenosis of bilateral carotid arteries, M47.812 - Spondylosis without myelopathy or radiculopathy, cervical region, M62.838 - Other muscle spasm, R51.9 - Headache, unspecified Coding Level of Care Code Est Pt Level 3 (69949) Complex EM visit Add On G2211 Diagnoses Headache R51.9 Cervical spondylosis M47.812 Muscle spasms of neck M62.838 Cervical post-laminectomy syndrome M96.1 Carotid stenosis, bilateral I65.23
[2024-05-28 11:47] VITALS: BP 131/79; PULSE 87; BMI 48.1
== END 2024-05-28 12:00 | disposition home or self-care (01) ==
PROVIDERS: PCP Family Medicine; Visit Provider Nurse Practitioner Family
DX: R51.9 Headache, unspecified (principal); M47.812 Spondylosis without myelopathy or radiculopathy, cervical region; M62.838 Other muscle spasm; M96.1 Postlaminectomy syndrome, not elsewhere classified; I65.23 Occlusion and stenosis of bilateral carotid arteries
CPT/HCPCS: 99213; G2211

== ENCOUNTER → 2024-05-28 11:23 | Outpatient (BNVA) | payer MEDICARE, MEDICAID, SELFPAY | PROVIDERS: PCP Family Medicine; Visit Provider Nurse Practitioner Family | DX: M96.1 Postlaminectomy syndrome, not elsewhere classified (principal); M62.838 Other muscle spasm; M47.812 Spondylosis without myelopathy or radiculopathy, cervical region; R51.9 Headache, unspecified; I65.23 Occlusion and stenosis of bilateral carotid arteries | CPT/HCPCS: 99212 ==

== ENCOUNTER → 2024-06-19 13:21 | Outpatient (AMB) | END | disposition home or self-care (01) | CPT/HCPCS: 99214; G2211 ==

== ENCOUNTER → 2024-06-19 13:21 | Outpatient (BNVA) | payer MEDICARE, MEDICAID, SELFPAY | PROVIDERS: PCP Family Medicine; Visit Provider Registered Nurse Emergency | DX: M47.817 Spondylosis without myelopathy or radiculopathy, lumbosacral region (principal); M47.812 Spondylosis without myelopathy or radiculopathy, cervical region; M96.1 Postlaminectomy syndrome, not elsewhere classified; M25.561 Pain in right knee; M25.562 Pain in left knee; M17.0 Bilateral primary osteoarthritis of knee; G89.4 Chronic pain syndrome; G89.29 Other chronic pain; E66.01 Morbid (severe) obesity due to excess calories; Z51.81 Encounter for therapeutic drug level monitoring; Z68.42 Body mass index [BMI] 45.0-49.9, adult; Z79.891 Long term (current) use of opiate analgesic | CPT/HCPCS: 99212 ==

== ENCOUNTER 2024-06-22 15:24 | Outpatient (AMB) | payer MEDICARE, MEDICAID, SELFPAY ==
--- NOTE | 2024-06-22 16:01 | A.OFFPC_ITS ---
Vital Signs 06/22/24 16:06 Height 5 ft 2 in Weight 264 lb 6 oz BMI 48.3 BP 110/64 Blood Pressure Location Lt brachial Position Sitting Respiration 16 Pulse 103 H Pulse Source Pulse Oximeter Temp 97.5 F Temp Source Oral Pulse Oximetry (%) 93 Oxygen Delivery Method Room Air Intake Visit Reasons: f/u morbid obesity, chronic conditions Intake Note: weight management Allergies seafood Allergy (Verified 06/22/24 16:03) hives Tobacco use date assessed: 10/25/23 Dental Screening Dental Screen Date: 06/10/23 HPI f/u morbid obesity, chronic conditions HPI Details 69 y/o female presents to f/u obesity. Had been trying a prior authorization for Ozempic. Trying to decrease BMI to help her get cleared for surgery for knees. Some labs drawn 05/19/24. Some bacteria in urine, 1+. Notes urinary urgency. [facility] Medical History (Updated 06/22/24 @ 16:19 by Zachariah Reina) Rib pain on left side Restless leg syndrome Chronic pain syndrome Seizure Contusion of right patella Fall Muscle spasms of neck Lower extremity weakness Osteoarthritis of left knee Osteoarthritis of right knee Osteoarthritis of left ankle Arthritis of right knee Acute paronychia of toe Mild anemia Iron deficiency anemia Lumbar spinal stenosis Lumbar and sacral spondyloarthritis Migraine Major depressive disorder Cervical radiculopathy Osteoarthritis of knees, bilateral Urge incontinence Surgical History History of bariatric surgery S/P cervical spinal fusion Family History Father No problems noted. Mother No problems noted. 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 Current occupational exposures/hazards: No Cognitive needs: No Hearing needs: No Vision needs: No Questionnaire Thrive Questionnaire Date Thrive assessed: 05/19/24 I am a: Patient What is your living situation today?: I have a steady place to live Within the past 12 months, did the food you bought not last and you didn't have the money to get more?: Never true Within the past 12 months, did you worry whether your food would run out before you got money to buy more?: Never true Do you have trouble paying for medicines?: No Do you have trouble getting transportation to medical appointments?: I choose not to answer this question Do you have trouble paying your heating and electricity bill?: No Do you have trouble taking care of your child, family member or friend?: No Do you have trouble with day-to-day activities such as bathing, preparing meals, shopping, managing finances, etc.?: No Are you currently unemployed and looking for a job?: No Are you interested in more education?: No Please select the resources that you would like help with: None Currently or been in a relationship where the following occur: No concerns reported THRIVE Score: 0 AUDIT C Alcohol Use Questionnaire (AUDIT-C) 2. How many drinks containing alcohol do you have on a typical day when you are drinking?: 1 or 2 3. How often do you have six or more drinks on one occasion?: Never Total Score: 0 ANGEL-7 AMB Questionnaire ANGEL-7 Date ANGEL - 7 assessed: 09/06/23 Source: Developed by Drs. Selvin Howell, Cary Barton, Valeriy Vieira and colleagues, with an educational carlene from [employer]. Review of Systems Const Denies chills, Denies fatigue, Denies fever(s), Denies headache(s) and Denies weakness ENT Denies dizziness and Denies headache(s) Card Denies dyspnea Resp Denies cough, Denies dyspnea, Denies wheezing and Denies other (shortness of breath) Musc Denies numbness and Denies tingling Neuro Denies dizziness, Denies headache(s), Denies numbness, Denies tingling and Denies weakness Psych Denies anxiety and Denies depression Endo Denies fatigue Aller/Immun Denies wheezing Physical exam (Primary Care) Vital Signs: Last Vital Signs Temp 97.5 F 06/22/24 16:06 Pulse 103 H 06/22/24 16:06 Resp 16 06/22/24 16:06 BP 110/64 06/22/24 16:06 Pulse Ox 93 06/22/24 16:06 Oxygen Delivery Method Room Air 06/22/24 16:06 BMI result Body Mass Index 48.3 Tobacco/Smoking Status: Tobacco use Status Tobacco use date assessed 10/25/23 06/22/24 16:01 Patient Tobacco Use Status Former Tobacco user 06/22/24 16:01 e-Cigarette/Vaping Use Never Used 06/22/24 16:01 Thrive Assessment: Date of Thrive Assessment Date Thrive assessed 05/19/24 06/22/24 16:01 Currently or been in a relationship where the following occur: No concerns reported Const General: well developed; No acute distress Nutritional Appearance: well nourished Orientation/consciousness: patient oriented x3 HENMT Head: Yes normocephalic and Yes atraumatic Eyes General: appearance normal, both eyes and all related structures Pupils: Equal, round and reactive pupils present EOM: EOMs intact bilaterally Resp Effort & Inspection: normal respiratory effort Auscultation: clear to auscultation bilaterally Cardio Rate: regular rate Rhythm: regular rhythm Heart sounds: S1 normal heart sound present, S2 normal heart sound present, no gallops, no murmurs and no rubs Neuro General: patient oriented x3 and gait normal Cranial nerves: Yes Equal, round and reactive pupils present Psych Affect: normal affect Coding Level of Care Code Est Pt Level 3 (79142) Diagnoses Morbid obesity E66.01 Urinary urgency R39.15 Assessment & Plan Assessment & Plan (1) Morbid obesity: Code(s): E66.01 - Morbid (severe) obesity due to excess calories Category: Medical Plan: At?prior?visit?we?had?tried?resending?Ozempic?and?considered?follow- up?after?prior?authorization. 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 She?was?treated?with?Macrobid Medications: New tirzepatide (weight loss) (Zepbound) for 4 weeks 2.5 mg (0.5 mL) subcut QWEEK 2 mL 3RF 28 days E66.01 - Morbid (severe) obesity due to excess calories, M17.0 - Bilateral primary osteoarthritis of knee, Z68.41 - Body mass index [BMI] 40.0-44.9, adult
[2024-06-22 16:06] VITALS: BP 110/64; PULSE 103; RESP 16; TEMP 36.4; O2SAT 93; BMI 48.3
--- OUTSIDE RECORDS SUMMARY | 2024-06-22 16:21 | XMS_ITS | Clinical Summary ---
Author Organization [facility] Address [address] [place] [address] Care Team Providers Care Frame Carver Spindle Name Role Phone Iron Castano MD Primary Care Provider [phone] Allergies Active Allergy Reactions Criticality Noted Date Comments Other Hives,Itching 02/20/2024 All seafood Shellfish Derived Hives 02/20/2024 Medications famotidine (PEPCID) 40 mg tablet 4 Active gabapentin (NEURONTIN) 600 mg tablet PLEASE SEE ATTACHED FOR DETAILED DIRECTIONS 4 Active hydroCHLOROthia zide (HYDRODIURIL) 25 mg tablet Active lamoTRIgine (LaMICtal) 150 mg tablet SMARTSI Tablet(s) By Mouth Twice Daily 4 Active levETIRAcetam (KEPPRA) 1,000 mg tablet SMARTSI Tablet(s) By Mouth Twice Daily 4 Active losartan (COZAAR) 100 mg tablet Take 100 mg by mouth once a day. 4 Active meloxicam (MOBIC) 15 mg tablet SMARTSI Tablet(s) By Mouth Daily 4 Active omeprazole (PriLOSEC) 20 mg capsule Active oxyCODONE-aceta minophen (PERCOCET) 5-325 mg tablet Acti ve venlafaxine XR (EFFEXOR XR) 75 mg capsule TAKE 1 CAPSULE BY MOUTH EVERY DAY START THE DAY AFTER FINISHING FLUOXETINE TAPER 4 Active Vitamin D3 25 mcg (1,000 unit) capsule Take 1 capsule by mouth once a day. Active Family History Relation Name Status Comments Father Mother Social History Tobacco Use Types Packs/Day Years Used Date Smoking Tobacco: Former Cigarettes Smokeless Tobacco: Never Tobacco Cessation:Counseling Given: Not Answered Alcohol Use Standard Drinks/Week Comments Never 0 (1 standard drink = 0.6 oz pur e alcohol) Comments Unknown Sex and Gender Information Value Date Recorded Sex Assigned at Female 12/30/2023 10:55 AM EDT Legal Sex Female 10:43 AM EDT Gender Identity Female 02/18/2024 2:32 PM EDT Sexual Orientation Straight 02/18/2024 2: 32 PM EDT Last Filed Vital Signs Vital Sign Reading Time Taken Comments Blood Pressure 100/68 02/20/2024 2:27 PM EDT Pulse 106 02/20/2024 2:27 PM EDT Temperature - - Respiratory Rate - - Oxygen Saturation - - Inhaled Oxygen Concentration - - Weight 118.8 kg (261 lb 12.8 oz) 02/20/2024 2:27 PM EDT Height 157.5 cm (5' 2 ) 02/20/2024 2:27 PM EDT Body Mass Index 47.88 02/20/2024 2:27 PM EDT Plan of Treatment Upcoming Encounters Date Type Department Care Team (Late st Contact Info) Description 08/20/2024 2:15 PM EDT Follow-Up [facility] [address] [place] [address] Tony Her MD [address] [place] [address] Health Maintenance Due Date Last Done Comments Cologuard 1955 Colon Cancer Screening 1955 Colonoscopy 1955 FOBT / Fit Test 1956 Hepatitis C Screening 1955 Sigmoidoscopy [address] Lung Cancer Screening (Baseline) 2006 Osteoporosis Screening 2006 Zoster Vaccines (2 of 3) 04/29/2017 03/04/2017 COVID-19 Vaccine ( season) 2024 02/07/2022, 08/30/2021, 03/07/2021, Additional history exists Influenza Vaccine (#1) 2024 3, 02/07/2022, 05/11/2021, Additional history exists Alcohol/Substance Use Screening 05/13/2024 Depression Screening and Follow-Up 05/13/2024 Health Care Proxy Review 05/13/2024 Social Drivers of Health Annual Screening 05/13/2024 DTaP,Tdap,and Td Vaccines (2 - Td or Tdap) 01/19/2029 01/19/2019 Pneumococcal Vaccine: 65+ Years Completed 02/12/2023 RSV Vaccine (60+ years old and patients) Completed 04/12/2023 Hepatitis B Vaccines Aged Out No long er eligible based on patient's age to complete this topic Insurance MEDICARE [facility] Care Teams Frame Carver Spindle Relationship Specialty Start Date End Date Iron Castano MD [address] [place] [address] PCP - General Family Medicine 12/30/23
--- OUTSIDE RECORDS SUMMARY | 2024-06-22 16:21 | XMS_ITS | Referral Summary ---
Author Organization [facility] Address [address] [place] [address] Care Team Providers Care Lead Rider Name Role Phone Iron Castano MD Primary Care Provider [phone] Allergies Active Allergy Reactions Criticality Noted Date [...] capsule by mouth once a day. Active Social History Tobacco Use Types Packs/Day Years [...] Info) Description 08/20/2024 2:15 PM EDT Follow-Up [facility] [address] [place] [address] Tony Her MD [address] [place] [address] Insurance MEDICARE [facility] Care Teams Lead Rider Relationship Specialty Start Date End Date Iron Castano MD [address] [place] [id number] PCP - General Family Medicine 12/30/23
== END 2024-06-22 16:28 | disposition home or self-care (01) ==
PROVIDERS: PCP Family Medicine; Visit Provider Family Medicine
DX: R39.15 Urgency of urination (principal); E66.01 Morbid (severe) obesity due to excess calories; Z68.42 Body mass index [BMI] 45.0-49.9, adult

== ENCOUNTER → 2024-06-22 15:24 | Outpatient (BNVA) | payer MEDICARE, MEDICAID, SELFPAY | PROVIDERS: PCP Family Medicine; Visit Provider Family Medicine | DX: E66.01 Morbid (severe) obesity due to excess calories (principal); R39.15 Urgency of urination | CPT/HCPCS: 99212 ==

== ENCOUNTER 2024-06-30 13:47 | Outpatient (REF) | payer MEDICARE, MEDICAID, SELFPAY ==
--- NOTE | ~2024-06-30 | US_ITS ---
CLINICAL HISTORY: R51.9 - Headache, unspecified US Bilateral Carotid Duplex Comparison: None Findings: No significant plaque within the common carotid arteries. No significant plaque within the carotid bulbs. Color doppler and spectral tracings normal. Peak systolic velocities: Right CCA: 87 cm/s. Right ICA: 73 cm/s. Right ECA: 82 centimeters/second. Right vertebral artery flow antegrade. Left CCA: 118 cm/s. Left ICA: 104 cm/s. Left ECA: 61 cm per 2nd. Left vertebral artery flow antegrade. IMPRESSION: Normal carotid velocities, no significant stenosis (0-49% stenosis). This document has been electronically signed by: Cristofer Miller MD on 07/01/2024 15:23:42
--- OUTSIDE RECORDS SUMMARY | 2024-06-30 14:46 | XMS_ITS | Referral Summary ---
Author Organization [facility] Address [address] [place] [address] Care Team Providers Care Production Trainer Name Role Phone Iron Castano MD Primary Care Provider [phone] Allergies Active Allergy Reactions Criticality Noted Date [...] Info) Description 08/20/2024 2:15 PM EDT Follow-Up [facility] [address] [place] [address] Tony Her MD [address] [place] [address] Insurance MEDICARE [facility] Care Teams Production Trainer Relationship Specialty Start Date End Date Iron Castano MD [address] [place] [id number] PCP - General Family Medicine 12/30/23
--- OUTSIDE RECORDS SUMMARY | 2024-06-30 14:46 | XMS_ITS | Clinical Summary ---
Author Organization [facility] Address [address] [place] [address] Care Team Providers Care Turbine Engine Assembler Name Role Phone Iron Castano MD Primary Care Provider [phone] Allergies Active Allergy Reactions Criticality Noted Date [...] Info) Description 08/20/2024 2:15 PM EDT Follow-Up [facility] [address] [place] [address] Tony Her MD [address] [place] [address] Health Maintenance Due Date Last Done Comments [...] Td or Tdap) 01/19/2029 01/19/2019 Pneumococcal Vaccine: 50+ Years Completed 02/12/2023 RSV Vaccine (60+ years old and patients) Completed 04/12/2023 Hepatitis B Vaccines Aged Out No long er eligible based on patient's age to complete this topic Insurance MEDICARE [facility] [address] [address] Care Teams Turbine Engine Assembler Relationship Specialty Start Date End Date Iron Castano MD [address] [place] [address] PCP - General Family Medicine 12/30/23
[2024-06-30 16:13] LABS: MANUAL DIFF FLAG NO
[2024-06-30 16:16] LABS: Basophils Absolute Auto 0.1 X10*3/uL (0.0-0.2); Basophils Percent Auto 0.9 % (0-2); Eosinophils Absolute Auto 0.2 X10*3/uL (0.0-0.4); Eosinophils Percent Auto 3.2 % (0-4); Hematocrit 37.6 % (37.0-47.0); Hemoglobin 11.8 g/dl (12.0-16.0); Imm Gran Abs Auto 0.04 X10*3/uL (0.00-0.03); Imm Gran Pct Auto 0.5 % (0.0-0.4); Lymphocytes Absolute Auto 2.2 X10*3/uL (1.2-4.9); Lymphocytes Percent Auto 29.7 % (20-40); Mean Corpuscular HGB Conc 31.4 g/dl (31.0-35.0); Mean Corpuscular Hemoglobin 26.2 pg (27.0-33.0); Mean Corpuscular Volume 83.6 fL (80.0-98.0); Mean Platelet Volume 9.2 fL (9.4-12.3); Monocytes Absolute Auto 0.6 X10*3/uL (0.1-1.2); Monocytes Percent Auto 8.2 % (2-11); Neutrophils Absolute Auto 4.3 x10*3/uL (2.0-8.3); Neutrophils Percent Auto 57.5 % (45-73); Platelet Count 294 X10*3/uL (160-400); Red Cell Distribution Width 15.1 % (11.0-16.0); White Blood Count 7.6 X10*3/uL (4.8-10.8)
[2024-06-30 16:35] LABS: Alanine Aminotransferase 13 U/L (0-31); Albumin Level 4.3 g/dL (3.5-5.0); Alkaline Phosphatase 86 U/L (39-117); Anion Gap 12 (12-20); Aspartate Amino Transferase 21 U/L (5-31); Bilirubin Total 0.2 mg/dL (0.0-1.0); Blood Urea Nitrogen 9 mg/dL (9-16); Calcium 9.6 mg/dL (8.4-10.2); Carbon Dioxide 27 mmol/L (22-29); Chloride 107 mmol/L (96-108); Estimated Glomerular Filt Rate > 60; Glucose Random 104 mg/dL (60-115); Potassium 3.9 mmol/L (3.3-5.1); Sodium 142 mmol/L (135-145); Total Protein 7.6 g/dL (6.5-8.0)
[2024-06-30 16:37] LABS: B Type Natriuretic Peptide 24 pg/mL (<100)
[2024-06-30 16:55] LABS: TSH reflex Free T4 1.14 uIU/mL (0.32-4.0)
== END 2024-06-30 13:48 | disposition home or self-care (01) ==
LOC: HO.HMGCX 13:47
PROVIDERS: PCP Family Medicine; Referring Provider Family Medicine; Visit Provider Nurse Practitioner Family
DX: I65.23 Occlusion and stenosis of bilateral carotid arteries (principal); M79.89 Other specified soft tissue disorders; I50.9 Heart failure, unspecified; Z00.00 Encounter for general adult medical examination without abnormal findings
CPT/HCPCS: 36415; 80053; 83880; 84443; 85025; 93880

== ENCOUNTER → 2024-06-30 13:51 | Outpatient (BNV) | payer MEDICARE, MEDICAID, SELFPAY | PROVIDERS: PCP Family Medicine; Referring Provider Family Medicine; Visit Provider Radiology Diagnostic Radiology | DX: I65.23 Occlusion and stenosis of bilateral carotid arteries (principal) | CPT/HCPCS: 93880 ==

== ENCOUNTER 2024-07-17 13:20 | Outpatient (AMB) | payer MEDICARE, MEDICAID, SELFPAY ==
--- NOTE | 2024-07-17 13:23 | A.OFFVIS_ITS ---
Vital Signs 07/17/24 13:31 Height 5 ft 2 in Weight 265 lb BMI 48.5 BP 120/91 H Blood Pressure Location Lt brachial Position Sitting Pulse 102 H Pulse Source Pulse Oximeter Intake Visit Reasons: Pill count Intake Note: Ivania comes in today for a pill count to oxycodone-acetaminophen, patient should have 60 tablets and presents with 62 tablets which she last took today 07/17/24 at 1pm. Pain today 10/20 Motor Installer Required: No Accompanied by: Self / Same As Patient Allergies seafood Allergy (Verified 07/17/24 13:32) hives HPI Comments Details: Patient presents today in the office for a pill count. She is supposed to have #60 oxycodone-acetaminophen 5-325 mg pills and in her possession has #62 pills. This demonstrates a responsible attitude in regards to her medication regimen. She reports reasonable but temporary analgesia on current opioid regime. Patient reports pain impacts her neck and low back, both feet, arms, hands, and area between the shoulders and significantly disturbs her sleep and mobility. There's a history of knee pain with the patient contemplating knee replacement, pending weight loss efforts. Additionally, the patient has dealt with sleep disturbances exacerbated by medication interactions with her antidepressants leading to cessation. She continues to seek approval for weight loss injections through her primary care physician. Denies any fever, malaise, abdominal pain, sedation, nausea, dizziness or urinary retention. Patient states she has an increased ability to perform activities of daily living, interact socially and be more functional. She follows with Neurology for seizures and headaches, denies any recent seizure activity. Her recent carotid US showed Normal carotid velocities, no significant stenosis. She continues to struggle with persistent headaches. Pain Management: - Affect: Sleep is disturbed; noted as struggling. - Analgesia: Takes oxycodone acetaminophen 5/325 and gabapentin, which provide partial relief. - Adverse Effects: No significant side effects reported. - Activities of Daily Living: Pain limits overall functionality; sleep disturbance impacts daily life. - Aberrant Drug Related Behaviors: No evidence of misuse, abuse, or diversion. Past procedures 05/21/24: Left diagnostic C3-C4-C5 MBB-60% pain relief for 6 hours 01/01/24: Left knee Durolane injection: relief for a few days. 12/11/23: Right knee Durolane injection: No significant relief. 10/03/23: Interlaminar epidural steroid injection, C7-T1, left parasaggital: 75 % relief. 09/16/23: Left knee injection: % relief. 09/06/23: Right knee injection, US guided: 100 % relief. 04/26/23: Bilateral landmark guided intraarticular knee injection: 50% relief. 01/04/23: Right knee injection.: 70% relief for 3 months. 05/02/22: Right Sprint PNS, Saphenous Nerve ? 90% relief that is ongoing. 05/10/21: Right L3-L4 TFESI - 60% pain relief 07/12/21: Left L3-L4 TFESI - 50% pain relief 11/22/21: Left diagnostic saphenous nerve block-50% pain relief for 24 hours. 12/06/21: Right diagnostic GNB-60% pain relief for 24 hours 02/21/22: Right diagnostic SNB at adductor canal- 80% pain relief for 3 hours. 02/28/22: Left diagnostic SNB at adductor canal-60% pain relief for 3 hours. [facility] Medical History Rib pain on left side Restless leg syndrome Chronic pain syndrome Seizure Contusion of right patella Fall Muscle spasms of neck Lower extremity weakness Osteoarthritis of left knee Osteoarthritis of right knee Osteoarthritis of left ankle Arthritis of right knee Acute paronychia of toe Mild anemia Iron deficiency anemia Lumbar spinal stenosis Lumbar and sacral spondyloarthritis Migraine Major depressive disorder Cervical radiculopathy Osteoarthritis of knees, bilateral Urge incontinence Surgical History History of bariatric surgery S/P cervical spinal fusion Family History Father No problems noted. Mother No problems noted. 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 Morbidly obese. Alert and oriented. Mood and affect appropriate. Follows and participates in conversation appropriately. Respiratory effort is unlabored. No cough. Able to transition from sit to stand unassisted. Uses walker with seat with ambulation. Ambulates with bilaterally normal heel strike and toe off. Neck Neck: Yes normal visual inspection, Yes no lymphadenopathy, Yes supple, No anterior neck swelling, Yes no JVD and Yes prominent dorsocervical fat pad General: Yes no CVA tenderness Back/Spine/Pelvis Back: no CVA tenderness Cervical Spine: No Lhermitte's sign positive, loss of normal cervical lordosis, cervical muscular tenderness, pain with cervical ROM (with left lateral rotation and extension), Cervical spine scars present, cervical spasm, No Cervical spine tenderness and No step off deformity Psych Appearance: grossly normal Mental Status: mental status grossly normal Speech and movement: Normal speech and movement present and Clear speech present Affect: normal affect Attitude: cooperative Thought process: Normal thought process present Thought content: Normal thought content present, suicidality (none), no hallucinations and Depressive thoughts present Insight: Good insight present (Psych) Judgement: Good judgement present (Psych) Results Reviewed Results Reviewed: CT HEAD WITHOUT IV CONTRAST CT CERVICAL SPINE WITHOUT IV CONTRAST 07/01/23 INDICATION: Trauma. COMPARISON: Head CT 02/27/2023 and brain MRI 03/16/2023. FINDINGS: HEAD: There is no intracranial hemorrhage, hydrocephalus, extra-axial surface collection, midline shift, or other herniation pattern. Banks to white matter differentiation is diffusely maintained without evidence of an evolved acute territorial infarct. The basilar cisterns are preserved. No significant soft tissue abnormality. No acute osseous abnormality. The paranasal sinuses and the mastoid air cells are well aerated. CERVICAL SPINE: There are postoperative changes following ACDF at the C4-C7 levels. Surgical hardware is intact and there is no evidence of hardware loosening. There are no acute fractures and there are no acute subluxations. Craniocervical junction is intact. There is multilevel hypertrophic facet arthropathy. There is no prevertebral soft tissue swelling. IMPRESSION: - No acute intracranial abnormality. - No acute osseous abnormality within the cervical spine. US carotid duplex BI 01/18/23 IMPRESSION: 1. RIGHT: Minimal, non-hemodynamically significant stenosis of the proximal right internal carotid artery corresponding to a 0-49% stenosis by velocity criteria. 2. LEFT: Minimal, non-hemodynamically significant stenosis of the proximal left internal carotid artery corresponding to a 0-49% stenosis by velocity criteria. US carotid duplex BI 07/01/24 Findings: No significant plaque within the common carotid arteries. No significant plaque within the carotid bulbs. Color doppler and spectral tracings normal. Peak systolic velocities: Right CCA: 87 cm/s. Right ICA: 73 cm/s. Right ECA: 82 centimeters/second. Right vertebral artery flow antegrade. Left CCA: 118 cm/s. Left ICA: 104 cm/s. Left ECA: 61 cm per 2nd. Left vertebral artery flow antegrade. IMPRESSION: Normal carotid velocities, no significant stenosis (0-49% stenosis). Assessment & Plan Assessment & Plan (1) Lumbar and sacral spondyloarthritis: Code(s): M47.817 - Spondylosis without myelopathy or radiculopathy, lumbosacral region Category: Medical (2) Cervical post-laminectomy syndrome: Code(s): M96.1 - Postlaminectomy syndrome, not elsewhere classified Category: Medical (3) Bilateral chronic knee pain: Code(s): M25.561 - Pain in right knee; M25.562 - Pain in left knee; G89.29 - Other chronic pain Category: Medical (4) Osteoarthritis of knees, bilateral: Code(s): M17.0 - Bilateral primary osteoarthritis of knee Category: Medical (5) Chronic pain syndrome: Code(s): G89.4 - Chronic pain syndrome Category: Medical (6) Opioid contract exists: Code(s): Z79.891 - salvage determiner (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 The patient reported no noted side effects with adequate analgesia. There is no evidence of misuse, abuse or diversion at this time. Mass Pat reviewed. The patient will maintain her current medication schedule for pain management. Script sent for oxycodone-acetaminophen with an advanced date of 07/30/24. A prescription for Narcan will be provided due to the expiration of her previous supply. Monitoring will be ongoing, with follow-ups arranged to assess medication efficacy and adherence. Weight management efforts should be supported in line with potential knee replacement surgery in the future as well as intermediate accountant relief for multiple joint pain. Patient is encouraged to continue to follow up with her PCP to address weight management and consider approval for injections aimed at assisting in weight reduction. All questions and concerns were answered and patient agreed with the plan. Follow up in 4-5 weeks for pill count and sooner as needed. Patient was informed and verbally consented to the use of an ambient scribe or clinic note documentation during this visit. Medications: New naloxone 4 mg/actuation (Narcan) spray 1 dose into ONE nostril; alternate nostrils w each dose until help arrives 4 mg intranasal Q2M PRN 2 ea 0RF opioid overdose G89.29 - Other chronic pain, M25.561 - Pain in right knee, M25.562 - Pain in left knee, M47.817 - Spondylosis without myelopathy or radiculopathy, lumbosacral region, M96.1 - Postlaminectomy syndrome, not elsewhere classified Refilled oxycodone-acetaminophen 5-325 mg (Percocet) Partial Fill upon patient request. 1 tab PO QID 30 days PRN 120 tabs 0RF pain G89.29 - Other chronic pain, G89.4 - Chronic pain syndrome, M25.561 - Pain in right knee, M25.562 - Pain in left knee, M47.817 - Spondylosis without myelopathy or radiculopathy, lumbosacral region Patient Instructions: Discussion Notes: I discussed with the patient her current health status, emphasizing the importance of maintaining her medication regimen and her responsible handling of prescribed opioids as evidenced by her pill count. We addressed the need for a Narcan prescription to manage opioid treatment risks. We reviewed the results of her carotid artery ultrasound, which were normal, and discussed maintaining open communication with her primary care physician, particularly concerning weight management and potential approval for further treatment options involving her weight. A follow-up in about four to five weeks is scheduled to review her medication use and pain management strategy. - Continue taking current medications as prescribed. - instrument maintenance supervisor the new Narcan prescription from the pharmacy. - Continue weight loss efforts in preparation for potential knee surgery in the future. - Follow up with primary care for possible approval for weight loss injections. - Schedule a follow-up appointment in 4-5 weeks to review medication usage and effectiveness. Coding Level of Care Code Est Pt Level 4 (28140) Complex EM visit Add On G2211 Diagnoses Lumbar and sacral spondyloarthritis M47.817 Cervical post-laminectomy syndrome M96.1 Bilateral chronic knee pain M25.561; M25.562; G89.29 Osteoarthritis of knees, bilateral M17.0 Chronic pain syndrome G89.4 Opioid contract exists Z79.891 Morbid obesity with BMI of 45.0-49.9, adult E66.01; Z68.42 Cervical spondylosis M47.812
[2024-07-17 13:31] VITALS: BP 120/91; PULSE 102; BMI 48.5
--- OUTSIDE RECORDS SUMMARY | 2024-07-17 14:56 | XMS_ITS | Clinical Summary ---
Author Organization [facility] Address [address] [place] [address] Care Team Providers Care Professor Of Anthropology Name Role Phone Irno Castano MD Primary Care Provider [phone] Allergies Active Allergy Reactions Criticality Noted Date [...] Info) Description 08/20/2024 2:15 PM EDT Follow-Up [facility] [address] [place] [address] Tony Her MD [address] [place] [address] Health Maintenance Due Date Last Done Comments [...] Screening 05/13/2024 Depression Screening and Follow-Up 05/13/2024 Fall Risk Screening 05/13/2024 Health Care Proxy Review 05/13/2024 Social Drivers of Health Annual Screening 05/13/2024 DTaP,Tdap,and Td Vaccines (2 - Td or Tdap) 01/19/2029 01/19/2019 Pneumococcal Vaccine: 50+ Years Completed 02/12/2023 RSV Vaccine (60+ years old and patients) Completed 04/12/2023 Hepatitis B Vaccines Aged Out No long er eligible based on patient's age to complete this topic Insurance MEDICARE [facility] Care Teams Professor Of Anthropology Relationship Specialty Start Date End Date Iron Castano MD [address] [place] [address] PCP - General Family Medicine 12/30/23
--- OUTSIDE RECORDS SUMMARY | 2024-07-17 14:56 | XMS_ITS | Referral Summary ---
Author Organization [facility] Address [address] [place] [address] Care Team Providers Care Health Science Instructor Name Role Phone Iron Castano MD Primary Care Provider [phone] Allergies Active Allergy Reactions Criticality Noted Date [...] Info) Description 08/20/2024 2:15 PM EDT Follow-Up [facility] [address] [place] [address] Tony Her MD [address] [place] [address] Insurance MEDICARE [facility] Care Teams Health Science Instructor Relationship Specialty Start Date End Date Iron Castano MD [address] [place] [id number] PCP - General Family Medicine 12/30/23
== END 2024-07-17 13:49 | disposition home or self-care (01) ==
PROVIDERS: PCP Family Medicine; Visit Provider Nurse Practitioner Family
DX: M47.817 Spondylosis without myelopathy or radiculopathy, lumbosacral region (principal); M96.1 Postlaminectomy syndrome, not elsewhere classified; M25.561 Pain in right knee; M25.562 Pain in left knee; G89.29 Other chronic pain; M17.0 Bilateral primary osteoarthritis of knee; G89.4 Chronic pain syndrome; Z79.891 Long term (current) use of opiate analgesic; E66.01 Morbid (severe) obesity due to excess calories; Z68.42 Body mass index [BMI] 45.0-49.9, adult; M47.812 Spondylosis without myelopathy or radiculopathy, cervical region
CPT/HCPCS: 99214; G2211

== ENCOUNTER → 2024-07-17 13:20 | Outpatient (BNVA) | payer MEDICARE, MEDICAID, SELFPAY | PROVIDERS: PCP Family Medicine; Visit Provider Nurse Practitioner Family | DX: M47.817 Spondylosis without myelopathy or radiculopathy, lumbosacral region (principal); M47.812 Spondylosis without myelopathy or radiculopathy, cervical region; M96.1 Postlaminectomy syndrome, not elsewhere classified; M25.561 Pain in right knee; M25.562 Pain in left knee; M17.0 Bilateral primary osteoarthritis of knee; G89.4 Chronic pain syndrome; E66.01 Morbid (severe) obesity due to excess calories; Z51.81 Encounter for therapeutic drug level monitoring; Z68.42 Body mass index [BMI] 45.0-49.9, adult; Z79.891 Long term (current) use of opiate analgesic | CPT/HCPCS: 99212 ==

== ENCOUNTER 2024-07-20 10:21 | Outpatient (AMB) | payer MEDICARE, MEDICAID, SELFPAY ==
--- NOTE | 2024-07-20 10:31 | MHC.OFFVIS ---
Vital Signs 07/20/24 10:33 Height 5 ft 2 in Weight 165 lb BMI 30.2 BP 136/84 Blood Pressure Location Lt radial Position Sitting Respiration 16 Pulse 82 Pulse Source Pulse Oximeter Pulse Oximetry (%) 95 Oxygen Delivery Method Room Air Intake Visit Reasons: Right Knee Injection Cattle Alley Worker Required: No Computer Graphic Designer: Computer Graphic Designer Present Accompanied by: Sha Pa Allergies seafood Allergy (Verified 07/20/24 10:34) hives Medication List - Last Reconciled 07/20/24 by Shayy Quan LPN blood pressure monitor Automatic, Digital. Dx: I10. Daily As directed, 999 days/lifetime cholecalciferol (vitamin D3) (Vitamin D3) 10 mcg PO DAILY famotidine 40 mg PO BEDTIME 30 days gabapentin 900 mg (1.5 x 600 mg) PO Q8H 30 days hydrochlorothiazide 25 mg PO DAILY 90 days lamotrigine 150 mg PO BID levetiracetam 1,000 mg PO BID 90 days losartan 100 mg PO DAILY 90 days meloxicam 15 mg PO DAILY 30 days naloxone 4 mg/actuation (Narcan) 4 mg intranasal Q2M PRN omeprazole 40 mg (2 x 20 mg) PO DAILY oxycodone-acetaminophen 5-325 mg (Percocet) 1 tab PO QID PRN 30 days semaglutide (Ozempic) 0.25 mg (0.368 mL) subcut QWEEK 28 days tirzepatide (weight loss) (Zepbound) 2.5 mg (0.5 mL) subcut QWEEK 28 days venlafaxine ER 75 mg PO DAILY venlafaxine ER 150 mg PO DAILY walker (Ultra-Light Rollator mis) Rolling walker with wheels, seat and brakes. Daily ?As directed, 999 days PFSH Medical History Rib pain on left side Restless leg syndrome Chronic pain syndrome Seizure Contusion of right patella Fall Muscle spasms of neck Lower extremity weakness Osteoarthritis of left knee Osteoarthritis of right knee Osteoarthritis of left ankle Arthritis of right knee Acute paronychia of toe Mild anemia Iron deficiency anemia Lumbar spinal stenosis Lumbar and sacral spondyloarthritis Migraine Major depressive disorder Cervical radiculopathy Osteoarthritis of knees, bilateral Urge incontinence Surgical History History of bariatric surgery S/P cervical spinal fusion Family History Father No problems noted. Mother No problems noted. 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 Current occupational exposures/hazards: No Cognitive needs: No Hearing needs: No Vision needs: No Physical Exam Vital Signs: Last Vital Signs Pulse 82 07/20/24 10:33 Resp 16 07/20/24 10:33 BP 136/84 07/20/24 10:33 Pulse Ox 95 07/20/24 10:33 Oxygen Delivery Method Room Air 07/20/24 10:33 BMI result Body Mass Index 30.2 Office Procedures AMB Joint Injection/Aspiration Joint Injection/Aspiration Primary Site: right knee Prep: site was prepped using sterile technique Injected: 40 mg of, Kenalog, with 3 mL of (ropivacaine 0.25%) and in the joint Approach Used: anteromedial Procedure: The patient tolerated the procedure well Coding 68259 - Large joint Procedure code (CPT) selection complete Assessment & Plan Assessment & Plan (1) Bilateral knee pain: Code(s): M25.561 - Pain in right knee; M25.562 - Pain in left knee Category: Medical Plan Patient is status post right knee inj. Patient tolerated procedure well and was discharged home in stable condition with discharge instructions. All questions were answered. We will follow-up via telephone or in clinic to assess response to therapy. A follow-up appointment was made during today's visit. Coding Level of Care Code Procedure Only Diagnoses Bilateral knee pain M25.561; M25.562 CPT Codes Coding - 53817 Large joint: 32028 - Large joint ([id number])
[2024-07-20 10:33] VITALS: BP 136/84; PULSE 82; RESP 16; O2SAT 95; BMI 30.2
--- OUTSIDE RECORDS SUMMARY | 2024-07-20 11:40 | XMS_ITS | Referral Summary ---
Author Organization [facility] Address [address] [place] [address] Care Team Providers Care Jockey'S Agent Name Role Phone Iron Castano MD Primary Care Provider [phone] Allergies Active Allergy Reactions Criticality Noted Date [...] Info) Description 08/20/2024 2:15 PM EDT Follow-Up [facility] [address] [place] [address] Tony Her MD [address] [place] [address] Insurance MEDICARE [facility] Care Teams Jockey'S Agent Relationship Specialty Start Date End Date Irno Castano MD [address] [place] [id number] PCP - General Family Medicine 12/30/23
--- OUTSIDE RECORDS SUMMARY | 2024-07-20 11:40 | XMS_ITS | Clinical Summary ---
Author Organization [facility] Address [address] [place] [address] Care Team Providers Care Engineering And Scientific Programmer Name Role Phone Iron Castano MD Primary Care Provider [phone] Allergies Active Allergy Reactions Criticality Noted Date [...] Info) Description 08/20/2024 2:15 PM EDT Follow-Up [facility] [address] [place] [address] Tony Her MD [address] [place] [address] Health Maintenance Due Date Last Done Comments [...] age to complete this topic Insurance MEDICARE [facility] Care Teams Engineering And Scientific Programmer Relationship Specialty Start Date End Date Iron Castano MD [address] [place] [address] PCP - General Family Medicine 12/30/23
== END 2024-07-20 10:43 | disposition home or self-care (01) ==
PROVIDERS: PCP Family Medicine; Visit Provider Internal Medicine
DX: M25.561 Pain in right knee (principal)
CPT/HCPCS: 20610

== ENCOUNTER → 2024-07-20 10:21 | Outpatient (BNVA) | payer MEDICARE, MEDICAID, SELFPAY | PROVIDERS: PCP Family Medicine; Visit Provider Internal Medicine | DX: M25.561 Pain in right knee (principal); M25.562 Pain in left knee | CPT/HCPCS: 20610 ==

== ENCOUNTER 2024-07-22 16:19 | Outpatient (AMB) | payer MEDICARE, MEDICAID, SELFPAY ==
--- NOTE | 2024-07-22 16:15 | MHC.PC.OV ---
Intake Visit Reasons: f/u obesity, labs via telemedicine Press Machine Feeder Required: No Allergies seafood Allergy (Verified 07/22/24 16:15) hives Medication List - Last Reconciled 07/26/24 by Iron Castano MD blood pressure monitor Automatic, Digital. Dx: I10. Daily As directed, 999 days/lifetime cholecalciferol (vitamin D3) (Vitamin D3) 10 mcg PO DAILY famotidine 40 mg PO BEDTIME 30 days gabapentin 900 mg (1.5 x 600 mg) PO Q8H 30 days hydrochlorothiazide 25 mg PO DAILY 90 days lamotrigine 150 mg PO BID levetiracetam 1,000 mg PO BID 90 days losartan 100 mg PO DAILY 90 days meloxicam 15 mg PO DAILY 30 days naloxone 4 mg/actuation (Narcan) 4 mg intranasal Q2M PRN omeprazole 40 mg (2 x 20 mg) PO DAILY oxycodone-acetaminophen 5-325 mg (Percocet) 1 tab PO QID PRN 30 days tirzepatide (weight loss) (Zepbound) 2.5 mg (0.5 mL) subcut QWEEK 28 days venlafaxine ER 75 mg PO DAILY venlafaxine ER 150 mg PO DAILY walker (Ultra-Light Rollator misc) Rolling walker with wheels, seat and brakes. Daily ?As directed, 999 days Tobacco use date assessed: 10/25/23 Dental Screening Dental Screen Date: 06/10/23 HPI f/u obesity, labs via telemedicine HPI Details 69 y/o female presents to review labs and to see how she is tolerating Zepbound if she is able to get this. Trying to help her lose weight to improve her chances of getting surgery for knees. She notes she had not been able to receive her Zepbound. She reports no changes to her weight and reports she is around 265lbs. Recent pain management visit for bilateral knee pain and s/p R knee inj. Pt had tolerated procedure well. HPI Comments History of Present Illness Details Documentation assistance for Iron Castano MD, was provided by Zachariah Reina,? Automatic Pinsetter Mechanic on 07/22/2024 at 5:21 PM EST. I, Dr. Castano, have read, observed, and verified documentation. [facility] Medical History Rib pain on left side Restless leg syndrome Chronic pain syndrome Seizure Contusion of right patella Fall Muscle spasms of neck Lower extremity weakness Osteoarthritis of left knee Osteoarthritis of right knee Osteoarthritis of left ankle Arthritis of right knee Acute paronychia of toe Mild anemia Iron deficiency anemia Lumbar spinal stenosis Lumbar and sacral spondyloarthritis Migraine Major depressive disorder Cervical radiculopathy Osteoarthritis of knees, bilateral Urge incontinence Surgical History History of bariatric surgery S/P cervical spinal fusion Family History Father No problems noted. Mother No problems noted. 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 Selvin Howell, Cary Barton, Valeriy Vieira and colleagues, with an educational carlene from [employer]. Physical exam (Primary Care) Tobacco/Smoking Status: Tobacco use Status Tobacco use date assessed 10/25/23 07/22/24 16:18 Patient Tobacco Use Status Former Tobacco user 07/22/24 16:18 e-Cigarette/Vaping Use Never Used 07/22/24 16:18 Thrive Assessment: Date of Thrive Assessment Date Thrive assessed 05/19/24 07/22/24 16:18 Telehealth Telehealth Telehealth Platform: Telephone Location of provider rendering services: practice address Location of patient: address on file Patient Identification confirmed using: Name, : Yes Telehealth method: voice only Patient verbally consented to treatment: Yes Patient verbally consented to billing insurance company: Yes Patient informed of any privacy concerns related to visit: Yes Minutes spent on Phone/Video with Pt.: 6 Coding Level of Care Code Tele Est Pt Level 2 (82914) Diagnoses Morbid obesity E66.01 Bilateral knee pain M25.561; M25.562 Assessment & Plan Assessment & Plan (1) Morbid obesity: Code(s): E66.01 - Morbid (severe) obesity due to excess calories Category: Medical (2) Bilateral knee pain: Code(s): M25.561 - Pain in right knee; M25.562 - Pain in left knee Category: Medical Plan h/o B/L knee pain and difficulty losing weight as she cannot exercise well. Would Benefit from knee surgery but needs weight loss to be considered for this. Has been trying to get Zepbound. Will have [place] get Prior Auth.
--- OUTSIDE RECORDS SUMMARY | 2024-07-22 18:34 | XMS_ITS | Clinical Summary ---
Author Organization [facility] Address [address] [place] [address] Care Team Providers Care Border Machine Operator Name Role Phone Iron Castano MD Primary Care Provider [phone] Allergies Active Allergy Reactions Criticality Noted Date [...] Info) Description 08/20/2024 2:15 PM EDT Follow-Up [facility] [address] [place] [address] Tony Her MD [address] [place] [address] Health Maintenance Due Date Last Done Comments Cologuard 1956 Colon Cancer Screening 1955 Colonoscopy 1956 FOBT / Fit Test 1956 Hepatitis C Screening 1956 Sigmoidoscopy 1955 Medicare AWV [address] Lung Cancer Screening (Baseline) [...] age to complete this topic Insurance MEDICARE [facility] Care Teams Border Machine Operator Relationship Specialty Start Date End Date Iron Castano MD [address] [place] [address] PCP - General Family Medicine 12/30/23
--- OUTSIDE RECORDS SUMMARY | 2024-07-22 18:34 | XMS_ITS | Referral Summary ---
Author Organization [facility] Address [address] [place] [address] Care Team Providers Care Awning Installer Name Role Phone Iron Castano MD Primary Care Provider [phone] Allergies Active Allergy Reactions Criticality Noted Date [...] Info) Description 08/20/2024 2:15 PM EDT Follow-Up [facility] [address] [place] [address] Tony Her MD [address] [place] [address] Insurance MEDICARE [facility] Care Teams Awning Installer Relationship Specialty Start Date End Date Iron Castano MD [address] [place] [id number] PCP - General Family Medicine 12/30/23
== END 2024-07-22 17:05 | disposition home or self-care (01) ==
LOC: HO.HMCFM 16:19
PROVIDERS: PCP Family Medicine; Visit Provider Family Medicine
DX: M25.561 Pain in right knee (principal); M25.562 Pain in left knee; E66.01 Morbid (severe) obesity due to excess calories

== ENCOUNTER → 2024-07-22 16:19 | Outpatient (BNVA) | payer MEDICARE, MEDICAID, SELFPAY | PROVIDERS: PCP Family Medicine; Visit Provider Family Medicine ==

== ENCOUNTER 2024-07-27 13:08 | Outpatient (AMB) | payer MEDICARE, MEDICAID, SELFPAY ==
--- NOTE | 2024-07-27 13:10 | A.OFFVIS_ITS ---
Vital Signs 07/27/24 13:11 Height 5 ft 2 in Weight 265 lb BMI 48.5 BP 145/67 H Blood Pressure Location Rt radial Position Sitting Respiration 16 Pulse 100 Pulse Source Pulse Oximeter Pulse Oximetry (%) 94 Oxygen Delivery Method Room Air Intake Visit Reasons: Left Knee Injection Ready To Wear Department Manager Required: No Wire Twister: Wire Twister Present Accompanied by: Sha Pa Allergies seafood Allergy (Verified 08/14/24 13:27) hives Medication List - Last Reconciled 07/27/24 by Shayy Quan LPN blood pressure monitor Automatic, Digital. Dx: I10. Daily As directed, 999 days/lifetime cholecalciferol (vitamin D3) (Vitamin D3) 10 mcg PO DAILY famotidine 40 mg PO BEDTIME 30 days gabapentin 900 mg (1.5 x 600 mg) PO Q8H 30 days hydrochlorothiazide 25 mg PO DAILY 90 days lamotrigine 150 mg PO BID levetiracetam 1,000 mg PO BID 90 days losartan 100 mg PO DAILY 90 days meloxicam 15 mg PO DAILY 30 days naloxone 4 mg/actuation (Narcan) 4 mg intranasal Q2M PRN omeprazole 40 mg (2 x 20 mg) PO DAILY oxycodone-acetaminophen 5-325 mg (Percocet) 1 tab PO QID PRN 30 days tirzepatide (weight loss) (Zepbound) 2.5 mg (0.5 mL) subcut QWEEK 28 days venlafaxine ER 75 mg PO DAILY venlafaxine ER 150 mg PO DAILY walker (Ultra-Light Rollator misc) Rolling walker with wheels, seat and brakes. Daily ?As directed, 999 days HPI HPI Left Knee Injection: Details: History of Present Illness The patient is a 69-year-old female presenting for a left knee injection to address chronic osteoarthritis. The patient's history reveals long-standing osteoarthritis contributing to the knee pain. A previous injection in the right knee provided significant relief, prompting her decision to proceed with a similar intervention for the left knee. She is aware of the potential for corticosteroid-induced headaches, having experienced this as a side effect. The patient reports stable blood sugar levels following prior treatments, and anticipates similar outcomes post-procedure. The patient's care approach includes monitoring for side effects and evaluating the efficacy of pain relief strategies employed. Pain Description - Onset & Timing: Chronic condition related to osteoarthritis. - Quality & Character: Consistent with osteoarthritic pain. - Primary Location: Left knee. - Radiation: None mentioned. - Exacerbating Factors: Impact of osteoarthritis. - Relieving Factors: Past successful injection on the right knee. - Functional Impact: The patient is seeking improved function following relief observed from previous non-invasive measures. Physical Exam Results Pain Management - Affect: No changes in mood or psychological state explicitly discussed. - Analgesia: Successful relief from previous right knee injection without significant adverse effects on blood sugar levels. - Adverse Effects: Mild headache experienced post previous cortisone injection, less intense than usual. - Activities of Daily Living: Improvement following right knee injection anticipated for the left knee intervention. - Aberrant Drug Related Behaviors: Not discussed or evidenced. Procedure - Informed Consent & Discussion: Informed consent was obtained for the procedure. - Procedure Description: Left knee intraarticular injection administered using landmark technique. Site was cleansed with chloraprep, and a 25 gauge needle was used for joint access. Injected solution: 40 mg Kenalog combined with 0.25% ropivacaine (3 mL). The patient demonstrated tolerance and no blood loss was noted. A follow-up is advised as needed for repeated intervention. [facility] Medical History Rib pain on left side Restless leg syndrome Chronic pain syndrome Seizure Contusion of right patella Fall Muscle spasms of neck Lower extremity weakness Osteoarthritis of left knee Osteoarthritis of right knee Osteoarthritis of left ankle Arthritis of right knee Acute paronychia of toe Mild anemia Iron deficiency anemia Lumbar spinal stenosis Lumbar and sacral spondyloarthritis Migraine Major depressive disorder Cervical radiculopathy Osteoarthritis of knees, bilateral Urge incontinence Surgical History History of bariatric surgery S/P cervical spinal fusion Family History Father No problems noted. Mother No problems noted. 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 Current occupational exposures/hazards: No Cognitive needs: No Hearing needs: No Vision needs: No Physical Exam Vital Signs: Last Vital Signs Pulse 100 07/27/24 13:11 Resp 16 07/27/24 13:11 BP 145/67 H 07/27/24 13:11 Pulse Ox 94 07/27/24 13:11 Oxygen Delivery Method Room Air 07/27/24 13:11 BMI result Body Mass Index 48.5 Assessment & Plan Assessment & Plan (1) Bilateral knee pain: Code(s): M25.561 - Pain in right knee; M25.562 - Pain in left knee Category: Medical Plan Plan The management plan involves administering an intraarticular injection for left knee osteoarthritis, with informed consent obtained prior. Given the patient's history of significant relief from previous similar interventions, monitoring for mild side effects such as corticosteroid-induced headaches is essential. The approach allows continued symptom alleviation, leveraging periodic assessments to adapt treatment as required. Patient was informed and verbally consented to the use of an ambient scribe for clinic note documentation during this visit. Discussion Notes The procedure was thoroughly explained, including potential benefits, risks, and minor side effects like headaches observed previously. Reassurances were provided regarding stability in blood sugar levels. The patient received information about the procedure, including how localized injections can aid in managing chronic osteoarthritis. The patient was advised about possible side effects and the self-limiting nature of noted headaches. Follow-up sessions are to be scheduled based on symptom recurrence and the necessity for further intervention. Patient Instructions - Monitor for any recurrent knee pain and headaches; contact your healthcare provider if symptoms persist or worsen. - Keep track of your blood sugar levels and report any significant changes following the injection. - Follow up as recommended for evaluation and potential repeat injections. - Rest the knee and avoid strenuous activities immediately post-procedure to facilitate recovery. Coding Level of Care Code Est Pt Level 3 (12140) Diagnoses Bilateral knee pain M25.561; M25.562
[2024-07-27 13:11] VITALS: BP 145/67; PULSE 100; RESP 16; O2SAT 94; BMI 48.5
== END 2024-07-27 13:24 | disposition home or self-care (01) ==
LOC: HO.PMC 13:08
PROVIDERS: PCP Family Medicine; Visit Provider Internal Medicine
DX: M25.561 Pain in right knee (principal); M25.562 Pain in left knee
CPT/HCPCS: 20610

== ENCOUNTER → 2024-07-27 13:08 | Outpatient (BNVA) | payer MEDICARE, MEDICAID, SELFPAY | PROVIDERS: PCP Family Medicine; Visit Provider Internal Medicine | DX: M17.0 Bilateral primary osteoarthritis of knee (principal) | CPT/HCPCS: 20610 ==

== ENCOUNTER 2024-08-14 13:13 | Outpatient (AMB) | payer MEDICARE, MEDICAID, SELFPAY ==
[2024-08-14 13:26] VITALS: BP 149/96; PULSE 92; O2SAT 96; BMI 47.5
--- NOTE | 2024-08-14 13:26 | A.OFFVIS_ITS ---
Vital Signs 08/14/24 13:26 Height 5 ft 2 in Weight 260 lb BMI 47.5 BP 149/96 H Blood Pressure Location Lt brachial Position Sitting Pulse 92 Pulse Source Pulse Oximeter Pulse Oximetry (%) 96 Oxygen Delivery Method Room Air Intake Visit Reasons: Pill count Hand Alterations Seamstress Required: No Allergies seafood Allergy (Verified 08/14/24 13:27) hives Medication List - Last Reconciled 08/14/24 by Sarah Cannon, NEEDLE GRINDER blood pressure monitor Automatic, Digital. Dx: I10. Daily As directed, 999 days/lifetime cholecalciferol (vitamin D3) (Vitamin D3) 10 mcg PO DAILY famotidine 40 mg PO BEDTIME 30 days gabapentin 900 mg (1.5 x 600 mg) PO Q8H 30 days hydrochlorothiazide 25 mg PO DAILY 90 days lamotrigine 150 mg PO BID levetiracetam 1,000 mg PO BID 90 days losartan 100 mg PO DAILY 90 days meloxicam 15 mg PO DAILY 30 days naloxone 4 mg/actuation (Narcan) 4 mg intranasal Q2M PRN omeprazole 40 mg (2 x 20 mg) PO DAILY oxycodone-acetaminophen 5-325 mg (Percocet) 1 tab PO QID PRN 30 days tirzepatide (weight loss) (Zepbound) 2.5 mg (0.5 mL) subcut QWEEK 28 days venlafaxine ER 75 mg PO DAILY venlafaxine ER 150 mg PO DAILY walker (Ultra-Light Rollator misc) Rolling walker with wheels, seat and brakes. Daily ?As directed, 999 days HPI Comments Details: The patient is a 69-year-old female presenting with chronic pain associated with bilateral knee osteoarthritis and neck pain with nerve involvement. She utilizes Percocet for pain management and noted appropriate medication use with a pill count aligning with expectations. She is supposed to have #64 oxycodone- acetaminophen 5-325 mg pills and in her possession has #69 pills. Her current pain level is at 5-6/10, with the morning onset before using medications. She previously received bilateral knee cortisone injections in July, which diminished her knee pain from 7/10 to around 4-5/10 on the pain intensity scale, although she occasionally experienced headaches post-injection thought to be related to blood pressure changes. Moreover, she reports losing five pounds recently but faces insurance hurdles with weight loss medications like Zepbound. She is aware of potential concerns with such medications with opioid use, which may interfere with gastrointestinal motility, adding potential risks. - Onset and Timing: Chronic pain present in knees and neck; neck pain involves nerve pain with radicular symptoms in her hands, left>right. - Quality and Character: Chronic bilateral knee pain and neck pain with neuropathic characteristics. - Primary Location: Bilateral knees and neck. - Radiation: Neck pain radiates to both arms and hands, left>right with associated numbness and tingling. - Exacerbating Factors: Movements, lifting, walking, bending, ROM, cold weather - Relieving Factors: Cortisone injections provided partial relief; medication management with Percocet is effective when needed. - Interference: Pain affects mobility and possibly activities of daily living. - Affect: No specific impact on mood or psychological wellbeing reported. - Analgesia: Utilizing Percocet; current pain level is 5/10; post-injection pain level dropped to 4-5/10. - Adverse Effects: Potential blood pressure elevation and headaches post- injection. - Activities of Daily Living: Improved walking capability noted; the goal is further enhancement of mobility and weight management. - Aberrant Drug Related Behaviors: No aberrant behaviors noted; good compliance with medication. Past procedures 07/20/24 (right) and 07/27/24 (left) cortisone knee injections-50% pain relief 05/21/24: Left diagnostic C3-C4-C5 MBB-60% pain relief for 6 hours 01/01/24: Left knee Durolane injection: relief for a few days. 12/11/23: Right knee Durolane injection: No significant relief. 10/03/23: Interlaminar epidural steroid injection, C7-T1, left parasaggital: 75 % relief. 09/16/23: Left knee injection: % relief. 09/06/23: Right knee injection, US guided: 100 % relief. 04/26/23: Bilateral landmark guided intraarticular knee injection: 50% relief. 01/04/23: Right knee injection.: 70% relief for 3 months. 05/02/22: Right Sprint PNS, Saphenous Nerve ? 90% relief that is ongoing. 05/10/21: Right L3-L4 TFESI - 60% pain relief 07/12/21: Left L3-L4 TFESI - 50% pain relief 11/22/21: Left diagnostic saphenous nerve block-50% pain relief for 24 hours. 12/06/21: Right diagnostic GNB-60% pain relief for 24 hours 02/21/22: Right diagnostic SNB at adductor canal- 80% pain relief for 3 hours. 02/28/22: Left diagnostic SNB at adductor canal-60% pain relief for 3 hours. [facility] Medical History Rib pain on left side Restless leg syndrome Chronic pain syndrome Seizure Contusion of right patella Fall Muscle spasms of neck Lower extremity weakness Osteoarthritis of left knee Osteoarthritis of right knee Osteoarthritis of left ankle Arthritis of right knee Acute paronychia of toe Mild anemia Iron deficiency anemia Lumbar spinal stenosis Lumbar and sacral spondyloarthritis Migraine Major depressive disorder Cervical radiculopathy Osteoarthritis of knees, bilateral Urge incontinence Surgical History History of bariatric surgery S/P cervical spinal fusion Family History Father No problems noted. Mother No problems noted. 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 Morbidly obese. Alert and oriented. Mood and affect appropriate. Follows and participates in conversation appropriately. Respiratory effort is unlabored. No cough. Able to transition from sit to stand unassisted. Uses walker with seat with ambulation. Ambulates with bilaterally normal heel strike and toe off. Neck Neck: Yes normal visual inspection, Yes no lymphadenopathy, Yes supple, No anterior neck swelling, Yes no JVD, No prominent supraclavicular fat pad and Yes prominent dorsocervical fat pad General: Yes no CVA tenderness Back/Spine/Pelvis Other: Limited cervical and lumbar spine ROM due to pain associated with muscle spasms and stiffness in cervical paraspinals. Back: no CVA tenderness Cervical Spine: No Lhermitte's sign positive, loss of normal cervical lordosis, cervical muscular tenderness, pain with cervical ROM (with left lateral rotation and extension), Cervical spine scars present, cervical spasm, No Cervical spine tenderness and No step off deformity Extrem General: Yes capillary refill normal, Yes no clubbing, cyanosis or edema and Yes no calf tenderness Psych Appearance: grossly normal Mental Status: mental status grossly normal Speech and movement: Normal speech and movement present and Clear speech present Affect: normal affect Attitude: cooperative Thought process: Normal thought process present Thought content: Normal thought content present, suicidality (none), no hallucinations and Depressive thoughts present Insight: Good insight present (Psych) Judgement: Good judgement present (Psych) Results Reviewed Results Reviewed: CT HEAD WITHOUT IV CONTRAST CT CERVICAL SPINE WITHOUT IV CONTRAST 07/01/23 INDICATION: Trauma. COMPARISON: Head CT 02/27/2023 and brain MRI 03/16/2023. FINDINGS: HEAD: There is no intracranial hemorrhage, hydrocephalus, extra-axial surface collection, midline shift, or other herniation pattern. Banks to white matter differentiation is diffusely maintained without evidence of an evolved acute territorial infarct. The basilar cisterns are preserved. No significant soft tissue abnormality. No acute osseous abnormality. The paranasal sinuses and the mastoid air cells are well aerated. CERVICAL SPINE: There are postoperative changes following ACDF at the C4-C7 levels. Surgical hardware is intact and there is no evidence of hardware loosening. There are no acute fractures and there are no acute subluxations. Craniocervical junction is intact. There is multilevel hypertrophic facet arthropathy. There is no prevertebral soft tissue swelling. IMPRESSION: - No acute intracranial abnormality. - No acute osseous abnormality within the cervical spine. Assessment & Plan Assessment & Plan (1) Lumbar and sacral spondyloarthritis: Code(s): M47.817 - Spondylosis without myelopathy or radiculopathy, lumbosacral region Category: Medical (2) Cervical post-laminectomy syndrome: Code(s): M96.1 - Postlaminectomy syndrome, not elsewhere classified Category: Medical (3) Bilateral chronic knee pain: Code(s): M25.561 - Pain in right knee; M25.562 - Pain in left knee; G89.29 - Other chronic pain Category: Medical (4) Osteoarthritis of knees, bilateral: Code(s): M17.0 - Bilateral primary osteoarthritis of knee Category: Medical (5) Chronic pain syndrome: Code(s): G89.4 - Chronic pain syndrome Category: Medical (6) Opioid contract exists: Code(s): Z79.891 - 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 The patient reported no noted side effects with adequate analgesia. There is no evidence of misuse, abuse or diversion at this time. MassPat reviewed. I will maintain the existing Percocet regimen with observation of medication adherence via pill counts, which indicate proper usage. Script sent for oxycodone-acetaminophen with an advanced date of 08/31/24. Patient has Narcan at home. The effectiveness of recent cortisone injections in alleviating knee pain is noted, and future consideration of similar interventions may be beneficial. The patient's challenges with obtaining insurance authorization for weight loss medications, coupled with the underlying risks due to slowed gastrointestinal motility from opioid therapy, form a crucial part of our management plan. C ollaborative communication with the patient's PCP provider on these aspects remains essential. All questions and concerns were answered and patient agreed with the plan. Follow up in 4-5 weeks for pill count and sooner as needed. Patient was informed and verbally consented to the use of an ambient scribe or clinic note documentation during this visit. Medications: Refilled oxycodone-acetaminophen 5-325 mg (Percocet) Partial Fill upon patient request. 1 tab PO QID 30 days PRN 120 tabs 0RF pain G89.29 - Other chronic pain, G89.4 - Chronic pain syndrome, M25.561 - Pain in right knee, M25.562 - Pain in left knee, M47.817 - Spondylosis without myelopathy or radiculopathy, lumbosacral region Patient Instructions: During our conversation, we comprehensively discussed the impact of her pain management regimen, particularly regarding the successful use of Percocet as evidenced by the satisfactory pill count. The complexity of using weight management medications like Zepbound was highlighted, emphasizing the potential risks associated with their interaction in the context of ongoing opioid treatment. I underscored the necessity for continued collaboration with her PCP to manage these complications under careful monitoring and to facilitate insurance discussions regarding authorization for proposed medications. I detailed the importance of consistent assessment of potential adverse effects, such as those affecting the gastrointestinal system and the support needed for ongoing pain and weight management strategies. - Continue current use of Percocet, as needed, for pain control. - Monitor any new or worsening symptoms and report them promptly. - Collaborate with your PCP to address insurance issues regarding weight management medications. - Maintain ongoing communication regarding treatment effectiveness, especially after injections. - Follow up in 4-5 weeks for next pill count visit and sooner as needed. Coding Level of Care Code Est Pt Level 4 (45997) Complex EM visit Add On G2211 Diagnoses Lumbar and sacral spondyloarthritis M47.817 Cervical post-laminectomy syndrome M96.1 Bilateral chronic knee pain M25.561; M25.562; G89.29 Osteoarthritis of knees, bilateral M17.0 Chronic pain syndrome G89.4 Opioid contract exists Z79.891 Morbid obesity with BMI of 45.0-49.9, adult E66.01; Z68.42 Cervical spondylosis M47.812
--- OUTSIDE RECORDS SUMMARY | 2024-08-14 15:07 | XMS_ITS | Clinical Summary ---
Author Organization [facility] Address [address] [place] [address] Care Team Providers Care Certified Medicine Aide Name Role Phone Iron Castano MD Primary Care Provider [phone] Allergies Active Allergy Reactions Criticality Noted Date [...] 02/20/2024 2:27 PM EDT Plan of Treatment Health Maintenance Due Date Last Done Comments Cologuard 1955 Colon Cancer Screening 1955 Colonoscopy 1956 FOBT / Fit Test 1955 Hepatitis C Screening 1955 Sigmoidoscopy 1955 Medicare AWV [address] Lung Cancer Screening (Baseline) 2006 Osteoporosis Screening 2006 Zoster Vaccines (2 of 3) 04/29/2017 03/04/2017 COVID-19 Vaccine ( season) 2024 02/07/2022, 08/30/2021, 03/07/2021, Additional history exists Alcohol/Substance Use Screening 05/13/2024 Depression Screening and Follow-Up 05/13/2024 Fall Risk Screening 05/13/2024 Health Care Proxy Review 05/13/2024 Social Drivers of Health Annual Screening 05/13/2024 Influenza Vaccine (Season Ended) 2025 02/12/2023, 02/07/2022, 05/11/2021, Additional history exists DTaP,Tdap,and Td Vaccines (2 - Td or Tdap) 01/19/2029 01/19/2019 Pneumococcal Vaccine: 50+ Years Completed 02/12/2023 RSV Vaccine (60+ years old and patients) Completed 04/12/2023 Hepatitis B Vaccines Aged Out No long er eligible based on patient's age to complete this topic Insurance MEDICARE [facility] Care Teams Certified Medicine Aide Relationship Specialty Start Date End Date Iron Castano MD [address] [place] [address] PCP - General Family Medicine 12/30/23
--- OUTSIDE RECORDS SUMMARY | 2024-08-14 15:07 | XMS_ITS | Referral Summary ---
Author Organization [facility] Address [address] [place] [address] Care Team Providers Care Auto Suspension And Steering Mechanic Name Role Phone Iron Castano MD Primary Care Provider [phone] Allergies Active Allergy Reactions Criticality Noted Date [...] 02/20/2024 2:27 PM EDT Plan of Treatment Not on file Insurance MEDICARE [facility] Care Teams Auto Suspension And Steering Mechanic Relationship Specialty Start Date End Date Iron Castano MD [address] [place] [address] PCP - General Family Medicine 12/30/23
== END 2024-08-14 13:41 | disposition home or self-care (01) ==
PROVIDERS: PCP Family Medicine; Visit Provider Nurse Practitioner Family
DX: M47.817 Spondylosis without myelopathy or radiculopathy, lumbosacral region (principal); M96.1 Postlaminectomy syndrome, not elsewhere classified; M25.561 Pain in right knee; M25.562 Pain in left knee; G89.29 Other chronic pain; M17.0 Bilateral primary osteoarthritis of knee; G89.4 Chronic pain syndrome; Z79.891 Long term (current) use of opiate analgesic; E66.01 Morbid (severe) obesity due to excess calories; Z68.42 Body mass index [BMI] 45.0-49.9, adult; M47.812 Spondylosis without myelopathy or radiculopathy, cervical region
CPT/HCPCS: 99214; G2211

== ENCOUNTER → 2024-08-14 13:13 | Outpatient (BNVA) | payer MEDICARE, MEDICAID, SELFPAY | PROVIDERS: PCP Family Medicine; Visit Provider Nurse Practitioner Family | DX: M17.0 Bilateral primary osteoarthritis of knee (principal); M47.817 Spondylosis without myelopathy or radiculopathy, lumbosacral region; M96.1 Postlaminectomy syndrome, not elsewhere classified; M47.812 Spondylosis without myelopathy or radiculopathy, cervical region; G89.4 Chronic pain syndrome; E66.01 Morbid (severe) obesity due to excess calories; Z68.42 Body mass index [BMI] 45.0-49.9, adult; Z51.81 Encounter for therapeutic drug level monitoring; Z79.891 Long term (current) use of opiate analgesic | CPT/HCPCS: 99212 ==

== ENCOUNTER 2024-09-14 13:26 | Outpatient (AMB) | payer MEDICARE, MEDICAID, SELFPAY ==
--- NOTE | 2024-09-14 13:34 | MHC.OFFVIS ---
Vital Signs 09/14/24 13:40 Height 5 ft 2 in Weight 258 lb BMI 47.2 BP 125/90 H Blood Pressure Location Rt brachial Position Sitting Respiration 16 Pulse 94 Pulse Source Pulse Oximeter Pulse Oximetry (%) 99 Oxygen Delivery Method Room Air Intake Visit Reasons: Pill count Intake Note: Ivania comes in today for a pill count to oxycodone-acetaminophen, patient should have 60 tablets and presents with 63 tablets which she last took today 09/14/24 at 5am. 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 She is supposed to have #60 oxycodone-acetaminophen 5-325 mg pills and in her possession has #63 pills. This demonstrates a responsible attitude in regards to her medication regimen. She reports reasonable analgesia with no noted side effects except occasional constipation for which she uses Miralax and stool softener. Denies any recent cough, cold, infection, fever or other significant changes in medical history since last office visit. She continues to face insurance hurdles with weight loss medications (Zepbound). Patient is not candidate for knee replacement due to BMI>40. She requests to schedule cortisone knee injections in first october, previous injections were partially effective but allowed her to walk longer distances. Patient continues to adjust her lifestyle and diet to loose weight. Past procedures 07/20/24 (right) and 07/27/24 (left) cortisone knee injections-50% pain relief 05/21/24: Left diagnostic C3-C4-C5 MBB-60% pain relief for 6 hours 01/01/24: Left knee Durolane injection: relief for a few days. 12/11/23: Right knee Durolane injection: No significant relief. 10/03/23: Interlaminar epidural steroid injection, C7-T1, left parasaggital: 75 % relief. 09/16/23: Left knee injection: % relief. 09/06/23: Right knee injection, US guided: 100 % relief. 04/26/23: Bilateral landmark guided intraarticular knee injection: 50% relief. 01/04/23: Right knee injection.: 70% relief for 3 months. 05/02/22: Right Sprint PNS, Saphenous Nerve ? 90% relief that is ongoing. 05/10/21: Right L3-L4 TFESI - 60% pain relief 07/12/21: Left L3-L4 TFESI - 50% pain relief 11/22/21: Left diagnostic saphenous nerve block-50% pain relief for 24 hours. 12/06/21: Right diagnostic GNB-60% pain relief for 24 hours 02/21/22: Right diagnostic SNB at adductor canal- 80% pain relief for 3 hours. 02/28/22: Left diagnostic SNB at adductor canal-60% pain relief for 3 hours. [facility] Medical History Rib pain on left side Restless leg syndrome Chronic pain syndrome Seizure Contusion of right patella Fall Muscle spasms of neck Lower extremity weakness Osteoarthritis of left knee Osteoarthritis of right knee Osteoarthritis of left ankle Arthritis of right knee Acute paronychia of toe Mild anemia Iron deficiency anemia Lumbar spinal stenosis Lumbar and sacral spondyloarthritis Migraine Major depressive disorder Cervical radiculopathy Osteoarthritis of knees, bilateral Urge incontinence Surgical History History of bariatric surgery S/P cervical spinal fusion Family History Father No problems noted. Mother No problems noted. 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 Morbidly obese. Alert and oriented. Mood and affect appropriate. Follows and participates in conversation appropriately. Respiratory effort is unlabored. No cough. Able to transition from sit to stand unassisted. Uses walker with seat with ambulation. Ambulates with bilaterally normal heel strike and toe off. Extrem General: Yes capillary refill normal, Yes no clubbing, cyanosis or edema and Yes no calf tenderness Psych Appearance: grossly normal Mental Status: mental status grossly normal Speech and movement: Normal speech and movement present and Clear speech present Affect: normal affect Attitude: cooperative Thought process: Normal thought process present Thought content: Normal thought content present, suicidality (none), no hallucinations and Depressive thoughts present Insight: Good insight present (Psych) Judgement: Good judgement present (Psych) Results Reviewed Results Reviewed: CT HEAD WITHOUT IV CONTRAST CT CERVICAL SPINE WITHOUT IV CONTRAST 07/01/23 INDICATION: Trauma. COMPARISON: Head CT 02/27/2023 and brain MRI 03/16/2023. FINDINGS: HEAD: There is no intracranial hemorrhage, hydrocephalus, extra-axial surface collection, midline shift, or other herniation pattern. Banks to white matter differentiation is diffusely maintained without evidence of an evolved acute territorial infarct. The basilar cisterns are preserved. No significant soft tissue abnormality. No acute osseous abnormality. The paranasal sinuses and the mastoid air cells are well aerated. CERVICAL SPINE: There are postoperative changes following ACDF at the C4-C7 levels. Surgical hardware is intact and there is no evidence of hardware loosening. There are no acute fractures and there are no acute subluxations. Craniocervical junction is intact. There is multilevel hypertrophic facet arthropathy. There is no prevertebral soft tissue swelling. IMPRESSION: - No acute intracranial abnormality. - No acute osseous abnormality within the cervical spine. Assessment & Plan Assessment & Plan (1) Lumbar and sacral spondyloarthritis: Code(s): M47.817 - Spondylosis without myelopathy or radiculopathy, lumbosacral region Category: Medical (2) Cervical post-laminectomy syndrome: Code(s): M96.1 - Postlaminectomy syndrome, not elsewhere classified Category: Medical (3) Bilateral chronic knee pain: Code(s): M25.561 - Pain in right knee; M25.562 - Pain in left knee; G89.29 - Other chronic pain Category: Medical (4) Osteoarthritis of knees, bilateral: Code(s): M17.0 - Bilateral primary osteoarthritis of knee Category: Medical (5) Chronic pain syndrome: Code(s): G89.4 - Chronic pain syndrome Category: Medical (6) Opioid contract exists: Code(s): Z79.891 - half-way (current) use of opiate analgesic Category: Medical (7) Morbid obesity with BMI of 45.0-49.9, adult: Code(s): E66.01 - Morbid (severe) obesity due to excess calories; Z68.42 - Body mass index [BMI] 45.0-49.9, adult Category: Medical Plan Patient has shown accountability for her medication regimen and the pill count was accurate. The patient reported no noted side effects with adequate analgesia. There is no evidence of misuse, abuse or diversion at this time. MassPat reviewed. Script sent for oxycodone-acetaminophen with an advanced date of 09/29/24. Patient has Narcan at home. We will resubmit PA for Zepbound injections to help with weight loss. In meantime, we will schedule bilateral knee cortisone injections for early October with local and fluoroscopy. Expectations, risks and benefits were reviewed. Patient is aware she will be contacted to schedule this procedure. All questions and concerns were answered and patient agreed with the plan. Follow up in one month for pill count and sooner as needed. Medications: Refilled oxycodone-acetaminophen 5-325 mg (Percocet) Partial Fill upon patient request. 1 tab PO QID 30 days PRN 120 tabs 0RF pain G89.29 - Other chronic pain, G89.4 - Chronic pain syndrome, M25.561 - Pain in right knee, M25.562 - Pain in left knee, M47.817 - Spondylosis without myelopathy or radiculopathy, lumbosacral region tirzepatide (weight loss) (Zepbound) for 4 weeks 2.5 mg (0.5 mL) subcut QWEEK 28 days 2 mL 3RF E66.01 - Morbid (severe) obesity due to excess calories, M17.0 - Bilateral primary osteoarthritis of knee, Z68.41 - Body mass index [BMI] 40.0-44.9, adult tirzepatide (weight loss) (Zepbound) for 4 weeks 2.5 mg (0.5 mL) subcut QWEEK 28 days 2 mL 3RF E66.01 - Morbid (severe) obesity due to excess calories, M17.0 - Bilateral primary osteoarthritis of knee, Z68.41 - Body mass index [BMI] 40.0-44.9, adult Coding Level of Care Code Est Pt Level 4 (40686) Complex EM visit Add On G2211 Diagnoses Lumbar and sacral spondyloarthritis M47.817 Cervical post-laminectomy syndrome M96.1 Bilateral chronic knee pain M25.561; M25.562; G89.29 Osteoarthritis of knees, bilateral M17.0 Chronic pain syndrome G89.4 Opioid contract exists Z79.891 Morbid obesity with BMI of 45.0-49.9, adult E66.01; Z68.42
[2024-09-14 13:40] VITALS: BP 125/90; PULSE 94; RESP 16; O2SAT 99; BMI 47.2
--- OUTSIDE RECORDS SUMMARY | 2024-09-14 14:54 | XMS_ITS | Referral Summary ---
Author Organization [facility] Address [address] [place] [address] Care Team Providers Care Telecom Manager Name Role Phone Iron Castano MD Primary Care Provider [phone] Allergies Active Allergy Reactions Criticality Noted Date [...] of Treatment Not on file Insurance MEDICARE [facility] Care Teams Telecom Manager Relationship Specialty Start Date End Date Iron Castano MD [address] [place] [address] PCP - General Family Medicine 12/30/23
--- OUTSIDE RECORDS SUMMARY | 2024-09-14 14:54 | XMS_ITS | Clinical Summary ---
Author Organization [facility] Address [address] [place] [address] Care Team Providers Care Vehicle Cost Engineer Name Role Phone Iron Castano MD Primary Care Provider [phone] Allergies Active Allergy Reactions Criticality Noted Date [...] age to complete this topic Insurance MEDICARE [facility] Care Teams Vehicle Cost Engineer Relationship Specialty Start Date End Date Iron Castano MD [address] [place] [address] PCP - General Family Medicine 12/30/23
== END 2024-09-14 13:59 | disposition home or self-care (01) ==
LOC: HO.PMC 13:27
PROVIDERS: PCP Family Medicine; Visit Provider Nurse Practitioner Family
DX: M47.817 Spondylosis without myelopathy or radiculopathy, lumbosacral region (principal); M96.1 Postlaminectomy syndrome, not elsewhere classified; M25.561 Pain in right knee; M25.562 Pain in left knee; G89.29 Other chronic pain; M17.0 Bilateral primary osteoarthritis of knee; G89.4 Chronic pain syndrome; Z79.891 Long term (current) use of opiate analgesic; E66.01 Morbid (severe) obesity due to excess calories; Z68.42 Body mass index [BMI] 45.0-49.9, adult
CPT/HCPCS: 99214; G2211

== ENCOUNTER → 2024-09-14 13:26 | Outpatient (BNVA) | payer MEDICARE, MEDICAID, SELFPAY | PROVIDERS: PCP Family Medicine; Visit Provider Nurse Practitioner Family | DX: M47.817 Spondylosis without myelopathy or radiculopathy, lumbosacral region (principal); M96.1 Postlaminectomy syndrome, not elsewhere classified; M17.0 Bilateral primary osteoarthritis of knee; G89.4 Chronic pain syndrome; E66.01 Morbid (severe) obesity due to excess calories; Z68.42 Body mass index [BMI] 45.0-49.9, adult; Z79.891 Long term (current) use of opiate analgesic; Z51.81 Encounter for therapeutic drug level monitoring | CPT/HCPCS: 99212 ==

== ENCOUNTER 2024-09-25 10:43 | Outpatient (AMB) | payer MEDICARE, MEDICAID, SELFPAY ==
--- NOTE | 2024-09-25 11:03 | A.OFFVIS_ITS ---
Vital Signs 09/25/24 11:07 Height 5 ft 2 in Weight 260 lb BMI 47.5 BP 137/80 Blood Pressure Location Lt brachial Position Sitting Pulse 93 Pulse Source Pulse Oximeter Pulse Oximetry (%) 94 Oxygen Delivery Method Room Air Intake Visit Reasons: Left knee inj? Air And Hydronic Balancing Technician Required: No Allergies seafood Allergy (Verified 09/25/24 11:13) hives Medication List - Last Reconciled 09/25/24 by Sarah Cannon, VISITOR SERVICES COORDINATOR blood pressure monitor Automatic, Digital. Dx: I10. Daily As directed, 999 days/lifetime cholecalciferol (vitamin D3) (Vitamin D3) 10 mcg PO DAILY famotidine 40 mg PO BEDTIME 30 days gabapentin 900 mg (1.5 x 600 mg) PO Q8H 30 days hydrochlorothiazide 25 mg PO DAILY 90 days lamotrigine 150 mg PO BID levetiracetam 1,000 mg PO BID 90 days losartan 100 mg PO DAILY 90 days meloxicam 15 mg PO DAILY 30 days naloxone 4 mg/actuation (Narcan) 4 mg intranasal Q2M PRN omeprazole 40 mg (2 x 20 mg) PO DAILY oxycodone-acetaminophen 5-325 mg (Percocet) 1 tab PO QID PRN 30 days tirzepatide (weight loss) (Zepbound) 2.5 mg (0.5 mL) subcut QWEEK 28 days venlafaxine ER 75 mg PO DAILY venlafaxine ER 150 mg PO DAILY walker (Ultra-Light Rollator misc) Rolling walker with wheels, seat and brakes. Daily ?As directed, 999 days HPI HPI Left knee inj?: Details: History of Present Illness The patient is a 69-year-old female presenting with right knee pain requiring a corticosteroid injection. She has a history of bilateral knee pain, managed with corticosteroid treatments. She reported that the treatment received approximately two months prior provided relief for about six weeks. Concerns regarding excessive steroid use were noted. The patient also experiences severe headaches, though the conversation did not detail the relationship of these headaches to her current complaints or treatments. Pain Description - Right knee pain, requiring corticosteroid injection - History of bilateral knee pain - Relief from the previous injection lasted approximately six weeks - Severe headaches described as real bad - Concerns about steroid usage impacting overall pain management Pain Management - Affect: Not explicitly discussed, but concerns over steroid overuse suggest a possible impact on psychological wellbeing. - Analgesia: Previous corticosteroid injections provided relief for approximately six weeks. - Adverse Effects: Concerns regarding the amount of steroid being administered into the body. - Activities of Daily Living: Not explicitly discussed in the conversation. - Aberrant Drug Related Behaviors: Not present in the conversation. [facility] Medical History Rib pain on left side Restless leg syndrome Chronic pain syndrome Seizure Contusion of right patella Fall Muscle spasms of neck Lower extremity weakness Osteoarthritis of left knee Osteoarthritis of right knee Osteoarthritis of left ankle Arthritis of right knee Acute paronychia of toe Mild anemia Iron deficiency anemia Lumbar spinal stenosis Lumbar and sacral spondyloarthritis Migraine Major depressive disorder Cervical radiculopathy Osteoarthritis of knees, bilateral Urge incontinence Surgical History History of bariatric surgery S/P cervical spinal fusion Family History Father No problems noted. Mother No problems noted. 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 Current occupational exposures/hazards: No Cognitive needs: No Hearing needs: No Vision needs: No Physical Exam Vital Signs: Last Vital Signs Pulse 93 09/25/24 11:07 BP 137/80 09/25/24 11:07 Pulse Ox 94 09/25/24 11:07 Oxygen Delivery Method Room Air 09/25/24 11:07 BMI result Body Mass Index 47.5 Office Procedures AMB Joint Injection/Aspiration Joint Injection/Aspiration Primary Site: right knee Injected: 40 mg of, Kenalog, with 3 mL of (ropivacaine 0.25%) and in the joint Approach Used: medial parapatellar Procedure: The patient tolerated the procedure well Coding 43859 - Large joint Procedure code (CPT) selection complete Assessment & Plan Assessment & Plan (1) Osteoarthritis of right knee: Code(s): M17.11 - Unilateral primary osteoarthritis, right knee Category: Medical Qualifiers: Osteoarthritis type: primary Qualified Code(s): M17.11 - Unilateral primary osteoarthritis, right knee Plan Plan - S/p corticosteroid injection for the right knee. - Monitor for any adverse effects from corticosteroid usage. - Schedule follow-up in a couple of weeks to evaluate the treatment's effectiveness. - Discuss strategies to manage steroid dosage appropriately. Patient was informed and verbally consented to the use of an ambient scribe for clinic note documentation during this visit. Discussion Notes I conducted a discussion with the patient about proceeding with the corticosteroid injection for her right knee pain, confirming the proper site for administration. We reviewed the patient's previous experience of relief for six weeks following a similar treatment and acknowledged concerns regarding potential overuse of steroids. The necessity to manage the dosage carefully to prevent excessive exposure was discussed. The patient consented to the procedure, understanding the risks and benefits. A follow-up appointment was arranged to evaluate the effectiveness of the treatment and address any future management strategies. Patient Instructions - Confirm pharmacy details before leaving. - Monitor for any adverse reactions to the corticosteroid injection. - Return for a follow-up appointment in a couple of weeks. - Report any worsening symptoms or unexpected side effects immediately. Coding Level of Care Code Procedure Only Diagnoses Primary osteoarthritis of right knee M17.11 Osteoarthritis type: primary CPT Codes Coding - 31442 Large joint: 78703 - Large joint ([id number])
[2024-09-25 11:07] VITALS: BP 137/80; PULSE 93; O2SAT 94; BMI 47.5
--- OUTSIDE RECORDS SUMMARY | 2024-09-25 11:16 | XMS_ITS | Referral Summary ---
Author Organization [facility] Address [address] [place] [address] Care Team Providers Care Cpr Instructor Name Role Phone Iron Castano MD Primary Care Provider [phone] Allergies Active Allergy Reactions Criticality Noted Date [...] of Treatment Not on file Insurance MEDICARE [facility] Care Teams Cpr Instructor Relationship Specialty Start Date End Date rIon Castano MD [address] [place] [address] PCP - General Family Medicine 12/30/23
--- OUTSIDE RECORDS SUMMARY | 2024-09-25 11:16 | XMS_ITS | Clinical Summary ---
Author Organization [facility] Address [address] [place] [address] Care Team Providers Care Heavy Duty Mechanic Farm Equipment Name Role Phone Iron Castano MD Primary Care Provider [phone] Allergies Active Allergy Reactions Criticality Noted Date [...] age to complete this topic Insurance MEDICARE [facility] Care Teams Heavy Duty Mechanic Farm Equipment Relationship Specialty Start Date End Date Iron Castano MD [address] [place] [address] PCP - General Family Medicine 12/30/23
== END 2024-09-25 11:24 | disposition home or self-care (01) ==
LOC: HO.PMC 10:44
PROVIDERS: PCP Family Medicine; Visit Provider Internal Medicine
DX: M17.11 Unilateral primary osteoarthritis, right knee (principal)
CPT/HCPCS: 20610

== ENCOUNTER → 2024-09-25 10:43 | Outpatient (BNVA) | payer MEDICARE, MEDICAID, SELFPAY | PROVIDERS: PCP Family Medicine; Visit Provider Internal Medicine | DX: M17.11 Unilateral primary osteoarthritis, right knee (principal) | CPT/HCPCS: 20610 ==

== ENCOUNTER 2024-10-12 10:47 | Outpatient (AMB) | payer MEDICARE, MEDICAID, SELFPAY ==
[2024-10-12 11:12] VITALS: BP 130/57; PULSE 92; RESP 16; O2SAT 95; BMI 47.5
--- NOTE | 2024-10-12 11:12 | MHC.OFFVIS ---
Vital Signs 10/12/24 11:12 Height 5 ft 2 in Weight 260 lb BMI 47.5 BP 130/57 L Blood Pressure Location Lt brachial Position Sitting Respiration 16 Pulse 92 Pulse Source Pulse Oximeter Pulse Oximetry (%) 95 Oxygen Delivery Method Room Air Intake Visit Reasons: Pill count + left knee inj Outside B2B Sales Required: No Pets And Pet Supplies Salesperson: Pets And Pet Supplies Salesperson Present Accompanied by: Sha Pa Allergies seafood Allergy (Verified 10/12/24 11:13) hives Medication List - Last Reconciled 10/12/24 by Shayy Quan LPN blood pressure monitor Automatic, Digital. Dx: I10. Daily As directed, 999 days/lifetime cholecalciferol (vitamin D3) (Vitamin D3) 10 mcg PO DAILY famotidine 40 mg PO BEDTIME 30 days gabapentin 900 mg (1.5 x 600 mg) PO Q8H 30 days hydrochlorothiazide 25 mg PO DAILY 90 days lamotrigine 150 mg PO BID levetiracetam 1,000 mg PO BID 90 days losartan 100 mg PO DAILY 90 days meloxicam 15 mg PO DAILY 30 days naloxone 4 mg/actuation (Narcan) 4 mg intranasal Q2M PRN omeprazole 40 mg (2 x 20 mg) PO DAILY oxycodone-acetaminophen 5-325 mg (Percocet) 1 tab PO QID PRN 30 days tirzepatide (weight loss) (Zepbound) 2.5 mg (0.5 mL) subcut QWEEK 28 days venlafaxine ER 75 mg PO DAILY venlafaxine ER 150 mg PO DAILY walker (Ultra-Light Rollator misc) Rolling walker with wheels, seat and brakes. Daily ?As directed, 999 days HPI HPI Pill count + left knee inj: Details: History of Present Illness The patient is a 69-year-old female presenting with a follow-up for pain management in the right knee. The osteoarthritis in her right knee has shown a noticeable decrease in the longevity of pain relief achieved by previous treatments. Her symptoms have generally been stable, though the duration of relief from intraarticular steroid injections has lessened over time, reflecting a common pattern in degenerative joint disease. Management of this condition has long involved intraarticular steroid injections, and though effective, the patient has observed a decline in the efficacy duration associated with these injections. The current approach is to continue with these treatments about two to three months apart, allowing for variability based on her tolerance. Her functionality remains independent, suggesting moderate impact from her osteoarthritis on daily activities. Pain Description - Onset: Chronic osteoarthritis pain in the right knee - Quality: No explicit quality or character mentioned - Location: Primary location in the right knee - Exacerbating factors: Duration of relief from injections decreases over time - Relieving factors: Intraarticular steroid injections - Impact: The patient remains independent; need to space follow-ups based on tolerance Physical Exam Results Pain Management - Affect: No specific mention of mood or psychological impact - Analgesia: Pain managed with intraarticular steroid injections; relief duration diminishing over time - Adverse Effects: None reported - Activities of Daily Living: Patient remains independent; functional status moderately impacted - Aberrant Drug Related Behaviors: None noted Procedure - Informed consent obtained for an intraarticular steroid injection in the left knee. - Patient placed in a sitting position. - [place] technique used with a 25-gauge needle advanced into the intraarticular space without pain on injection. - Administered 40 mg of Kenalog mixed with 3 mL of 0.2% ropivacaine. [facility] Medical History Rib pain on left side Restless leg syndrome Chronic pain syndrome Seizure Contusion of right patella Fall Muscle spasms of neck Lower extremity weakness Osteoarthritis of left knee Osteoarthritis of right knee Osteoarthritis of left ankle Arthritis of right knee Acute paronychia of toe Mild anemia Iron deficiency anemia Lumbar spinal stenosis Lumbar and sacral spondyloarthritis Migraine Major depressive disorder Cervical radiculopathy Osteoarthritis of knees, bilateral Urge incontinence Surgical History History of bariatric surgery S/P cervical spinal fusion Family History Father No problems noted. Mother No problems noted. 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 - Schedule follow-up visits every two to three months, adjusting based on the patient's feedback on relief duration. Patient was informed and verbally consented to the use of an ambient scribe for clinic note documentation during this visit. Discussion Notes During our discussion, I reviewed with the patient the ongoing management of her right knee osteoarthritis. We emphasized the importance of monitoring the duration of pain relief post-procedure to tailor follow-up visits appropriately, targeting every two to three months as a guideline. I thoroughly explained the procedural aspects of the intraarticular injection, including specific potential risks and anticipated benefits, to which the patient consented. We discussed expectations regarding variability in relief effectiveness, aligning treatment frequency with her tolerance and current symptomatic response. Ongoing independent functional status was acknowledged, advising the patient to remain observant of any changes that may warrant earlier intervention. Patient Instructions - Schedule your next appointment in two to three months, or sooner if you experience a reduction in pain relief duration. - Monitor your pain levels and function; report any significant changes. - Continue activities as tolerated, maintaining independence in daily tasks. Coding Level of Care Code Procedure Only Diagnoses Bilateral knee pain M25.561; M25.562
--- OUTSIDE RECORDS SUMMARY | 2024-10-12 11:56 | XMS_ITS | Referral Summary ---
Author Organization [facility] Address [address] [place] [address] Care Team Providers Care Field Mechanical Meter Tester Name Role Phone Iron Castano MD Primary Care Provider [phone] Allergies Active Allergy Reactions Criticality Noted Date [...] of Treatment Not on file Insurance MEDICARE [facility] Care Teams Field Mechanical Meter Tester Relationship Specialty Start Date End Date Iron Castano MD [address] [place] [address] PCP - General Family Medicine 12/30/23
== END 2024-10-12 11:24 | disposition home or self-care (01) ==
LOC: HO.PMC 10:48
PROVIDERS: PCP Family Medicine; Visit Provider Internal Medicine
DX: M25.561 Pain in right knee (principal); M25.562 Pain in left knee
CPT/HCPCS: 20610

== ENCOUNTER → 2024-10-12 10:47 | Outpatient (BNVA) | payer MEDICARE, MEDICAID, SELFPAY | PROVIDERS: PCP Family Medicine; Visit Provider Internal Medicine | DX: M25.562 Pain in left knee (principal); M17.11 Unilateral primary osteoarthritis, right knee | CPT/HCPCS: 20610; J2795; J3301 ==

== ENCOUNTER 2024-10-23 14:09 | Outpatient (AMB) | payer MEDICARE, MEDICAID, SELFPAY ==
--- NOTE | 2024-10-23 14:57 | A.OFFPC_ITS ---
Vital Signs 10/23/24 15:03 Height 5 ft 2 in Weight 257 lb 6 oz BMI 47.1 BP 102/60 Blood Pressure Location Rt brachial Position Sitting Respiration 16 Pulse 85 Pulse Source Pulse Oximeter Temp 98.0 F Temp Source Oral Pulse Oximetry (%) 95 Oxygen Delivery Method Room Air Intake Visit Reasons: f/u weight, chronic conditions Intake Note: follow up weight mangt Rn Trauma Required: No Allergies seafood Allergy (Verified 10/23/24 14:58) hives Medication List - Last Reconciled 10/23/24 by Iron Castano MD blood pressure monitor Automatic, Digital. Dx: I10. Daily As directed, 999 days/lifetime cholecalciferol (vitamin D3) (Vitamin D3) 10 mcg PO DAILY famotidine 40 mg PO BEDTIME 30 days gabapentin 900 mg (1.5 x 600 mg) PO Q8H 30 days hydrochlorothiazide 25 mg PO DAILY 90 days lamotrigine 150 mg PO BID levetiracetam 1,000 mg PO BID 90 days losartan 100 mg PO DAILY 90 days meloxicam 15 mg PO DAILY 30 days naloxone 4 mg/actuation (Narcan) 4 mg intranasal Q2M PRN omeprazole 40 mg (2 x 20 mg) PO DAILY oxycodone-acetaminophen 5-325 mg (Percocet) 1 tab PO QID PRN 30 days tirzepatide (weight loss) (Zepbound) 2.5 mg (0.5 mL) subcut QWEEK 28 days venlafaxine ER 75 mg PO DAILY venlafaxine ER 150 mg PO DAILY walker (Ultra-Light Rollator misc) Rolling walker with wheels, seat and brakes. Daily ?As directed, 999 days Tobacco use date assessed: 10/25/23 Dental Screening Dental Screen Date: 06/10/23 HPI f/u weight, chronic conditions HPI Details 69 y/o female presents to f/u weight. Ongoing difficulty losing weight. BMI today 47.1 kg/m^2. Unable to exercise much due to her knees. She has been following up with pain management for her knees. [facility] Medical History Rib pain on left side Restless leg syndrome Chronic pain syndrome Seizure Contusion of right patella Fall Muscle spasms of neck Lower extremity weakness Osteoarthritis of left knee Osteoarthritis of right knee Osteoarthritis of left ankle Arthritis of right knee Acute paronychia of toe Mild anemia Iron deficiency anemia Lumbar spinal stenosis Lumbar and sacral spondyloarthritis Migraine Major depressive disorder Cervical radiculopathy Osteoarthritis of knees, bilateral Urge incontinence Surgical History History of bariatric surgery S/P cervical spinal fusion Family History Father No problems noted. Mother No problems noted. 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 Current occupational exposures/hazards: No Cognitive needs: No Hearing needs: No Vision needs: No Questionnaire Thrive Questionnaire Date Thrive assessed: 05/19/24 I am a: Patient What is your living situation today?: I have a steady place to live Within the past 12 months, did the food you bought not last and you didn't have the money to get more?: Never true Within the past 12 months, did you worry whether your food would run out before you got money to buy more?: Never true Do you have trouble paying for medicines?: No Do you have trouble getting transportation to medical appointments?: I choose not to answer this question Do you have trouble paying your heating and electricity bill?: No Do you have trouble taking care of your child, family member or friend?: No Do you have trouble with day-to-day activities such as bathing, preparing meals, shopping, managing finances, etc.?: No Are you currently unemployed and looking for a job?: No Are you interested in more education?: No Please select the resources that you would like help with: None Currently or been in a relationship where the following occur: No concerns reported THRIVE Score: 0 ANGEL-7 AMB Questionnaire ANGEL-7 Date ANGEL - 7 assessed: 09/06/23 Source: Developed by Drs. Selvin Howell, Cary Barton, Valeriy Vieira and colleagues, with an educational carlene from [employer]. Review of Systems Const Denies chills, Denies fatigue, Denies fever(s), Denies headache(s) and Denies weakness ENT Denies dizziness and Denies headache(s) Card Denies chest pain, Denies lightheadedness, Denies dyspnea and Denies other (Palpitations) Resp Denies cough, Denies dyspnea, Denies wheezing and Denies other ( shortness of breath) Musc Denies numbness and Denies tingling Neuro Denies dizziness, Denies headache(s), Denies numbness, Denies tingling, Denies paresthesias and Denies weakness Psych Denies anxiety and Denies depression Endo Denies fatigue Aller/Immun Denies wheezing Physical exam (Primary Care) Vital Signs: Last Vital Signs Temp 98.0 F 10/23/24 15:03 Pulse 85 10/23/24 15:03 Resp 16 10/23/24 15:03 BP 102/60 10/23/24 15:03 Pulse Ox 95 10/23/24 15:03 Oxygen Delivery Method Room Air 10/23/24 15:03 BMI result Body Mass Index 47.1 Tobacco/Smoking Status: Tobacco use Status Tobacco use date assessed 10/25/23 10/23/24 15:01 Patient Tobacco Use Status Former Tobacco user 10/23/24 15:01 e-Cigarette/Vaping Use Never Used 10/23/24 15:01 Thrive Assessment: Date of Thrive Assessment Date Thrive assessed 05/19/24 10/23/24 15:01 Currently or been in a relationship where the following occur: No concerns reported Const General: no acute distress and well developed Nutritional Appearance: obese morbidly obese Orientation/consciousness: patient oriented x3 [facility]: Yes normocephalic and Yes atraumatic Eyes General: appearance normal, both eyes and all related structures Pupils: Equal, round and reactive pupils present EOM: EOMs intact bilaterally Resp Effort & Inspection: normal respiratory effort Auscultation: clear to auscultation bilaterally Cardio Rate: regular rate Rhythm: regular rhythm Heart sounds: S1 normal heart sound present, S2 normal heart sound present, no gallops, no murmurs and no rubs Neuro General: patient oriented x3 and gait normal Cranial nerves: Yes Equal, round and reactive pupils present Psych Affect: normal affect Coding Level of Care Code Est Pt Level 3 (97261) Diagnoses Morbid obesity with BMI of 45.0-49.9, adult E66.01; Z68.42 Bilateral knee pain M25.561; M25.562 Assessment & Plan Assessment & Plan (1) Morbid obesity with BMI of 45.0-49.9, adult: Code(s): E66.01 - Morbid (severe) obesity due to excess calories; Z68.42 - Body mass index [BMI] 45.0-49.9, adult Category: Medical Plan: Morbid?obesity?with?BMI?greater?than?45?and?severe?bilateral?knee?osteoarthritis ?and?pain. Patient?has?difficulty?with?exercise. She?has?tried?calorie?counting?in?decreased?calorie?diet. Referring?patient?to?j2ee software engineer Had?tried?a?script?of?Ozempic She?is?awaiting answer?on?prior?authorization?for?Zepbound (2) Bilateral knee pain: Code(s): M25.561 - Pain in right knee; M25.562 - Pain in left knee Category: Medical Plan: As?above,?patient?required?knee?replacements. Needs?to?lose?weight?prior?to?surgery. Followed?by?pain?management?and?p ain?appears?controlled?on?current?medications?including?Percocet,?gabapentin?and ?meloxicam. Orders: Referrals Medical Nutrition Therapy Referral E66.01 - Morbid (severe) obesity due to excess calories, Z68.42 - Body mass index [BMI] 45.0-49.9, adult
[2024-10-23 15:03] VITALS: BP 102/60; PULSE 85; RESP 16; TEMP 36.7; O2SAT 95; BMI 47.1
== END 2024-10-23 15:41 | disposition home or self-care (01) ==
LOC: HO.HMCFM 14:10
PROVIDERS: PCP Family Medicine; Visit Provider Family Medicine
DX: E66.01 Morbid (severe) obesity due to excess calories (principal); Z68.42 Body mass index [BMI] 45.0-49.9, adult; M25.561 Pain in right knee; M25.562 Pain in left knee

== ENCOUNTER → 2024-10-23 14:09 | Outpatient (BNVA) | payer MEDICARE, MEDICAID, SELFPAY | PROVIDERS: PCP Family Medicine; Visit Provider Family Medicine | DX: E66.01 Morbid (severe) obesity due to excess calories (principal); Z68.42 Body mass index [BMI] 45.0-49.9, adult; M25.561 Pain in right knee; M25.562 Pain in left knee; Z71.3 Dietary counseling and surveillance | CPT/HCPCS: 99212 ==

== ENCOUNTER 2024-11-12 13:45 | Outpatient (AMB) | payer MEDICARE, MEDICAID, SELFPAY ==
--- OUTSIDE RECORDS SUMMARY | 2024-11-12 13:50 | XMS_ITS | Patient Health Record ---
Author Organization [facility] Address [address] [place] [id number] Care Team Providers Care Car Servicer Name Role Phone Iron Castano Primary Care Provider UnavailSelvin Figueroa Unavailable [phone] Allergies Allergen (clinical drug ingredient) Drug/Non Drug Allergy documented on EMR Reaction Allergy Type Onset Date Status Seafood seafood (uncoded) Unknown Allergy Ac tive Reason For Referral No Information Medications Medication SIG (Take, Route, Frequency, Duration) Notes Start Date End Date Status Vitamin D 25 MCG (1000 UT) 1 tablet Oral ly Once a day Active Omeprazole 20 MG 1 capsule 30 minutes before morning meal Orally Once a day Active HYDROmorphone HCl 2 MG 2tablet in the am and 1 in the pm Orally daily Active Naproxen 500 MG 1 tablet with food o r milk as needed Orally every 12 hrs Active lamoTRIgine 150 MG 1 tablet Orally twic e a day Active Gabapentin 600 MG 1 tablet Orally thre e times a day Active Ranitidine HCl 75 MG 1 tablet Orally Onc e a day Active FLUoxetine HCl 20 MG 3capsule Orally Onc e a day Active Immunizations Vaccine Route Administration Date Status Comme nts Influenza Unknown 02/19/2019 Administered Problems Problem Type SNOMED Code ICD Code Onset Dates Problem Status W/U Status Risk Notes Problem 107061364 Encounter for screening for malignant neoplasm of colon (Z12.11) Active confirmed Problem Screening for malignant neoplasm of rectum (868426092) Encounter for screening for malignant neoplasm of rectum (Z12.12) Active confirmed Problem 897090430 Gastroesophageal reflux disease without esophagitis (K21.9) Active confirmed Problem [id number] Preprocedural examination (Z01.818) Active confirmed Plan Of Treatment Future Test Test Name Order Date COLONOSCOPY 07/21/2019 Insurance Providers Payer Name Payer Address Payer Phone Subscriber Number Group Number Insured Name Patient Relationship to Insured Coverage Start Date Coverage End Date [facility] [address] [facility] [place] [phone] [id number] LUIS ANTONIO CARSON Self - patient is the insured Medical (General) History Medical History History ICD Code 02/17/2009 Colonoscopy--nega tive except for mild diverticulosis and internal hemorrhoids GERD-Neg EGD in 02/2009 except for a sma ll HH Depression Pain in arms and legs/feet f rom the C-spine disc disease before her surgery-Dr. Vargas Denies CA,DM,CVA,Lung disease,renal dise ase Surgical History Surgery Date(Month/Year) Lap band--Dr. Doyle--lost approx 40#, but gained it back 2010 Carpal tunnel both wrists 2009 Vaginal polyps 2012 07 C-spine discs removed 05/2015
--- OUTSIDE RECORDS SUMMARY | 2024-11-12 13:50 | XMS_ITS | Referral Summary ---
Author Organization [facility] Address [address] [place] [address] Care Team Providers Care Restaurant Hourly Team Member Name Role Phone Iron Castano MD Primary Care Provider [phone] Allergies Active Allergy Reactions Criticality Noted Date [...] of Treatment Not on file Insurance MEDICARE [facility] Care Teams Restaurant Hourly Team Member Relationship Specialty Start Date End Date Iron Castano MD [address] [place] [address] PCP - General Family Medicine 12/30/23
--- NOTE | 2024-11-12 13:54 | A.OFFVIS_ITS ---
Vital Signs 11/12/24 14:01 Height 5 ft 2 in Weight 255 lb 2 oz BMI 46.7 BP 139/70 Blood Pressure Location Lt brachial Position Sitting Pulse 102 H Pulse Source Pulse Oximeter Intake Visit Reasons: Pill Count Intake Note: Ivania comes in today for a pill count to oxycodone-acetaminophen, patient should have 60 tablets and presents with 70 tablets which she last took today 11/12/24 at 12pm. Pain today 11/19 Cinder Block Maker Required: No Accompanied by: Self / Same As Patient Allergies seafood Allergy (Verified 11/12/24 14:01) hives HPI Comments Details: Ivania presents today in the office for a pill count. She is supposed to have #60 oxycodone-acetaminophen 5-325 mg pills and in her possession has #70 pills. This demonstrates a responsible attitude in regards to her medication regimen. She reports mild to moderate analgesia with no noted side effects except occasional constipation for which she uses Miralax and stool softener. Denies any recent cough, cold, infection, fever or other significant changes in medical history since last office visit. She continues to face insurance hurdles with weight loss medications (Zepbound). Patient is not candidate for knee replacement due to BMI>40. She recently underwent cortisone knee injections which were partially effective but allowed her to walk longer distances. Patient continues to adjust her lifestyle and diet to loose weight in order to qualify for total knee replacement. Past procedures 09/25/24 (right) and 10/12/24 (left) cortisone knee injections-60% ongoing pain relief 07/20/24 (right) and 07/27/24 (left) cortisone knee injections-50% pain relief 05/21/24: Left diagnostic C3-C4-C5 MBB-60% pain relief for 6 hours 01/01/24: Left knee Durolane injection: relief for a few days. 12/11/23: Right knee Durolane injection: No significant relief. 10/03/23: Interlaminar epidural steroid injection, C7-T1, left parasaggital: 75 % relief. 09/16/23: Left knee injection: % relief. 09/06/23: Right knee injection, US guided: 100 % relief. 04/26/23: Bilateral landmark guided intraarticular knee injection: 50% relief. 01/04/23: Right knee injection.: 70% relief for 3 months. 05/02/22: Right Sprint PNS, Saphenous Nerve ? 90% relief that is ongoing. 05/10/21: Right L3-L4 TFESI - 60% pain relief 07/12/21: Left L3-L4 TFESI - 50% pain relief 11/22/21: Left diagnostic saphenous nerve block-50% pain relief for 24 hours. 12/06/21: Right diagnostic GNB-60% pain relief for 24 hours 02/21/22: Right diagnostic SNB at adductor canal- 80% pain relief for 3 hours. 02/28/22: Left diagnostic SNB at adductor canal-60% pain relief for 3 hours. [facility] Medical History MARILY (obstructive sleep apnea) Rib pain on left side Restless leg syndrome Chronic pain syndrome Seizure Contusion of right patella Fall Muscle spasms of neck Lower extremity weakness Osteoarthritis of left knee Osteoarthritis of right knee Osteoarthritis of left ankle Arthritis of right knee Acute paronychia of toe Mild anemia Iron deficiency anemia Lumbar spinal stenosis Lumbar and sacral spondyloarthritis Migraine Major depressive disorder Cervical radiculopathy Osteoarthritis of knees, bilateral Urge incontinence Surgical History History of bariatric surgery S/P cervical spinal fusion Family History Father No problems noted. Mother No problems noted. 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 Morbidly obese. Alert and oriented. Mood and affect appropriate. Follows and participates in conversation appropriately. Respiratory effort is unlabored. No cough. Able to transition from sit to stand unassisted. Uses walker with seat with ambulation. Ambulates with bilaterally normal heel strike and toe off. Eyes General: appearance normal, both eyes and all related structures Psych Appearance: grossly normal Mental Status: mental status grossly normal Speech and movement: Normal speech and movement present and Clear speech present Affect: normal affect Attitude: cooperative Thought process: Normal thought process present Thought content: Normal thought content present, suicidality (none), no hallucinations and Depressive thoughts present Insight: Good insight present (Psych) Judgement: Good judgement present (Psych) Results Reviewed Results Reviewed: No new imaging reports are available for review. Assessment & Plan Assessment & Plan (1) Lumbar and sacral spondyloarthritis: Code(s): M47.817 - Spondylosis without myelopathy or radiculopathy, lumbosacral region Category: Medical (2) Cervical post-laminectomy syndrome: Code(s): M96.1 - Postlaminectomy syndrome, not elsewhere classified Category: Medical (3) Bilateral chronic knee pain: Code(s): M25.561 - Pain in right knee; M25.562 - Pain in left knee; G89.29 - Other chronic pain Category: Medical (4) Osteoarthritis of knees, bilateral: Code(s): M17.0 - Bilateral primary osteoarthritis of knee Category: Medical (5) Chronic pain syndrome: Code(s): G89.4 - Chronic pain syndrome Category: Medical (6) Opioid contract exists: Code(s): Z79.891 - residential (current) use of opiate analgesic Category: Medical (7) Morbid obesity with BMI of 45.0-49.9, adult: Code(s): E66.01 - Morbid (severe) obesity due to excess calories; Z68.42 - Body mass index [BMI] 45.0-49.9, adult Category: Medical Plan Patient has shown accountability for her medication regimen and the pill count was accurate. The patient reported no noted side effects with adequate analgesia. There is no evidence of misuse, abuse or diversion at this time. [employer] reviewed. Script sent for oxycodone-acetaminophen with an advanced date of 11/27/24. Patient has Narcan at home. Will resubmit PA for Zepbound injections to help with weight loss. Patient is also planning to see Intelligent Systems Engineer. All questions and concerns were answered and patient agreed with the plan. Follow up in one month for pill count and sooner as needed. Medications: Refilled oxycodone-acetaminophen 5-325 mg (Percocet) Partial Fill upon patient request. 1 tab PO QID PRN 120 tabs 0RF pain 30 days G89.29 - Other chronic pain, G89.4 - Chronic pain syndrome, M25.561 - Pain in right knee, M25.562 - Pain in left knee, M47.817 - Spondylosis without myelopathy or radiculopathy, lumbosacral region tirzepatide (weight loss) (Zepbound) for 4 weeks 2.5 mg (0.5 mL) subcut QWEEK 2 mL 3RF 28 days E66.01 - Morbid (severe) obesity due to excess calories, G47.33 - Obstructive sleep apnea (adult) (pediatric), G89.29 - Other chronic pain, M25.561 - Pain in right knee, M25.562 - Pain in left knee, Z68.41 - Body mass index [BMI] 40.0-44.9, adult Coding Level of Care Code Est Pt Level 4 (92313) Complex EM visit Add On G2211 Diagnoses Lumbar and sacral spondyloarthritis M47.817 Cervical post-laminectomy syndrome M96.1 Bilateral chronic knee pain M25.561; M25.562; G89.29 Osteoarthritis of knees, bilateral M17.0 Chronic pain syndrome G89.4 Opioid contract exists Z79.891 Morbid obesity with BMI of 45.0-49.9, adult E66.01; Z68.42
[2024-11-12 14:01] VITALS: BP 139/70; PULSE 102; BMI 46.7
== END 2024-11-12 14:12 | disposition home or self-care (01) ==
LOC: HO.PMC 13:46
PROVIDERS: PCP Family Medicine; Visit Provider Nurse Practitioner Family
DX: M47.817 Spondylosis without myelopathy or radiculopathy, lumbosacral region (principal); M96.1 Postlaminectomy syndrome, not elsewhere classified; M25.561 Pain in right knee; M25.562 Pain in left knee; G89.29 Other chronic pain; M17.0 Bilateral primary osteoarthritis of knee; G89.4 Chronic pain syndrome; Z79.891 Long term (current) use of opiate analgesic; E66.01 Morbid (severe) obesity due to excess calories; Z68.42 Body mass index [BMI] 45.0-49.9, adult
CPT/HCPCS: 99214; G2211

== ENCOUNTER → 2024-11-12 13:45 | Outpatient (BNVA) | payer MEDICARE, MEDICAID, SELFPAY | PROVIDERS: PCP Family Medicine; Visit Provider Nurse Practitioner Family | DX: Z51.81 Encounter for therapeutic drug level monitoring (principal); M47.817 Spondylosis without myelopathy or radiculopathy, lumbosacral region; M96.1 Postlaminectomy syndrome, not elsewhere classified; M17.0 Bilateral primary osteoarthritis of knee; G89.29 Other chronic pain; E66.01 Morbid (severe) obesity due to excess calories; Z68.42 Body mass index [BMI] 45.0-49.9, adult; Z79.891 Long term (current) use of opiate analgesic | CPT/HCPCS: 99212 ==

== ENCOUNTER 2024-11-16 13:04 | Outpatient (AMB) | payer MEDICARE, MEDICAID, SELFPAY ==
[2024-11-16 13:19] VITALS: PULSE 86; O2SAT 96; BMI 46.6
--- NOTE | 2024-11-16 13:19 | MHC.OFFVIS ---
Vital Signs 11/16/24 13:19 Height 5 ft 2 in Weight 255 lb BMI 46.6 Pulse 86 Pulse Source Pulse Oximeter Pulse Oximetry (%) 96 Oxygen Delivery Method Room Air Intake Visit Reasons: 6 mnts Intake Note: Patient following up on seizures Allergies seafood Allergy (Verified 11/16/24 13:22) hives HPI Comments Details: 69 y/o female patient presents for follow up of seizure.No seizure like episode since August 2023. 48 hr EEG The first day was normal 2 nd day showed episodes of right temporal slowing and periodic discharges c/w cortical dysfunction. she is compliant with medications Keppra 1000 mg BId She is also takes lamotrigine 150 mg BID and gabapentin 900 TID. [facility] Medical History MARILY (obstructive sleep apnea) Rib pain on left side Restless leg syndrome Chronic pain syndrome Seizure Contusion of right patella Fall Muscle spasms of neck Lower extremity weakness Osteoarthritis of left knee Osteoarthritis of right knee Osteoarthritis of left ankle Arthritis of right knee Acute paronychia of toe Mild anemia Iron deficiency anemia Lumbar spinal stenosis Lumbar and sacral spondyloarthritis Migraine Major depressive disorder Cervical radiculopathy Osteoarthritis of knees, bilateral Urge incontinence Surgical History History of bariatric surgery S/P cervical spinal fusion Family History Father No problems noted. Mother No problems noted. 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 Current occupational exposures/hazards: No Cognitive needs: No Hearing needs: No Vision needs: No Review of Systems ENT Reports Normal hearing present Neuro Reports Normal hearing present Physical Exam Vital Signs: Last Vital Signs Pulse 86 11/16/24 13:19 Pulse Ox 96 11/16/24 13:19 Oxygen Delivery Method Room Air 11/16/24 13:19 BMI result Body Mass Index 46.6 Const General: cooperative Nutritional Appearance: obese Orientation/consciousness: patient oriented x3 Limitations: ambulation with walker HEENT Throat: Yes other (mallampati grade 4) Neck Neck: Yes full ROM and Yes supple Resp Effort & Inspection: normal respiratory effort and able to speak in complete sentences Neuro General: patient oriented x3 Cranial nerves: Yes Bilaterally intact EOM present, Yes Normal facial strength present, Yes Midline tongue present, Yes Symmetric palate elevation present, Yes Normal hearing present, Yes Ability to bilaterally rotate head present and Yes Ability to bilaterally elevate shoulders present Cognition (Neuro): normal cognition Gait exam (Neuro): Assisted gait required Gait assisted method: walker Motor exam (neuro): 5/5 motor strength present throughout, Pronator motor function not present and no tremor noted Psych Appearance: grossly normal Mental Status: mental status grossly normal Affect: normal affect Attitude: cooperative Assessment & Plan Assessment & Plan (1) Seizure: Code(s): R56.9 - Unspecified convulsions Category: Medical Plan Advised patient to continue to take Keppra 1000 mg BID to manage seizure. Continue to take lamotrigine 150 mg BID. Continue to take gabapentin 900 mg TID to manage pain and restless legs. Pt does not drive. 48 hr EEG showed focal abnormality in right temporal region Coding Level of Care Code Est Pt Level 4 (90402) Diagnoses Seizure R56.9
--- OUTSIDE RECORDS SUMMARY | 2024-11-16 13:32 | XMS_ITS | Patient Health Record ---
Author Organization [facility] Address [address] [place] [address] Care Team Providers Care Sleeper Cutter Name Role Phone Iron Castano Primary Care Provider UnavailSelvin Figueroa Unavailable [phone] Allergies Allergen (clinical drug ingredient) Drug/Non Drug [...] Problem Status W/U Status Risk Notes Problem [id number] Encounter for screening for malignant neoplasm of colon (Z12.11) Active confirmed Problem Screening for malignant neoplasm of rectum (695304112) Encounter for screening for malignant neoplasm of rectum (Z12.12) Active confirmed Problem [id number] Gastroesophageal reflux disease without esophagitis (K21.9) Active confirmed Problem [id number] Preprocedural examination (Z01.818) Active confirmed Plan Of Treatment Future Test Test Name Order Date COLONOSCOPY 07/21/2019 Insurance Providers Payer Name Payer Address Payer Phone Subscriber Number Group Number Insured Name Patient Relationship to Insured Coverage Start Date Coverage End Date [facility] [address] [facility] [place] [phone] [id number] LUIS ANTONIO CARSON Self - patient is the insured Medical (General) History Medical History History ICD Code 02/17/2009 Colonoscopy--nega tive except for mild diverticulosis and internal hemorrhoids GERD-Neg EGD in 02/2009 except for a sma ll HH Depression Pain in arms and legs/feet f rom the C-spine disc disease before her surgery-Dr. Vargas Denies [place],DM,CVA,Lung disease,renal dise ase Surgical History Surgery Date(Month/Year) Lap band--Dr. Doyle--lost approx 40#, but gained it back 2010 Carpal tunnel both wrists 2009 Vaginal polyps 2012 07 C-spine discs removed 05/2015
--- OUTSIDE RECORDS SUMMARY | 2024-11-16 13:32 | XMS_ITS | Referral Summary ---
Author Organization [facility] Address [address] [place] [address] Care Team Providers Care Dock Associate Name Role Phone Iron Castano MD Primary Care Provider [phone] Allergies Active Allergy Reactions Criticality Noted Date [...] of Treatment Not on file Insurance MEDICARE [facility] Care Teams Dock Associate Relationship Specialty Start Date End Date Iron Castano MD [address] [place] [address] PCP - General Family Medicine 12/30/23
== END 2024-11-16 13:42 | disposition home or self-care (01) ==
LOC: HO.HSMS 13:04
PROVIDERS: PCP Family Medicine; Visit Provider Psychiatry & Neurology Neurology
DX: R56.9 Unspecified convulsions (principal)
CPT/HCPCS: 99214

== ENCOUNTER → 2024-11-16 13:04 | Outpatient (BNVA) | payer MEDICARE, MEDICAID, SELFPAY | PROVIDERS: PCP Family Medicine; Visit Provider Psychiatry & Neurology Neurology | DX: R56.9 Unspecified convulsions (principal); Z79.899 Other long term (current) drug therapy | CPT/HCPCS: 99212 ==

== ENCOUNTER 2024-11-29 11:45 | Inpatient (IN) | payer MEDICARE, MEDICAID, SELFPAY ==
[2024-11-29] VITALS (10 sets, daily range): BP systolic 105–130; BP diastolic 38–54; PULSE 89–138; RESP 12–153; TEMP 36.7–37.3; O2SAT 87–97; BMI 45.5
--- NOTE | 2024-11-29 | ECG_ITS ---
Test Reason : tacvhycardia s/p duo neb Blood Pressure : */* mmHG Vent. Rate : 150 BPM Atrial Rate : 150 BPM P-R Int : 126 ms QRS Dur : 88 ms QT Int : 348 ms P-R-T Axes : 84 20 54 degrees QTcB Int : 549 ms Sinus tachycardia Cannot rule out Inferior infarct , age undetermined Abnormal ECG When compared with ECG of 29-Nov-2024 16:14, Vent. rate has increased by 69 bpm Referred By: Alicja Smith Electronically Signed By: Chucky Alarcon
--- NOTE | ~2024-11-29 | XR_ITS ---
CLINICAL HISTORY: cough, shortness of breath Single view of the chest. COMPARISON: None provided. FINDINGS: Anterior cervical fusion hardware along the lower cervical spine. Normal heart size. No consolidation. No pleural effusion or pneumothorax. Mild spondylosis. No fracture identified. IMPRESSION: 1. No consolidation. This document has been electronically signed by: Issa Carlisle MD on 11/29/2024 13:07:13
--- NOTE | ~2024-11-29 | CT_ITS ---
CLINICAL HISTORY: hypoxia, cough, SOB CT chest with IV contrast. COMPARISON: None provided. FINDINGS: Visualized thyroid is unremarkable. No supraclavicular or axillary lymphadenopathy. Ascending aorta and main pulmonary artery are normal in caliber. No pericardial effusion. Aortic annular calcifications. Small hiatal hernia. Fluid present within the mid to distal esophagus. No mediastinal or hilar lymphadenopathy. No pleural effusion. No consolidation. Minimal linear atelectasis versus scarring within the lingula. Trachea and central airways are clear. No significant bronchial wall thickening. No bronchiectasis. Left adrenal nodule measuring 1.0 cm, indeterminate. Right adrenal nodule measuring 2.1 cm with Hounsfield units of 36, indeterminate. Anterior cervical fusion hardware along the lower cervical spine partially visualized. Mild spondylosis. No acute fracture or suspicious bone lesion. Degenerative changes of the bilateral shoulders. IMPRESSION: 1. No evidence of pneumonia. 2. Small hiatal hernia. Fluid present within the mid to distal esophagus can be associated with gastroesophageal reflux disease. 3. Indeterminate adrenal nodules measuring 1.0 cm on the left and 2.1 cm on the right. Recommend comparison with prior imaging if available. If none available, recommend adrenal protocol CT or MR for further characterization. This document has been electronically signed by: Issa Carlisle MD on 11/29/2024 20:02:09
--- NOTE | 2024-11-29 11:54 | ED.SOB ---
HPI - SOB/Dyspnea General Chief Complaint: Upper Respiratory Symptoms Stated Complaint: chest cold, SOB Time Seen by Provider: 11/29/24 12:42 Source: patient Mode of arrival: ambulatory Limitations: no limitations History of Present Illness ED Provider: mane morley np HPI Narrative: Patient is a 69-year-old female who presents emergency department. She reports over the past 8 days she has been experiencing a productive cough in the morning and at night but during the day symptoms improve. She endorses having shortness of breath the only following excessive coughing episodes. Otherwise is not having shortness of breath routinely, nor dyspnea on exertion. Denies any lower extremity pain redness or swelling, history of VTE/malignancy. No associated chest pain. Denies having any fevers or chills. Denies headache, dizziness, sore throat, nausea, vomiting, abdominal pain. Has a history of GERD but feels as though her symptoms have been well controlled. Related Data Home Medications ?Medication ?Instructions ?Recorded ?Confirmed lamotrigine 150 mg tablet 150 mg PO BID 03/21/20 10/23/24 cholecalciferol (vitamin D3) 10 10 mcg PO DAILY 07/03/23 10/23/24 mcg (400 unit) capsule (Vitamin D3) venlafaxine 75 mg capsule,extended 75 mg PO DAILY 12/24/23 10/23/24 release 24 hr venlafaxine 150 mg 150 mg PO DAILY 05/14/24 10/23/24 capsule,extended release 24 hr Previous Rx's ?Medication ?Instructions ?Recorded blood pressure monitor #1 ea 06/10/23 omeprazole 20 mg capsule,delayed 40 mg (2 x 20 mg) PO DAILY #180 01/24/24 release caps walker (Ultra-Light Rollator misc) #1 ea 02/24/24 levetiracetam 1,000 mg tablet 1,000 mg PO BID 90 days #180 tabs 04/29/24 losartan 100 mg tablet 100 mg PO DAILY 90 days #90 tabs 06/09/24 naloxone 4 mg/actuation nasal 4 mg intranasal Q2M PRN opioid 07/17/24 spray (Narcan) overdose #2 ea hydrochlorothiazide 25 mg tablet 25 mg PO DAILY 90 days #90 tabs 09/10/24 gabapentin 600 mg tablet 900 mg (1.5 x 600 mg) PO Q8H pain 10/19/24 30 days #135 tabs meloxicam 15 mg tablet 15 mg PO DAILY 30 days #30 tabs 10/26/24 oxycodone-acetaminophen 5 mg-325 1 tab PO QID PRN pain 30 days #120 11/12/24 mg tablet (Percocet) tabs tirzepatide (weight loss) 2.5 2.5 mg (0.5 mL) subcut QWEEK 28 11/12/24 mg/0.5 mL subcutaneous pen days #2 mL injector (Zepbound) famotidine 40 mg tablet 40 mg PO BEDTIME 30 days #90 tabs 11/26/24 azithromycin 250 mg tablet See Rx Instructions PO .COMPLEX #6 11/29/24 tabs Allergies Allergy/AdvReac Type Severity Reaction Status Date / Time seafood Allergy hives Verified 11/29/24 11:56 Review of Systems Review of Systems: Yes all other systems are reviewed and are negative [facility] Past Medical History Attestation statement: The following information was validated with the patient. Source: old records reviewed Medical History MARILY (obstructive sleep apnea) Rib pain on left side Restless leg syndrome Chronic pain syndrome Seizure Contusion of right patella Fall Muscle spasms of neck Lower extremity weakness Osteoarthritis of left knee Osteoarthritis of right knee Osteoarthritis of left ankle Arthritis of right knee Acute paronychia of toe Mild anemia Iron deficiency anemia Lumbar spinal stenosis Lumbar and sacral spondyloarthritis Migraine Major depressive disorder Cervical radiculopathy Osteoarthritis of knees, bilateral Urge incontinence Surgical History History of bariatric surgery S/P cervical spinal fusion Family History Family History Father No problems noted. Mother No problems noted. 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 No acute distress.?Normal affect. Eyes: Pupils equal, round and reactive to light.? ENT: TM normal bilaterally. Pharynx normal.??No tonsillar hypertrophy or exudates. Uvula midline. No trismus. No drooling. No evidence of postnasal drip. Nasal turbinates are normal bilaterally Neck: Normal inspection.? Neck supple.??No cervical adenopathy CVS: Heart sounds normal. Normal heart rate and rhythm.? Pulses normal.?? Respiratory: No respiratory distress.? Lung sounds clear to auscultation bilaterally?? Abdomen: Soft and non-tender. Normoactive bowel sounds. Skin: Skin warm and dry.? Normal skin color.? ? Extremities: No lower extremity edema.? Neuro: Moves all extremities spontaneously. Sensation intact bilaterally. No motor deficits. Ambulates with normal steady gait. Course Course Course Narrative: Joycehernan Barnes TURN LASTER 11/29 3470 This is a rapid medical exam. Deferred additional HPI, ROS, PE to primary provider. 69 yo female with PMH of chronic pain syndrome, seizure disorder with a cough, shortness of breath x 8 days. Will obtain x-ray, viral testing. VSS Medical Decision Making Medical Decision Making MDM Narrative: Patient is a 69-year-old female with past medical history of MARILY, restless leg syndrome, iron-deficiency anemia, migraine, seizure, osteoarthritis, chronic pain syndrome with history of lumbar stenosis and cervical radiculopathy who presents emergency department for evaluation of a cough as per HPI. Overall she is well-appearing, nontoxic, afebrile. She is ambulatory with a steady gait, however she is noted to have room air hypoxia down to 89 %, with dyspnea on exertion. She had a chest x-ray obtained which is without consolidation or infiltrate to suggest pneumonia, no pleural effusions and no clinical evidence of CHF such as pedal edema. Lung sounds are clear to the apices bilaterally. Not consistent with pneumonia, lower suspicion for CHF at this time. However given the hypoxia, plan to obtain serum labs, ECG, CT of the chest for further evaluation. Differential Diagnosis Differential Diagnoses: The differential diagnosis associated with the presentation includes ( See narrative above) Admission/Observation Consideration of admission/observation: Escalation of care including admission/observation considered ( see narrative above) Lab Data MDM Lab Attestation statement: I reviewed the patient's lab results. ( see narrative above) Labs: Lab Results 11/29/24 Range/Units 12:04 Influenza Type A (PCR) NEGATIVE (Negative) Influenza Type B (PCR) NEGATIVE (Negative) RSV RNA Qual (PCR) NEGATIVE (Negative) SARS-CoV-2 RNA (RT-PCR) NEGATIVE (Negative) Independent Interpretation I performed an independent interpretation of an: Plain X-Ray (See narrative above) Radiology Impression Discussion of test interpretation with radiology: I have reviewed the radiologist's reading. Radiologist Impression: Single view of the chest. COMPARISON: None provided. FINDINGS: Anterior cervical fusion hardware along the lower cervical spine. Normal heart size. No consolidation. No pleural effusion or pneumothorax. Mild spondylosis. No fracture identified. IMPRESSION: 1. No consolidation. Prescription Management I considered prescription management with: Pain Medication ( acetaminophen/ibuprofen) and Antibiotic Discharge Plan Discharge Clinical Impression: Bronchitis Instructions: Acute Bronchitis (ED) Prescriptions: New azithromycin 250 mg tablet See Rx Instructions .ROUTE .COMPLEX Qty: 6 0RF Rx Instructions: For 250 mg dose pack: take 500 mg today (day 1), then 250 mg for 4 days (days 2-5) No Action omeprazole 20 mg capsule,delayed release(DR/EC) 40 mg PO DAILY Qty: 180 3RF (DME) Ultra-Light Rollator Misc See Rx Instructions .Route Qty: 1 0RF Rx Instructions: Rolling walker with wheels, seat and brakes. Daily ?As directed, 999 days levetiracetam 1,000 mg tablet 1,000 mg PO BID 90 Days Qty: 180 3RF losartan 100 mg tablet 100 mg PO DAILY 90 Days Qty: 90 2RF hydrochlorothiazide 25 mg tablet 25 mg PO DAILY 90 Days Qty: 90 0RF gabapentin 600 mg tablet 900 mg PO Q8H 30 Days Qty: 135 3RF Rx Instructions: Discontinue Lyrica. May cause drowsiness. meloxicam 15 mg tablet 15 mg PO DAILY 30 Days Qty: 30 2RF famotidine 40 mg tablet 40 mg PO BEDTIME 30 Days Qty: 90 0RF cholecalciferol (vitamin D3) [Vitamin D3] 10 mcg (400 unit) Capsule 10 mcg PO DAILY lamotrigine 150 mg tablet 150 mg PO BID (DME) blood pressure monitor Kit See Rx Instructions .ROUTE .MEDSUPPLY Qty: 1 0RF Rx Instructions: Automatic, Digital. Dx: I10. Daily As directed, 999 days/lifetime venlafaxine 75 mg capsule,extended release 24hr 75 mg PO DAILY Durolane 60 mg/3 mL syringe 60 mg intra-articular ONCE Qty: 3 0RF naloxone [Narcan] 4 mg/actuation spray,non-aerosol 4 mg intranasal Q2M PRN (Reason: opioid overdose) Qty: 2 0RF Rx Instructions: spray 1 dose into ONE nostril; alternate nostrils w each dose until help arrives Zepbound 2.5 mg/0.5 mL pen injector 2.5 mg subcut QWEEK 28 Days Qty: 2 3RF Rx Instructions: for 4 weeks oxycodone-acetaminophen [Percocet] 5-325 mg tablet 1 tab PO QID PRN (Reason: pain) 30 Days Qty: 120 0RF Rx Instructions: Partial Fill upon patient request. venlafaxine 150 mg capsule,extended release 24hr 150 mg PO DAILY Referrals: Iron Castano MD [Primary Care Provider, Internal Medicine] Print Language: Italian
--- OUTSIDE RECORDS SUMMARY | 2024-11-29 12:15 | XMS_ITS | Referral Summary ---
Author Organization [facility] Address [address] [place] [address] Care Team Providers Care Client Solutions Manager Name Role Phone Iron Castano MD Primary Care Provider [phone] Allergies Active Allergy Reactions Criticality Noted Date [...] of Treatment Not on file Insurance MEDICARE [facility] Care Teams Client Solutions Manager Relationship Specialty Start Date End Date Iron Castano MD [address] [place] [address] PCP - General Family Medicine 12/30/23
[2024-11-29 12:53] LABS: Resp Syncy Virus RNA Qual PCR NEGATIVE (Negative); SARS COV2 PCR INHOUSE NEGATIVE (Negative)
--- NOTE | 2024-11-29 15:01 | ECG_ITS ---
Test Reason : sob Blood Pressure : */* mmHG Vent. Rate : 81 BPM Atrial Rate : 81 BPM P-R Int : 152 ms QRS Dur : 84 ms QT Int : 392 ms P-R-T Axes : 70 21 60 degrees QTcB Int : 455 ms Normal sinus rhythm Normal ECG When compared with ECG of 03-Jul-2023 15:06, No significant change was found Referred By: Pat Miller Electronically Signed By: Chucky Alarcon
[2024-11-29 15:31] LABS: MANUAL DIFF FLAG NO
[2024-11-29 15:33] LABS: Hematocrit 36.5 % (37.0-47.0); Hemoglobin 11.6 g/dl (12.0-16.0); Imm Gran Abs Auto 0.05 X10*3/uL (0.00-0.03); Imm Gran Pct Auto 0.6 % (0.0-0.4); Lymphocytes Absolute Auto 2.2 X10*3/uL (1.2-4.9); Mean Corpuscular HGB Conc 31.8 g/dl (31.0-35.0); Mean Corpuscular Hemoglobin 26.4 pg (27.0-33.0); Mean Corpuscular Volume 83.1 fL (80.0-98.0); NRBC Abs Auto 0.000 X10*3/uL (0.0-0.012); NRBC Pct Auto 0.0 /100WBC (0.0-0.2); Platelet Count 268 X10*3/uL (160-400); Red Blood Count 4.39 X10*6/uL (4.20-5.50); White Blood Count 8.5 X10*3/uL (4.8-10.8)
[2024-11-29 15:48] LABS: D Dimer High Sensitivity 161 NG/ML
[2024-11-29 15:51] LABS: Alanine Aminotransferase 14 U/L (0-31); Albumin Level 4.4 g/dL (3.5-5.0); Alkaline Phosphatase 88 U/L (39-117); Anion Gap 13 (12-20); Aspartate Amino Transferase 22 U/L (5-31); Blood Urea Nitrogen 6 mg/dL (9-16); Calcium 9.4 mg/dL (8.4-10.2); Carbon Dioxide 30 mmol/L (22-29); Chloride 106 mmol/L (96-108); Creatinine Clr Calc Pharmacy 96.8; Estimated Glomerular Filt Rate > 60; Magnesium 2.0 mg/dL (1.6-2.6); Potassium 4.6 mmol/L (3.3-5.1); Sodium 144 mmol/L (135-145); Total Protein 7.1 g/dL (6.5-8.0)
[2024-11-29 15:57] LABS: B Type Natriuretic Peptide 23 pg/mL (<100)
[2024-11-29 15:58] LABS: Troponin-I High Sensitivity < 2.7 ng/L (<3.5-17.0)
[2024-11-29 16:57] LABS: INTERNATIONAL NORM RATIO 1.0 (0.9-1.1); Prothrombin Time 11.9 SEC (10.9-12.4)
--- NOTE | 2024-11-29 18:39 | PC.NURSE ---
Delay of medication due to difficulty obtaining IV access, PA Randall inserted Ultrasound IV at bedside.
[2024-11-29] MEDS: Albuterol Sulfate 90 MCG 8 GM INHALER 2 PUFF INHALE (18:53)
[2024-11-29] MEDS: iohexoL 350 MG/ML 100 ML INFUS..BTL IV (19:07)
--- NOTE | 2024-11-29 20:27 | MHC.EDTECH ---
Did ambulation trial with Pt. Initially O2 94% on RA while standing and dropped to 87% while walking twice, recovered back to 93-94% while standing still. Elvira nolan.
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
[2024-11-29] MEDS: Albuterol Sulfate 7.5 MG, Albuterol Sulfate (0.083%) 2.5 MG 10 MG INHALE (21:39)
--- NOTE | 2024-11-29 22:09 | PC.NURSE ---
Called to room by pt, pt c/o chest pressure and diff taking a deep breath . Pt noted to have increased heart rate. Admitting provider made aware via tiger txt, new orders received.
[2024-11-29 22:58] LABS: Troponin-I High Sensitivity < 2.7 ng/L (<3.5-17.0)
[2024-11-30] VITALS (10 sets, daily range): BP systolic 114–167; BP diastolic 47–72; PULSE 93–123; RESP 13–20; TEMP 36–36.9; O2SAT 94–98
[2024-11-30] MEDS: oxyCODONE HCl Immed Release 5 MG TABLET PO ×4 (02:41→21:15)
[2024-11-30] MEDS: 0.9 % Sodium Chloride Flush 3 ML SYRINGE IVFLUSH ×4 (02:41→21:16)
[2024-11-30 04:36] LABS: MANUAL DIFF FLAG NO
[2024-11-30 04:37] LABS: Hematocrit 35.2 % (37.0-47.0); Hemoglobin 11.0 g/dl (12.0-16.0); Imm Gran Abs Auto 0.09 X10*3/uL (0.00-0.03); Imm Gran Pct Auto 0.8 % (0.0-0.4); Lymphocytes Absolute Auto 0.7 X10*3/uL (1.2-4.9); Mean Corpuscular HGB Conc 31.3 g/dl (31.0-35.0); Mean Corpuscular Hemoglobin 26.3 pg (27.0-33.0); Mean Corpuscular Volume 84.0 fL (80.0-98.0); NRBC Abs Auto 0.000 X10*3/uL (0.0-0.012); NRBC Pct Auto 0.0 /100WBC (0.0-0.2); Platelet Count 259 X10*3/uL (160-400); Red Blood Count 4.19 X10*6/uL (4.20-5.50); White Blood Count 11.4 X10*3/uL (4.8-10.8)
[2024-11-30 04:58] LABS: Anion Gap 17 (12-20); Blood Urea Nitrogen 8 mg/dL (9-16); Calcium 9.0 mg/dL (8.4-10.2); Carbon Dioxide 19 mmol/L (22-29); Chloride 107 mmol/L (96-108); Creatinine Clr Calc Pharmacy 85.9; Estimated Glomerular Filt Rate > 60; Potassium 3.3 mmol/L (3.3-5.1); Sodium 140 mmol/L (135-145)
--- NOTE | 2024-11-30 08:06 | PHA.MEDREC ---
Pharmacy Consult ? Medication Reconciliation Pharmacy has completed the medication reconciliation. Spoke with patient at bedside, she was able to confirm all her medications verbally and they matched pharmacy claims.
--- NOTE | 2024-11-30 09:27 | MHC.CM.PN ---
Addendum entered by Katia Martinez 11/30/24 11:07: Pt provided this CM with a copy of her updated HCP, now on file. Original Note: IMM 11/30. Pt self-care, lives alone at home in longterm apartment complex. Pt states she uses a rollater walker, and has a walk-in shower with assistive rails, and a raised toilet seat. Pt states she receives homemaking services through [facility]. Pt states she will transport herself home at discharge (car is in lot). HCP on file is not accurate, pt states her daughter Ping is her HCP and will be coming in with a copy. PCP: Dr. Iron Castano
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
[2024-11-30] MEDS: Venlafaxine HCl ER 150 MG CAP.ER.24H PO (10:49)
--- NOTE | 2024-11-30 16:23 | MHC.SL.SWA ---
Speech Pathologist Impression: Adequate oropharyngeal coordination observed during bedside swallow evaluation; however, pt endorses hx of dysphagia, globus sensation, difficulty tolerating certian foods. Pt would benefit from OP dysphagia treatment. Risk of Aspiration Due to: Medical complexity (dx of epilepsy, hx of spinal fusion) Hiatal hernia Dysphasia Diet Status: Liquid Consistency and Strategies for Safe Swallow: Liquid Intake Recommendation: Thin Liquid Intake Strategies: Solid Food Consistency: Dietary Recommendations: Regular Additional Modifications to Solid Foods: Oral Medication Intake: Whole with Liquid Please contact the pharmacy regarding appropriate crushable or liquid drug formulations that are available whenever modified delivery is recommended. Compensatory Strategies and Precautions to be Taken for Safe Swallow: Supervision While Eating and Drinking for Safe Swallow: None Needed Foods to Avoid: Swallowing Recommended Treatments: Recommendation for Speech: Outpatient Speech Therapy Comment: Oromotor functioning WNL for lip, tongue, jaw and throat mobility. Pt denies hx of pharyngeal pathology but endorsed changes to swallow in recent months. Pt endorses sensation of globus and difficulty chewing. Pt has hx of C spine fusion.Oropharyngeal coordination unremarkable during bedside clinical swallow evaluation. Education and review of recommendations provided. Pt in agreement. Recc regular diet, thin liquids. Pt would benefit from OP PSYCHOLOGIST intervention. Dysphagia diet references provided to pt. Frequency/Duration: Date Range for Service Req: Timeline to reassess: Dyno Technician Clinican/Clinical Fellow: No Supervisory Statement: I have reviewed and agree with the student/clinical fellow's documentation: N/A Speech Language Pathologist: Brook Campbell M.S., [facility]-PSYCHOLOGIST
--- NOTE | 2024-12-01 00:07 | PC.RT ---
placed on sleep study room air
[2024-12-01] MEDS: oxyCODONE HCl Immed Release 5 MG TABLET PO ×3 (01:19→10:30)
[2024-12-01 03:03] VITALS: BP 129/64; PULSE 85; RESP 18; TEMP 36.4; O2SAT 97
--- NOTE | 2024-12-01 04:26 | PC.RT ---
pt requsting to be taken off sleep study around 2 am refusing to keep sleeping study on states she is uncomfortable and can not sleep placed back on 2LNC
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
[2024-12-01 08:00] VITALS: BP 131/68; PULSE 80; RESP 14; TEMP 36.4; O2SAT 96
[2024-12-01 08:21] VITALS: PULSE 80; RESP 16
[2024-12-01 10:29] VITALS: BP 131/68
[2024-12-01] MEDS: Venlafaxine HCl ER 150 MG CAP.ER.24H PO (10:30)
[2024-12-01] MEDS: Cholecalciferol (Vitamin D3) 10 MCG TABLET PO (10:30)
[2024-12-01] MEDS: 0.9 % Sodium Chloride Flush 3 ML SYRINGE IVFLUSH (10:31)
--- NOTE | 2024-12-01 10:41 | MHC.CM.PN ---
PT MEDICALLY CLEARED HOME SELF CARE, PT WILL SELF TRANSPORT CAR IS C LOT.
[2024-12-01 11:12] LABS: Glucose, Whole Blood 101 mg/dL (60-115)
--- NOTE | 2024-12-01 14:14 | P.CDIM_ITS ---
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 Please review below and update the documentation accordingly. Clinical Indicators: Progress notes 11/30/24 - Acute hypoxic respiratory failure secondary to Bronchitis. Hypoxic with exertion only. Cough with green phlegm. DuoNebs, Azithromycin, Prednisone 60 mg BID, Incentive spirometer. Clarify which of the following accurately represents further specificity to the documented Bronchitis: Possible options might include: Acute Subacute Chronic Obstructive Viral Asthmatic Other specified Other (explain) Clinically unable to determine (explain) Thank you, Ijeoma Lemon, CCS, CDIS Use of terms such as suspected, likely, concern for, or probable (associated with a specific diagnosis that is being evaluated, monitored, or treated as if it exists) are acceptable and can be coded in the inpatient setting, when documented at the time of discharge. Please use your independent medical judgment in providing your response. THIS QUERY IS PART OF THE PERMANENT MEDICAL RECORD
--- NOTE | 2024-12-07 03:44 | PC.NURSE ---
Late documentation: 11/30/2024 at 0241- pt given 5mg oxycodone for 9/10 pain. Pain scale for oxycodone between 4-610. Approximately 0230 on 11/30/2024- Spoke with Alicja SUERSH about pt pain and pain scale out of window and per Alicja okay to give as pt is requesting the oxycodone at that time.
== END 2024-12-01 12:28 | disposition home or self-care (01) | DRG 202 ==
LOC: HO.ED 21:24 → HO.EDOVER 21:43 → HO.IMC 11-30 04:26
PROVIDERS: Nurse Practitioner Family; Admitting Provider Nurse Practitioner Family; Emergency Provider Emergency Medicine; PCP Family Medicine; Visit Provider Nurse Practitioner Acute Care
DX: J20.9 Acute bronchitis, unspecified (principal); J96.01 Acute respiratory failure with hypoxia; K21.9 Gastro-esophageal reflux disease without esophagitis; G89.4 Chronic pain syndrome; K44.9 Diaphragmatic hernia without obstruction or gangrene; G40.909 Epilepsy, unspecified, not intractable, without status epilepticus; R00.0 Tachycardia, unspecified; G47.33 Obstructive sleep apnea (adult) (pediatric); T48.6X5A Adverse effect of antiasthmatics, initial encounter; Z20.822 Contact with and (suspected) exposure to COVID-19; Z87.891 Personal history of nicotine dependence; Z79.891 Long term (current) use of opiate analgesic; Z79.899 Other long term (current) drug therapy
CPT/HCPCS: 36415; 71046; 71260; 80048; 80053; 82947; 83735; 83880; 84484; 85025; 85379; 85610; 87040; 87637; 92610; 93005; 94640; 99285; J1650; J3475; Q9967

== ENCOUNTER → 2024-11-29 11:56 | Outpatient (BNV) | payer MEDICARE, MEDICAID, SELFPAY | PROVIDERS: PCP Family Medicine; Visit Provider Radiology Diagnostic Radiology | DX: D44.11 Neoplasm of uncertain behavior of right adrenal gland (principal); R05.8 Other specified cough | CPT/HCPCS: 71046; 71260 ==

== ENCOUNTER → 2024-11-29 15:01 | Outpatient (BNV) | payer MEDICARE, MEDICAID, SELFPAY | PROVIDERS: Admitting Provider Nurse Practitioner Family; Emergency Provider Emergency Medicine; PCP Family Medicine; Visit Provider Internal Medicine Cardiovascular Disease | DX: R00.0 Tachycardia, unspecified (principal); R06.02 Shortness of breath | CPT/HCPCS: 93010 ==

== ENCOUNTER → 2024-11-29 21:29 | Outpatient (BNV) | payer MEDICARE, MEDICAID, SELFPAY | PROVIDERS: Admitting Provider Nurse Practitioner Family; Emergency Provider Emergency Medicine; PCP Family Medicine; Visit Provider Nurse Practitioner Acute Care | DX: J40 Bronchitis, not specified as acute or chronic (principal) | CPT/HCPCS: 99223; 99232; 99239 ==

== ENCOUNTER 2024-12-17 13:31 | Outpatient (AMB) | payer MEDICARE, MEDICAID, SELFPAY ==
--- NOTE | 2024-12-17 13:33 | MHC.OFFVIS ---
Vital Signs 12/17/24 13:53 Height 5 ft 4 in Weight 253 lb 4 oz BMI 43.5 BP 177/75 H Blood Pressure Location Rt brachial Position Sitting Pulse 94 Pulse Source Pulse Oximeter Pulse Oximetry (%) 96 Oxygen Delivery Method Room Air Intake Visit Reasons: Pill Count Intake Note: Ivania comes in today for a pill count to oxycodone-acetaminophen, patient should have 36 tablets and presents with 51 tablets which she last took today 12/17/24 at 12pm. 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 She is supposed to have #36 oxycodone-acetaminophen 5-325 mg pills and in her possession has #51 pills. This demonstrates a responsible attitude in regards to her medication regimen. She reports adequate analgesia with no noted side effects except occasional constipation for which she uses Miralax and stool softener. She underwent cortisone knee injections which were partially effective but allowed her to walk longer distances. Patient continues to adjust her lifestyle and diet to loose weight in order to qualify for total knee replacement. Patient reports she was recently hospitalized for hypoxic respiratory failure due to brochitis and persistent cough for 8 days prior to 11/29/24. She reports feeling much better since treatment at [facility] hospital stay. However, she presents with concerns for recent findings of adrenal nodules and has upcoming follow up with PCP for this. Denies any cough, cold, infection, fever or any other significant changes in medical history since last office visit. Past procedures 09/25/24 (right) and 10/12/24 (left) cortisone knee injections-60% ongoing pain relief 07/20/24 (right) and 07/27/24 (left) cortisone knee injections-50% pain relief 05/21/24: Left diagnostic C3-C4-C5 MBB-60% pain relief for 6 hours 01/01/24: Left knee Durolane injection: relief for a few days. 12/11/23: Right knee Durolane injection: No significant relief. 10/03/23: Interlaminar epidural steroid injection, C7-T1, left parasaggital: 75 % relief. 09/16/23: Left knee injection: % relief. 09/06/23: Right knee injection, US guided: 100 % relief. 04/26/23: Bilateral landmark guided intraarticular knee injection: 50% relief. 01/04/23: Right knee injection.: 70% relief for 3 months. 05/02/22: Right Sprint PNS, Saphenous Nerve ? 90% relief that is ongoing. 05/10/21: Right L3-L4 TFESI - 60% pain relief 07/12/21: Left L3-L4 TFESI - 50% pain relief 11/22/21: Left diagnostic saphenous nerve block-50% pain relief for 24 hours. 12/06/21: Right diagnostic GNB-60% pain relief for 24 hours 02/21/22: Right diagnostic SNB at adductor canal- 80% pain relief for 3 hours. 02/28/22: Left diagnostic SNB at adductor canal-60% pain relief for 3 hours. [facility] Medical History Bronchitis Shingles MARILY (obstructive sleep apnea) Rib pain on left side Restless leg syndrome Chronic pain syndrome Seizure Contusion of right patella Fall Muscle spasms of neck Lower extremity weakness Osteoarthritis of left knee Osteoarthritis of right knee Osteoarthritis of left ankle Arthritis of right knee Acute paronychia of toe Mild anemia Iron deficiency anemia Lumbar spinal stenosis Lumbar and sacral spondyloarthritis Migraine Major depressive disorder Cervical radiculopathy Osteoarthritis of knees, bilateral Urge incontinence Surgical History History of bariatric surgery S/P cervical spinal fusion Family History Father No problems noted. Mother No problems noted. 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 Morbidly obese. Alert and oriented. Mood and affect appropriate. Follows and participates in conversation appropriately. Respiratory effort is unlabored. No cough. Able to transition from sit to stand unassisted. Uses walker with seat with ambulation. Ambulates with bilaterally normal heel strike and toe off. Eyes General: appearance normal, both eyes and all related structures Resp Effort & Inspection: normal respiratory effort, able to speak in complete sentences, no cough, not labored, no respiratory distress and symmetric chest movement Psych Appearance: grossly normal Mental Status: mental status grossly normal Speech and movement: Normal speech and movement present and Clear speech present Affect: normal affect Attitude: cooperative Thought process: Normal thought process present Thought content: Normal thought content present, suicidality (none), no hallucinations and Depressive thoughts present Insight: Good insight present (Psych) Judgement: Good judgement present (Psych) Results Reviewed Results Reviewed: CT chest w IV con 11/29/24 CLINICAL HISTORY: hypoxia, cough, SOB CT chest with IV contrast. COMPARISON: None provided. FINDINGS: Visualized thyroid is unremarkable. No supraclavicular or axillary lymphadenopathy. Ascending aorta and main pulmonary artery are normal in caliber. No pericardial effusion. Aortic annular calcifications. Small hiatal hernia. Fluid present within the mid to distal esophagus. No mediastinal or hilar lymphadenopathy. No pleural effusion. No consolidation. Minimal linear atelectasis versus scarring within the lingula. Trachea and central airways are clear. No significant bronchial wall thickening. No bronchiectasis. Left adrenal nodule measuring 1.0 cm, indeterminate. Right adrenal nodule measuring 2.1 cm with Hounsfield units of 36, indeterminate. Anterior cervical fusion hardware along the lower cervical spine partially visualized. Mild spondylosis. No acute fracture or suspicious bone lesion. Degenerative changes of the bilateral shoulders. IMPRESSION: 1. No evidence of pneumonia. 2. Small hiatal hernia. Fluid present within the mid to distal esophagus can be associated with gastroesophageal reflux disease. 3. Indeterminate adrenal nodules measuring 1.0 cm on the left and 2.1 cm on the right. Recommend comparison with prior imaging if available. If none available, recommend adrenal protocol CT or MR for further characterization. Assessment & Plan Assessment & Plan (1) Lumbar and sacral spondyloarthritis: Code(s): M47.817 - Spondylosis without myelopathy or radiculopathy, lumbosacral region Category: Medical (2) Cervical post-laminectomy syndrome: Code(s): M96.1 - Postlaminectomy syndrome, not elsewhere classified Category: Medical (3) Bilateral chronic knee pain: Code(s): M25.561 - Pain in right knee; M25.562 - Pain in left knee; G89.29 - Other chronic pain Category: Medical (4) Osteoarthritis of knees, bilateral: Code(s): M17.0 - Bilateral primary osteoarthritis of knee Category: Medical (5) Chronic pain syndrome: Code(s): G89.4 - Chronic pain syndrome Category: Medical (6) Opioid contract exists: Code(s): 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 The patient reported no noted side effects with adequate analgesia. There is no evidence of misuse, abuse or diversion at this time. Fiestaht reviewed. Script sent for oxycodone-acetaminophen with an advanced date of 12/27/24. New refill for Narcan sent today. Follow up with PCP as schedule for recent hospital stay and further evaluation of adrenal nodules. All questions and concerns were answered and patient agreed with the plan. Follow up in one month for pill count and sooner as needed. Medications: Refilled oxycodone-acetaminophen 5-325 mg (Percocet) Partial Fill upon patient request. 1 tab PO QID PRN 120 tabs 0RF pain 30 days G89.29 - Other chronic pain, G89.4 - Chronic pain syndrome, M25.561 - Pain in right knee, M25.562 - Pain in left knee, M47.817 - Spondylosis without myelopathy or radiculopathy, lumbosacral region naloxone 4 mg/actuation (Narcan) spray 1 dose into ONE nostril; alternate nostrils w each dose until help arrives 4 mg intranasal Q2M PRN 2 ea 0RF opioid overdose G89.29 - Other chronic pain, M25.561 - Pain in right knee, M25.562 - Pain in left knee, M47.817 - Spondylosis without myelopathy or radiculopathy, lumbosacral region, M96.1 - Postlaminectomy syndrome, not elsewhere classified Coding Level of Care Code Est Pt Level 4 (15516) Complex EM visit Add On G2211 Diagnoses Lumbar and sacral spondyloarthritis M47.817 Cervical post-laminectomy syndrome M96.1 Bilateral chronic knee pain M25.561; M25.562; G89.29 Osteoarthritis of knees, bilateral M17.0 Chronic pain syndrome G89.4 Opioid contract exists Z79.891
--- OUTSIDE RECORDS SUMMARY | 2024-12-17 13:36 | XMS_ITS | Referral Summary ---
Author Organization [facility] Address [address] [place] [address] Care Team Providers Care Bulk Gas Specialist Name Role Phone Iron Castano MD Primary Care Provider [phone] Allergies Active Allergy Reactions Criticality Noted Date [...] Insurance MEDICARE [facility] Care Teams Bulk Gas Specialist Relationship Specialty Start Date End Date Iron Castano MD [address] [place] [address] PCP - General Family Medicine 12/30/23
--- OUTSIDE RECORDS SUMMARY | 2024-12-17 13:36 | XMS_ITS | Patient Health Record ---
Author Organization [facility] Address [address] [place] [id number] Care Team Providers Care Knitted Cloth Examiner Name Role Phone Iron Castano Primary Care Provider UnavailSelvin Figueroa Unavailable [phone] Allergies Allergen (clinical drug ingredient) Drug/Non Drug [...] Problem Status W/U Status Risk Notes Problem [id number] Encounter for screening for malignant neoplasm of colon (Z12.11) Active confirmed Problem Encounter for screening for malignant neoplasm of rectum (Z12.12) Active confirmed Problem [id number] Gastroesophageal reflux disease without esophagitis (K21.9) Active confirmed Problem [id number] Preprocedural examination (Z01.818) Active confirmed Plan Of Treatment Future Test Test Name Order Date COLONOSCOPY 07/21/2019 Insurance Providers Payer Name Payer Address Payer Phone Subscriber Number Group Number Insured Name Patient Relationship to Insured Coverage Start Date Coverage End Date [facility] [address] [facility] [place] [phone] [id number] LUIS ANTONIO CARSON Self - patient is the insured Medical (General) History Medical History History ICD Code 02/17/2009 Colonoscopy--nega tive except for mild diverticulosis and internal hemorrhoids GERD-Neg EGD in 02/2009 except for a sma ll HH Depression Pain in arms and legs/feet f rom the C-spine disc disease before her surgery-Dr. Vargas Denies [place],DM,CVA,Lung disease,renal dise ase Surgical History Surgery Date(Month/Year) Lap band--Dr. Doyle--lost approx 40#, but gained it back 2010 Carpal tunnel both wrists 2009 Vaginal polyps 2012 3 C-spine discs removed 05/2015
[2024-12-17 13:53] VITALS: BP 177/75; PULSE 94; O2SAT 96; BMI 43.5
== END 2024-12-17 13:47 | disposition home or self-care (01) ==
LOC: HO.PMC 13:32
PROVIDERS: PCP Family Medicine; Visit Provider Nurse Practitioner Family
DX: M47.817 Spondylosis without myelopathy or radiculopathy, lumbosacral region (principal); M96.1 Postlaminectomy syndrome, not elsewhere classified; M25.561 Pain in right knee; M25.562 Pain in left knee; G89.29 Other chronic pain; M17.0 Bilateral primary osteoarthritis of knee; G89.4 Chronic pain syndrome; Z79.891 Long term (current) use of opiate analgesic
CPT/HCPCS: 99214; G2211

== ENCOUNTER → 2024-12-17 13:31 | Outpatient (BNVA) | payer MEDICARE, MEDICAID, SELFPAY | PROVIDERS: PCP Family Medicine; Visit Provider Nurse Practitioner Family | DX: Z51.81 Encounter for therapeutic drug level monitoring (principal); M47.817 Spondylosis without myelopathy or radiculopathy, lumbosacral region; M96.1 Postlaminectomy syndrome, not elsewhere classified; M25.561 Pain in right knee; M25.562 Pain in left knee; M17.0 Bilateral primary osteoarthritis of knee; G89.29 Other chronic pain; Z79.891 Long term (current) use of opiate analgesic | CPT/HCPCS: 99212 ==

== ENCOUNTER 2024-12-22 10:45 | Outpatient (AMB) | payer MEDICARE, MEDICAID, SELFPAY ==
--- NOTE | 2024-12-22 11:24 | A.OFFPC_ITS ---
Vital Signs 12/22/24 11:31 Height 5 ft 4 in Weight 259 lb 4 oz BMI 44.5 BP 112/68 Blood Pressure Location Rt brachial Position Sitting Respiration 16 Pulse 91 Pulse Source Pulse Oximeter Temp 97.3 F Temp Source Temporal Artery Scan Pulse Oximetry (%) 98 Oxygen Delivery Method Room Air Intake Visit Reasons: discharge from [facility] [place] RAD Intake Note: Ivania presents in the office today for a hospital discharge. Allergies seafood Allergy (Verified 12/22/24 11:27) hives albuterol Adverse Reaction (Severe, Verified 12/22/24 11:27) Shakiness Medication List - Last Reconciled 12/22/24 by Iron Castano MD blood pressure monitor Automatic, Digital. Dx: I10. Daily As directed, 999 days/lifetime cholecalciferol (vitamin D3) (Vitamin D3) 10 mcg PO DAILY famotidine 40 mg PO DAILY gabapentin 900 mg (1.5 x 600 mg) PO Q8H 30 days hydrochlorothiazide 25 mg PO DAILY 90 days lamotrigine 150 mg PO BID levetiracetam 1,000 mg PO BID 90 days losartan 100 mg PO DAILY 90 days magnesium 200 mg PO DAILY meloxicam 15 mg PO DAILY 30 days naloxone 4 mg/actuation (Narcan) 4 mg intranasal Q2M PRN omeprazole 40 mg (2 x 20 mg) PO DAILY oxycodone-acetaminophen 5-325 mg (Percocet) 1 tab PO QID PRN 30 days venlafaxine ER 150 mg PO DAILY walker (Ultra-Light Rollator misc) Rolling walker with wheels, seat and brakes. Daily ?As directed, 999 days Tobacco use date assessed: 12/22/24 Fall risk assessment: No Falls in past year Last assessed Fall Risk: 12/22/24 Dental Screening Dental Screen Date: 12/22/24 Did you have a dental visit in the last 12 months?: Yes Did you have a dental problem in the last 6 months where you did not have access to dental care?: No Was dental information given to patient?: Patient has dentist HPI discharge from [facility] RAD HPI Details 69 y/o [facility] breath with exertion, cough. Pt underwent CTA which ruled out PE and pneumonia. Small evidence of small hiatal hernia with mid to distal esophageal fluid present with represents possible GERD. Additionally, there was adrenal nodules 1 cm on L and 2.1 cm on R. Hypoxic with exertion only. Treated with prednisone, azithromycin incentive spirometer and scheduled DuoNebs. O2 sat today 98. [facility] Medical History Bronchitis Shingles MARILY (obstructive sleep apnea) Rib pain on left side Restless leg syndrome Chronic pain syndrome Seizure Contusion of right patella Fall Muscle spasms of neck Lower extremity weakness Osteoarthritis of left knee Osteoarthritis of right knee Osteoarthritis of left ankle Arthritis of right knee Acute paronychia of toe Mild anemia Iron deficiency anemia Lumbar spinal stenosis Lumbar and sacral spondyloarthritis Migraine Major depressive disorder Cervical radiculopathy Osteoarthritis of knees, bilateral Urge incontinence Surgical History History of bariatric surgery S/P cervical spinal fusion Family History (Updated 12/22/24 @ 11:31 by Taylor Layne MA) Father No problems noted. Mother No problems noted. 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 Current occupational exposures/hazards: No Cognitive needs: No Hearing needs: No Vision needs: No Questionnaire Thrive Questionnaire Date Thrive assessed: 05/19/24 I am a: Patient What is your living situation today?: I have a steady place to live Within the past 12 months, did the food you bought not last and you didn't have the money to get more?: Never true Within the past 12 months, did you worry whether your food would run out before you got money to buy more?: Never true Do you have trouble paying for medicines?: No Do you have trouble getting transportation to medical appointments?: I choose not to answer this question Do you have trouble paying your heating and electricity bill?: No Do you have trouble taking care of your child, family member or friend?: No Do you have trouble with day-to-day activities such as bathing, preparing meals, shopping, managing finances, etc.?: No Are you currently unemployed and looking for a job?: No Are you interested in more education?: No Please select the resources that you would like help with: None Currently or been in a relationship where the following occur: No concerns reported THRIVE Score: 0 ANGEL-7 AMB Questionnaire ANGEL-7 Date ANGEL - 7 assessed: 09/06/23 Source: Developed by Drs. Selvin Howell, Cary Barton, Valeriy Vieira and colleagues, with an educational carlene from [employer]. Review of Systems Const Denies chills, Denies fatigue, Denies fever(s), Denies headache(s) and Denies weakness ENT Denies dizziness and Denies headache(s) Card Denies dyspnea Resp Denies cough, Denies dyspnea, Denies wheezing and Denies other (shortness of breath) Musc Denies numbness and Denies tingling Neuro Denies dizziness, Denies headache(s), Denies numbness, Denies tingling and Denies weakness Psych Denies anxiety and Denies depression Endo Denies fatigue Aller/Immun Denies wheezing Physical exam (Primary Care) Vital Signs: Last Vital Signs Temp 97.3 F 12/22/24 11:31 Pulse 91 12/22/24 11:31 Resp 16 12/22/24 11:31 BP 112/68 12/22/24 11:31 Pulse Ox 98 12/22/24 11:31 Oxygen Delivery Method Room Air 12/22/24 11:31 BMI result Body Mass Index 44.5 Tobacco/Smoking Status: Tobacco use Status Tobacco use date assessed 12/22/24 12/22/24 11:34 Patient Tobacco Use Status Former Tobacco user 12/22/24 11:31 e-Cigarette/Vaping Use Never Used 12/22/24 11:31 Thrive Assessment: Date of Thrive Assessment Date Thrive assessed 05/19/24 12/22/24 11:26 Currently or been in a relationship where the following occur: No concerns reported Const General: well developed; No acute distress Nutritional Appearance: well nourished Orientation/consciousness: patient oriented x3 HENMT Head: Yes normocephalic and Yes atraumatic Eyes General: appearance normal, both eyes and all related structures Pupils: Equal, round and reactive pupils present EOM: EOMs intact bilaterally Resp Effort & Inspection: normal respiratory effort Auscultation: clear to auscultation bilaterally Cardio Rate: regular rate Rhythm: regular rhythm Heart sounds: S1 normal heart sound present, S2 normal heart sound present, no gallops, no murmurs and no rubs Neuro General: patient oriented x3 and gait normal Cranial nerves: Yes Equal, round and reactive pupils present Psych Affect: normal affect Coding Level of Care Code Est Pt Level 4 (40050) Diagnoses Acute hypoxic respiratory failure J96.01 Bronchitis J40 Adrenal nodule E27.9 Tachycardia R00.0 Assessment & Plan Assessment & Plan (1) Acute hypoxic respiratory failure: Code(s): J96.01 - Acute respiratory failure with hypoxia Category: Medical Plan: This has resolved. Still has mild shortness of breath with walking and exertion. Oxygen saturation today however is 98% and patient notes that she is gradually improving. She has finished steroids and azithromycin. She will let me know if breathing improvements stall or breathing worsens. She did not tolerate albuterol-caused Tachycardia. Would use DuoNeb if needed (2) Bronchitis: Code(s): J40 - Bronchitis, not specified as acute or chronic Category: Medical Plan: As above (3) Adrenal nodule: Code(s): E27.9 - Disorder of adrenal gland, unspecified Category: Medical Plan: Adrenal nodules, bilateral, seen incidentally on CT scan. Checking MRI and referring patient to endocrinology. (4) Tachycardia: Code(s): R00.0 - Tachycardia, unspecified Category: Medical Plan: Heart rate today in normal range. Tachycardia was due to albuterol. Would use DuoNebs if she needs bronchodilation. Plan HD[place] [facility] [place]/o 8 day of progressive coughing and now SOB es pecially with exertion. CT ruled out PE & PNA. Did show incidental Adrenal nodules; 1 cm on the left and 2.1 cm on the right. SaO2 dropped to 87% on room air w/ ambulation. Albuterol was causing significant tachycardia. Cardiac workup was negative for ACS. Patient was admitted for acute hypoxic respiratory failure with evidence of possible bronchitis. Treated with or prednisone, azithromycin, incentive spirometer and scheduled DuoNebs. Discharged with a short burst of prednisone and she can complete the azithromycin. Orders: Orders MR abdomen wo con Today E27.9 - Disorder of adrenal gland, unspecified Comprehensive [place]. Panel Fast Today E27.9 - Disorder of adrenal gland, unspecified, Z00.00 - Encounter for general adult medical examination without abnormal findings Complete Blood Count Auto Diff Today E27.9 - Disorder of adrenal gland, unspecified, Z00.00 - Encounter for general adult medical examination without abnormal findings Lipid Panel Today E27.9 - Disorder of adrenal gland, unspecified, Z00.00 - Encounter for general adult medical examination without abnormal findings Microalbumin, Random (w Creat) Today E27.9 - Disorder of adrenal gland, unspecified, I10 - Essential (primary) hypertension TSH reflex Free T4 Today E27.9 - Disorder of adrenal gland, unspecified, Z00.00 - Encounter for general adult medical examination without abnormal findings UA CC w/rflx Micro + Cult Today E27.9 - Disorder of adrenal gland, unspecified, Z00.00 - Encounter for general adult medical examination without abnormal findings Referrals Endocrinology Referral E27.9 - Disorder of adrenal gland, unspecified Sleep Medicine Referral G47.30 - Sleep apnea, unspecified
[2024-12-22 11:31] VITALS: BP 112/68; PULSE 91; RESP 16; TEMP 36.3; O2SAT 98; BMI 44.5
--- OUTSIDE RECORDS SUMMARY | 2024-12-22 11:53 | XMS_ITS | Referral Summary ---
Author Organization [facility] Address [address] [place] [address] Care Team Providers Care Community Pharmacist Name Role Phone Iron Castano MD Primary Care Provider [phone] Allergies Active Allergy Reactions Criticality Noted Date [...] of Treatment Not on file Insurance MEDICARE [facility] Care Teams Community Pharmacist Relationship Specialty Start Date End Date Iron Castano MD [address] [place] [address] PCP - General Family Medicine 12/30/23
--- OUTSIDE RECORDS SUMMARY | 2024-12-22 11:53 | XMS_ITS | Patient Health Record ---
Author Organization [facility] Address [address] [place] [id number] Care Team Providers Care Asphalt Roller Operator Name Role Phone Iron Castano Primary Care Provider UnavailSelvin Figueroa Unavailable [phone] Allergies Allergen (clinical drug ingredient) Drug/Non Drug [...] Problem Status W/U Status Risk Notes Problem [id number] Encounter for screening for malignant neoplasm of colon (Z12.11) Active confirmed Problem Encounter for screening for malignant neoplasm of rectum (Z12.12) Active confirmed Problem [id number] Gastroesophageal reflux disease without esophagitis (K21.9) Active confirmed Problem [id number] Preprocedural examination (Z01.818) Active confirmed Plan Of Treatment Future Test Test Name Order Date COLONOSCOPY 07/21/2019 Insurance Providers Payer Name Payer Address Payer Phone Subscriber Number Group Number Insured Name Patient Relationship to Insured Coverage Start Date Coverage End Date [employer] [address] [facility] [place] [id number] [phone] [id number] LUIS ANTONIO CARSON Self - patient is the insured Medical (General) History Medical History History ICD Code 02/17/2009 Colonoscopy--nega tive except for mild diverticulosis and internal hemorrhoids GERD-Neg EGD in 02/2009 except for a sma ll HH Depression Pain in arms and legs/feet f rom the C-spine disc disease before her surgery-Dr. Vargas Denies [place],DM,CVA,Lung disease,renal dise ase Surgical History Surgery Date(Month/Year) Lap band--Dr. Doyle--lost approx 40#, but gained it back 2010 Carpal tunnel both wrists 2009 Vaginal polyps 2012 3 C-spine discs removed 05/2015
== END 2024-12-22 13:02 | disposition home or self-care (01) ==
LOC: HO.HMCFM 10:46
PROVIDERS: PCP Family Medicine; Visit Provider Family Medicine
DX: J96.01 Acute respiratory failure with hypoxia (principal); J40 Bronchitis, not specified as acute or chronic; E27.9 Disorder of adrenal gland, unspecified; R00.0 Tachycardia, unspecified

== ENCOUNTER → 2024-12-22 10:45 | Outpatient (BNVA) | payer MEDICARE, MEDICAID, SELFPAY | PROVIDERS: PCP Family Medicine; Visit Provider Family Medicine | DX: J96.01 Acute respiratory failure with hypoxia (principal); J40 Bronchitis, not specified as acute or chronic; E27.9 Disorder of adrenal gland, unspecified; R00.0 Tachycardia, unspecified | CPT/HCPCS: 99212 ==

== ENCOUNTER 2024-12-23 09:03 | Outpatient (REF) | payer MEDICARE, MEDICAID, SELFPAY ==
--- OUTSIDE RECORDS SUMMARY | 2024-12-23 09:25 | XMS_ITS | Referral Summary ---
Author Organization [facility] Address [address] [place] [address] Care Team Providers Care Peer Counselor Name Role Phone Iron Castano MD Primary Care Provider [phone] Allergies Active Allergy Reactions Criticality Noted Date [...] of Treatment Not on file Insurance MEDICARE [facility] Care Teams Peer Counselor Relationship Specialty Start Date End Date Iron Castano MD [address] [place] [address] PCP - General Family Medicine 12/30/23
[2024-12-23 10:37] LABS: MANUAL DIFF FLAG NO
[2024-12-23 10:42] LABS: Hematocrit 37.8 % (37.0-47.0); Hemoglobin 11.5 g/dl (12.0-16.0); Imm Gran Abs Auto 0.01 X10*3/uL (0.00-0.03); Imm Gran Pct Auto 0.2 % (0.0-0.4); Lymphocytes Absolute Auto 2.0 X10*3/uL (1.2-4.9); Mean Corpuscular HGB Conc 30.4 g/dl (31.0-35.0); Mean Corpuscular Hemoglobin 25.9 pg (27.0-33.0); Mean Corpuscular Volume 85.1 fL (80.0-98.0); NRBC Abs Auto 0.000 X10*3/uL (0.0-0.012); NRBC Pct Auto 0.0 /100WBC (0.0-0.2); Platelet Count 263 X10*3/uL (160-400); Red Blood Count 4.44 X10*6/uL (4.20-5.50); White Blood Count 5.1 X10*3/uL (4.8-10.8)
[2024-12-23 11:07] LABS: Alanine Aminotransferase 12 U/L (0-31); Albumin Level 4.3 g/dL (3.5-5.0); Alkaline Phosphatase 79 U/L (39-117); Anion Gap 13 (12-20); Aspartate Amino Transferase 22 U/L (5-31); Blood Urea Nitrogen 9 mg/dL (9-16); Calcium 9.0 mg/dL (8.4-10.2); Carbon Dioxide 28 mmol/L (22-29); Chloride 109 mmol/L (96-108); Cholesterol 180 mg/dL (<200); Estimated Glomerular Filt Rate > 60; HDL Cholesterol 45 mg/dL (>40); Potassium 4.3 mmol/L (3.3-5.1); Sodium 146 mmol/L (135-145); Total Protein 6.8 g/dL (6.5-8.0); Triglycerides 137 mg/dL (<150)
[2024-12-23 11:24] LABS: Appearance Urine Clear; Glucose Urine UA Negative (Negative); PH 7.5 (5.0-9.0); Specific Gravity - Urine 1.015 (1.005-1.025); UMIC TRIGGER UACC YES
[2024-12-23 11:39] LABS: Other Crystals Urine Present; UACC Culture Trigger YES
[2024-12-23 12:06] LABS: Microalbum/Creatinine Ratio Ur 8.5 ug/mg cr (<30)
== END 2024-12-23 09:04 | disposition home or self-care (01) ==
LOC: HO.HMGCLDS 09:03
PROVIDERS: PCP Family Medicine; Visit Provider Family Medicine
DX: Z00.00 Encounter for general adult medical examination without abnormal findings (principal); E27.9 Disorder of adrenal gland, unspecified; I10 Essential (primary) hypertension; Z11.2 Encounter for screening for other bacterial diseases
CPT/HCPCS: 36415; 80053; 80061; 81001; 82043; 82570; 84443; 85025; 87086

== ENCOUNTER 2024-12-24 13:44 | Outpatient (REF) | payer MEDICARE, MEDICAID, SELFPAY | END 2024-12-24 13:45 | disposition home or self-care (01) | LOC: HO.WFDLDS 13:44 | PROVIDERS: PCP Family Medicine; Visit Provider Family Medicine | DX: Z00.01 Encounter for general adult medical examination with abnormal findings (principal); I10 Essential (primary) hypertension; E78.00 Pure hypercholesterolemia, unspecified; E66.01 Morbid (severe) obesity due to excess calories; D64.9 Anemia, unspecified; G47.30 Sleep apnea, unspecified; R73.03 Prediabetes; E27.9 Disorder of adrenal gland, unspecified; K21.9 Gastro-esophageal reflux disease without esophagitis; K29.70 Gastritis, unspecified, without bleeding; R26.81 Unsteadiness on feet | CPT/HCPCS: 83036; 87086; 99212; 99397 ==

== ENCOUNTER 2024-12-24 13:44 | Outpatient (AMB) | payer MEDICARE, MEDICAID, SELFPAY ==
[2024-12-24 14:10] VITALS: BP 136/84; PULSE 93; RESP 16; TEMP 37.1; O2SAT 92; BMI 45.1
--- NOTE | 2024-12-24 14:10 | A.OFFPC_ITS ---
Vital Signs 12/24/24 14:10 Height 5 ft 4 in Weight 262 lb 8 oz BMI 45.1 BP 136/84 Blood Pressure Location Rt brachial Position Sitting Respiration 16 Pulse 93 Pulse Source Pulse Oximeter Temp 98.8 F Temp Source Oral Pulse Oximetry (%) 92 Oxygen Delivery Method Room Air Intake Visit Reasons: f/u obesity, labs Allergies seafood Allergy (Verified 12/24/24 14:14) hives albuterol Adverse Reaction (Severe, Verified 12/24/24 14:14) Shakiness Medication List - Last Reconciled 12/24/24 by Iron Castano MD blood pressure monitor Automatic, Digital. Dx: I10. Daily As directed, 999 days/lifetime cholecalciferol (vitamin D3) (Vitamin D3) 10 mcg PO DAILY famotidine 40 mg PO DAILY gabapentin 900 mg (1.5 x 600 mg) PO Q8H 30 days hydrochlorothiazide 25 mg PO DAILY 90 days lamotrigine 150 mg PO BID levetiracetam 1,000 mg PO BID 90 days losartan 100 mg PO DAILY 90 days magnesium 200 mg PO DAILY meloxicam 15 mg PO DAILY 30 days naloxone 4 mg/actuation (Narcan) 4 mg intranasal Q2M PRN omeprazole 40 mg (2 x 20 mg) PO DAILY oxycodone-acetaminophen 5-325 mg (Percocet) 1 tab PO QID PRN 30 days venlafaxine ER 150 mg PO DAILY walker (Ultra-Light Rollator misc) Rolling walker with wheels, seat and brakes. Daily ?As directed, 999 days Tobacco use date assessed: 12/24/24 Fall risk assessment: No Falls in past year Last assessed Fall Risk: 12/24/24 Dental Screening Dental Screen Date: 12/24/24 Did you have a dental visit in the last 12 months?: Yes Did you have a dental problem in the last 6 months where you did not have access to dental care?: No Was dental information given to patient?: Patient has dentist HPI f/u obesity, labs HPI Details 69 y/o female presents for a CPE with f/ u labs and health maintenance. Labs drawn 12/23/24. Reviewed labs with pt. Ongoing mild anemia. Sodum level mildly elevated at 146 mmol/L. Fasting glucose 104. Triglycerides 137. TC 180. LDL 108. HDL 45. BP today 136/84, 93p. She is on losartan 100mg, hydrochlorothiazide 25mg daily. Has an appt. with Dr. Garcia for her adrenal nodules. A1c today 6.0%. HPI Comments History of Present Illness Details Documentation assistance for Iron Castano MD, was provided by Zachariah Reina,? Farm Appraiser on 12/24/2024 at 2:50 PM EST. I, Dr. Castano, have read, observed, and verified documentation. [facility] Medical History Bronchitis Shingles MARILY (obstructive sleep apnea) Rib pain on left side Restless leg syndrome Chronic pain syndrome Seizure Contusion of right patella Fall Muscle spasms of neck Lower extremity weakness Osteoarthritis of left knee Osteoarthritis of right knee Osteoarthritis of left ankle Arthritis of right knee Acute paronychia of toe Mild anemia Iron deficiency anemia Lumbar spinal stenosis Lumbar and sacral spondyloarthritis Migraine Major depressive disorder Cervical radiculopathy Osteoarthritis of knees, bilateral Urge incontinence Surgical History History of bariatric surgery S/P cervical spinal fusion Family History Father No problems noted. Mother No problems noted. 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 1. Little interest or pleasure in doing things: several days 2. Feeling down, depressed, or hopeless: several days 3. Trouble falling or staying asleep, or sleeping too much: several days 4. Feeling tired or having little energy: several days 5. Poor appetite or overeating: not at all 6. Feeling bad about yourself - or that you are a failure or have let yourself or your family down: several days 7. Trouble concentrating on things, such as reading the newspaper or watching television: several days 8. Moving or speaking so slowly that other people could have noticed. Or the opposite - being so fidgety or restless that you have been moving around a lot more than usual: not at all 9. Thoughts that you would be better off or of hurting yourself in some way: not at all Total score: 6 Source: Developed by Drs. Selvin Howell, Cary Barton, Valeriy Vieira and colleagues, with an educational carlene from [employer]. Thrive Questionnaire Date Thrive assessed: 05/19/24 I am a: Patient What is your living situation today?: I have a steady place to live Within the past 12 months, did the food you bought not last and you didn't have the money to get more?: Never true Within the past 12 months, did you worry whether your food would run out before you got money to buy more?: Never true Do you have trouble paying for medicines?: No Do you have trouble getting transportation to medical appointments?: I choose not to answer this question Do you have trouble paying your heating and electricity bill?: No Do you have trouble taking care of your child, family member or friend?: No Do you have trouble with day-to-day activities such as bathing, preparing meals, shopping, managing finances, etc.?: No Are you currently unemployed and looking for a job?: No Are you interested in more education?: No Please select the resources that you would like help with: None Currently or been in a relationship where the following occur: No concerns reported THRIVE Score: 0 AUDIT C Alcohol Use Questionnaire (AUDIT-C) 1. How often do you have a drink containing alcohol?: Never 3. How often do you have six or more drinks on one occasion?: Never Total Score: 0 ANGEL-7 AMB Questionnaire ANGEL-7 Date ANGEL - 7 assessed: 12/24/24 Feeling nervous, anxious, or on edge: 1 = Several days Not being able to stop or control worryin = Not at all Worrying too much about different things: 1 = Several days Trouble relaxin = Not at all Being so restless that it is hard to sit still: 0 = Not at all Becoming easily annoyed or irritable: 0 = Not at all Feeling afraid as if something awful might happen: 0 = Not at all Total ANGEL-7 score (0-4 normal; 5-9 mild; 10-14 moderate; 15-21 severe): 2 Source: Developed by Drs. Selvin Howell, Cary Barton, Valeriy Vieira and colleagues, with an educational carlene from [employer]. Review of Systems Const Denies chills, Denies fatigue, Denies fever(s), Denies headache(s) and Denies weakness Eyes Denies change in vision ENT Denies dizziness, Denies headache(s), Denies hearing loss, Denies nasal congestion, Denies sinus pain, Denies sinus pressure and Denies sore throat Card Denies chest pain, Denies lightheadedness, Denies dyspnea and Denies other (palpitations) Resp Denies cough, Denies dyspnea and Denies wheezing GI Denies abdominal pain, Denies melena, Denies hematochezia, Denies change in bowel habits, Denies dyspepsia and Denies nausea Denies hematuria and Denies dysuria Musc Denies abnormal gait, Denies myalgias, Denies arthralgias, Denies numbness and Denies tingling Skin/Breast Denies rash, Denies unusual bruising and Denies wounds Neuro Denies abnormal gait, Denies dizziness, Denies headache(s), Denies memory loss, Denies numbness, Denies Sensory deficit (Neuro), Denies tingling and Denies weakness Psych Denies anxiety, Denies depression and Denies memory loss Endo Denies cold intolerance, Denies fatigue, Denies heat intolerance, Denies polydipsia and Denies polyuria Onel/Lymph Denies easy bleeding and Denies easy bruising Aller/Immun Denies wheezing Physical exam (Primary Care) Vital Signs: Last Vital Signs Temp 98.8 F 12/24/24 14:10 Pulse 93 12/24/24 14:10 Resp 16 12/24/24 14:10 BP 136/84 12/24/24 14:10 Pulse Ox 92 12/24/24 14:10 Oxygen Delivery Method Room Air 12/24/24 14:10 BMI result Body Mass Index 45.1 Tobacco/Smoking Status: Tobacco use Status Tobacco use date assessed 12/24/24 12/24/24 14:16 Patient Tobacco Use Status Former Tobacco user 12/24/24 14:16 e-Cigarette/Vaping Use Never Used 12/24/24 14:16 PHQ-9: PHQ-9 Score PHQ-9: Total score 6 12/24/24 14:26 Thrive Assessment: Date of Thrive Assessment Date Thrive assessed 05/19/24 12/24/24 14:16 Currently or been in a relationship where the following occur: No concerns reported Const General: no acute distress, well developed, alert and awake Nutritional Appearance: well nourished Orientation/consciousness: patient oriented x3 HENMT Head: Yes normocephalic and Yes atraumatic Ears: hearing grossly normal bilaterally and TM's normal bilaterally General nose exam: Normal external nose present and Normal nares present Mouth: Normal oral and palatal mucosa present and moist mucous membranes Teeth and gingiva: dentition normal Throat: Yes posterior oropharynx normal Eyes General: appearance normal, both eyes and all related structures Pupils: Equal, round and reactive pupils present and Pupil accommodation reflex normal EOM: EOMs intact bilaterally Neck Neck: Yes normal visual inspection, Yes no lymphadenopathy and Yes trachea midline Thyroid: Thyroid normal Carotids: no bruits Lymphatic: no lymphadenopathy noted Chest Chest palpation & inspection: normal inspection of the chest Resp Effort & Inspection: normal respiratory effort Auscultation: clear to auscultation bilaterally Cardio Rate: regular rate Rhythm: regular rhythm Heart sounds: S1 normal heart sound present, S2 normal heart sound present, no gallops, no murmurs and no rubs Bruits: no abdominal aortic bruits and no carotid bruits GI Palpation (GI): No Abdominal aortic bruit present, Soft to palpation, nontender, No hepatosplenomegaly present and No Rebound tenderness present Auscultation: normal bowel sounds General: Yes no CVA tenderness Back/Spine/Pelvis Back: no CVA tenderness Cervical Spine: cervical ROM normal and No Cervical spine tenderness Thoracic/Lumbar Spine: thoraco-lumbar ROM normal, No pain with thoraco-lumbar ROM, No thoracic spinal tenderness and No lumbar spinal tenderness Skin Lesions: no lesions Rashes: no rashes Trauma: no lacerations or abrasions Wounds: no wounds Nails: normal Neuro General: patient oriented x3 Cranial nerves: Yes Equal, round and reactive pupils present Cognition (Neuro): normal cognition Gait exam (Neuro): gait abnormal Motor exam (neuro): 5/5 motor strength present throughout Sensory Exam: No Sensory deficit (Neuro) Deep tendon reflexes (DTR's): Right patellar reflex intensity grade: 2+ and Left patellar reflex intensity grade: 2+ Extrem General: Yes normal to inspection and No edema Psych Appearance: grossly normal Affect: normal affect Attitude: cooperative Thought process: Normal thought process present Results AMB Hemoglobin A1c AMB Hemoglobin A1c 6.0 % Last Edit by Serena West CMA on 12/24/24 14:45 Results Reviewed Results Reviewed: Laboratory Last Values Hgb A1c (Clinic) 6.0 % (4.0-6.0) 12/24/24 14:38 Coding Level of Care Code Est Pt Level 5 (39187) Diagnoses Essential hypertension I10 Elevated LDL cholesterol level E78.00 Morbid obesity E66.01 Sleep apnea G47.30 Mild anemia D64.9 Pre-diabetes R73.03 Adrenal nodule E27.9 Breast cancer screening by mammogram Z12.31 Screening for colon cancer Z12.11 Screening for osteoporosis Z13.820 GERD (gastroesophageal reflux disease) K21.9 Gastritis K29.70 Unsteady gait R26.81 Adult general medical exam Z00.00 Assessment & Plan Assessment & Plan (1) Essential hypertension: Code(s): I10 - Essential (primary) hypertension Category: Medical Plan: Blood pressure is controlled. Goal is less than 140/90 Continue current medications (2) Elevated LDL cholesterol level: Code(s): E78.00 - Pure hypercholesterolemia, unspecified Category: Medical Plan: LDL cholesterol is mildly elevated. Encouraged a diet lower in saturated fats and cholesterol Encouraged weight loss (3) Morbid obesity: Code(s): E66.01 - Morbid (severe) obesity due to excess calories Category: Medical Plan: Encouraged weight loss Patient's insurance declined GLP 1 medication however she has a history of sleep apnea. Sending her back to sleep medicine for re-evaluation. Encouraged diet and weight loss Can not get much exercise due to bilateral knee pain (4) Sleep apnea: Code(s): G47.30 - Sleep apnea, unspecified Category: Medical Plan: As above, referred to Sleep Medicine (5) Mild anemia: Code(s): D64.9 - Anemia, unspecified Category: Medical Plan: Improving (6) Pre-diabetes: Code(s): R73.03 - Prediabetes Category: Medical Plan: A1c 6.0% Encouraged a diet low in sugars and starches Encouraged weight loss (7) Adrenal nodule: Code(s): E27.9 - Disorder of adrenal gland, unspecified Category: Medical Plan: Has an appointment with endocrinology in January (8) Breast cancer screening by mammogram: Code(s): Z12.31 - Encounter for screening mammogram for malignant neoplasm of breast Category: Medical Plan: Patient had a mammogram at [facility] Will request report (9) Screening for colon cancer: Code(s): Z12.11 - Encounter for screening for malignant neoplasm of colon Category: Medical Plan: Followed by Dr. Cummings Patient says she had a colonoscopy about a year ago was told to follow-up in 10 years Up-to-date (10) Screening for osteoporosis: Code(s): Z13.820 - Encounter for screening for osteoporosis Category: Medical Plan: Due for screening for osteoporosis in March Bone density test ordered (11) GERD (gastroesophageal reflux disease): Code(s): K21.9 - Gastro-esophageal reflux disease without esophagitis Category: Medical Plan: GERD/gastritis with frequent symptoms. Already using omeprazole and famotidine. Followed by Dr. Cummings for colonoscopies Referred back to Dr. Cummings (12) Gastritis: Code(s): K29.70 - Gastritis, unspecified, without bleeding Category: Medical Plan: As above (13) Unsteady gait: Code(s): R26.81 - Unsteadiness on feet Category: Medical Plan: Get up and go test 16 seconds and unsteady gait. Severe bilateral knee pain Increased risk for falls Continue using walker Has handicap placard As life Alert necklace (14) Adult general medical exam: Code(s): Z00.00 - Encounter for general adult medical examination without abnormal findings Category: Medical Plan: 69-year-old female presents for an extended exam Encouraged healthy diet with active lifestyle and plenty of exercise Plan She will return in 3 months to follow-up chronic conditions Orders: Orders Comprehensive [place]. Panel Fast Today Z00.00 - Encounter for general adult medical examination without abnormal findings Lipid Panel Today Z00.00 - Encounter for general adult medical examination without abnormal findings AMB Hemoglobin A1c Today Z13.9 - Encounter for screening, unspecified Urine Culture Today R30.0 - Dysuria Complete Blood Count Auto Diff Today Z00.00 - Encounter for general adult medical examination without abnormal findings Referrals Audiology Referral H91.90 - Unspecified hearing loss, unspecified ear Gastroenterology Referral K21.9 - Gastro-esophageal reflux disease without esophagitis Medications: New nitrofurantoin monohyd/m-cryst 100 mg (Macrobid) must administer with a meal/food 100 mg PO BID 14 caps 0RF 7 days
--- OUTSIDE RECORDS SUMMARY | 2024-12-24 14:39 | XMS_ITS | Patient Health Record ---
Author Organization [facility] Address [address] [place] [id number] Care Team Providers Care Resident Care Associate Name Role Phone Iron Castano Primary Care Provider UnavailSelvin Figueroa Unavailable [phone] Allergies Allergen (clinical drug ingredient) Drug/Non Drug [...] Problem Status W/U Status Risk Notes Problem [id number] Encounter for screening for malignant neoplasm of colon (Z12.11) Active confirmed Problem Encounter for screening for malignant neoplasm of rectum (Z12.12) Active confirmed Problem [id number] Gastroesophageal reflux disease without esophagitis (K21.9) Active confirmed Problem [id number] Preprocedural examination (Z01.818) Active confirmed Plan Of Treatment Future Test Test Name Order Date COLONOSCOPY 07/21/2019 Insurance Providers Payer Name Payer Address Payer Phone Subscriber Number Group Number Insured Name Patient Relationship to Insured Coverage Start Date Coverage End Date [facility] [address] [facility] [place] [phone] [id number] LUIS ANTONIO CARSON Self - patient is the insured Medical (General) History Medical History History ICD Code 02/17/2009 Colonoscopy--nega tive except for mild diverticulosis and internal hemorrhoids GERD-Neg EGD in 02/2009 except for a sma ll HH Depression Pain in arms and legs/feet f rom the C-spine disc disease before her surgery-Dr. Vargas Denies VA,DM,CVA,Lung disease,renal dise ase Surgical History Surgery Date(Month/Year) Lap band--Dr. Doyle--lost approx 40#, but gained it back 2010 Carpal tunnel both wrists 2009 Vaginal polyps 2012 3 C-spine discs removed 05/2015
--- OUTSIDE RECORDS SUMMARY | 2024-12-24 14:40 | XMS_ITS | Clinical Summary ---
Author Organization [facility] Address [address] [place] [address] Care Team Providers Care Belt Builder Name Role Phone Iron Castano MD Primary Care Provider [phone] Allergies Active Allergy Reactions Criticality Noted Date [...] of Health Annual Screening 05/13/2024 Influenza Vaccine (#1) 2025 , 02/07/2022, 05/11/2021, Additional history exists DTaP,Tdap,and Td Vaccines (2 - Td or Tdap) 01/19/2029 01/19/2019 Pneumococcal Vaccine: 50+ Years Completed 02/12/2023 RSV Vaccine (60+ years old and patients) Completed 04/12/2023 Hepatitis B Vaccines Aged Out No long er eligible based on patient's age to complete this topic Insurance MEDICARE [facility] Care Teams Belt Builder Relationship Specialty Start Date End Date Iron Castano MD [address] [place] [address] PCP - General Family Medicine 12/30/23
== END 2024-12-24 14:54 | disposition home or self-care (01) ==
LOC: HO.HMCFM 13:46
PROVIDERS: PCP Family Medicine; Visit Provider Family Medicine
DX: Z13.9 Encounter for screening, unspecified (principal)

== ENCOUNTER 2025-01-08 10:51 | Outpatient (AMB) | payer MEDICARE, MEDICAID, SELFPAY ==
[2025-01-08 11:17] VITALS: BP 126/84; PULSE 95; O2SAT 95; BMI 44.7
--- NOTE | 2025-01-08 11:17 | MHC.OFFVIS ---
Vital Signs 01/08/25 11:17 Height 5 ft 4 in Weight 260 lb 8 oz BMI 44.7 BP 126/84 Blood Pressure Location Rt brachial Position Sitting Pulse 95 Pulse Source Pulse Oximeter Pulse Oximetry (%) 95 Oxygen Delivery Method Room Air Intake Visit Reasons: New Problem-MARILY Intake Note: Patient presents for new MARILY. Patient had sleep study in 2022 2 apneas for whole event. looking to check on her sleep Allergies seafood Allergy (Verified 01/08/25 11:27) hives albuterol Adverse Reaction (Severe, Verified 01/08/25 11:27) Shakiness HPI Comments Details: 69 year old female with epilepsy is referred to us for sleep apnea evaluation by her pcp. 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 August 2024, she was on the phone talking to her daughter and dropped phone had a seizure, courtesy wll check performed by her elderly living facility [facility]. She was sitting in her chair and woke up as they came in. She denies biting her tongue, eyes rolling in the back of her eyes and or urinary incontinence. October 2024 second episode of seizure and Keppra was increased to 1000mg po BID. EEG 2022/ IMPRESSION: Abnormal EEG suggestive of right temporal paroxysmal disorder. She was told in the ED during visit for episode of bronchitis, she has sleep apnea. She is also awaiting sleep study so she can start using a cpap machine. She has multiple arousals at night with pain in cervical spine and knees bilaterally. She goes to bed at various times of the night, usually by 11pm and wakes up at 3am goes to the bathroom then makes a cup of tea and or watches tv until she falls asleep. She has conversations in her sleep, tosses and turns frequently. She has morning headaches 2-3x per week when she sleep in her recliner chair. She takes tylenol and they improve. She clenches her jaws denies bruxism. Her BMI is elevated weight 260lb. She has acid reflux she avoids eating after 7pm, takes omeprazole and famotidine at night. RLS symptoms, her feet feel uncomfortable at night, with cramping with painful parasthesias on the plantar surface. She moves them all night all night long. When she walks on the cold floors, places ice packs on the plantar surface of feet and takes mustard the symptoms improve. She takes percocet during the day for pain as needed and Gabapentin 900mg at night for rls. [facility] Medical History Bronchitis Shingles MARILY (obstructive sleep apnea) Rib pain on left side Restless leg syndrome Chronic pain syndrome Seizure Contusion of right patella Fall Muscle spasms of neck Lower extremity weakness Osteoarthritis of left knee Osteoarthritis of right knee Osteoarthritis of left ankle Arthritis of right knee Acute paronychia of toe Mild anemia Iron deficiency anemia Lumbar spinal stenosis Lumbar and sacral spondyloarthritis Migraine Major depressive disorder Cervical radiculopathy Osteoarthritis of knees, bilateral Urge incontinence Surgical History History of bariatric surgery S/P cervical spinal fusion Family History Father No problems noted. Mother No problems noted. 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 Current occupational exposures/hazards: No Cognitive needs: No Hearing needs: No Vision needs: No Physical Exam Vital Signs: Last Vital Signs Pulse 95 01/08/25 11:17 BP 126/84 01/08/25 11:17 Pulse Ox 95 01/08/25 11:17 Oxygen Delivery Method Room Air 01/08/25 11:17 BMI result Body Mass Index 44.7 Const General: cooperative, comfortable and no acute distress Nutritional Appearance: obese Orientation/consciousness: patient oriented x3 HEENT Face and sinus: Yes face symmetric Throat: Yes other (mallampti score is 4) Eyes Pupils: Equal, round and reactive pupils present Neck Neck: Yes full ROM Resp Effort & Inspection: normal respiratory effort and able to speak in complete sentences Neuro Other: ambulates with a rolling walker - gait is off balance - stooped posture General: patient oriented x3 and moves all extremities Cranial nerves: Yes Equal, round and reactive pupils present, Yes Normal facial strength present, Yes Midline tongue present, Yes Ability to bilaterally rotate head present and Yes Ability to bilaterally elevate shoulders present Cognition (Neuro): normal cognition Gait exam (Neuro): Assistive device used Motor exam (neuro): Abnormal motor strength present Deep tendon reflexes (DTR's): Right triceps reflex intensity grade: 2+, Left triceps reflex intensity grade: 2+, Rt Biceps (C5, C6): 2+, Left biceps reflex intensity grade: 2+, Right brachioradialis reflex intensity grade: 2+, Left brachioradialis reflex intensity grade: 2+, Right patellar reflex intensity grade: 2+, Left patellar reflex intensity grade: 2+, Right ankle reflex intensity grade: 2+ and Left ankle reflex intensity grade: 2+ Coordination: jteeca-yx-cigt test normal Psych Appearance: grossly normal Speech and movement: Normal speech and movement present Thought process: Normal thought process present Thought content: Normal thought content present Results Reviewed Results Reviewed: EEG / IMPRESSION: Abnormal EEG suggestive of right temporal paroxysmal disorder. Clinical and imaging correlation is recommended with suspicion of partial or complex partial seizure disorder. Assessment & Plan Assessment & Plan (1) Excessive daytime sleepiness: Comment: psg / seizure disorder Code(s): G47.19 - Other hypersomnia Category: Medical (2) Headache: Comment: sumatriptan will monitor Code(s): R51.9 - Headache, unspecified Category: Medical Qualifiers: Headache chronicity pattern: unspecified pattern Headache type: unspecified Intractability: not intractable Qualified Code(s): R51.9 - Headache, unspecified (3) Restless leg syndrome: Comment: gabapentin continue Code(s): G25.81 - Restless legs syndrome Category: Medical (4) Seizure-like activity: Code(s): R56.9 - Unspecified convulsions Category: Medical (5) Loud snoring: Code(s): R06.83 - Snoring Category: Medical Plan PSG to r/o marily as she has fragmented sleep. Labs to r/o deficiencies Seizure disorder continue Keppra 1000mg po bid / and lamotrigine 150mg po bid RLS radiculopathy vs. neuropathy vs. peripheral neuropathy will monitor, continue gabapentin 900mg po at bedtime. BMI is elevated may swim with a atul as tolerable due to knee pain, manage diet and lifetyle and reduce caloric intake. Orders: Orders Vitamin D 25-OH Total 01/08/25 G25.81 - Restless legs syndrome, R56.9 - Unspecified convulsions Vitamin B12 and Folate 01/08/25 G25.81 - Restless legs syndrome, R56.9 - Unspecified convulsions Homocysteine 01/08/25 G25.81 - Restless legs syndrome, G47.9 - Sleep disorder, unspecified, R53.83 - Other fatigue, R56.9 - Unspecified convulsions Ferritin 01/08/25 G25.81 - Restless legs syndrome, R56.9 - Unspecified convulsions RT PSG in-lab sleep study 01/08/25 G47.19 - Other hypersomnia, R06.83 - Snoring Vitamin B6 01/08/25 G25.81 - Restless legs syndrome, R56.9 - Unspecified convulsions TSH reflex Free T4 01/08/25 G25.81 - Restless legs syndrome, R56.9 - Unspecified convulsions Methylmalonic Acid 01/08/25 G25.81 - Restless legs syndrome, G47.9 - Sleep disorder, unspecified, R53.83 - Other fatigue, R56.9 - Unspecified convulsions Patient Instructions: Sleep Hygiene provided: set a scheduled bedtime and wake time to help regulate the circadian rhythm and balance the release of pituitary hormones. Sleep in a dark room, temperatures below 68 degrees, and no devices n bed. Limit caffeinated products 6 hours prior to bed, and limit fluids 2-4 hours prior to bed. Gentle night yoga, diffusing essential oils, and playing soft music can be relaxing. Coding Level of Care Code New Pt Level 4 (21494) Diagnoses Excessive daytime sleepiness G47.19 Nonintractable headache, unspecified chronicity pattern, unspecified headache type R51.9 Headache chronicity pattern: unspecified pattern Headache type: unspecified Intractability: not intractable Restless leg syndrome G25.81 Seizure-like activity R56.9 Loud snoring R06.83 Sleep Questionnaire Difficulty falling asleep: Yes Difficulty staying asleep?: Yes Number of arousals: 3 Snoring: No Witnessed apneas: No Gasping arousals: No Nocturia: Yes GERD: Yes Vivid dreams: Yes Acting out dreams: Yes Abnormal behavior in sleep: Yes Abnormal movements in sleep: Yes Morning headaches: Yes Excessive daytime sleepiness: Yes Daytime naps: Yes (1hour) Restless legs: Yes Hallucinations: No Sleep paralysis: No Drop attacks: No
--- OUTSIDE RECORDS SUMMARY | 2025-01-08 11:30 | XMS_ITS | Patient Health Record ---
Author Organization [facility] Address [address] [place] [address] Care Team Providers Care Commercial Collections Specialist Name Role Phone Iron Castano Primary Care Provider UnavailSelvin Figueroa Unavailable [phone] Allergies Allergen (clinical drug ingredient) Drug/Non Drug [...] Problem Status W/U Status Risk Notes Problem [id number] Encounter for screening for malignant neoplasm of colon (Z12.11) Active confirmed Problem Screening for malignant neoplasm of rectum (315490111) Encounter for screening for malignant neoplasm of rectum (Z12.12) Active confirmed Problem [id number] Gastroesophageal reflux disease without esophagitis (K21.9) Active confirmed Problem [id number] Preprocedural examination (Z01.818) Active confirmed Plan Of Treatment Future Test Test Name Order Date COLONOSCOPY 07/21/2019 Next Appt Details Provider Name:Selvin Cummings , 04/28/2025 03:20:00 PM, [address] [facility], [address], [place], [address], Insurance Providers Payer Name Payer Address Payer Phone Subscriber Number Group Number Insured Name Patient Relationship to Insured Coverage Start Date Coverage End Date [facility] [address] [place] [phone] [id number] LUIS ANTONIO CARSON Self - patient is [...]
--- OUTSIDE RECORDS SUMMARY | 2025-01-08 11:30 | XMS_ITS | Clinical Summary ---
Author Organization [facility] Address [address] [place] [address] Care Team Providers Care Ruby On Rails Consultant Name Role Phone Iron Castano MD Primary Care Provider [phone] Allergies Active Allergy Reactions Criticality Noted Date [...] Screening 1956 Sigmoidoscopy 1955 Medicare AWV 1957 Diabetes Screening [address] Lung Cancer Screening (Baseline) [...] age to complete this topic Insurance MEDICARE [facility] Care Teams Ruby On Rails Consultant Relationship Specialty Start Date End Date Iron Castano MD [address] [place] [address] PCP - General Family Medicine 12/30/23
== END 2025-01-08 12:21 | disposition home or self-care (01) ==
LOC: HO.HSMS 10:52
PROVIDERS: PCP Family Medicine; Visit Provider Physician Assistant Medical
DX: G47.19 Other hypersomnia (principal); R51.9 Headache, unspecified; G25.81 Restless legs syndrome; R56.9 Unspecified convulsions; R06.83 Snoring
CPT/HCPCS: 99204

== ENCOUNTER → 2025-01-08 10:51 | Outpatient (BNVA) | payer MEDICARE, MEDICAID, SELFPAY | PROVIDERS: PCP Family Medicine; Visit Provider Physician Assistant Medical | DX: R06.83 Snoring (principal); G47.19 Other hypersomnia; G25.81 Restless legs syndrome; R56.9 Unspecified convulsions; R51.9 Headache, unspecified | CPT/HCPCS: 99202 ==

== ENCOUNTER 2025-01-14 12:40 | Outpatient (REF) | payer MEDICARE, MEDICAID, SELFPAY ==
--- NOTE | ~2025-01-14 | MR_ITS ---
EXAMINATION: MR ABDOMEN WITHOUT THEN WITH IV CONTRAST CLINICAL INFORMATION: E27.9 - Disorder of adrenal gland, unspecified COMPARISON: Chest CT on November 29, 2024 describes bilateral adrenal nodules. TECHNIQUE: MR abdomen was performed without and with use of 10 cc intravenous Gadavist gadolinium contrast. Postcontrast images are performed in multiphase dynamic sequences. Imaging was performed in 3 planes. FINDINGS: LOWER CHEST: No pleural effusions. No lung consolidation. LIVER: No focal lesions. GALLBLADDER AND BILIARY TREE: Nondistended gallbladder containing multiple small gallstones. No biliary ductal dictation. PANCREAS: Unremarkable. SPLEEN: No splenomegaly. No focal lesion. ADRENAL GLANDS: Right: 2.2 cm nodule (4:23) does not show drop in the signal on the nsh-ah-nsbtv sequence compared to the in-phase sequence. Krtiypd-br-ntsxyn CSI ratio of 1.12 is indeterminate. Adrenal signal intensity index of -5.3 % is indeterminate. There is relatively homogeneous enhancement following administration of intravenous contrast. Left: 1.1 cm nodule (4:19) shows drop in signal on the llb-pc-vlacq sequence compared to the in-phase sequence. Dukctww-bp-lmhgkatef CSI ratio of 0.60 and adrenal signal intensity index of 43.7 % indicates lipid-rich adenoma. KIDNEYS AND URETERS: 1.8 cm oval lesion in the anterior aspect of the right kidney (5:32), showing mild T2 hyperintense signal and mild T1 hyperintense signal does not enhance following administration of intravenous contrast, and most likely represents a hemorrhagic cyst or cyst with high proteinaceous content. No enhancing renal lesions or hydronephrosis on either side. GASTROINTESTINAL TRACT: Gastric lap band in place. No bowel distention. PERITONEUM/RETROPERITONEUM: No free fluid. LYMPH NODES: No lymphadenopathy. VASCULAR: No abdominal aortic aneurysm. OSSEOUS STRUCTURES: Unremarkable marrow signal. MR/MR abdomen wo/w con IMPRESSION: 1. Indeterminate right adrenal nodule measuring 2.2 cm, without signal drop. If no older prior studies available for comparison, consider CT with adrenal protocol to evaluate for washout. 2. 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 3. Cholelithiasis. Electronically signed by: Nevaeh Eastman MD 01/14/2025 03:27 PM EDT
--- OUTSIDE RECORDS SUMMARY | 2025-01-14 13:59 | XMS_ITS | Patient Health Record ---
Author Organization [facility] Address [address] [place] [address] Care Team Providers Care Primer Charging Tool Setter Name Role Phone Iron Castano Primary Care Provider UnavailSelvin Figueroa Unavailable [phone] Allergies Allergen (clinical drug ingredient) Drug/Non Drug [...] Problem Status W/U Status Risk Notes Problem [id number] Encounter for screening for malignant neoplasm of colon (Z12.11) Active confirmed Problem Screening for malignant neoplasm of rectum (103468818) Encounter for screening for malignant neoplasm of rectum (Z12.12) Active confirmed Problem 476736890 Gastroesophageal reflux disease without esophagitis (K21.9) Active confirmed Problem [id number] Preprocedural examination (Z01.818) Active confirmed Plan Of Treatment Future Test Test Name Order Date COLONOSCOPY 07/21/2019 Next Appt Details Provider Name:Selvin Cummings , 04/28/2025 03:20:00 PM, [address] [facility], [address], [place], [address], Insurance Providers Payer Name Payer Address Payer Phone Subscriber Number Group Number Insured Name Patient Relationship to Insured Coverage Start Date Coverage End Date [facility] [address] [place] [phone] [id number] LUIS ANTONIO CARSON Self - patient is the insured Medical (General) History Medical History History ICD Code 02/17/2009 Colonoscopy--nega tive except for mild diverticulosis and internal hemorrhoids GERD-Neg EGD in 02/2009 except for a sma ll HH Depression Pain in arms and legs/feet f rom the C-spine disc disease before her surgery-Dr. Vargas Denies MT,DM,CVA,Lung disease,renal dise ase Surgical History Surgery Date(Month/Year) Lap band--Dr. Doyle--lost approx 40#, but gained it back 2010 Carpal tunnel both wrists 2009 Vaginal polyps 2012 3 C-spine discs removed 05/2015
--- OUTSIDE RECORDS SUMMARY | 2025-01-14 13:59 | XMS_ITS | Clinical Summary ---
Author Organization [facility] Address [address] [place] [address] Care Team Providers Care Edger Automatic Name Role Phone Iron Castano MD Primary Care Provider [phone] Allergies Active Allergy Reactions Criticality Noted Date [...] Zoster Vaccines (2 of 3) 04/29/2017 03/04/2017 Alcohol/Substance Use Screening 05/13/2024 Depression Screening and Follow-Up 05/13/2024 Fall Risk Screening 05/13/2024 Health Care Proxy Review 05/13/2024 Social Drivers of Health Annual Screening 05/13/2024 COVID-19 Vaccine ( season) 2025 02/07/2022, 08/30/2021, 03/07/2021, Additional history exists Influenza Vaccine (#1) 2025 , 02/07/2022, 05/11/2021, Additional history exists DTaP,Tdap,and Td Vaccines (2 - Td or Tdap) 01/19/2029 01/19/2019 Pneumococcal Vaccine: 50+ Years Completed 02/12/2023 RSV Vaccine (60+ years old and patients) Completed 04/12/2023 Hepatitis B Vaccines Aged Out No long er eligible based on patient's age to complete this topic Insurance MEDICARE [facility] Care Teams Edger Automatic Relationship Specialty Start Date End Date Iron Castano MD [address] [place] [address] PCP - General Family Medicine 12/30/23
== END 2025-01-14 12:41 | disposition home or self-care (01) ==
LOC: HO.MRI 12:40
PROVIDERS: PCP Family Medicine; Visit Provider Nurse Practitioner Family
DX: E27.9 Disorder of adrenal gland, unspecified (principal)
CPT/HCPCS: 74183; A9585

== ENCOUNTER → 2025-01-14 12:50 | Outpatient (BNV) | payer MEDICARE, MEDICAID, SELFPAY | PROVIDERS: PCP Family Medicine; Visit Provider Radiology Body Imaging | DX: E27.9 Disorder of adrenal gland, unspecified (principal); K80.20 Calculus of gallbladder without cholecystitis without obstruction | CPT/HCPCS: 74183 ==

== ENCOUNTER 2025-01-20 08:03 | Outpatient (AMB) | payer MEDICARE, MEDICAID, SELFPAY ==
[2025-01-20 08:05] VITALS: BP 128/78; PULSE 100; O2SAT 98; BMI 45.4
--- NOTE | 2025-01-20 08:05 | A.OFFVIS_ITS ---
Vital Signs 01/20/25 08:05 Height 5 ft 4 in Weight 264 lb 8.875 oz BMI 45.4 BP 128/78 Blood Pressure Location Rt brachial Position Sitting Pulse 100 Pulse Source Pulse Oximeter Pulse Oximetry (%) 98 Oxygen Delivery Method Room Air Intake Visit Reasons: Adrenal gland disorder Intake Note: NEW Patient presents today to establish care for Adrenal Gland Disorder: No acute complaints reported at this time Rv Detailer Required: No Accompanied by: Self / Same As Patient Allergies seafood Allergy (Verified 01/08/25 11:27) hives albuterol Adverse Reaction (Severe, Verified 01/08/25 11:27) Shakiness HPI Comments Details: 69 YO F who is seen in consultation at the request of PCP for adrenal incidentaloma. The patient is a 69-year-old female presenting with an adrenal gland lesion. The lesion was initially discovered during an emergency room visit where a CT scan and MRI were performed. Upon review of past records, it was noted that the lesion has been present since 2006 and was considered benign at that time. The patient reports a history of essential hypertension, managed with 50 mg of losartan daily and a diuretic. Blood pressure is generally well-controlled with this regimen. The patient has experienced a weight gain of approximately 40 pounds over the past year and a half. She denies any purplish stretch hager but reports easy bruising. The patient experiences dizziness upon standing, which has become more frequent in recent weeks. Had MRI abdomen/pelvis 01/14/25 for which revealed below. Prior CT dated 2006revealed lipid rich R adenoma. Denies history of spells with headache, flushing, diaphoresis, abdominal pain or diarrhea. Admits to weight gain 40 lbs over 1 yr , frequent infections, +easy bruisability, -development of violaceous striae. History of HTN, controlled on 2 agents. No history of anticoagulant use. Denies any weight loss,occasional orthostatic symptoms,- hypoglycemia. No history of malignancy or TB. Imaging: ADRENAL GLANDS: MRI Right: 2.2 cm nodule (4:23) does not show drop in the signal on the djv-kd-njwue sequence compared to the in-phase sequence. Jvhtocy-qc-ghzqjr CSI ratio of 1.12 is indeterminate. Adrenal signal intensity index of -5.3 % is indeterminate. There is relatively homogeneous enhancement following administration of intravenous contrast. Left: 1.1 cm nodule (4:19) shows drop in signal on the mhl-qc-fzpge sequence compared to the in-phase sequence. Fmxauko-dt-geerlgojb CSI ratio of 0.60 and adrenal signal intensity index of 43.7 % indicates lipid-rich adenoma. - General: Reports weight gain of 40 pounds over the past year and a half. - Cardiovascular: Denies palpitations, reports dizziness upon standing. - Dermatological: Reports easy bruising, denies purplish stretch hager. - Neurological: Denies headaches associated with sweating and palpitations. Labs: [facility] Medical History Bronchitis Shingles MARILY (obstructive sleep apnea) Rib pain on left side Restless leg syndrome Chronic pain syndrome Seizure Contusion of right patella Fall Muscle spasms of neck Lower extremity weakness Osteoarthritis of left knee Osteoarthritis of right knee Osteoarthritis of left ankle Arthritis of right knee Acute paronychia of toe Mild anemia Iron deficiency anemia Lumbar spinal stenosis Lumbar and sacral spondyloarthritis Migraine Major depressive disorder Cervical radiculopathy Osteoarthritis of knees, bilateral Urge incontinence Surgical History History of bariatric surgery S/P cervical spinal fusion Family History Father No problems noted. Mother No problems noted. 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 Neck examination was normal size thyroid about 15 g in size. There are no thyroid nodules palpated Assessment & Plan Assessment & Plan (1) Adrenal nodule: Code(s): E27.9 - Disorder of adrenal gland, unspecified Category: Medical Plan: This is a 69-year-old female with a history of bilateral adrenal nodules. Although the right adrenal nodule is indeterminate on MRI in phase/out of phase, it has been present since 2006 initially had characteristics on CAT scan being lipid rich adenoma. The left adrenal mass shows benign charact eristics on MRI in phase/out of phase. Do the chronicity of the lesion in its appearance is throughout the years, there is a very low likelihood of malignancy in either lesion. We will need to rule out adrenal hypersecretion. Plan is to check plasma metanephrines, aldosterone, renin, DHEA-S, and perform a 1 mg dexamethasone suppression test with dexamethasone a cortisol levels. If the lesions are silent hormonally, they can be observed. We will discuss with patient the idea of potentially moving the right lesion or observing it but I would be leaning towards observing it because of the chronicity of the lesion and its benign characteristics initially assuming there is no hormonal hypersecretion 1. Adrenal gland lesion The lesion has been stable since 2006 and appears benign. Further evaluation includes checking for hormone secretion. Tests include plasma metanephrines, aldosterone, and renin levels. A dexamethasone suppression test is planned to assess cortisol production. The patient had an opportunity to ask questions regarding treatment plan. The patient expressed understanding and agreement with the above treatment plan. Patient was informed and verbally consented to the use of an ambient scribe for clinic note documentation during this visit. Orders: Orders Renin Today E27.9 - Disorder of adrenal gland, unspecified Metanephrines, Plasma Today E27.9 - Disorder of adrenal gland, unspecified DHEA Sulfate Today E27.9 - Disorder of adrenal gland, unspecified Aldosterone Today E27.9 - Disorder of adrenal gland, unspecified Dexamethasone 1 Week E27.9 - Disorder of adrenal gland, unspecified Cortisol Random 1 Week E27.9 - Disorder of adrenal gland, unspecified Medications: New dexamethasone 1 mg PO ONCE 1 tab 0RF Coding Level of Care Code New Pt Level 4 (88965) Diagnoses Adrenal nodule E27.9
== END 2025-01-20 08:40 | disposition home or self-care (01) ==
LOC: HO.ENCR 08:03
PROVIDERS: PCP Family Medicine; Visit Provider Internal Medicine Endocrinology, Diabetes & Metabolism
DX: E27.9 Disorder of adrenal gland, unspecified (principal)
CPT/HCPCS: 99204

== ENCOUNTER → 2025-01-20 08:03 | Outpatient (BNVA) | payer MEDICARE, MEDICAID, SELFPAY | PROVIDERS: PCP Family Medicine; Visit Provider Internal Medicine Endocrinology, Diabetes & Metabolism | DX: E27.9 Disorder of adrenal gland, unspecified (principal) | CPT/HCPCS: 99202 ==

== ENCOUNTER 2025-01-20 08:44 | Outpatient (REF) | payer MEDICARE, MEDICAID, SELFPAY ==
--- OUTSIDE RECORDS SUMMARY | 2025-01-20 10:11 | XMS_ITS | Patient Health Record ---
Author Organization [facility] Address [address] [place] [address] Care Team Providers Care Healthcare Advisory Services Manager Name Role Phone Iron Castano Primary Care Provider UnavailSelvin Figueroa Unavailable [phone] Allergies Allergen (clinical drug ingredient) Drug/Non Drug [...] Problem Status W/U Status Risk Notes Problem 851544026 Encounter for screening for malignant neoplasm of colon (Z12.11) Active confirmed Problem Screening for malignant neoplasm of rectum (118417372) Encounter for screening for malignant neoplasm of rectum (Z12.12) Active confirmed Problem 774450009 Gastroesophageal reflux disease without esophagitis (K21.9) Active confirmed Problem [id number] Preprocedural examination (Z01.818) Active confirmed Plan Of Treatment Future Test Test Name Order Date COLONOSCOPY 07/21/2019 Next Appt Details Provider Name:Selvin Cummings , 04/28/2025 03:20:00 PM, [address] [facility], [address], [place], [address], Insurance Providers Payer Name Payer Address Payer Phone Subscriber Number Group Number Insured Name Patient Relationship to Insured Coverage Start Date Coverage End Date [facility] [address] [place] [phone] [id number] LUIS ANTONIO CARSON Self - patient is the insured Medical (General) History Medical History History ICD Code 02/17/2009 Colonoscopy--nega tive except for mild diverticulosis and internal hemorrhoids GERD-Neg EGD in 02/2009 except for a sma ll HH Depression Pain in arms and legs/feet f rom the C-spine disc disease before her surgery-Dr. Vargas Denies [place],DM,CVA,Lung disease,renal dise ase Surgical History Surgery Date(Month/Year) Lap band--Dr. Doyle--lost approx 40#, but gained it back 2010 Carpal tunnel both wrists 2009 Vaginal polyps 2012 3 C-spine discs removed 05/2015
--- OUTSIDE RECORDS SUMMARY | 2025-01-20 10:11 | XMS_ITS | Clinical Summary ---
Author Organization [facility] Address [address] [place] [address] Care Team Providers Care Racecourse Barrier Attendant Name Role Phone Iron Castano MD Primary Care Provider [phone] Allergies Active Allergy Reactions Criticality Noted Date [...] age to complete this topic Insurance MEDICARE [facility] Care Teams Racecourse Barrier Attendant Relationship Specialty Start Date End Date Iron Castano MD [address] [place] [address] PCP - General Family Medicine 12/30/23
[2025-01-25 15:49] LABS: Metanephrine, Free 27 pg/mL (<=57); Normetanephrines, Free 91 pg/mL (<=148); Total Metanephrine, Free 118 pg/mL (<=205)
== END 2025-01-20 08:45 | disposition home or self-care (01) ==
LOC: HO.10HDL 08:44
PROVIDERS: Visit Provider Internal Medicine Endocrinology, Diabetes & Metabolism
DX: E27.9 Disorder of adrenal gland, unspecified (principal)
CPT/HCPCS: 36415; 82088; 82627; 83835; 84244

== ENCOUNTER 2025-01-22 11:52 | Outpatient (AMB) | payer MEDICARE, MEDICAID, SELFPAY ==
--- NOTE | 2025-01-22 11:56 | A.OFFVIS_ITS ---
Vital Signs 01/22/25 11:57 Height 5 ft 4 in Weight 261 lb BMI 44.8 BP 120/72 Blood Pressure Location Lt brachial Position Sitting Respiration 16 Pulse 62 Pulse Source Pulse Oximeter Pulse Oximetry (%) 96 Oxygen Delivery Method Room Air Intake Visit Reasons: r knee injection/pill count Intake Note: Pt states she last took oxy 01/22/25 @ 11am Malt House Kiln Operator Required: No Allergies seafood Allergy (Verified 01/22/25 12:06) hives albuterol Adverse Reaction (Severe, Verified 01/22/25 12:06) Shakiness Medication List - Last Reconciled 01/22/25 by Shayy Quan LPN blood pressure monitor Automatic, Digital. Dx: I10. Daily As directed, 999 days/lifetime cholecalciferol (vitamin D3) (Vitamin D3) 10 mcg PO DAILY famotidine 40 mg PO DAILY gabapentin 900 mg (1.5 x 600 mg) PO Q8H 30 days hydrochlorothiazide 25 mg PO DAILY 90 days lamotrigine 150 mg PO BID levetiracetam 1,000 mg PO BID 90 days losartan 100 mg PO DAILY 90 days magnesium 200 mg PO DAILY meloxicam 15 mg PO DAILY 30 days naloxone 4 mg/actuation (Narcan) 4 mg intranasal Q2M PRN omeprazole 40 mg (2 x 20 mg) PO DAILY oxycodone-acetaminophen 5-325 mg (Percocet) 1 tab PO QID PRN 30 days venlafaxine ER 150 mg PO DAILY walker (Ultra-Light Rollator misc) Rolling walker with wheels, seat and brakes. Daily ?As directed, 999 days HPI HPI r knee injection/pill count: Details: History of Present Illness The patient is a 69-year-old female presenting with knee pain. The pain is primarily located on the inside of the knee and has been persistent, affecting her ability to walk comfortably. Previous injections have provided relief, making it easier for her to walk, although the pain has not completely resolved. Pain Description - Location: Inside of the knee - Impact: Affects ability to walk comfortably - Previous interventions: Injections have provided partial relief Procedure - Right knee injection: Informed consent obtained, patient in sitting position, 40 mg of Kenalog mixed with lidocaine 0.25% administered, no pain on injection, tolerated well, no blood loss. [facility] Medical History Bronchitis Shingles MARILY (obstructive sleep apnea) Rib pain on left side Restless leg syndrome Chronic pain syndrome Seizure Contusion of right patella Fall Muscle spasms of neck Lower extremity weakness Osteoarthritis of left knee Osteoarthritis of right knee Osteoarthritis of left ankle Arthritis of right knee Acute paronychia of toe Mild anemia Iron deficiency anemia Lumbar spinal stenosis Lumbar and sacral spondyloarthritis Migraine Major depressive disorder Cervical radiculopathy Osteoarthritis of knees, bilateral Urge incontinence Surgical History History of bariatric surgery S/P cervical spinal fusion Family History Father No problems noted. Mother No problems noted. 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 Current occupational exposures/hazards: No Cognitive needs: No Hearing needs: No Vision needs: No Physical Exam Vital Signs: Last Vital Signs Pulse 62 01/22/25 11:57 Resp 16 01/22/25 11:57 BP 120/72 01/22/25 11:57 Pulse Ox 96 01/22/25 11:57 Oxygen Delivery Method Room Air 01/22/25 11:57 BMI result Body Mass Index 44.8 Assessment & Plan Assessment & Plan (1) Osteoarthritis of knees, bilateral: Code(s): M17.0 - Bilateral primary osteoarthritis of knee Category: Medical Plan Plan Patient was informed and verbally consented to the use of an ambient scribe for clinic note documentation during this visit. 1. Knee Pain - Plan: Administered right knee injection with Kenalog and lidocaine, follow-up in three to four weeks for left knee injection. Discussion Notes I discussed with the patient the procedure of the knee injection, including the use of Kenalog and lidocaine, and the expected outcomes. We also talked about the follow-up plan for a left knee injection in three to four weeks. Patient Instructions - Follow up in three to four weeks for a left knee injection. - Monitor for any adverse reactions at the injection site. Coding Level of Care Code Procedure Only Diagnoses Osteoarthritis of knees, bilateral M17.0
[2025-01-22 11:57] VITALS: BP 120/72; PULSE 62; RESP 16; O2SAT 96; BMI 44.8
--- OUTSIDE RECORDS SUMMARY | 2025-01-22 14:21 | XMS_ITS | Patient Health Record ---
Author Organization [facility] Address [address] [place] [address] Care Team Providers Care Mincing Machine Operator Name Role Phone Iron Castano Primary Care Provider UnavailSelvin Figueroa Unavailable [phone] Allergies Allergen (clinical drug ingredient) Drug/Non Drug [...] Problem Status W/U Status Risk Notes Problem 927830258 Encounter for screening for malignant neoplasm of colon (Z12.11) Active confirmed Problem Screening for malignant neoplasm of rectum (098014883) Encounter for screening for malignant neoplasm of rectum (Z12.12) Active confirmed Problem 248502534 Gastroesophageal reflux disease without esophagitis (K21.9) Active confirmed Problem 208042550617050 Preprocedural examination (Z01.818) Active confirmed Plan Of Treatment Future Test Test Name Order Date COLONOSCOPY 07/21/2019 Next Appt Details Provider Name:Selvin Cummings , 04/28/2025 03:20:00 PM, [address] [facility], [address], [place], [address], Insurance Providers Payer Name Payer Address Payer Phone Subscriber Number Group Number Insured Name Patient Relationship to Insured Coverage Start Date Coverage End Date [facility] [address] [place] [phone] [id number] LUIS ANTONIO CARSON Self - patient is the insured Medical (General) History Medical History History ICD Code 02/17/2009 Colonoscopy--nega tive except for mild diverticulosis and internal hemorrhoids GERD-Neg EGD in 02/2009 except for a sma ll HH Depression Pain in arms and legs/feet f rom the C-spine disc disease before her surgery-Dr. Vargas Denies [place],DM,CVA,Lung disease,renal dise ase Surgical History Surgery Date(Month/Year) Lap band--Dr. Doyle--lost approx 40#, but gained it back 2010 Carpal tunnel both wrists 2009 Vaginal polyps 2012 3 C-spine discs removed 05/2015
--- OUTSIDE RECORDS SUMMARY | 2025-01-22 14:21 | XMS_ITS | Clinical Summary ---
Author Organization [facility] Address [address] [place] [address] Care Team Providers Care School Fundraising Director Name Role Phone Iron Castano MD Primary Care Provider [phone] Allergies Active Allergy Reactions Criticality Noted Date [...] [facility] Care Teams School Fundraising Director Relationship Specialty Start Date End Date Iron Castano MD [address] [place] [address] PCP - General Family Medicine 12/30/23
== END 2025-01-22 12:20 | disposition home or self-care (01) ==
LOC: HO.PMC 11:53
PROVIDERS: PCP Family Medicine; Visit Provider Internal Medicine
DX: M17.0 Bilateral primary osteoarthritis of knee (principal)
CPT/HCPCS: 20610

== ENCOUNTER → 2025-01-22 11:52 | Outpatient (BNVA) | payer MEDICARE, MEDICAID, SELFPAY | PROVIDERS: PCP Family Medicine; Visit Provider Internal Medicine | DX: M17.0 Bilateral primary osteoarthritis of knee (principal) | CPT/HCPCS: 20610; J2003; J3301 ==

== ENCOUNTER 2025-02-12 11:52 | Outpatient (AMB) | payer MEDICARE, MEDICAID, SELFPAY ==
--- NOTE | 2025-02-12 11:57 | A.OFFVIS_ITS ---
Vital Signs 02/12/25 12:01 Height 5 ft 4 in Weight 261 lb BMI 44.8 BP 124/68 Blood Pressure Location Lt radial Position Sitting Respiration 16 Pulse 85 Pulse Source Pulse Oximeter Pulse Oximetry (%) 96 Oxygen Delivery Method Room Air Intake Visit Reasons: RIGHT KNEE INJECTION/PILL COUNT Intake Note: Pt states she last took percocet 02/12/25 @ 9am Aircraft Body Repairer Required: No Document Controller: Document Controller Present Accompanied by: Sha Pa Allergies seafood Allergy (Verified 02/12/25 12:02) hives albuterol Adverse Reaction (Severe, Verified 02/12/25 12:02) Shakiness Medication List - Last Reconciled 02/12/25 by Shayy Quan LPN blood pressure monitor Automatic, Digital. Dx: I10. Daily As directed, 999 days/lifetime cholecalciferol (vitamin D3) (Vitamin D3) 10 mcg PO DAILY dexamethasone 1 mg PO ONCE famotidine 40 mg PO DAILY gabapentin 900 mg (1.5 x 600 mg) PO Q8H 30 days hydrochlorothiazide 25 mg PO DAILY 90 days lamotrigine 150 mg PO BID levetiracetam 1,000 mg PO BID 90 days losartan 100 mg PO DAILY 90 days magnesium 200 mg PO DAILY meloxicam 15 mg PO DAILY 30 days naloxone 4 mg/actuation (Narcan) 4 mg intranasal Q2M PRN omeprazole 40 mg (2 x 20 mg) PO DAILY oxycodone-acetaminophen 5-325 mg (Percocet) 1 tab PO QID PRN 30 days venlafaxine ER 150 mg PO DAILY walker (Ultra-Light Rollator misc) Rolling walker with wheels, seat and brakes. Daily ?As directed, 999 days HPI HPI RIGHT KNEE INJECTION/PILL COUNT: Details: History of Present Illness The patient is a 69-year-old female presenting with knee osteoarthritis. She received a knee injection on January 21, which provided relief for a few weeks, but the effects have worn off. The patient is concerned about the frequency of cortisone injections due to potential side effects such as increased blood pressure, elevated blood sugar, weight gain, and weakened bones. The patient has a history of adrenal gland nodules, which are not cancerous but may be excreting cortisol, as noted by Dr. Garcia. She is monitoring these nodules with her healthcare provider. The patient reports a history of hypertension and hyperglycemia, with blood p ressure readings higher than usual and blood sugar levels being off last year. She is not currently on medication for weight loss, although she has been advised to lose weight before considering knee replacement surgery. The patient is exploring options for weight loss medications, such as GLP-1 agonists, but faces insurance coverage challenges. She is considering purchasing these medications [id number] if affordable options are available. Pain Description - Pain primarily located in the knee, exacerbated by weight gain and lack of mobility - Pain relief achieved temporarily with cortisone injections - Pain interferes with daily activities, contributing to a cycle of reduced mobility and increased weight Procedure - Musculoskeletal: Left knee injection performed with 25-g needle, aspiration negative, 40 mg of Kenalog injected without pain. No blood loss. Pain Management - Affect: Pain impacts mobility and contributes to weight gain, creating a cycle of increased pain and reduced activity - Analgesia: Cortisone injections provide temporary relief - Adverse Effects: Concerns about cortisone side effects, including increased blood pressure, elevated blood sugar, and weight gain - Activities of Daily Living: Pain limits mobility, affecting ability to lose weight and increasing reliance on injections - Aberrant Drug Related Behaviors: None reported [facility] Medical History Bronchitis Shingles MARILY (obstructive sleep apnea) Rib pain on left side Restless leg syndrome Chronic pain syndrome Seizure Contusion of right patella Fall Muscle spasms of neck Lower extremity weakness Osteoarthritis of left knee Osteoarthritis of right knee Osteoarthritis of left ankle Arthritis of right knee Acute paronychia of toe Mild anemia Iron deficiency anemia Lumbar spinal stenosis Lumbar and sacral spondyloarthritis Migraine Major depressive disorder Cervical radiculopathy Osteoarthritis of knees, bilateral Urge incontinence Surgical History History of bariatric surgery S/P cervical spinal fusion Family History Father No problems noted. Mother No problems noted. 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 Current occupational exposures/hazards: No Cognitive needs: No Hearing needs: No Vision needs: No Physical Exam Vital Signs: Last Vital Signs Pulse 85 02/12/25 12:01 Resp 16 02/12/25 12:01 BP 124/68 02/12/25 12:01 Pulse Ox 96 02/12/25 12:01 Oxygen Delivery Method Room Air 02/12/25 12:01 BMI result Body Mass Index 44.8 Assessment & Plan Assessment & Plan (1) Osteoarthritis of left knee: Code(s): M17.12 - Unilateral primary osteoarthritis, left knee Category: Medical Plan Plan Patient was informed and verbally consented to the use of an ambient scribe for clinic note documentation during this visit. 1. Knee Osteoarthritis - Plan to reduce frequency of cortisone injections to minimize side effects - Follow-up scheduled for April for potential repeat injection 2. Adrenal Gland Nodules - Monitoring of adrenal nodules for cortisol secretion 3. Hypertension - Monitor blood pressure due to potential cortisone side effects 4. Hyperglycemia - Monitor blood sugar levels due to potential cortisone side effects 5. Obesity - Explore weight loss medications such as GLP-1 agonists - Consider [id number] options if insurance does not cover Discussion Notes During the visit, we discussed the importance of reducing the frequency of cortisone injections to minimize side effects such as increased blood pressure, elevated blood sugar, and weight gain. We also talked about the potential benefits of weight loss medications like GLP-1 agonists and the challenges with insurance coverage. The patient was advised to consider [id number] options if necessary and to follow up in April for a potential repeat injection. Patient Instructions - Reduce the frequency of cortisone injections to minimize side effects. - Monitor blood pressure and blood sugar levels regularly. - Explore weight loss medication options and consider [id number] purchases if insurance does not cover. - Follow up in April for a potential repeat injection. Coding Level of Care Code Est Pt Level 3 (70908) Diagnoses Osteoarthritis of left knee M17.12 Comment w/ procedure
[2025-02-12 12:01] VITALS: BP 124/68; PULSE 85; RESP 16; O2SAT 96; BMI 44.8
--- OUTSIDE RECORDS SUMMARY | 2025-02-12 12:52 | XMS_ITS | Patient Health Record ---
Author Organization [facility] Address [address] [place] [address] Care Team Providers Care Property Management Intern Name Role Phone Iron Castano Primary Care Provider UnavailSelvin Figueroa Unavailable [phone] Allergies Allergen (clinical drug ingredient) Drug/Non Drug [...] Problem Status W/U Status Risk Notes Problem 897990488 Encounter for screening for malignant neoplasm of colon (Z12.11) Active confirmed Problem Screening for malignant neoplasm of rectum (959850679) Encounter for screening for malignant neoplasm of rectum (Z12.12) Active confirmed Problem 584289144 Gastroesophageal reflux disease without esophagitis (K21.9) Active confirmed Problem 107092296709444 Preprocedural examination (Z01.818) Active confirmed Plan Of Treatment Future Test Test Name Order Date COLONOSCOPY 07/21/2019 Next Appt Details Provider Name:Selvin Cummings , 04/28/2025 03:20:00 PM, [address] [facility], [address], [place], [address], Insurance Providers Payer Name Payer Address Payer Phone Subscriber Number Group Number Insured Name Patient Relationship to Insured Coverage Start Date Coverage End Date [facility] [address] [place] [phone] [id number] LUIS ANTONIO CARSON Self - patient is the insured Medical (General) History Medical History History ICD Code 02/17/2009 Colonoscopy--nega tive except for mild diverticulosis and internal hemorrhoids GERD-Neg EGD in 02/2009 except for a sma ll HH Depression Pain in arms and legs/feet f rom the C-spine disc disease before her surgery-Dr. Vargas Denies [place],DM,CVA,Lung disease,renal dise ase Surgical History Surgery Date(Month/Year) Lap band--Dr. Doyle--lost approx 40#, but gained it back 2010 Carpal tunnel both wrists 2009 Vaginal polyps 2012 3 C-spine discs removed 05/2015
--- OUTSIDE RECORDS SUMMARY | 2025-02-12 12:52 | XMS_ITS | Clinical Summary ---
Author Organization [facility] Address [address] [place] [address] Care Team Providers Care Hood Maker Name Role Phone Iron Castano MD Primary Care Provider [phone] Allergies Active Allergy Reactions Criticality Noted Date [...] age to complete this topic Insurance MEDICARE [facility] Care Teams Hood Maker Relationship Specialty Start Date End Date Iron Castano MD [address] [place] [address] PCP - General Family Medicine 12/30/23
== END 2025-02-12 12:19 | disposition home or self-care (01) ==
LOC: HO.PMC 11:53
PROVIDERS: PCP Family Medicine; Visit Provider Internal Medicine
DX: M17.11 Unilateral primary osteoarthritis, right knee (principal)
CPT/HCPCS: 99213

== ENCOUNTER → 2025-02-12 11:52 | Outpatient (BNVA) | payer MEDICARE, MEDICAID, SELFPAY | PROVIDERS: PCP Family Medicine; Visit Provider Internal Medicine | DX: M17.12 Unilateral primary osteoarthritis, left knee (principal); Z79.891 Long term (current) use of opiate analgesic | CPT/HCPCS: 20610; 99212 ==

== ENCOUNTER → 2025-03-04 19:30 | Outpatient (REF) | payer MEDICARE, MEDICAID, SELFPAY ==
--- OUTSIDE RECORDS SUMMARY | 2025-03-04 19:59 | XMS_ITS | Clinical Summary ---
Author Organization [facility] Address [address] [place] [address] Care Team Providers Care Evaporative Cooler Installer Name Role Phone Iron Castano MD Primary Care Provider [phone] Allergies Active Allergy Reactions Criticality Noted Date [...] this topic Insurance MEDICARE [facility] Care Teams Evaporative Cooler Installer Relationship Specialty Start Date End Date Iron Castano MD [address] [place] [address] PCP - General Family Medicine 12/30/23
== END ==
LOC: HO.SL 19:30
PROVIDERS: PCP Family Medicine; Visit Provider Physician Assistant Medical
DX: R06.83 Snoring (principal); G47.19 Other hypersomnia
CPT/HCPCS: 95810

== ENCOUNTER → 2025-03-04 19:53 | Outpatient (BNV) | payer MEDICARE, MEDICAID, SELFPAY | PROVIDERS: PCP Family Medicine; Visit Provider Psychiatry & Neurology Neurology | DX: R40.0 Somnolence (principal); R06.83 Snoring | CPT/HCPCS: 95810 ==

== ENCOUNTER 2025-03-12 07:11 | Outpatient (REF) | payer MEDICARE, MEDICAID, SELFPAY ==
--- OUTSIDE RECORDS SUMMARY | 2025-03-12 07:13 | XMS_ITS | Patient Health Record ---
Author Organization [facility] Address [address] [place] [address] Care Team Providers Care Scuba Diving Teacher Name Role Phone Iron Castano Primary Care Provider UnavailSelvin Figueroa Unavailable [phone] Allergies Allergen (clinical drug ingredient) Drug/Non Drug [...] Problem Status W/U Status Risk Notes Problem Screening for malignant neoplasm of colon (790900266) Encounter for screening for malignant neoplasm of colon (Z12.11) Active confirmed Problem Screening for malignant neoplasm of rectum (552893587) Encounter for screening for malignant neoplasm of rectum (Z12.12) Active confirmed Problem Gastroesophageal reflux disease without esophagitis (216351922) Gastroesophageal reflux disease without esophagitis (K21.9) Active confirmed Problem Preprocedural examination (292434987232566) Preprocedural examination (Z01.818) Active confirmed Plan Of Treatment Future Test Test Name Order Date COLONOSCOPY 07/21/2019 Next Appt Details Provider Name:Selvin Cummings , 04/28/2025 03:20:00 PM, [address] [facility], [address], [place], [address], Insurance Providers Payer Name Payer Address Payer Phone Subscriber Number Group Number Insured Name Patient Relationship to Insured Coverage Start Date Coverage End Date [facility] [address] [place] [phone] [id number] LUIS ANTONIO CARSON Self - patient is the insured Medical (General) History Medical History History ICD Code 02/17/2009 Colonoscopy--nega tive except for mild diverticulosis and internal hemorrhoids GERD-Neg EGD in 02/2009 except for a sma ll HH Depression Pain in arms and legs/feet f rom the C-spine disc disease before her surgery-Dr. Vargas Denies [place],DM,CVA,Lung disease,renal dise ase Surgical History Surgery Date(Month/Year) Lap band--Dr. Doyle--lost approx 40#, but gained it back 2010 Carpal tunnel both wrists 2009 Vaginal polyps 2012 3 C-spine discs removed 05/2015
--- OUTSIDE RECORDS SUMMARY | 2025-03-12 07:13 | XMS_ITS | Clinical Summary ---
Author Organization [facility] Address [address] [place] [address] Care Team Providers Care Dairy Farm Operator Name Role Phone Iron Castano MD Primary Care Provider [phone] Allergies Active Allergy Reactions Criticality Noted Date [...] age to complete this topic Insurance MEDICARE [facility] Care Teams Dairy Farm Operator Relationship Specialty Start Date End Date Iron Castano MD [address] [place] [address] PCP - General Family Medicine 12/30/23
== END 2025-03-12 07:12 | disposition home or self-care (01) ==
LOC: HO.LAB 07:11
PROVIDERS: PCP Family Medicine; Visit Provider Internal Medicine Endocrinology, Diabetes & Metabolism
DX: E27.9 Disorder of adrenal gland, unspecified (principal)
CPT/HCPCS: 36415; 80299; 82533

== ENCOUNTER 2025-03-19 11:22 | Outpatient (AMB) | payer MEDICARE, MEDICAID, SELFPAY ==
--- NOTE | 2025-03-19 11:26 | MHC.OFFVIS ---
Vital Signs 03/19/25 11:36 Height 5 ft 4 in Weight 260 lb BMI 44.6 BP 152/74 H Blood Pressure Location Lt brachial Position Sitting Pulse 104 H Pulse Source Pulse Oximeter Pulse Oximetry (%) 97 Oxygen Delivery Method Room Air Intake Visit Reasons: Pill Count Intake Note: Ivania comes in today for a pill count to oxycodone-acetaminophen, patient should have 36 tablets and presents with 44 tablets which she last took today 03/19/25 at 11am. Pain toay 10/20 Research Quality Assurance Specialist Required: No Accompanied by: Self / Same As Patient Allergies seafood Allergy (Verified 03/19/25 11:37) hives albuterol Adverse Reaction (Severe, Verified 03/19/25 11:37) Shakiness HPI Comments Details: Ivania presents today in the office for a pill count. She is supposed to have #36 oxycodone-acetaminophen 5-325 mg pills and in her possession has #44 pills. This demonstrates a responsible attitude in regards to her medication regimen. She reports reasonable analgesia with no noted side effects except occasional constipation for which she uses Miralax and stool softener. She underwent cortisone knee injections which were partially effective but allowed her to walk longer distances. Patient continues to adjust her lifestyle and diet to loose weight in order to qualify for total knee replacement. The patient is concerned about her weight, having lost only one pound despite efforts to manage her diet with protein drinks and light meals. She expresses interest in weight loss medications but is aware of the potential side effects and the need for thorough evaluation before prescription and ongoing follow up with PCP for weight loss therapy. Denies any cough, cold, infection, fever or any other significant changes in medical history since last office visit. Past procedures 01/22/25 Right and 02/12/25 Left cortisone knee dkqdzitmza-10-13% ongoing pain relief 09/25/24 (right) and 10/12/24 (left) cortisone knee injections-60% ongoing pain relief 07/20/24 (right) and 07/27/24 (left) cortisone knee injections-50% pain relief 05/21/24: Left diagnostic C3-C4-C5 MBB-60% pain relief for 6 hours 01/01/24: Left knee Durolane injection: relief for a few days. 12/11/23: Right knee Durolane injection: No significant relief. 10/03/23: Interlaminar epidural steroid injection, C7-T1, left parasaggital: 75 % relief. 09/16/23: Left knee injection: % relief. 09/06/23: Right knee injection, US guided: 100 % relief. 04/26/23: Bilateral landmark guided intraarticular knee injection: 50% relief. 01/04/23: Right knee injection.: 70% relief for 3 months. 05/02/22: Right Sprint PNS, Saphenous Nerve ? 90% relief that is ongoing. 05/10/21: Right L3-L4 TFESI - 60% pain relief 07/12/21: Left L3-L4 TFESI - 50% pain relief 11/22/21: Left diagnostic saphenous nerve block-50% pain relief for 24 hours. 12/06/21: Right diagnostic GNB-60% pain relief for 24 hours 02/21/22: Right diagnostic SNB at adductor canal- 80% pain relief for 3 hours. 02/28/22: Left diagnostic SNB at adductor canal-60% pain relief for 3 hours. [facility] Medical History Bronchitis Shingles MARILY (obstructive sleep apnea) Rib pain on left side Restless leg syndrome Chronic pain syndrome Seizure Contusion of right patella Fall Muscle spasms of neck Lower extremity weakness Osteoarthritis of left knee Osteoarthritis of right knee Osteoarthritis of left ankle Arthritis of right knee Acute paronychia of toe Mild anemia Iron deficiency anemia Lumbar spinal stenosis Lumbar and sacral spondyloarthritis Migraine Major depressive disorder Cervical radiculopathy Osteoarthritis of knees, bilateral Urge incontinence Surgical History History of bariatric surgery S/P cervical spinal fusion Family History Father No problems noted. Mother No problems noted. 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 Morbidly obese. Alert and oriented. Mood and affect appropriate. Follows and participates in conversation appropriately. Respiratory effort is unlabored. No cough. Able to transition from sit to stand unassisted. Uses walker with seat with ambulation. Ambulates with bilaterally normal heel strike and toe off. Eyes General: appearance normal, both eyes and all related structures Resp Effort & Inspection: normal respiratory effort, able to speak in complete sentences, no cough, not labored, no respiratory distress and symmetric chest movement Psych Appearance: grossly normal Mental Status: mental status grossly normal Speech and movement: Normal speech and movement present and Clear speech present Affect: normal affect Attitude: cooperative Thought process: Normal thought process present Thought content: Normal thought content present, suicidality (none), no hallucinations and Depressive thoughts present Insight: Good insight present (Psych) Judgement: Good judgement present (Psych) Results Reviewed Results Reviewed: No new imaging reports are available for review. Assessment & Plan Assessment & Plan (1) Lumbar and sacral spondyloarthritis: Code(s): M47.817 - Spondylosis without myelopathy or radiculopathy, lumbosacral region Category: Medical (2) Cervical post-laminectomy syndrome: Code(s): M96.1 - Postlaminectomy syndrome, not elsewhere classified Category: Medical (3) Bilateral chronic knee pain: Code(s): M25.561 - Pain in right knee; M25.562 - Pain in left knee; G89.29 - Other chronic pain Category: Medical (4) Osteoarthritis of knees, bilateral: Code(s): M17.0 - Bilateral primary osteoarthritis of knee Category: Medical (5) Chronic pain syndrome: Code(s): G89.4 - Chronic pain syndrome Category: Medical (6) Opioid contract exists: Code(s): Z79.891 - ferry terminal agent (current) use of opiate analgesic Category: Medical Plan Patient has shown accountability for her medication regimen and the pill count was accurate. The patient reported no noted side effects with adequate analgesia. There is no evidence of misuse, abuse or diversion at this time. [employer] reviewed. Script sent for oxycodone-acetaminophen with an advanced date of 03/28/25. New refill for Narcan sent today. I emphasized the need for dietary management to address constipation and the potential benefits and risks of weight loss medications. Patient will follow up in April for potential repeat of right knee cortisone injection as needed. All questions and concerns were answered and patient agreed with the plan. Follow up in one month for pill count and sooner as needed. Medications: Refilled naloxone 4 mg/actuation (Narcan) spray 1 dose into ONE nostril; alternate nostrils w each dose until help arrives 4 mg intranasal Q2M PRN 2 ea 0RF opioid overdose G89.29 - Other chronic pain, M25.561 - Pain in right knee, M25.562 - Pain in left knee, M47.817 - Spondylosis without myelopathy or radiculopathy, lumbosacral region, M96.1 - Postlaminectomy syndrome, not elsewhere classified oxycodone-acetaminophen 5-325 mg (Percocet) Partial Fill upon patient request. 1 tab PO QID PRN 120 tabs 0RF pain 30 days G89.29 - Other chronic pain, G89.4 - Chronic pain syndrome, M25.561 - Pain in right knee, M25.562 - Pain in left knee, M47.817 - Spondylosis without myelopathy or radiculopathy, lumbosacral region Coding Level of Care Code Est Pt Level 4 (44789) Complex EM visit Add On G2211 Diagnoses Lumbar and sacral spondyloarthritis M47.817 Cervical post-laminectomy syndrome M96.1 Bilateral chronic knee pain M25.561; M25.562; G89.29 Osteoarthritis of knees, bilateral M17.0 Chronic pain syndrome G89.4 Opioid contract exists Z79.891
[2025-03-19 11:36] VITALS: BP 152/74; PULSE 104; O2SAT 97; BMI 44.6
--- OUTSIDE RECORDS SUMMARY | 2025-03-19 13:42 | XMS_ITS | Clinical Summary ---
Author Organization [facility] Address [address] [place] [address] Care Team Providers Care Buggy Man Name Role Phone Iron Castano MD Primary Care Provider [phone] Allergies Active Allergy Reactions Criticality Noted Date [...] age to complete this topic Insurance MEDICARE [facility] Care Teams Buggy Man Relationship Specialty Start Date End Date Iron Castano MD [address] [place] [address] PCP - General Family Medicine 12/30/23
--- OUTSIDE RECORDS SUMMARY | 2025-03-19 13:42 | XMS_ITS | Patient Health Record ---
Author Organization [facility] Address [address] [place] [id number] Care Team Providers Care Packing Attendant Name Role Phone Iron Castano Primary Care Provider UnavailSelvin Figueroa Unavailable [phone] Allergies Allergen (clinical drug ingredient) Drug/Non Drug [...] Problem Screening for malignant neoplasm of colon (323537977) Encounter for screening for malignant neoplasm of colon (Z12.11) Active confirmed Problem Screening for malignant neoplasm of rectum (791686018) Encounter for screening for malignant neoplasm of rectum (Z12.12) Active confirmed Problem Gastroesophageal reflux disease without esophagitis (507992533) Gastroesophageal reflux disease without esophagitis (K21.9) Active confirmed Problem Preprocedural examination (302262110929193) Preprocedural examination (Z01.818) Active confirmed Plan Of Treatment Future Test Test Name Order Date COLONOSCOPY 07/21/2019 Next Appt Details Provider Name:Selvin Cummings , 04/28/2025 03:20:00 PM, [address] [facility], [address], [place], [address], Insurance Providers Payer Name Payer Address Payer Phone Subscriber Number Group Number Insured Name Patient Relationship to Insured Coverage Start Date Coverage End Date [facility] [address] [place] [phone] [id number] LUIS ANTONIO CARSON Self - patient is the insured Medical (General) History Medical History History ICD Code 02/17/2009 Colonoscopy--nega tive except for mild diverticulosis and internal hemorrhoids GERD-Neg EGD in 02/2009 except for a sma ll HH Depression Pain in arms and legs/feet f rom the C-spine disc disease before her surgery-Dr. Vargas Denies [place],DM,CVA,Lung disease,renal dise ase Surgical History Surgery Date(Month/Year) Lap band--Dr. Doyle--lost approx 40#, but gained it back 2010 Carpal tunnel both wrists 2009 Vaginal polyps 2012 3 C-spine discs removed 05/2015
== END 2025-03-19 11:57 | disposition home or self-care (01) ==
LOC: HO.PMC 11:23
PROVIDERS: PCP Family Medicine; Visit Provider Nurse Practitioner Family
DX: M47.817 Spondylosis without myelopathy or radiculopathy, lumbosacral region (principal); M96.1 Postlaminectomy syndrome, not elsewhere classified; M25.561 Pain in right knee; M25.562 Pain in left knee; G89.29 Other chronic pain; M17.0 Bilateral primary osteoarthritis of knee; G89.4 Chronic pain syndrome; Z79.891 Long term (current) use of opiate analgesic
CPT/HCPCS: 99214; G2211

== ENCOUNTER → 2025-03-19 11:22 | Outpatient (BNVA) | payer MEDICARE, MEDICAID, SELFPAY | PROVIDERS: PCP Family Medicine; Visit Provider Nurse Practitioner Family | DX: G89.4 Chronic pain syndrome (principal); M47.817 Spondylosis without myelopathy or radiculopathy, lumbosacral region; M96.1 Postlaminectomy syndrome, not elsewhere classified; M25.561 Pain in right knee; M25.562 Pain in left knee; M17.0 Bilateral primary osteoarthritis of knee; Z79.891 Long term (current) use of opiate analgesic | CPT/HCPCS: 99212 ==

== ENCOUNTER 2025-03-24 12:48 | Outpatient (REF) | payer MEDICARE, MEDICAID, SELFPAY ==
--- OUTSIDE RECORDS SUMMARY | 2025-03-24 15:27 | XMS_ITS | Clinical Summary ---
Author Organization [facility] Address [address] [place] [address] Care Team Providers Care Clinical Data Assistant Name Role Phone Iron Castaon MD Primary Care Provider [phone] Allergies Active Allergy Reactions Criticality Noted Date [...] to complete this topic Insurance MEDICARE [facility] Care Teams Clinical Data Assistant Relationship Specialty Start Date End Date Iron Castano MD [address] [place] [address] PCP - General Family Medicine 12/30/23
--- OUTSIDE RECORDS SUMMARY | 2025-03-24 15:27 | XMS_ITS | Patient Health Record ---
Author Organization [facility] Address [address] [place] [address] Care Team Providers Care Physician Assistant Certified Name Role Phone Iron Castano Primary Care Provider UnavailSelvin Figueroa Unavailable [phone] Allergies Allergen (clinical drug ingredient) Drug/Non Drug [...] Problem Screening for malignant neoplasm of colon (891506913) Encounter for screening for malignant neoplasm of colon (Z12.11) Active confirmed Problem Screening for malignant neoplasm of rectum (282473703) Encounter for screening for malignant neoplasm of rectum (Z12.12) Active confirmed Problem Gastroesophageal reflux disease without esophagitis (383082384) Gastroesophageal reflux disease without esophagitis (K21.9) Active confirmed Problem Preprocedural examination (542743261021005) Preprocedural examination (Z01.818) Active confirmed Plan Of Treatment Future Test Test Name Order Date COLONOSCOPY 07/21/2019 Next Appt Details Provider Name:Selvin Cummings , 04/28/2025 03:20:00 PM, [address] [facility], [address], [place], [address], Insurance Providers Payer Name Payer Address Payer Phone Subscriber Number Group Number Insured Name Patient Relationship to Insured Coverage Start Date Coverage End Date [facility] [address] [place] [phone] [id number] LUIS ANTONIO CARSON Self - patient is the insured Medical (General) History Medical History History ICD Code 02/17/2009 Colonoscopy--nega tive except for mild diverticulosis and internal hemorrhoids GERD-Neg EGD in 02/2009 except for a sma ll HH Depression Pain in arms and legs/feet f rom the C-spine disc disease before her surgery-Dr. Vargas Denies [place],DM,CVA,Lung disease,renal dise ase Surgical History Surgery Date(Month/Year) Lap band--Dr. Doyle--lost approx 40#, but gained it back 2010 Carpal tunnel both wrists 2009 Vaginal polyps 2012 3 C-spine discs removed 05/2015
== END 2025-03-24 12:49 | disposition home or self-care (01) ==
LOC: HO.SH 12:48
PROVIDERS: Visit Provider Family Medicine
DX: Z01.118 Encounter for examination of ears and hearing with other abnormal findings (principal); H90.A22 Sensorineural hearing loss, unilateral, left ear, with restricted hearing on the contralateral side; H90.A31 Mixed conductive and sensorineural hearing loss, unilateral, right ear with restricted hearing on the contralateral side
CPT/HCPCS: 92557; 92567

== ENCOUNTER 2025-04-16 11:40 | Outpatient (AMB) | payer MEDICARE, MEDICAID, SELFPAY ==
--- NOTE | 2025-04-16 11:47 | A.OFFVIS_ITS ---
Vital Signs 04/16/25 11:48 Height 5 ft 4 in Weight 257 lb BMI 44.1 BP 138/67 Respiration 16 Pulse 97 Pulse Source Pulse Oximeter Pulse Oximetry (%) 95 Oxygen Delivery Method Room Air Intake Visit Reasons: Right Knee Inj/Pill count Intake Note: Pt states she last took percocet 04/16/25 @11am Director Of Business Operations Required: No Mesh Worker: Mesh Worker Present Accompanied by: Sha Pa Allergies seafood Allergy (Verified 04/19/25 13:03) hives albuterol Adverse Reaction (Severe, Verified 04/19/25 13:03) Shakiness Medication List - Last Reconciled 04/16/25 by Shayy Quan LPN blood pressure monitor Automatic, Digital. Dx: I10. Daily As directed, 999 days/lifetime cholecalciferol (vitamin D3) (Vitamin D3) 10 mcg PO DAILY famotidine 40 mg PO DAILY 30 days gabapentin 900 mg (1.5 x 600 mg) PO Q8H 30 days hydrochlorothiazide 25 mg PO DAILY 90 days lamotrigine 150 mg PO BID levetiracetam 1,000 mg PO BID 90 days losartan 100 mg PO DAILY 90 days magnesium 200 mg PO DAILY meloxicam 15 mg PO DAILY 30 days naloxone 4 mg/actuation (Narcan) 4 mg intranasal Q2M PRN omeprazole 40 mg (2 x 20 mg) PO DAILY oxycodone-acetaminophen 5-325 mg (Percocet) 1 tab PO QID PRN 30 days venlafaxine ER 150 mg PO DAILY walker (Ultra-Light Rollator misc) Rolling walker with wheels, seat and brakes. Daily ?As directed, 999 days HPI HPI Right Knee Inj/Pill count: Details: History of Present Illness The patient is a 70 year old female presenting for a right knee injection. She receives injections every three months for knee pain, with the last injection administered to her left knee in February. The patient is managed on chronic opioid therapy with Percocet, and a recent pill count was consistent with her prescribed use. On the day of the visit, she experienced a fall when she slipped on ice while clearing her car. She fell on her side but reports no significant injury. Pain Description - Location: Right knee Physical Exam Results - Tests: Patient's pill count was consistent with expected use. Pain Management - Analgesia: The patient is on chronic Percocet therapy and receives intraarticular knee injections every 3 months. - Aberrant Drug Related Behaviors: The patient's pill count was consistent with the prescribed regimen. Procedure - Procedure: Right knee intraarticular injection. - Consent: Informed consent was obtained. - Description: The patient was placed in a sitting position, and a mixture of 40 mg of Kenalog and 3 mL of ropivacaine 0.25% was injected into the right knee joint using a landmark technique. - Complications: There was no pain on injection or blood loss. - Tolerance: The patient tolerated the procedure well. [facility] Medical History Bronchitis Shingles MARILY (obstructive sleep apnea) Rib pain on left side Restless leg syndrome Chronic pain syndrome Seizure Contusion of right patella Fall Muscle spasms of neck Lower extremity weakness Osteoarthritis of left knee Osteoarthritis of right knee Osteoarthritis of left ankle Arthritis of right knee Acute paronychia of toe Mild anemia Iron deficiency anemia Lumbar spinal stenosis Lumbar and sacral spondyloarthritis Migraine Major depressive disorder Cervical radiculopathy Osteoarthritis of knees, bilateral Urge incontinence Surgical History History of bariatric surgery S/P cervical spinal fusion Family History Father No problems noted. Mother No problems noted. 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 Current occupational exposures/hazards: No Cognitive needs: No Hearing needs: No Vision needs: No Physical Exam Vital Signs: Last Vital Signs Pulse 97 04/16/25 11:48 Resp 16 04/16/25 11:48 BP 138/67 04/16/25 11:48 Pulse Ox 95 04/16/25 11:48 Oxygen Delivery Method Room Air 04/16/25 11:48 BMI result Body Mass Index 44.1 Assessment & Plan Assessment & Plan (1) Osteoarthritis of knees, bilateral: Code(s): M17.0 - Bilateral primary osteoarthritis of knee Category: Medical Plan Plan Patient was informed and verbally consented to the use of an ambient scribe for clinic note documentation during this visit. 1. Chronic Right Knee Pain - Performed a right knee intraarticular injection with 40 mg of Kenalog and ropivacaine 0.25%. - The patient will follow up in 3 months for a repeat injection in the contralateral knee. 2. Chronic Pain Management - A refill for Percocet was sent to the pharmacy. - A prescription for naloxone was sent to the pharmacy along with the opioid refill. Discussion Notes I confirmed with the patient that we would be performing an injection on her right knee today. I obtained informed consent before proceeding with the intraarticular injection, which she tolerated well. I have sent a refill for her Percocet and a new prescription for naloxone to her pharmacy. We discussed that she should return in three months for an injection on her left side. Patient Instructions - A refill for your Percocet medication has been sent to your pharmacy. - A prescription for Narcan (naloxone) was also sent to your pharmacy as a safety precaution with your pain medication. - Please follow up in 3 months for an injection in your other knee. Medications: Refilled oxycodone-acetaminophen 5-325 mg (Percocet) Partial Fill upon patient request. 1 tab PO QID PRN 120 tabs 0RF pain 30 days G89.29 - Other chronic pain, G89.4 - Chronic pain syndrome, M25.561 - Pain in right knee, M25.562 - Pain in left knee, M47.817 - Spondylosis without myelopathy or radiculopathy, lumbosacral region Coding Level of Care Code Procedure Only Diagnoses Osteoarthritis of knees, bilateral M17.0
[2025-04-16 11:48] VITALS: BP 138/67; PULSE 97; RESP 16; O2SAT 95; BMI 44.1
== END 2025-04-16 12:10 | disposition home or self-care (01) ==
LOC: HO.PMC 11:41
PROVIDERS: PCP Family Medicine; Visit Provider Internal Medicine
DX: M25.561 Pain in right knee (principal); M17.0 Bilateral primary osteoarthritis of knee
CPT/HCPCS: 20610

== ENCOUNTER → 2025-04-16 11:40 | Outpatient (BNVA) | payer MEDICARE, MEDICAID, SELFPAY | PROVIDERS: PCP Family Medicine; Visit Provider Internal Medicine | DX: M17.11 Unilateral primary osteoarthritis, right knee (principal); G89.29 Other chronic pain; Z51.81 Encounter for therapeutic drug level monitoring; Z79.891 Long term (current) use of opiate analgesic | CPT/HCPCS: 20610; J2795; J3301 ==

== ENCOUNTER 2025-04-19 12:54 | Outpatient (AMB) | payer MEDICARE, MEDICAID, SELFPAY ==
--- NOTE | 2025-04-19 13:02 | A.OFFVIS_ITS ---
Vital Signs 04/19/25 13:03 Height 5 ft 4 in Weight 259 lb 11.272 oz BMI 44.6 BP 110/76 Blood Pressure Location Lt brachial Position Sitting Pulse 98 Pulse Source Pulse Oximeter Pulse Oximetry (%) 95 Oxygen Delivery Method Room Air Intake Visit Reasons: f/u adrenal adenoma Intake Note: Patient present today to follow up on Adrenal Adenoma. Analyst Microbiology Lab Required: No Accompanied by: Self / Same As Patient Allergies seafood Allergy (Verified 04/19/25 13:03) hives albuterol Adverse Reaction (Severe, Verified 04/19/25 13:03) Shakiness Medication List - Last Reconciled 04/19/25 by Selvin Garcia MD blood pressure monitor Automatic, Digital. Dx: I10. Daily As directed, 999 days/lifetime cholecalciferol (vitamin D3) (Vitamin D3) 10 mcg PO DAILY famotidine 40 mg PO DAILY 30 days gabapentin 900 mg (1.5 x 600 mg) PO Q8H 30 days hydrochlorothiazide 25 mg PO DAILY 90 days lamotrigine 150 mg PO BID levetiracetam 1,000 mg PO BID 90 days losartan 100 mg PO DAILY 90 days magnesium 200 mg PO DAILY meloxicam 15 mg PO DAILY 30 days naloxone 4 mg/actuation (Narcan) 4 mg intranasal Q2M PRN omeprazole 40 mg (2 x 20 mg) PO DAILY oxycodone-acetaminophen 5-325 mg (Percocet) 1 tab PO QID PRN 30 days venlafaxine ER 150 mg PO DAILY walker (Ultra-Light Rollator misc) Rolling walker with wheels, seat and brakes. Daily ?As directed, 999 days HPI Comments Details: 70 YO F who is seen in consultation at the request of PCP for adrenal incidentaloma. The patient is a 69-year-old female presenting with an adrenal gland lesion. The lesion was initially discovered during an emergency room visit where a CT scan a nd MRI were performed. Upon review of past records, it was noted that the lesion has been present since 2006 and was considered benign at that time. The patient reports a history of essential hypertension, managed with 50 mg of losartan daily and a diuretic. Blood pressure is generally well-controlled with this regimen. The patient has experienced a weight gain of approximately 40 pounds over the past year and a half. She denies any purplish stretch hager but reports easy bruising. The patient experiences dizziness upon standing, which has become more frequent in recent weeks. Had MRI abdomen/pelvis 01/14/25 for which revealed below. Prior CT dated 2006revealed lipid rich R adenoma. Denies history of spells with headache, flushing, diaphoresis, abdominal pain or diarrhea. Admits to weight gain 40 lbs over 1 yr , frequent infections, +easy bruisability, -development of violaceous striae. History of HTN, controlled on 2 agents. No history of anticoagulant use. Denies any weight loss,occasional orthostatic symptoms,- hypoglycemia. No history of malignancy or TB. Imaging: ADRENAL GLANDS: MRI Right: 2.2 cm nodule (4:23) does not show drop in the signal on the [id number]-uh-[id number] sequence compared to the in-phase sequence. Mygmvnb-eg-weisou CSI ratio of 1.12 is indeterminate. Adrenal signal intensity index of -5.3 % is indeterminate. There is relatively homogeneous enhancement following administration of intravenous contrast. Left: 1.1 cm nodule (4:19) shows drop in signal on the akt-rq-miivc sequence compared to the in-phase sequence. Aumcfte-ls-qfqdgzyil CSI ratio of 0.60 and adrenal signal intensity index of 43.7 % indicates lipid-rich adenoma. - General: Reports weight gain of 40 pounds over the past year and a half. - Cardiovascular: Denies palpitations, reports dizziness upon standing. - Dermatological: Reports easy bruising, denies purplish stretch hager. - Neurological: Denies headaches associated with sweating and palpitations. Labs: Workup for hypersecretion hormonally was negative [facility] Medical History Bronchitis Shingles MARILY (obstructive sleep apnea) Rib pain on left side Restless leg syndrome Chronic pain syndrome Seizure Contusion of right patella Fall Muscle spasms of neck Lower extremity weakness Osteoarthritis of left knee Osteoarthritis of right knee Osteoarthritis of left ankle Arthritis of right knee Acute paronychia of toe Mild anemia Iron deficiency anemia Lumbar spinal stenosis Lumbar and sacral spondyloarthritis Migraine Major depressive disorder Cervical radiculopathy Osteoarthritis of knees, bilateral Urge incontinence Surgical History History of bariatric surgery S/P cervical spinal fusion Family History Father No problems noted. Mother No problems noted. 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 Although the right adrenal nodule is indeterminate on MRI in phase/out of phase, it has been present since 2006 initially had characteristics on CAT scan being lipid rich adenoma. The left adrenal mass shows benign characteristics on MRI in phase/out of phase. Do the chronicity of the lesion in its appearance is throughout the years, there is a very low likelihood of malignancy in either lesion. Hormonal workup for hypersecretion was negative Plan is for continued observation. Patient returned for follow up visit 1 year's time Coding Level of Care Code Est Pt Level 3 (89176) Diagnoses Adrenal nodule E27.9
[2025-04-19 13:03] VITALS: BP 110/76; PULSE 98; O2SAT 95; BMI 44.6
--- OUTSIDE RECORDS SUMMARY | 2025-04-19 21:42 | XMS_ITS | Clinical Summary ---
Author Organization [facility] Address [address] [place] [address] Care Team Providers Care Director Inpatient Headache Program Name Role Phone Iron Castano MD Primary Care Provider [phone] Allergies Active Allergy Reactions Criticality Noted Date [...] Health Annual Screening 05/13/2024 Influenza Vaccine (#1) 2024 , 02/07/2022, 05/11/2021, Additional history exists COVID-19 Vaccine ( - season) 2025 02/07/2022, 08/30/2021, 03/07/2021, Additional history exists DTaP,Tdap,and Td Vaccines (2 - Td or Tdap) 01/19/2029 01/19/2019 Pneumococcal Vaccine: 50+ Years Completed 02/12/2023 RSV Vaccine (60+ years old and patients) Completed 04/12/2023 Hepatitis B Vaccines Aged Out No long er eligible based on patient's age to complete this topic Insurance * Guarantor: Ivania Christianson Account Type Relation to Patient Date of Phone Billing Address Personal/Family Self [address] [place] [id number] MEDICARE [facility] Care Teams Director Inpatient Headache Program Relationship Specialty Start Date End Date Iron Castano MD [address] [place] [address] PCP - General Family Medicine 12/30/23
== END 2025-04-19 13:16 | disposition home or self-care (01) ==
LOC: HO.ENCR 12:55
PROVIDERS: PCP Family Medicine; Visit Provider Internal Medicine Endocrinology, Diabetes & Metabolism
DX: E27.9 Disorder of adrenal gland, unspecified (principal)
CPT/HCPCS: 99213

== ENCOUNTER → 2025-04-19 12:54 | Outpatient (BNVA) | payer MEDICARE, MEDICAID, SELFPAY | PROVIDERS: PCP Family Medicine; Visit Provider Internal Medicine Endocrinology, Diabetes & Metabolism | DX: E27.9 Disorder of adrenal gland, unspecified (principal) | CPT/HCPCS: 99212 ==